=== PATIENT | male | born 1960 | race American Indian/Alaskan Native ===

== ENCOUNTER 2023-12-03 17:50 | Inpatient (IN) | payer MEDICARE, MEDICAID, SELFPAY ==
[2023-12-03] VITALS (13 sets, daily range): BP systolic 124–162; BP diastolic 70–120; PULSE 75–108; RESP 15–26; TEMP 36.8–38.9; O2SAT 90–96; BMI 32.3; BMI 33.1
--- NOTE | 2023-12-03 17:55 | ECG_ITS ---
APPROVED REPORT Exam: Resting ECG HR:110 bpm ECG Measurements Heart Rate 110 AXES QRSd 103 QRS 59 QT 286 T 59 QTc 351 Conclusion ATRIAL Flutter WITH RAPID VENTRICULAR RESPONSE NONSPECIFIC ST & T-WAVE ABNORMALITY ABNORMAL RHYTHM ECG Electronically signed by : COLE WYATT, 12/04/2023 15:33:31
[2023-12-03 18:03] LABS: Lactate Venous 1.9 mmol/L (0.4-2.0); VBG Base Excess -1.8 mmol/L (-2.4-2.3); VBG HCO3 24.5 mmol/L (23-30); VBG Oxygen Saturation 82.8 % (50-70); VBG PCO2 50.3 mmol/L (35-51); VBG PH 7.31 mmol/L (7.31-7.41); VBG PO2 48.8 mmol/L (28-40); VBG Total CO2 26.1 mmol/L (23-27)
--- NOTE | 2023-12-03 18:34 | XR_ITS ---
PROCEDURE INFORMATION: Exam: XR Chest Exam date and time: 12/03/2023 6:35 PM Age: 63 years old Clinical indication: Cough and shortness of breath; Patient HX: Cough, dyspnea, weakness TECHNIQUE: Imaging protocol: Radiologic exam of the chest. Views: 1 view. COMPARISON: No relevant prior studies available. FINDINGS: Lungs: Hazy fepjk-rgcgrsa-qvki-left megha-/infrahilar opacities. Pleural spaces: No pleural effusion. No pneumothorax. Heart/Mediastinum: Cardiomegaly. Bones/joints: Unremarkable. IMPRESSION: 1. Hazy yuraf-ixznczd-mokl-left megha-/infrahilar opacities which may represent pulmonary edema or infection in the acute setting. 2. Cardiomegaly.
[2023-12-03 18:43] LABS: Basophils % 0.5 % (0.1-2.0); Eosinophils % 0.3 % (0.1-12.0); Hematocrit 37.8 % (42.0-52.0); Hemoglobin 13.9 g/dL (14.1-18.0); Lymphocytes # 0.6 K/mm3 (0.7-4.5); Lymphocytes % 7.4 % (10-50); Mean Corpuscular HGB Conc 36.7 g/dL (31.8-35.4); Mean Corpuscular Hemoglobin 32.9 pg (27.0-31.2); Mean Corpuscular Volume 89.6 fl (80-94); Mean Platelet Volume 8.8 fl (7.4-10.4); Monocytes # 0.6 K/mm3 (0.1-1.0); Monocytes % 6.9 % (1.7-9.3); Neutrophils # 7.1 K/mm3 (1.8-7.8); Neutrophils % 84.9 % (37.0-80.0); Platelet Count 129 K/mm3 (142-424); Red Blood Count 4.22 M/mm3 (4.60-6.20); Red Cell Distribution Width 16.2 % (11.5-17.5); White Blood Count 8.3 K/mm3 (4.8-10.8)
[2023-12-03 18:48] LABS: Alanine Aminotransferase 23 U/L (12-78); Albumin Level 3.9 g/dl (3.5-5.0); Albumin/Globulin Ratio 1.3 (1.1-1.8); Alkaline Phosphatase 56 U/L (38-126); Anion Gap 10.2 mEq/L (5-15); Aspartate Amino Transferase 22 U/L (17-59); Bilirubin,Total 2.2 mg/dl (0.2-1.3); Blood Urea Nitrogen 25 mg/dl (9-20); Calcium 8.8 mg/dl (8.4-10.2); Carbon Dioxide 29 mmol/L (22.0-30.0); Chloride 102 mmol/L (98-107); Creatinine Clearance Estimated 116 mL/min (50-200); Estimated Glomerular Filt Rate 75 ml/min (>60); GFR (African American) 91 ML/MIN (>60); Globulin 3.1 g/dL (1.3-3.2); Glucose 145 mg/dl (74-100); Potassium 3.2 mmoL/L (3.5-5.1); Sodium 138 mmol/L (136-145)
--- NOTE | 2023-12-03 18:50 | PC.NURSE ---
BLOOD CULTURES AND NASAL SWAB COLLECTED PT AXILLARY TEMP 102.1, DR KO NOTIFIED TRIGGERS FOR SEPSIS, REQUESTED SEPSIS BOLUS BY DR. KO. WILL ORDER 500ML BOLUS FOR NOW
--- NOTE | 2023-12-03 18:50 | HMH.EDGENADL ---
Discharge Plan Disposition Chief Complaint: Shortness of Breath/Dyspnea Prescriptions Prescriptions: No Action tamsulosin 0.4 mg Capsule 0.8 mg PO DAILY aspirin 81 mg Tablet,Chewable 81 mg PO DAILY gabapentin 100 mg Capsule 100 mg PO TID atorvastatin 20 mg Tablet 20 mg PO HS montelukast 10 mg Tablet 10 mg PO HS metformin 500 mg Tablet 1,000 mg PO DAILY fluticasone propion-salmeterol 250-50 mcg/dose Blister With Device 1 inh INHALATION BID carvedilol 25 mg Tablet 25 mg PO BID Rx Instructions: must administer with a meal/food hydralazine 25 mg Tablet 25 mg PO DAILY spironolactone 25 mg Tablet 25 mg PO DAILY amlodipine 10 mg Tablet 10 mg PO DAILY bumetanide 1 mg Tablet 1 mg PO DAILY Eliquis 5 mg Tablet 5 mg PO BID Jardiance 25 mg Tablet 25 mg PO DAILY Referrals Follow up/Referrals: Provider,Referral, MD [Primary Care Provider] - See instructions Clinical Impressions Clinical Impression: Acute hypoxic respiratory failure, Acute exacerbation of chronic obstructive airways disease, Multifocal pneumonia, Sepsis Discharge ED Provider: Wai Luu General Adult HPI General Chief complaint: Shortness of Breath/Dyspnea Stated complaint: SOA Time Seen by Provider: 12/03/23 18:15 Mode of Arrival: EMS Source of Information: Patient and EMS Limitations: No Limitations Description of Symptoms (Recalled from ER Triage Doc. by RN): pt presents to ED with co productive cough with blood, shortness of air, lethargy. pt reports he was mowing the yard yesterday and got overheated. pt reports approx 0130 this morning he began to have worsening shortness of air and productive cough. pt has extensive health history and gets alot of his care done at History of Present Illness HPI narrative: Patient is a 63-year-old male with a history of hypertension diabetes and COPD who presents today with increasing cough that is been productive and shortness of breath. Denies any significant increase in his wheezing. No history of smoking. Does not have a history of coronary artery disease or heart failure however he does have a history of atrial fibrillation and is chronically anticoagulated on Eliquis. Denies any fevers or chills. Symptoms have only been going on since earlier this morning. Does have some chronic mild bilateral lower extremity edema which is at its baseline. Related Data Home Medications Medication Instructions Recorded Confirmed amlodipine 10 mg tablet 10 mg PO DAILY 12/03/23 12/03/23 apixaban 5 mg tablet (Eliquis) 5 mg PO BID 12/03/23 12/03/23 aspirin 81 mg chewable tablet 81 mg PO DAILY 12/03/23 12/03/23 atorvastatin 20 mg tablet 20 mg PO HS 12/03/23 12/03/23 bumetanide 1 mg tablet 1 mg PO DAILY 12/03/23 12/03/23 carvedilol 25 mg tablet 25 mg PO BID 12/03/23 12/03/23 empagliflozin 25 mg tablet 25 mg PO DAILY 12/03/23 12/03/23 (Jardiance) fluticasone 250 mcg-salmeterol 50 1 inh inhalation BID 12/03/23 12/03/23 mcg/dose blistr powdr for inhalation gabapentin 100 mg capsule 100 mg PO TID 12/03/23 12/03/23 hydralazine 25 mg tablet 25 mg PO DAILY 12/03/23 12/03/23 metformin 500 mg tablet 1,000 mg PO DAILY 12/03/23 12/03/23 montelukast 10 mg tablet 10 mg PO HS 12/03/23 12/03/23 spironolactone 25 mg tablet 25 mg PO DAILY 12/03/23 12/03/23 tamsulosin 0.4 mg capsule 0.8 mg PO DAILY 12/03/23 12/03/23 Allergies Allergy/AdvReac Type Severity Reaction Status Date / Time No Known Allergies Allergy Verified 12/03/23 18:15 [facility] Disclaimer: The information contained in this section may have been updated after the patient was seen, as this information can be updated by other users. Social History Smoking Status: Former smoker alcohol intake: never current occupational status: other Travel in the last 8 weeks: None ROS Obtained: Yes All systems reviewed & no additional complaints except as documented Physical Exam General General appearance: alert and in distress (Tachypneic oxygen saturations low 80s on room air in the mid 90s on 4 L nasal cannula) Respiratory Respiratory exam: Present other (Expiratory wheezing nonfocal adventitious lung sounds mildly tachypneic) Cardiovascular Cardiovascular exam: Present regular rate and normal rhythm Neurological Exam Neurological exam: Present alert and oriented X3 Medical Decision Making [place] Inquiry Pt receiving controlled substance: No Vital Signs: 12/03/23 17:51 12/03/23 18:30 12/03/23 18:50 Temperature 98.4 F 102.1 F H Temperature Source Oral Axillary Pulse Rate 108 H Pulse Rate [Left Radial] 103 H Respiratory Rate 15 23 Blood Pressure 158/82 H Blood Pressure [Right Arm] 139/120 H Blood Pressure Mean [Right Arm] 126 02 Sat by Pulse Oximetry 92 L 94 L Oxygen Delivery Method Nasal Cannula Nasal Cannula Oxygen Flow Rate (LPM) 4 4 Lab Data Lab results reviewed: Yes I reviewed the patient's lab results. Lab Results 12/03/23 17:45: WBC 8.3, RBC 4.22 L, Hgb 13.9 L, Hct 37.8 L, MCV 89.6, MCH 32.9 H, MCHC 36.7 H, RDW 16.2, Plt Count 129 L, MPV 8.8, Neut % (Auto) 84.9 H, Lymph % (Auto) 7.4 L, [place] % (Auto) 6.9, Eos % (Auto) 0.3, Baso % (Auto) 0.5, Neut # (Auto) 7.1, Lymph # (Auto) 0.6 L, [place] # (Auto) 0.6, Eos # (Auto) 0.0, Baso # (Auto) 0.0, D-Dimer 0.34, Sodium 138, Potassium 3.2 L, Chloride 102, Carbon Dioxide 29, Anion Gap 10.2, BUN 25 H, Creatinine 1.00, Estimated Creat Clear 116, Estimated GFR 75, Est GFR ( Amer) 91, Glucose 145 H, Calcium 8.8, Total Bilirubin 2.2 H, AST 22, ALT 23, Alkaline Phosphatase 56, Troponin I < 0.01, NT-Pro-B Natriuret Pep 5270 H, Total Protein 7.0, Albumin 3.9, Globulin 3.1, Albumin/Globulin Ratio 1.3 12/03/23 17:54: VBG pH 7.31, VBG pCO2 50.3, VBG pO2 48.8 H, VBG HCO3 24.5, VBG Total CO2 26.1, VBG O2 Saturation 82.8 H, VBG Base Excess -1.8, VBG Lactic Acid 1.9 12/03/23 18:53: SARS-CoV-2 (PCR) Not detected, Influenza A Untype (PCR) Not detected, Influenza Type B (PCR) Not detected 12/03/23 17:45 12/03/23 17:45 Orders (Tests/Meds): ED MEDICATIONS Discontinued Medications Generic Name Dose Route Start Last Admin Trade Name Rose PRN Reason Stop Dose Admin Acetaminophen 1,000 mg 12/03/23 18:57 Acetaminophen 1,000mg/100ml Vial IV 12/03/23 18:58 ONCE ONE Albuterol/Ipratropium 3 ml 12/03/23 18:34 12/03/23 18:56 Ipratropium/Albuterol 3 Ml Neb IH 12/03/23 18:35 3 ml ONCE ONE Administration Lactated Ringer's 500 mls @ 999 mls/hr 12/03/23 18:45 12/03/23 18:50 Lactated Ringer's 1000 Ml Bag IV 12/03/23 19:15 Not Given .Q31M YUE Magnesium Sulfate 2 gm in 50 mls @ 50 mls/hr 12/03/23 18:34 12/03/23 18:56 Magnesium Sulfate 2gm/50ml Premix IV 12/03/23 19:33 50 mls/hr ONCE ONE Administration Lactated Ringer's 500 mls @ 999 mls/hr 12/03/23 18:50 12/03/23 18:56 Lactated Ringer's 500ml IV 12/03/23 19:20 999 mls/hr .Q31M ONE Administration Ceftriaxone Sodium 1 gm/ 50 mls @ 100 mls/hr 12/03/23 18:57 Sodium Chloride IV 12/03/23 19:26 ONCE ONE Azithromycin 500 mg/ Sodium 250 mls @ 250 mls/hr 12/03/23 18:57 Chloride IV 12/03/23 18:58 ONCE ONE Methylprednisolone Sodium Succinate 125 mg 12/03/23 18:34 12/03/23 18:56 Methylprednisolone Sod Succ 125mg Vial IV 12/03/23 18:35 125 mg ONCE ONE Administration ORDERS Category Date Time Status CXR --portable [XR chest portable] Stat Exams 12/03/23 18:34 Completed POCUS Point of Care (ER Only) Stat Exams 12/03/23 18:26 Completed BNP [NT Pro Brain Natriuretic Pep.] Stat Lab 12/03/23 17:45 Completed CBC w/Auto Diff [Complete Blood Count Auto Diff] Stat Lab 12/03/23 17:45 Completed CMP [Comprehensive Metabolic Panel] Stat Lab 12/03/23 17:45 Completed D-Dimer Stat Lab 12/03/23 17:45 Completed Rapid PCR Covid and Flu A/B Stat Lab 12/03/23 18:53 Completed Trop I [Troponin I] Stat Lab 12/03/23 17:45 Completed Troponin I Q3H Lab 12/03/23 21:45 Ordered Troponin I Q3H Lab 12/04/23 00:45 Ordered Blood Culture Stat Micro 12/03/23 18:50 Received VBG [Venous Blood Gas] Stat RT 12/03/23 17:54 Completed Tissue Perfus/Sepsis Re-Eval Sepsis Re-Evaluation Performed: Yes Date Performed: 12/03/23 Time Performed: 19:34 Medical Decision Narrative: Patient presents today with hypoxic respiratory failure differential includes heart failure pulmonary embolism pneumonia COPD exacerbation etc. Given the fact that he had increasing cough and sputum production favored COPD exacerbation versus pneumonia. 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 He does have bilateral lower extremity edema. He likely has some component of diastolic dysfunction. Chest x-ray was performed to person interpreted which shows multifocal airspace disease consistent with pneumonia will start broad-spectrum antibiotics. He is also febrile. Reassessment 7:34 PM chest x-ray performed to person interpreted shows multifocal airspace pathology most likely pneumonia in the setting of fever but could represent pulmonary edema. Patient does have an elevated BNP and also had lower extremity edema and IVC plethora likely is a component of CHF that which will need to be followed further. Therefore I will not be very aggressive with IV fluid resuscitation as he may have pulmonary edema component to this. 500 cc of fluid has been administered maps have been above 65 peripheral perfusion is good but will not give a 30 cc/kg bolus. Rocephin azithromycin have been administered for community-acquired coverage. I spoke with Loy with hospital medicine who agreed to admit this patient for further evaluation and management. Procedures Miscellaneous Procedure Procedure Performed: Limited cardiac ultrasound Indication: Dyspnea Identified structures: The heart was visualized in the parasternal long axis, parastenal short axis, apical four chamber and subxyphiod views. The IVC was visualized in the short axis and long axis at its entry into the right atrium. Findings: Normal LVEF no severe right heart strain no pericardial effusion IVC is plethoric with no significant response respirophasic variation bilateral atria appear dilated as well Impression: Normal LVEF with no evidence of moderate or severely depressed ejection fraction plethoric IVC with dilated atria consistent with elevated right atrial pressures Images were to permanent archive The study was technically adequate CPT: 41126-32 This study was performed by [facility], and I personally interpreted all images/videos. Based on my clinical judgement, these images were adequate and did not necessitate further imaging. Limited lung ultrasound A focused ultrasound exam of the pleural spaces was performed to evaluate for pneumothorax, pulmonary edema, pleural effusion and/or consolidation. The ultrasound was performed with the following indications, as noted in the H&P: Dyspnea Identified structures: Right and left thoracic cavities were examined. Findings: Bilateral lung sliding present no significant B-lines found throughout no obvious pleural effusions or consolidations noted Impression: Normal bilateral emergency lung ultrasound Images were saved to permanent archive The study was technically adequate CPT 29121-48 This study was performed by [facility], and I personally interpreted all images/videos. Based on my clinical judgement, these images were adequate and did not necessitate further imaging. Critical Care Critical Care Time Critical Care Time: Yes Attestation: On 12/03/23, the high probability of a clinically significant, sudden or life threatening deterioration of the following system(s) required my full and direct attention, intervention and personal management. The time I documented below is in addition to time spent performing reported procedures but includes the following listed in this critical care notation. Total Time Total Critical Care Time: 35
[2023-12-03 18:53] LABS: D-Dimer 0.34 ug/mL (0.0-0.5)
[2023-12-03] MEDS: METHYLPREDNISOLONE SOD SUCC 125MG VIAL 125 MG IV (18:56)
[2023-12-03] MEDS: IPRATROPIUM/ALBUTEROL 3 ML NEB IH ×2 (18:56→23:24)
[2023-12-03] MEDS: RINGERS SOLUTION,LACTATED 500 ML 999 ML IV (18:56)
[2023-12-03] MEDS: MAGNESIUM SULFATE IN WATER 2 GM/50 ML PIGGYBACK IV (18:56)
[2023-12-03 18:58] LABS: Coronavirus 19, PCR Not Detected (NotDetected); Influenza A, PCR Not Detected (NotDetected); Influenza B, PCR Not Detected (NotDetected)
[2023-12-03 19:01] LABS: NT Pro Brain Natriuretic Pep. 5270 pg/mL (0-125)
[2023-12-03 19:15] LABS: Troponin I < 0.01 ng/ml (0.00-0.034)
--- NOTE | 2023-12-03 19:35 | PC.NURSE ---
house calls nurse practitioner notified of need for room
[2023-12-03] MEDS: ACETAMINOPHEN 1,000MG/100ML VIAL 1000 MG IV (19:38)
[2023-12-03] MEDS: CEFTRIAXONE SODIUM 1 GM in 0.9 % SODIUM CHLORIDE 50 ML IV (19:38)
[2023-12-03] MEDS: AZITHROMYCIN 500 MG in 0.9 % SODIUM CHLORIDE 250 ML 250 MG IV (19:38)
--- NOTE | 2023-12-03 19:58 | PC.NURSE ---
Admission packet received at 1957
--- NOTE | 2023-12-03 20:02 | PC.NURSE ---
Report given to HARSH Rodriguez
--- NOTE | 2023-12-03 20:43 | PC.NURSE ---
storage facility housekeeper notified of delay for med surg staff to transfer patient
--- NOTE | 2023-12-03 20:45 | EXP.HP ---
History of Present Illness *Admission Date: 12/03/23 *Reason for visit:: Acute hypoxic respiratory failure *History of present illness: Sharif Hare is a 63-year-old male past medical history significant for A-fib on Eliquis, COPD, HTN, HLD, type 2 diabetes, BPH who presents emergency room tonight with complaints of shortness of breath and productive cough. Mr. Hare States he began having chills last night at approximately 1:00. Reports he has a productive cough, sometimes pink-tinged sputum, sometimes esparza/brown-colored sputum. Does not wear oxygen at home at baseline. Denies any known sick contacts. Denies any chest pain, abdominal pain, bowel or bladder dysfunction. No recent weight gain or weight loss, no increase in the swelling in his lower extremities. No focal neurodeficits noted. Does take Eliquis for his A-fib. Does not know when the last time he had an echo done, denies any history of CHF. Uses smokeless tobacco, denies any alcohol or illicit drug use. Workup in the ER showed potassium of 3.2, BNP elevated at 5270. VBG showed a pH of 7.3, pCO2 of 50, pO2 of 48 with a bicarb of 24. Patient was noted to be hypoxic in the ER with SpO2 sats in the mid 80s. He was placed on 4 L nasal cannula with improvement of his O2 sats into the mid 90s. Chest x-ray showed multifocal pneumonia and patient was febrile with Tmax of 102.1. Patient does meet simple sepsis criteria without septic shock. He was given azithromycin Rocephin in the ER as well as a DuoNeb treatment. He was not given the 30 cc/kg IV fluid bolus as ER doctor performed a bedside ultrasound which showed IVC plethora. He will be admitted to the hospitalist service for sepsis with acute hypoxic respiratory failure secondary to multifocal pneumonia. [facility] Disclaimer: The information contained in this section may have been updated after the patient was seen, as this information can be updated by other users. Social History (Updated 12/03/23 @ 21:34 by Jennifer Singletary RN) Smoking Status: Former smoker alcohol intake: never current occupational status: other Travel in the last 8 weeks: None Review of Systems *Cardiovascular Cardiovascular: Reports dyspnea and Reports leg edema *Respiratory Respiratory: Reports change in phlegm color and Reports dyspnea *Gastrointestinal Gastrointestinal: Reports system reviewed and no additional complaints, except as documented *Genitourinary Genitourinary: Reports system reviewed and no additional complaints, except as documented *Musculoskeletal Musculoskeletal: Reports system reviewed and no additional complaints, except as documented *Neurologic Neurologic: Reports system reviewed and no additional complaints, except as documented Meds Home Medications and Allergies Home Medications Medication Instructions Recorded Confirmed Type amlodipine 10 mg tablet 10 mg PO DAILY 12/03/23 12/03/23 History apixaban 5 mg tablet (Eliquis) 5 mg PO BID 12/03/23 12/03/23 History aspirin 81 mg chewable tablet 81 mg PO DAILY 12/03/23 12/03/23 History atorvastatin 20 mg tablet 20 mg PO HS 12/03/23 12/03/23 History bumetanide 1 mg tablet 1 mg PO DAILY 12/03/23 12/03/23 History carvedilol 25 mg tablet 25 mg PO BID 12/03/23 12/03/23 History empagliflozin 25 mg tablet 25 mg PO DAILY 12/03/23 12/03/23 History (Jardiance) fluticasone 250 mcg-salmeterol 50 1 inh inhalation BID 12/03/23 12/03/23 History mcg/dose blistr powdr for inhalation gabapentin 100 mg capsule 100 mg PO TID 12/03/23 12/03/23 History hydralazine 25 mg tablet 25 mg PO DAILY 12/03/23 12/03/23 History metformin 500 mg tablet 1,000 mg PO DAILY 12/03/23 12/03/23 History montelukast 10 mg tablet 10 mg PO HS 12/03/23 12/03/23 History spironolactone 25 mg tablet 25 mg PO DAILY 12/03/23 12/03/23 History tamsulosin 0.4 mg capsule 0.8 mg PO DAILY 12/03/23 12/03/23 History finasteride 5 mg tablet 5 mg PO DAILY 12/04/23 12/04/23 History sacubitril 97 mg-valsartan 103 mg 2 tab PO BID 12/04/23 12/04/23 History tablet (Entresto) New Prescriptions to Start Prescriptions: Allergies Allergy/AdvReac Type Severity Reaction Status Date / Time No Known Allergies Allergy Verified 12/03/23 18:15 Exam Data for Last 24 hours Vital signs and Labs for Last 24 Hours: Temp Pulse Resp BP Pulse Ox O2 Del Method O2 Flow Rate 102.1 F H 101 H 21 141/70 H 94 L Nasal Cannula 4 12/03/23 18:50 12/03/23 20:01 12/03/23 20:01 12/03/23 20:01 12/03/23 20:01 12/03/23 18:30 12/03/23 18:30 Laboratory Results - last 24 hr 12/03/23 17:45: WBC 8.3, RBC 4.22 L, Hgb 13.9 L, Hct 37.8 L, MCV 89.6, MCH 32.9 H, MCHC 36.7 H, RDW 16.2, Plt Count 129 L, MPV 8.8, Neut % (Auto) 84.9 H, Lymph % (Auto) 7.4 L, [place] % (Auto) 6.9, Eos % (Auto) 0.3, Baso % (Auto) 0.5, Neut # (Auto) 7.1, Lymph # (Auto) 0.6 L, [place] # (Auto) 0.6, Eos # (Auto) 0.0, Baso # (Auto) 0.0, D-Dimer 0.34, Sodium 138, Potassium 3.2 L, Chloride 102, Carbon Dioxide 29, Anion Gap 10.2, BUN 25 H, Creatinine 1.00, Estimated Creat Clear 116, Estimated GFR 75, Est GFR ( Amer) 91, Glucose 145 H, Calcium 8.8, Total Bilirubin 2.2 H, AST 22, ALT 23, Alkaline Phosphatase 56, Troponin I < 0.01, NT-Pro-B Natriuret Pep 5270 H, Total Protein 7.0, Albumin 3.9, Globulin 3.1, Albumin/Globulin Ratio 1.3 12/03/23 17:54: VBG pH 7.31, VBG pCO2 50.3, VBG pO2 48.8 H, VBG HCO3 24.5, VBG Total CO2 26.1, VBG O2 Saturation 82.8 H, VBG Base Excess -1.8, VBG Lactic Acid 1.9 12/03/23 18:53: SARS-CoV-2 (PCR) Not detected, Influenza A Untype (PCR) Not detected, Influenza Type B (PCR) Not detected I & O for Last 24 hours: Intake & Output 11/30/23 12/01/23 12/02/23 12/03/23 23:59 23:59 23:59 23:59 Weight 111.13 kg *Routine HEENT Exam Head: Present normocephalic and atraumatic Eye: Present EOMI and PERRL ENT: Present mucous membranes moist *Routine Neck Exam Neck: Present supple and full ROM *Routine Respiratory Exam Respiratory: Present wheezes *Routine Cardiovascular Exam Cardiovascular: Present irregularly irregular *Routine Abdominal Exam Abdominal: Present soft and normoactive bowel sounds *Routine Rectal Exam Rectal:: deferred *Routine Genitalia Exam Genitalia:: deferred *Routine Extremities Exam Extremities: Present edema and pulses intact Comments: 1+ non pitting edema BLE, at baseline *Routine Skin Exam Skin: Present intact *Routine Neurological Exam Neurological: Present alert and oriented X3 Assessment and Plan *Assessment and plan (1) Sepsis: Status: Acute Category: Medical Code(s): A41.9 - Sepsis, unspecified organism (2) Multifocal pneumonia: Status: Acute Category: Medical Code(s): J18.9 - Pneumonia, unspecified organism (3) Acute exacerbation of chronic obstructive airways disease: Status: Acute Category: Medical Code(s): J44.1 - Chronic obstructive pulmonary disease with (acute) exacerbation (4) Acute hypoxic respiratory failure: Status: Acute Category: Medical Code(s): J96.01 - Acute respiratory failure with hypoxia (5) HTN (hypertension): Status: Acute Category: Medical Code(s): I10 - Essential (primary) hypertension (6) HLD (hyperlipidemia): Status: Acute Category: Medical Code(s): E78.5 - Hyperlipidemia, unspecified (7) Afib: Status: Acute Category: Medical Code(s): I48.91 - Unspecified atrial fibrillation (8) Type 2 diabetes mellitus: Status: Acute Category: Medical Code(s): E11.9 - Type 2 diabetes mellitus without complications (9) BPH (benign prostatic hyperplasia): Status: Acute Category: Medical Code(s): N40.0 - Benign prostatic hyperplasia without lower urinary tract symptoms Plan Assessment: This is a 63-year-old male who is being admitted for sepsis with acute hypoxic respiratory failure secondary to multifocal pneumonia. On my exam, patient is lying in bed in no acute distress. Acutely ill-appearing. On 4 L nasal cannula with SpO2 sats in the mid 90s. Plan: Admit to inpatient-MedSurg Sepsis without septic shock Acute hypoxic respiratory failure Multifocal pneumonia -Continue azithromycin and Rocephin -Patient did not receive the 30 cc/kg IV fluid bolus as patient does not elevated BNP, IVC plethora, and some nonpitting bilateral lower extremity edema. Patient has been normotensive. Maintain MAP greater than 65 -DuoNebs -Mucinex -continue steriods -Maintain SpO2 greater than 92%, supplemental oxygen as needed. Please wean oxygen as tolerated -Aggressive pulmonary toilet HTN -Continue amlodipine, carvedilol, hydralazine HLD -Continue statin A-fib -Continue Eliquis, beta-tameka Type 2 diabetes -SSI for glycemic control -A1c -Carb consistent diet CHF? -Patient denies any history of heart failure -BNP is elevated and does have some nonpitting edema in his lower extremities -Will order TTE as patient does not know when the last time he had an echo done BPH -Continue Flomax DVT prophylaxis: Toni CODE STATUS: Full code Surrogate decision maker: Shawanda [phone] Skin: Low risk Rounded on patient after nurse practitioner. Personally examined and interviewed patient. Agree with exam findings and care plan as documented.
--- NOTE | 2023-12-03 20:48 | PC.NURSE ---
Med/Surg staff here to collect pt.
--- NOTE | 2023-12-03 21:01 | PC.NURSE ---
pt arrived to floor via stretcher @21:01
[2023-12-03 22:27] LABS: Troponin I < 0.01 ng/ml (0.00-0.034)
[2023-12-03] MEDS: APIXABAN 5MG TABLET 5 MG PO (23:09)
[2023-12-03] MEDS: ATORVASTATIN 20MG TABLET 20 MG PO (23:10)
[2023-12-03] MEDS: GABAPENTIN 100MG CAPSULE 100 MG PO (23:10)
[2023-12-03] MEDS: CARVEDILOL 25MG TABLET 25 MG PO (23:10)
[2023-12-04] VITALS (14 sets, daily range): BP systolic 129–147; BP diastolic 63–81; PULSE 66–97; RESP 18–20; TEMP 36.4–36.9; O2SAT 89–96; BMI 33.1
[2023-12-04 00:49] LABS: POC Glucose,Bedside 162 (70-110)
[2023-12-04 01:08] LABS: Troponin I < 0.01 ng/ml (0.00-0.034)
--- NOTE | 2023-12-04 06:25 | PC.NURSE ---
pt on 4l/nc, sats 90-95%, pt denies soa
[2023-12-04 06:28] LABS: POC Glucose,Bedside 143 (70-110)
[2023-12-04] MEDS: IPRATROPIUM/ALBUTEROL 3 ML NEB IH ×4 (06:28→22:59)
--- NOTE | 2023-12-04 07:07 | EXP.SEPSISRE ---
[facility] Tissue Perfusion Eval Sepsis Re-Evaluation Performed: Yes Date Performed: 12/03/23 Time Performed: 23:45
[2023-12-04 07:53] LABS: Anion Gap 11.4 mEq/L (5-15); Blood Urea Nitrogen 28 mg/dl (9-20); Calcium 8.8 mg/dl (8.4-10.2); Carbon Dioxide 27 mmol/L (22.0-30.0); Chloride 105 mmol/L (98-107); Creatinine Clearance Estimated 118 mL/min (50-200); Estimated Glomerular Filt Rate 97 ml/min (>60); GFR (African American) 117 ML/MIN (>60); Glucose 157 mg/dl (74-100); Potassium 3.4 mmoL/L (3.5-5.1); Sodium 140 mmol/L (136-145)
--- NOTE | 2023-12-04 08:00 | EXP.ACUTE.PN ---
Subjective *Date: 12/04/23 *Time: 13:44 Interval history: Patient doing little better this morning with oxygenation. Weaned to 2 L. Still having scant hemoptysis. Denies any major bleeding. Hemoglobin stable on morning labs. No fever overnight. States has been short of breath for couple weeks. Hemoptysis has been present for about a week. No nausea or vomiting. Denies any chest pain. States he has had waxing and waning swelling in his feet. Medical Exam Vital signs and Labs for Last 24 Hours: Vital Signs Temp Pulse Pulse Pulse Resp BP BP 12/04/23 07:58 97.7 F 80 18 143/81 H 12/04/23 07:40 12/04/23 07:00 12/04/23 06:28 80 12/04/23 06:28 66 12/04/23 06:28 12/04/23 05:00 12/04/23 04:00 70 12/04/23 04:00 97.9 F 74 18 140/73 12/04/23 03:00 12/04/23 01:00 12/04/23 00:00 80 12/03/23 23:41 98.4 F 75 16 140/89 12/03/23 23:29 86 12/03/23 23:25 89 12/03/23 23:25 93 H 12/03/23 23:25 12/03/23 23:05 99.5 F 91 H 16 143/81 H 12/03/23 23:00 12/03/23 21:30 12/03/23 21:04 90 12/03/23 21:00 12/03/23 21:00 98.2 F 90 24 124/77 12/03/23 20:55 101.2 F H 87 16 124/77 12/03/23 20:01 101 H 21 141/70 H 12/03/23 19:31 91 H 21 152/78 H 12/03/23 19:00 101 H 26 H 162/95 H 12/03/23 18:50 102.1 F H 12/03/23 18:30 108 H 23 158/82 H 12/03/23 17:51 98.4 F 103 H 15 139/120 H Pulse Ox O2 Del Method O2 Flow Rate 12/04/23 07:58 96 Nasal Cannula 4 12/04/23 07:40 Nasal Cannula 4 12/04/23 07:00 Nasal Cannula 4 12/04/23 06:28 12/04/23 06:28 12/04/23 06:28 93 L Nasal Cannula 4 12/04/23 05:00 Nasal Cannula 4 12/04/23 04:00 12/04/23 04:00 95 Nasal Cannula 4 12/04/23 03:00 Nasal Cannula 4 12/04/23 01:00 Non-Rebreather 4 12/04/23 00:00 12/03/23 23:41 94 L Nasal Cannula 4 12/03/23 23:29 Nasal Cannula 4 12/03/23 23:25 12/03/23 23:25 12/03/23 23:25 92 L Nasal Cannula 4 12/03/23 23:05 95 Nasal Cannula 4 12/03/23 23:00 Nasal Cannula 4 12/03/23 21:30 Nasal Cannula 4 12/03/23 21:04 12/03/23 21:00 Nasal Cannula 4 12/03/23 21:00 90 L Nasal Cannula 4 12/03/23 20:55 Nasal Cannula 12/03/23 20:01 94 L 12/03/23 19:31 92 L 12/03/23 19:00 91 L 12/03/23 18:50 12/03/23 18:30 94 L Nasal Cannula 4 12/03/23 17:51 92 L Nasal Cannula 4 Intake and Output 12/03/23 12/04/23 12/04/23 23:59 07:59 15:59 Intake Total 220 / 220 Output Total 300 / 300 400 / 400 Balance -300 / -80 -180 / -180 Intake: Intake, Oral Amount 220 / 220 Output: Output, Urine Amount 300 / 300 400 / 400 Other: Number of Unmeasured Voids 0 Weight 113.443 kg 113.443 kg Patient Weight 12/04/23 23:59 Weight 113.443 kg Laboratory Results - last 24 hr 12/03/23 17:45: WBC 8.3, RBC 4.22 L, Hgb 13.9 L, Hct 37.8 L, MCV 89.6, MCH 32.9 H, MCHC 36.7 H, RDW 16.2, Plt Count 129 L, MPV 8.8, Neut % (Auto) 84.9 H, Lymph % (Auto) 7.4 L, [place] % (Auto) 6.9, Eos % (Auto) 0.3, Baso % (Auto) 0.5, Neut # (Auto) 7.1, Lymph # (Auto) 0.6 L, [place] # (Auto) 0.6, Eos # (Auto) 0.0, Baso # (Auto) 0.0, D-Dimer 0.34, Sodium 138, Potassium 3.2 L, Chloride 102, Carbon Dioxide 29, Anion Gap 10.2, BUN 25 H, Creatinine 1.00, Estimated Creat Clear 116, Estimated GFR 75, Est GFR ( Amer) 91, Glucose 145 H, Calcium 8.8, Total Bilirubin 2.2 H, AST 22, ALT 23, Alkaline Phosphatase 56, Troponin I < 0.01, NT-Pro-B Natriuret Pep 5270 H, Total Protein 7.0, Albumin 3.9, Globulin 3.1, Albumin/Globulin Ratio 1.3 12/03/23 17:54: VBG pH 7.31, VBG pCO2 50.3, VBG pO2 48.8 H, VBG HCO3 24.5, VBG Total CO2 26.1, VBG O2 Saturation 82.8 H, VBG Base Excess -1.8, VBG Lactic Acid 1.9 12/03/23 18:53: SARS-CoV-2 (PCR) Not detected, Influenza A Untype (PCR) Not detected, Influenza Type B (PCR) Not detected 12/03/23 21:49: Troponin I < 0.01 12/04/23 00:40: Troponin I < 0.01 12/04/23 00:41: POC Glucose 162 H 12/04/23 06:20: POC Glucose 143 H 12/04/23 07:00: Sodium 140, Potassium 3.4 L, Chloride 105, Carbon Dioxide 27, Anion Gap 11.4, BUN 28 H, Creatinine 0.80, Estimated Creat Clear 118, Estimated GFR 97, Est GFR ( Amer) 117 D, Glucose 157 H, Calcium 8.8 I & O for Labs for Last 24 Hours: Intake & Output 12/01/23 12/02/23 12/03/23 12/04/23 23:59 23:59 23:59 23:59 Intake Total 220 / 220 Output Total 300 / 300 400 / 400 Balance -300 / -80 -180 / -180 Weight 113.443 kg 113.443 kg Constitutional: Present no acute distress and obese Head: Present atraumatic and normocephalic ENT: Present normal exam Respiratory: Present prolonged expiratory phase, crackles and normal respiratory effort; Absent rhonchi or wheezes Cardiac: Present Reg Rate and Rhythm GI: Present normal bowel sounds; Absent tenderness Extremities: Present normal inspection and full ROM Skin: Present intact; Absent erythema Neuro: Present Grossly Intact, alert, awake, oriented x 3 and moves all extremities Assessment and Plan *Assessment and plan (1) Sepsis: Status: Acute Category: Medical Code(s): A41.9 - Sepsis, unspecified organism (2) CHF exacerbation: Status: Acute Category: Medical Code(s): I50.9 - Heart failure, unspecified (3) Multifocal pneumonia: Status: Acute Category: Medical Code(s): J18.9 - Pneumonia, unspecified organism (4) Hemoptysis: Status: Acute Category: Medical Code(s): R04.2 - Hemoptysis (5) Acute exacerbation of chronic obstructive airways disease: Status: Acute Category: Medical Code(s): J44.1 - Chronic obstructive pulmonary disease with (acute) exacerbation (6) Acute hypoxic respiratory failure: Status: Acute Category: Medical Code(s): J96.01 - Acute respiratory failure with hypoxia (7) HTN (hypertension): Status: Acute Category: Medical Code(s): I10 - Essential (primary) hypertension (8) HLD (hyperlipidemia): Status: Acute Category: Medical Code(s): E78.5 - Hyperlipidemia, unspecified (9) Afib: Status: Acute Category: Medical Code(s): I48.91 - Unspecified atrial fibrillation (10) Type 2 diabetes mellitus: Status: Acute Category: Medical Code(s): E11.9 - Type 2 diabetes mellitus without complications (11) BPH (benign prostatic hyperplasia): Status: Acute Category: Medical Code(s): N40.0 - Benign prostatic hyperplasia without lower urinary tract symptoms Plan Assessment: This is a 63-year-old male who is being admitted for sepsis with acute hypoxic respiratory failure secondary to multifocal pneumonia, hemoptysis, concern for CHF component. Admitted for further management. Initially on 4 L nasal cannula oxygen, weaned to 2 L today. Room air saturation of 86%. In light of his continued respiratory failure and hemoptysis, will obtain CT chest today. Continuing antibiotics. Necessitates inpatient management. Problems addressed as follows: Sepsis without septic shock Acute hypoxic respiratory failure Multifocal pneumonia Hemoptysis -Sputum culture obtained, noted to have blood-tinged sputum. Culture and Gram stain pending. Continue azithromycin 500 mg daily and Rocephin 1 g daily for pneumonia component. -White cell count stable at 8.3 today. Wean oxygen as tolerated. Currently on 2 L nasal cannula for goal sats greater than 90% - Continue DuoNebs every 6 hours -Mucinex -continue prednisone 40 mg daily for COPD exacerbation component -Aggressive pulmonary toilet -Hemoglobin within normal range at 14, platelets 139. -CTA of chest obtained to evaluate for PE versus pulmonary hemorrhage versus pneumonia. Per my review shows multifocal opacifications concerning for pneumonia versus hemorrhage. In light of patient's Eliquis, will hold anticoagulation at this time. Monitoring for improvement. If hemoptysis worsens, may necessitate transfer to higher level of care for bronchoscopy and further management. -Repeat CBC, CMP, magnesium and LDH ordered for the morning HLD: Continue statin A-fib: Continue rate control medication with beta-tameka (carvedilol). Holding Eliquis and aspirin in the setting of hemoptysis above Type 2 diabetes -SSI for glycemic control -A1c pending -Carb consistent diet CHF exacerbation HTN: - Hold on Jardiance at this time. Continue Entresto twice daily. Continue amlodipine 10 mg daily. Continue spironolactone 25 , carvedilol 25 mg twice daily, hydralazine 25 mg daily -Unknown previous history however patient has A-fib. States he has been having worsening shortness of breath. Has swelling in his legs. BNP elevated at 5000. On Bumex at home once daily. Will initiate Bumex 1 mg IV twice daily. Goal negative volume 1 to 2 L a day -Consider TTE on Wednesday and cardiology consult pending patient's clinical course -Strict ins and outs BPH: Continue finasteride 5 mg daily and tamsulosin 0.8 mg daily DVT prophylaxis: Indicated in setting of hemoptysis CODE STATUS: Full code Surrogate decision maker: Shawanda [phone] Skin: Low risk
[2023-12-04] MEDS: CARVEDILOL 25MG TABLET 25 MG PO ×2 (08:51→20:52)
[2023-12-04] MEDS: GABAPENTIN 100MG CAPSULE 100 MG PO ×3 (08:51→20:52)
[2023-12-04] MEDS: APIXABAN 5MG TABLET 5 MG PO (08:51)
[2023-12-04] MEDS: ASPIRIN 81MG CHEWABLE TABLET 81 MG PO (08:51)
[2023-12-04] MEDS: HYDRALAZINE HCL 25MG TABLET 25 MG PO (08:52)
[2023-12-04] MEDS: TAMSULOSIN 0.4MG CAPSULE 0.8 MG PO (08:52)
[2023-12-04] MEDS: AMLODIPINE 10MG TABLET 10 MG PO (08:52)
[2023-12-04] MEDS: SPIRONOLACTONE 25MG TABLET 25 MG PO (08:52)
[2023-12-04] MEDS: BUMETANIDE 1MG/4ML VIAL 1 MG IV ×2 (08:53→16:42)
[2023-12-04] MEDS: predniSONE 20MG TAB 40 MG PO (08:53)
[2023-12-04] MEDS: GUAIFENESIN/PSEUDOEPHE 600/60MG TAB.ER.12H 1 EACH PO ×2 (08:59→21:57)
--- NOTE | 2023-12-04 10:45 | PC.NURSE ---
Addendum entered by Starr Patrick RN 12/04/23 11:07: Pt O2 dropped to 86%, 2L NC was applied. Original Note: RA sat 92% and above, turned O2 off and will continue to monitor.
--- NOTE | 2023-12-04 10:47 | CT_ITS ---
PROCEDURE INFORMATION: Exam: CTA Chest With Contrast Exam date and time: 12/04/2023 11:35 AM Age: 63 years old Clinical indication: Other: Hemoptysis TECHNIQUE: Imaging protocol: Computed tomographic angiography of the chest with contrast. Exam focused on the arteries. 3D rendering (Not supervised by radiologist): MIP and/or 3D reconstructed images were created by the technologist. Radiation optimization: All CT scans at this facility use at least one of these dose optimization techniques: automated exposure control; mA and/or kV adjustment per patient size (includes targeted exams where dose is matched to clinical indication); or iterative reconstruction. Contrast material: ISOVUE 370; Contrast volume: 75 ml; Contrast route: INTRAVENOUS (IV); COMPARISON: CR XR CHEST PORTABLE 12/03/2023 6:35 PM FINDINGS: Pulmonary arteries: Negative for acute pulmonary embolism. Aorta: Unremarkable. No aortic aneurysm. No aortic dissection. Lungs: Mixed ground-glass and airspace densities bilaterally. Relative sparing of the left apex. Nonspecific finding, may be edema, hemorrhage, or pneumonia. Pleural spaces: Unremarkable. No pneumothorax. No pleural effusion. Heart: Cardiomegaly. Lymph nodes: Unremarkable. No enlarged lymph nodes. Bones/joints: Unremarkable. No acute fracture. Soft tissues: Unremarkable. IMPRESSION: 1. Negative for acute pulmonary embolism. 2. Mixed ground-glass and airspace densities bilaterally. Nonspecific finding, may be edema, hemorrhage, or pneumonia. Clinical correlation necessary.
[2023-12-04] MEDS: humaLOG 100 UNITS/ML 10ML VIAL (SSI) SQ ×3 (11:21→21:56)
[2023-12-04 11:23] LABS: POC Glucose,Bedside 170 (70-110)
[2023-12-04] MEDS: SODIUM CHLORIDE 0.9% 10ML SYR (RAD ONLY) 10 ML IV (11:52)
[2023-12-04] MEDS: 0.9 % SODIUM CHLORIDE 50 ML VIAL IV (11:52)
[2023-12-04] MEDS: IOPAMIDOL-370 (76%);100ML BOTTLE 75 ML IV (11:52)
[2023-12-04 14:29] LABS: Hemoglobin A1C 5.6 % (4.0-6.0)
[2023-12-04 16:34] LABS: POC Glucose,Bedside 179 (70-110)
[2023-12-04] MEDS: AZITHROMYCIN 250 MG in 0.9 % SODIUM CHLORIDE 250 ML IV (16:42)
--- NOTE | 2023-12-04 17:17 | PC.NURSE ---
Addendum entered by Starr Patrick RN 12/04/23 17:33: Eliquis on hold due to Hemoptysis. Original Note: Pt A&Ox4, Pt weaned to 2L NC today and tolerating it well. Pt denies any SOA. Crackles noted on lung auscultation. pt coughing up blood-tinged sputum, a sample was sent to lab. 1+ edema noted to bilateral lower extremities. Pt ambulating to and from bathroom independently. Pt stated he is feeling much better today. Pt resting comfortably in bed with no complaints at this time.
[2023-12-04] MEDS: ATORVASTATIN 20MG TABLET 20 MG PO (20:51)
[2023-12-04] MEDS: CEFTRIAXONE SODIUM 2 GM in 0.9 % SODIUM CHLORIDE 100 ML IV (20:52)
[2023-12-04] MEDS: SACUBITRIL/VALSARTAN 24-26MG TABLET 1 EACH PO (20:54)
[2023-12-04] MEDS: MONTELUKAST SODIUM 10MG TAB 10 MG PO (20:54)
[2023-12-04 21:40] LABS: POC Glucose,Bedside 217 (70-110)
[2023-12-05] VITALS (12 sets, daily range): BP systolic 135–155; BP diastolic 76–96; PULSE 72–90; RESP 16–18; TEMP 36.4–37.1; O2SAT 90–97; BMI 35.3
--- NOTE | 2023-12-05 05:48 | PC.NURSE ---
Addendum entered by Veronika Brink RN 12/05/23 06:02: Patient's FSBS at 21:00 was 217; patient received 5 units of Lispro insulin. At 06:00, FSBS was 131. Original Note: Patient is alert and oriented x4. Patient has been very pleasant and talkative this shift. I gave him chips and a jessenia safia for a bedtime snack. Patient has rested well throughout the night. Upon auscultation, patient had some crackling in his lungs, and brown sputum was noticed in specimen cup at bedside. Patient states he continues to cough up blood-tinged sputum. Patient has been on 2 L NC through the night and has tolerated it well with O2 sats remaining in the upper 90s. Patient's bowel sounds were active in all quadrants; he has gotten up to the bathroom to have a bowel movement this shift. Patient has used urinals to void and kept his urine contained at bedside this shift due to request. Patient has been running afib on telemetry. Patient does not have any further complaints at this time. He has not complained of any pain or shortness of breath this shift. He has received his scheduled meds per JUL. Patient is currently resting supine in bed. Home meds locked in drawer. Call light is within reach.
[2023-12-05 06:08] LABS: POC Glucose,Bedside 131 (70-110)
[2023-12-05] MEDS: IPRATROPIUM/ALBUTEROL 3 ML NEB IH ×4 (06:13→23:43)
--- NOTE | 2023-12-05 06:23 | PC.NURSE ---
Patient's oxygen turned down to 1 L NC via Respiratory.
[2023-12-05] MEDS: AMLODIPINE 10MG TABLET 10 MG PO (08:04)
[2023-12-05] MEDS: GABAPENTIN 100MG CAPSULE 100 MG PO ×3 (08:04→20:15)
[2023-12-05] MEDS: CARVEDILOL 25MG TABLET 25 MG PO ×2 (08:05→20:15)
[2023-12-05] MEDS: predniSONE 20MG TAB 40 MG PO (08:05)
[2023-12-05] MEDS: HYDRALAZINE HCL 25MG TABLET 25 MG PO (08:05)
[2023-12-05] MEDS: SPIRONOLACTONE 25MG TABLET 25 MG PO (08:05)
[2023-12-05] MEDS: TAMSULOSIN 0.4MG CAPSULE 0.8 MG PO (08:06)
[2023-12-05] MEDS: BUMETANIDE 1MG/4ML VIAL 1 MG IV ×2 (08:06→16:43)
[2023-12-05] MEDS: GUAIFENESIN/PSEUDOEPHE 600/60MG TAB.ER.12H 1 EACH PO ×2 (08:06→20:16)
[2023-12-05] MEDS: FINASTERIDE 5MG TABLET 5 MG PO (08:19)
[2023-12-05] MEDS: SACUBITRIL/VALSARTAN 24-26MG TABLET 1 EACH PO ×2 (08:19→20:16)
[2023-12-05 08:23] LABS: Basophils % 0.2 % (0.1-2.0); Eosinophils # 0.1 K/mm3 (0.0-0.4); Eosinophils % 0.6 % (0.1-12.0); Hematocrit 36.7 % (42.0-52.0); Hemoglobin 13.2 g/dL (14.1-18.0); Lymphocytes # 0.5 K/mm3 (0.7-4.5); Lymphocytes % 6.1 % (10-50); Mean Corpuscular Hemoglobin 32.7 pg (27.0-31.2); Mean Corpuscular Volume 90.9 fl (80-94); Mean Platelet Volume 9.1 fl (7.4-10.4); Monocytes # 0.4 K/mm3 (0.1-1.0); Monocytes % 5.2 % (1.7-9.3); Neutrophils # 6.8 K/mm3 (1.8-7.8); Neutrophils % 87.9 % (37.0-80.0); Platelet Count 133 K/mm3 (142-424); Red Blood Count 4.04 M/mm3 (4.60-6.20); Red Cell Distribution Width 16.1 % (11.5-17.5); White Blood Count 7.8 K/mm3 (4.8-10.8)
[2023-12-05 08:26] LABS: Chloride 109 mmol/L (98-107); Potassium 3.1 mmoL/L (3.5-5.1); Sodium 142 mmol/L (136-145)
[2023-12-05 08:28] LABS: Blood Urea Nitrogen 31 mg/dl (9-20); Creatinine Clearance Estimated 126 mL/min (50-200); Estimated Glomerular Filt Rate 85 ml/min (>60); GFR (African American) 102 ML/MIN (>60); MANUAL DIFFERENTIAL MANUAL DIFFERENTIAL (MANUAL DIFF)
[2023-12-05 08:29] LABS: Alanine Aminotransferase 17 U/L (12-78); Albumin Level 3.3 g/dl (3.5-5.0); Albumin/Globulin Ratio 1.2 (1.1-1.8); Alkaline Phosphatase 54 U/L (38-126); Anion Gap 6.1 mEq/L (5-15); Aspartate Amino Transferase 21 U/L (17-59); Bilirubin,Total 0.7 mg/dl (0.2-1.3); Calcium 8.3 mg/dl (8.4-10.2); Carbon Dioxide 30 mmol/L (22.0-30.0); Globulin 2.8 g/dL (1.3-3.2); Glucose 137 mg/dl (74-100); Magnesium 2.4 mg/dl (1.6-2.3); Total Protein,Serum 6.1 g/dl (6.3-8.2)
[2023-12-05 08:51] LABS: Lactate Dehydrogenase 148 U/L (313-618)
[2023-12-05 09:32] LABS: Lymphocytes % 10 % (10-50); Monocytes % 1 % (2-9); Neutrophils % 89 % (42-76); Total Cells Counted 100
[2023-12-05 09:33] LABS: Platelet Estimate Slight Decrease; RBC Morphology Normal
--- NOTE | 2023-12-05 11:42 | EXP.ACUTE.PN ---
Subjective *Date: 12/05/23 *Time: 12:10 Interval history: Patient stable this morning. Weaned to 1 L oxygen. Still having hemoptysis, no increase however. Sputum is dark red blood. Appears old. No nausea or vomiting. Improvement in dyspnea. Diuresing well. -3 L since admission. Afebrile overnight Medical Exam Vital signs and Labs for Last 24 Hours: Vital Signs Temp Pulse Pulse Pulse Resp BP Pulse Ox 12/05/23 11:15 78 12/05/23 11:15 82 12/05/23 11:15 95 12/05/23 09:00 12/05/23 08:14 12/05/23 08:00 80 12/05/23 08:00 97.9 F 72 18 135/76 93 L 12/05/23 06:48 12/05/23 06:14 73 12/05/23 06:14 88 12/05/23 06:14 97 12/05/23 05:00 12/05/23 04:00 84 12/05/23 04:00 97.6 F 75 18 148/84 H 97 12/05/23 03:00 12/05/23 01:00 12/05/23 00:00 84 12/05/23 00:00 98.8 F 77 18 145/96 H 97 12/04/23 23:23 77 12/04/23 23:23 77 12/04/23 23:00 12/04/23 21:00 12/04/23 20:00 97 H 95 12/04/23 20:00 97 H 12/04/23 19:34 98.4 F 97 H 18 129/63 95 12/04/23 18:36 89 L 12/04/23 18:35 12/04/23 18:35 12/04/23 18:35 78 12/04/23 18:34 81 12/04/23 17:00 12/04/23 16:00 90 12/04/23 16:00 97.5 F L 80 20 131/80 94 L 12/04/23 14:54 12/04/23 13:00 12/04/23 12:00 90 12/04/23 12:00 97.7 F 80 20 147/79 H 93 L O2 Del Method O2 Flow Rate FiO2 12/05/23 11:15 12/05/23 11:15 12/05/23 11:15 Nasal Cannula 1 12/05/23 09:00 Nasal Cannula 1 12/05/23 08:14 Nasal Cannula 1 12/05/23 08:00 12/05/23 08:00 Nasal Cannula 1 12/05/23 06:48 Nasal Cannula 1 12/05/23 06:14 12/05/23 06:14 12/05/23 06:14 Nasal Cannula 2 12/05/23 05:00 Nasal Cannula 2 12/05/23 04:00 12/05/23 04:00 Nasal Cannula 2 12/05/23 03:00 Room Air 12/05/23 01:00 Nasal Cannula 2 12/05/23 00:00 12/05/23 00:00 Nasal Cannula 2 12/04/23 23:23 12/04/23 23:23 12/04/23 23:00 Room Air 12/04/23 21:00 Nasal Cannula 2 12/04/23 20:00 Nasal Cannula 2 12/04/23 20:00 12/04/23 19:34 Nasal Cannula 2 12/04/23 18:36 Room Air 12/04/23 18:35 Nasal Cannula 2 12/04/23 18:35 Nasal Cannula 2 28 12/04/23 18:35 12/04/23 18:34 12/04/23 17:00 Nasal Cannula 2 12/04/23 16:00 12/04/23 16:00 Nasal Cannula 2 12/04/23 14:54 Nasal Cannula 2 12/04/23 13:00 Nasal Cannula 2 12/04/23 12:00 12/04/23 12:00 Nasal Cannula 2 Intake and Output 12/04/23 12/05/23 12/05/23 23:59 07:59 15:59 Intake Total 600 / 2202 572 / 1022 450 / 1022 Output Total 1000 / 2200 500 / 3800 3300 / 3800 Balance -400 / 2 72 / -2778 -2850 / -2778 Intake: Intake, Oral Amount 600 / 1852 222 / 672 450 / 672 Intake, Total IV Amount 350 / 350 Azithromycin 250 mg In 0.9 % 250 / 250 Sodium Chloride 250 ml @ 250 mls/hr IV 1700 [facility] Rx#:[id number] Ceftriaxone Sodium 2 gm In 0.9 100 / 100 % Sodium Chloride 100 ml @ 200 mls/hr IV Q24H YUE Rx#:[id number] Output: Output, Urine Amount 1000 / 2200 500 / 3800 3300 / 3800 Other: Number of Bowel Movements 1 Weight 120.882 kg Patient Weight 12/05/23 23:59 Weight 120.882 kg Laboratory Results - last 24 hr 12/04/23 07:00: Hemoglobin A1c 5.6 12/04/23 16:26: POC Glucose 179 H 12/04/23 20:48: POC Glucose 217 H 12/05/23 05:59: POC Glucose 131 H 12/05/23 07:41: WBC 7.8, RBC 4.04 L, Hgb 13.2 L, Hct 36.7 L, MCV 90.9, MCH 32.7 H, MCHC 36.0 H, RDW 16.1, Plt Count 133 L, MPV 9.1, Neut % (Auto) 87.9 H, Lymph % (Auto) 6.1 L, [place] % (Auto) 5.2, Eos % (Auto) 0.6, Baso % (Auto) 0.2, Neut # (Auto) 6.8, Lymph # (Auto) 0.5 L, [place] # (Auto) 0.4, Eos # (Auto) 0.1, Baso # (Auto) 0.0, Total Counted 100, Neutrophils % (Manual) 89 H, Lymphocytes % (Manual) 10, Monocytes % (Manual) 1 L, Platelet Estimate Slight decrease, RBC Morphology Normal, Sodium 142, Potassium 3.1 L, Chloride 109 H, Carbon Dioxide 30, Anion Gap 6.1, BUN 31 H, Creatinine 0.90, Estimated Creat Clear 126, Estimated GFR 85, Est GFR ( Amer) 102, Glucose 137 H, Calcium 8.3 L, Magnesium 2.4 H, Total Bilirubin 0.7, AST 21, ALT 17 D, Alkaline Phosphatase 54, Lactate Dehydrogenase 148 L, Total Protein 6.1 L, Albumin 3.3 L, Globulin 2.8, Albumin/Globulin Ratio 1.2 I & O for Labs for Last 24 Hours: Intake & Output 12/02/23 12/03/23 12/04/23 12/05/23 23:59 23:59 23:59 23:59 Intake Total 1630 / 2202 1022 / 1022 Output Total 300 / 300 1700 / 2200 3800 / 3800 Balance -300 / -80 -70 / 2 -2778 / -2778 Weight 113.443 kg 113.443 kg 120.882 kg Microbiology Reports for the Last 24 Hours: Microbiology 12/04/23 11:02 Sputum - Expectorated Sputum Gram Stain - Final 12/04/23 11:02 Sputum - Expectorated Sputum Sputum Culture - Preliminary 12/03/23 18:50 Blood Blood Culture - Preliminary NO GROWTH AFTER 24 HOURS 12/03/23 18:55 Blood Blood Culture - Preliminary NO GROWTH AFTER 24 HOURS Constitutional: Present no acute distress and obese Head: Present atraumatic and normocephalic ENT: Present normal exam Respiratory: Present prolonged expiratory phase, crackles and normal respiratory effort; Absent rhonchi or wheezes Cardiac: Present Reg Rate and Rhythm GI: Present normal bowel sounds; Absent tenderness Extremities: Present normal inspection, full ROM and edema (Trace BLE) Skin: Present intact; Absent erythema Neuro: Present Grossly Intact, alert, awake, oriented x 3 and moves all extremities Assessment and Plan *Assessment and plan (1) Sepsis: Status: Acute Category: Medical Code(s): A41.9 - Sepsis, unspecified organism (2) CHF exacerbation: Status: Acute Category: Medical Code(s): I50.9 - Heart failure, unspecified (3) Multifocal pneumonia: Status: Acute Category: Medical Code(s): J18.9 - Pneumonia, unspecified organism (4) Hemoptysis: Status: Acute Category: Medical Code(s): R04.2 - Hemoptysis (5) Acute exacerbation of chronic obstructive airways disease: Status: Acute Category: Medical Code(s): J44.1 - Chronic obstructive pulmonary disease with (acute) exacerbation (6) Acute hypoxic respiratory failure: Status: Acute Category: Medical Code(s): J96.01 - Acute respiratory failure with hypoxia (7) HTN (hypertension): Status: Acute Category: Medical Code(s): I10 - Essential (primary) hypertension (8) HLD (hyperlipidemia): Status: Acute Category: Medical Code(s): E78.5 - Hyperlipidemia, unspecified (9) Afib: Status: Acute Category: Medical Code(s): I48.91 - Unspecified atrial fibrillation (10) Type 2 diabetes mellitus: Status: Acute Category: Medical Code(s): E11.9 - Type 2 diabetes mellitus without complications (11) BPH (benign prostatic hyperplasia): Status: Acute Category: Medical Code(s): N40.0 - Benign prostatic hyperplasia without lower urinary tract symptoms Plan Assessment: This is a 63-year-old male who is being admitted for sepsis with acute hypoxic respiratory failure secondary to multifocal pneumonia, hemoptysis, concern for CHF component. Admitted for further management. Continues to tolerate weaning oxygen. Initially on 4 L, on 1 L today. Continue treatment for pneumonia and CHF. Diuresing well. Continues to necessitate inpatient management. Problems addressed as follows: Sepsis without septic shock, improving Acute hypoxic respiratory failure Multifocal pneumonia Hemoptysis -Sputum culture obtained, noted to have blood-tinged sputum. Gram stain with gram-positive cocci in chains. Continuing azithromycin 500 mg daily and Rocephin 1 g daily for pneumonia component. -White cell count stable at 8 today. Wean oxygen as tolerated. Currently on 1 L nasal cannula for goal sats greater than 90% - Continue DuoNebs every 6 hours - Mucinex -continue prednisone 40 mg daily for COPD exacerbation component -Aggressive pulmonary toilet -Hemoglobin within normal range at 13, platelets 133. -Given concern for hemoptysis. Holding anticoagulation. - If hemoptysis worsens, may necessitate transfer to higher level of care for bronchoscopy and further management. -Repeat CBC, CMP, magnesium and LDH ordered for the morning HLD: Continue statin A-fib: Continue rate control medication with beta-tameka (carvedilol). Holding Eliquis and aspirin in the setting of hemoptysis above Type 2 diabetes -SSI for glycemic control -A1c normal at 5.6 -Carb consistent diet CHF exacerbation HTN: - Hold on Jardiance at this time. Continue Entresto twice daily. Continue amlodipine 10 mg daily. Continue spironolactone 25 , carvedilol 25 mg twice daily, hydralazine 25 mg daily -Unknown previous history however patient has A-fib. States he has been having worsening shortness of breath. Has swelling in his legs. BNP elevated at 5000. -Bumex 1 mg IV twice daily. -3 L since admission. Goal negative volume 1 to 2 L a day -Consider TTE on Wednesday and cardiology consult pending patient's clinical course -Strict ins and outs BPH: Continue finasteride 5 mg daily and tamsulosin 0.8 mg daily DVT prophylaxis: Indicated in setting of hemoptysis CODE STATUS: Full code Surrogate decision maker: Shawanda [phone] Skin: Low risk
[2023-12-05] MEDS: AZITHROMYCIN 250MG TABLET 250 MG PO (12:18)
[2023-12-05] MEDS: POTASSIUM CHLORIDE 20MEQ TAB 20 MEQ PO ×2 (12:18→20:15)
[2023-12-05] MEDS: humaLOG 100 UNITS/ML 10ML VIAL (SSI) SQ ×3 (12:20→20:43)
[2023-12-05 12:29] LABS: POC Glucose,Bedside 187 (70-110)
[2023-12-05 17:14] LABS: POC Glucose,Bedside 210 (70-110)
[2023-12-05] MEDS: CEFTRIAXONE SODIUM 2 GM in 0.9 % SODIUM CHLORIDE 100 ML IV (20:14)
[2023-12-05] MEDS: ATORVASTATIN 20MG TABLET 20 MG PO (20:15)
[2023-12-05] MEDS: MONTELUKAST SODIUM 10MG TAB 10 MG PO (20:15)
[2023-12-05 20:38] LABS: POC Glucose,Bedside 191 (70-110)
[2023-12-06] VITALS (12 sets, daily range): BP systolic 125–161; BP diastolic 67–95; PULSE 68–92; RESP 16–20; TEMP 36.4–37.2; O2SAT 92–96; BMI 35.6
--- NOTE | 2023-12-06 00:51 | PC.NURSE ---
Initially this shift, patient tolerated room air well while awake. During sleep, the patient's oxygen sats started to drop to upper 80s; this started happening at around 00:30 this shift. Patient was placed back onto oxygen at 2 L NC, but patient's oxygen sats did not improve, fluctuating between 89 and 90. Patient's oxygen was bumped to 6 L at approximately 00:50. Patient's oxygen sat increased to high 90s. Oxygen flow will be weaned down at this time (00:55) to 3 L; patient will be monitored. He is currently resting in bed with no complaints at this time.
--- NOTE | 2023-12-06 01:38 | PC.NURSE ---
Checked on patient's oxygen sat at this time; readings shown between 94 and 96. Patient's oxygen flow was decreased from 3 L to 2 L at this time. Patient is currently resting supine with no complaints.
--- NOTE | 2023-12-06 04:54 | PC.NURSE ---
Checked on patient's oxygen sats at this time; reading was 95. Patient's oxygen flow was decreased from 2 L to 1 L at this time. Will continue to monitor oxygen sats periodically while patient is still sleeping. Patient is currently resting supine in bed with no complaints.
--- NOTE | 2023-12-06 05:05 | PC.NURSE ---
Addendum entered by Veronika Brink RN 12/06/23 05:55: Patient's FSBS at 21:00 this shift was 191; patient received 2 units of Lispro insulin in his left upper arm. At 06:00, patient's FSBS was 109. Original Note: Patient is alert and oriented x4, pleasant, and talkative. Patient was taken off of oxygen during the previous shift, and has tolerated room air during the beginning of this shift. Patient has been able to sleep comfortably for most of the night. Audible expiratory wheezing was heard from the patient earlier this shift. Slight swelling remains in patient's lower extremities. Patient's sputum this shift continues to be dark brown and red; patient was coughing intermittently during the beginning of the shift. Patient continues to tolerate ambulating to the bathroom. He has received his scheduled meds per JUL. He was also given a couple cups of fresh water, a pitcher of ice water, and a couple jessenia ales this shift. During the night around 00:30, patient's oxygen sats started to drop into the upper 80s, hitting 86% at one point. Patient was placed back onto oxygen, starting at 6 L NC and was weaned down as the night went on (see prior notes for more details). Patient is currently tolerating 1 L as he sleeps. Patient continues to use urinals at bedside; I myself emptied 325 mL of urine this shift. Patient has not had any further complaints. Patient continues to rest at this time. Call light is within reach.
[2023-12-06 05:50] LABS: POC Glucose,Bedside 109 (70-110)
[2023-12-06] MEDS: IPRATROPIUM/ALBUTEROL 3 ML NEB IH ×4 (06:34→23:18)
[2023-12-06 06:35] LABS: Basophils % 0.1 % (0.1-2.0); Eosinophils # 0.1 K/mm3 (0.0-0.4); Eosinophils % 0.9 % (0.1-12.0); Hematocrit 37.4 % (42.0-52.0); Hemoglobin 12.7 g/dL (14.1-18.0); Lymphocytes # 0.8 K/mm3 (0.7-4.5); Mean Corpuscular HGB Conc 34.1 g/dL (31.8-35.4); Mean Corpuscular Hemoglobin 31.1 pg (27.0-31.2); Mean Corpuscular Volume 91.2 fl (80-94); Mean Platelet Volume 9.2 fl (7.4-10.4); Monocytes # 0.4 K/mm3 (0.1-1.0); Monocytes % 6.6 % (1.7-9.3); Neutrophils # 4.8 K/mm3 (1.8-7.8); Neutrophils % 79.3 % (37.0-80.0); Platelet Count 140 K/mm3 (142-424); Red Cell Distribution Width 16.1 % (11.5-17.5); White Blood Count 6.1 K/mm3 (4.8-10.8)
--- NOTE | 2023-12-06 06:53 | PC.NURSE ---
At this time, patient has refused to wear his nasal cannula. Respiratory came to me after giving him a breathing treatment and told me that the patient became very agitated with her and was very upfront about not wearing any oxygen while he rests because he cannot sleep with a cannula on his face. Patient's nasal cannula is at his bedside. Patient is currently on room air and resting in bed at this time. His oxygen sats have fluctuated between 88 and 92.
[2023-12-06 07:15] LABS: Alanine Aminotransferase 13 U/L (12-78); Albumin Level 2.7 g/dl (3.5-5.0); Albumin/Globulin Ratio 1.1 (1.1-1.8); Alkaline Phosphatase 37 U/L (38-126); Anion Gap 7.1 mEq/L (5-15); Aspartate Amino Transferase 17 U/L (17-59); Bilirubin,Total 0.8 mg/dl (0.2-1.3); Blood Urea Nitrogen 27 mg/dl (9-20); Carbon Dioxide 28 mmol/L (22.0-30.0); Chloride 108 mmol/L (98-107); Creatinine Clearance Estimated 127 mL/min (50-200); Estimated Glomerular Filt Rate 113 ml/min (>60); GFR (African American) 137 ML/MIN (>60); Globulin 2.5 g/dL (1.3-3.2); Glucose 99 mg/dl (74-100); Potassium 3.1 mmoL/L (3.5-5.1); Sodium 140 mmol/L (136-145); Total Protein,Serum 5.2 g/dl (6.3-8.2)
--- NOTE | 2023-12-06 07:22 | CA_ITS ---
APPROVED REPORT EXAM: Comprehensive 2D, Doppler, and color-flow Echocardiogram Monitoring Coordinator: Nika Dwyer RVT Ht: 6 ft 0 in Wt: 269lbs BSA: 2.42 BP: 131/80 mmHg Indications: CP,COPD,A-FIB,CAD,HEMOPTYSIS,DM,SOA,OBESITY,PNEUMONIA 2D Dimensions LA Volume 110.10 mL LA Volume Index 45.50 mL/m2 (M/F) 16-34 M-Mode Dimensions RVDd 2.41 cm (0.9-2.6) LA Diam 5.20 cm (1.9-4.0) LVDd 3.44 cm (3.5-5.7) LVDs 2.28 cm (3.5-5.7) IVSd 1.65 cm (0.6-1.1) PWd 1.07 cm (0.6-1.1) EF (Teich) 63.70% FS 33.70% EDV (Teich) 48.80 mL TAPSE 1.18 (<1.7) ESV (Teich) 17.70 mL Aortic Valve IRMA Index 1.74 cm2/m2 AoV Peak Omar. 117.0 (50-130 cm/s) AO Peak GR. 5.50 mmHg AO Mean GR. 3.40 (<5 mmHg) AO VTI 20.6 (18-25 cm) IRMA (VTI) 4.29 (2.5-4.5 cm2) Pulmonary Valve PV Peak Velocity 74.0 (50-150 cm/s) Tricuspid Valve TR P. Velocity 325.00 cm/s RAP Estimate 10.00 mmHg RVSP 52.30 mmHg Left Ventricle The left ventricle is normal size. The left ventricular systolic function is normal. The left ventricular ejection fraction is within the normal range. There is increased LV wall thickness. There is normal LV segmental wall motion. Diastolic function is indeterminate. LVEF is 55%. Right Ventricle The right ventricle is mildly dilated. The right ventricular systolic function is normal. Atria Left atrium is severely dilated. Right atrium is moderately dilated. There is no Doppler evidence of interatrial shunt. Aortic Valve The aortic valve is mildly thickened. There is no aortic valvular stenosis. Trace aortic regurgitation. Mitral Valve The mitral valve is normal in structure. No evidence of mitral valve stenosis. Trace mitral regurgitation. Tricuspid Valve The tricuspid valve leaflets are thin and pliable. Mild tricuspid regurgitation. RVSP is 45-50 mmHg. Pulmonic Valve The pulmonary valve is normal in structure. Trace pulmonic regurgitation. Great Vessels The aortic root is normal in size. The ascending aorta is not well-visualized. The IVC is dilated, collapses < 50% with respirophasic variation. RA pressure is estimated at 15 mmHg. Pericardium Trivial posterior pericardial effusion is present. No echo indications of tamponade. Pleural effusion is present. Other Information Study Quality: Fair Conclusion Normal biventricular systolic function. Mild RV dilation. Biatrial dilation. Mild TR. Elevated RVSP 45-50 mmHg. There is Trivial posterior pericardial effusion is present. No echo indications of tamponade. Electronically signed by : Vianca Henry MD 12/06/2023 11:59:57
[2023-12-06] MEDS: AMLODIPINE 10MG TABLET 10 MG PO (09:08)
[2023-12-06] MEDS: SPIRONOLACTONE 25MG TABLET 25 MG PO ×2 (09:08→10:32)
[2023-12-06] MEDS: BUMETANIDE 1MG/4ML VIAL 1 MG IV ×2 (09:08→15:50)
[2023-12-06] MEDS: TAMSULOSIN 0.4MG CAPSULE 0.8 MG PO (09:09)
[2023-12-06] MEDS: FINASTERIDE 5MG TABLET 5 MG PO (09:09)
[2023-12-06] MEDS: predniSONE 20MG TAB 40 MG PO (09:09)
[2023-12-06] MEDS: GABAPENTIN 100MG CAPSULE 100 MG PO ×3 (09:09→20:49)
[2023-12-06] MEDS: CARVEDILOL 25MG TABLET 25 MG PO ×2 (09:09→20:49)
[2023-12-06] MEDS: POTASSIUM CHLORIDE 20MEQ TAB 20 MEQ PO ×2 (09:09→12:05)
[2023-12-06] MEDS: SACUBITRIL/VALSARTAN 24-26MG TABLET 1 EACH PO (09:09)
[2023-12-06] MEDS: HYDRALAZINE HCL 25MG TABLET 25 MG PO (09:09)
[2023-12-06] MEDS: GUAIFENESIN/PSEUDOEPHE 600/60MG TAB.ER.12H 1 EACH PO ×2 (09:12→20:53)
[2023-12-06 10:10] LABS: POC Glucose,Bedside 128 (70-110)
--- NOTE | 2023-12-06 10:19 | EXP.CARD.CON ---
History of Present Illness History of Present Illness Consult date: 12/06/23 Requesting physician: Carlos Thomas Consult reason: congestive heart failure and shortness of breath Chief complaint: SOA History of present illness: This is a 63-year-old gentleman who presented to the emergency department with complaints of shortness of breath. He has a past medical history of for atrial fibrillation/flutter on Eliquis, hypertension, hyperlipidemia, COPD and type 2 diabetes. The patient reports that he has been significantly short of breath for the last month with a productive cough. He states that he had been having some lower extremity edema associated with the shortness of breath. He states that his shortness of breath got severe and he was extremely fatigued and tired and that is why he decided to come to the emergency department. He was having fevers and chills prior to coming into the emergency department as well. He denies any chest pain or pressure. He denies any nausea, vomiting or diarrhea. He states that he is just not felt well. The patient states that when he got to the hospital he noticed that he was having a productive cough with pink-tinged sputum and sometimes a brown color. The patient was febrile with a temperature of 102.1 and he was admitted for sepsis and multifocal pneumonia on chest x-ray. CTA of his chest did show pulmonary edema versus pulmonary hemorrhage versus pneumonia. He ruled out for an CA. His BNP was elevated over 5000. Of note the patient reports no history of congestive heart failure but is on Entresto, Coreg, spironolactone, Bumex and Jardiance as an outpatient, consistent with him having CHF. [facility] Disclaimer: The information contained in this section may have been updated after the patient was seen, as this information can be updated by other users. Medical History (Updated 12/06/23 @ 12:42 by Carlos Thomas MD) Hypokalemia Shortness of Breath Acute on chronic heart failure with preserved ejection fraction (HFpEF) BPH (benign prostatic hyperplasia) Type 2 diabetes mellitus Afib HLD (hyperlipidemia) HTN (hypertension) Surgical History (Updated 12/06/23 @ 10:25 by Michelle Chaney APRN) History of cardioversion Social History (Updated 12/03/23 @ 21:34 by Jennifer Singletary RN) Smoking Status: Former smoker alcohol intake: never current occupational status: other Travel in the last 8 weeks: None Review of Systems Review of Systems Review of systems:: pertinent systems reviewed and negative unless documented below Constitutional Constitutional: Reports system reviewed and no additional complaints, except as documented, Reports chills, Reports fatigue, Reports fever(s), Reports lethargy and Reports weakness Eyes Eyes: Reports system reviewed and no additional complaints, except as documented ENT Ears, Nose, Mouth, and Throat: Reports system reviewed and no additional complaints, except as documented *Cardiovascular Cardiovascular: Reports system reviewed and no additional complaints, except as documented, Denies chest pain, Reports dyspnea, Reports dyspnea on exertion and Reports paroxysmal nocturnal dyspnea *Respiratory Respiratory: Reports system reviewed and no additional complaints, except as documented, Reports cough, Reports dyspnea, Reports dyspnea on exertion, Reports excessive phlegm production and Reports hemoptysis *Gastrointestinal Gastrointestinal: Reports system reviewed and no additional complaints, except as documented *Genitourinary Genitourinary: Reports system reviewed and no additional complaints, except as documented *Musculoskeletal Musculoskeletal: Reports system reviewed and no additional complaints, except as documented Integumentary/Breasts Skin/Breast: Reports system reviewed and no additional complaints, except as documented *Neurologic Neurologic: Reports system reviewed and no additional complaints, except as documented and Reports weakness Psychiatric Psychiatric: Reports system reviewed and no additional complaints, except as documented Endocrine Endocrine: Reports system reviewed and no additional complaints, except as documented and Reports fatigue Hematologic/Lymphatic Hematologic/Lymphatic: Reports system reviewed and no additional complaints, except as documented Allergic/Immunologic Allergic/Immunologic: Reports system reviewed and no additional complaints, except as documented Exam Data for Last 24 hours Vital signs and Labs for Last 24 Hours: Temp Pulse Resp BP Pulse Ox O2 Del Method O2 Flow Rate 98.9 F 77 20 153/83 H 95 Room Air 1 12/06/23 08:00 12/06/23 08:00 12/06/23 08:00 12/06/23 08:00 12/06/23 08:00 12/06/23 10:05 12/06/23 08:00 FiO2 2 12/05/23 04:00 Laboratory Results - last 24 hr 12/05/23 12:17: POC Glucose 187 H 12/05/23 16:42: POC Glucose 210 H 12/05/23 20:30: POC Glucose 191 H 12/06/23 05:43: POC Glucose 109 12/06/23 06:02: WBC 6.1, RBC 4.10 L, Hgb 12.7 L, Hct 37.4 L, MCV 91.2, MCH 31.1, MCHC 34.1, RDW 16.1, Plt Count 140 L, MPV 9.2, Neut % (Auto) 79.3, Lymph % (Auto) 13.0, [place] % (Auto) 6.6, Eos % (Auto) 0.9, Baso % (Auto) 0.1, Neut # (Auto) 4.8, Lymph # (Auto) 0.8, [place] # (Auto) 0.4, Eos # (Auto) 0.1, Baso # (Auto) 0.0, Sodium 140, Potassium 3.1 L, Chloride 108 H, Carbon Dioxide 28, Anion Gap 7.1, BUN 27 H, Creatinine 0.70 D, Estimated Creat Clear 127, Estimated GFR 113, Est GFR ( Amer) 137 D, Glucose 99 D, Calcium 8.0 L, Magnesium 2.0 D, Total Bilirubin 0.8, AST 17, ALT 13, Alkaline Phosphatase 37 L, Total Protein 5.2 L, Albumin 2.7 L D, Globulin 2.5, Albumin/Globulin Ratio 1.1 12/06/23 10:02: POC Glucose 128 H I & O for Last 24 hours: Intake & Output 12/03/23 12/04/23 12/05/23 12/06/23 23:59 23:59 23:59 23:59 Intake Total 1630 / 2202 1972 / 2572 900 / 900 Output Total 300 / 300 1700 / 2200 4500 / 4825 325 / 325 Balance -300 / -80 -70 / 2 -2528 / -2253 575 / 575 Weight 250 lb 1.6 oz 250 lb 1.584 oz 266 lb 8 oz 269 lb 1.6 oz Microbiology Reports for the Last 24 Hours: Microbiology 12/03/23 18:50 Blood Blood Culture - Preliminary NO GROWTH AFTER 48 HOURS 12/03/23 18:55 Blood Blood Culture - Preliminary NO GROWTH AFTER 48 HOURS 12/04/23 11:02 Sputum - Expectorated Sputum Gram Stain - Final 12/04/23 11:02 Sputum - Expectorated Sputum Sputum Culture - Preliminary Constitutional Constitutional: no acute distress and obese *Routine HEENT Exam Head: Present normocephalic and atraumatic ENT: Present mucous membranes moist *Routine Neck Exam Neck: Present supple, full ROM and normal carotid upstroke; Absent JVD, carotid bruit or lymphadenopathy *Routine Respiratory Exam Respiratory: Present CTA bilaterally, normal respiratory effort, able to speak in complete sentences and symmetric chest movement *Routine Cardiovascular Exam Cardiovascular: Present Normal S1, Normal S2 and irregularly irregular; Absent murmur or gallop *Routine Abdominal Exam Abdominal: Present soft and normoactive bowel sounds; Absent tenderness, distended or organomegaly *Routine Extremities Exam Extremities: Present full ROM, pulses intact and normal capillary refill; Absent cyanosis, clubbing or edema *Routine Skin Exam Skin: Present intact and warm; Absent erythema *Routine Neurological Exam Neurological: Present alert, oriented X3 and CN II-XII intact; Absent sensory deficit or motor deficit Routine Psychiatric Exam Psychiatric: Present normal affect Meds Home Medications and Allergies Home Medications Medication Instructions Recorded Confirmed Type amlodipine 10 mg tablet 10 mg PO DAILY 12/03/23 12/03/23 History apixaban 5 mg tablet (Eliquis) 5 mg PO BID 12/03/23 12/03/23 History aspirin 81 mg chewable tablet 81 mg PO DAILY 12/03/23 12/03/23 History atorvastatin 20 mg tablet 20 mg PO HS 12/03/23 12/03/23 History bumetanide 1 mg tablet 1 mg PO DAILY 12/03/23 12/03/23 History carvedilol 25 mg tablet 25 mg PO BID 12/03/23 12/03/23 History empagliflozin 25 mg tablet 25 mg PO DAILY 12/03/23 12/03/23 History (Jardiance) fluticasone 250 mcg-salmeterol 50 1 inh inhalation BID 12/03/23 12/03/23 History mcg/dose blistr powdr for inhalation gabapentin 100 mg capsule 100 mg PO TID 12/03/23 12/03/23 History hydralazine 25 mg tablet 25 mg PO DAILY 12/03/23 12/03/23 History metformin 500 mg tablet 1,000 mg PO DAILY 12/03/23 12/03/23 History montelukast 10 mg tablet 10 mg PO HS 12/03/23 12/03/23 History spironolactone 25 mg tablet 25 mg PO DAILY 12/03/23 12/03/23 History tamsulosin 0.4 mg capsule 0.8 mg PO DAILY 12/03/23 12/03/23 History finasteride 5 mg tablet 5 mg PO DAILY 12/04/23 12/04/23 History sacubitril 97 mg-valsartan 103 mg 2 tab PO BID 12/04/23 12/04/23 History tablet (Entresto) New Prescriptions to Start Prescriptions: Allergies Allergy/AdvReac Type Severity Reaction Status Date / Time No Known Allergies Allergy Verified 12/03/23 18:15 Assessment and Plan *Assessment and plan (1) Acute on chronic heart failure with preserved ejection fraction (HFpEF): Status: Acute Category: Medical Code(s): I50.33 - Acute on chronic diastolic (congestive) heart failure (2) Shortness of Breath: Status: Acute Category: Medical Code(s): R06.02 - Shortness of breath (3) Afib: Status: Acute Qualifiers: Atrial fibrillation type: unspecified chronic Qualified Code(s): I48.20 - Chronic atrial fibrillation, unspecified Category: Medical Code(s): I48.91 - Unspecified atrial fibrillation (4) HLD (hyperlipidemia): Status: Acute Qualifiers: Hyperlipidemia type: mixed hyperlipidemia Qualified Code(s): E78.2 - Mixed hyperlipidemia Category: Medical Code(s): E78.5 - Hyperlipidemia, unspecified (5) HTN (hypertension): Status: Acute Qualifiers: Hypertension type: primary hypertension Qualified Code(s): I10 - Essential (primary) hypertension Category: Medical Code(s): I10 - Essential (primary) hypertension (6) Type 2 diabetes mellitus: Status: Acute Qualifiers: Diabetes mellitus complication status: without complication Diabetes mellitus ditch tender insulin use: without ditch tender use Qualified Code(s): E11.9 - Type 2 diabetes mellitus without complications Category: Medical Code(s): E11.9 - Type 2 diabetes mellitus without complications (7) BPH (benign prostatic hyperplasia): Status: Acute Qualifiers: Lower urinary tract symptom presence: unspecified whether lower urinary tract symptoms present Qualified Code(s): N40.0 - Benign prostatic hyperplasia without lower urinary tract symptoms Category: Medical Code(s): N40.0 - Benign prostatic hyperplasia without lower urinary tract symptoms (8) Hemoptysis: Status: Acute Category: Medical Code(s): R04.2 - Hemoptysis (9) Sepsis: Status: Acute Qualifiers: Sepsis acute organ dysfunction status: unspecified Sepsis type: sepsis due to unspecified organism Qualified Code(s): A41.9 - Sepsis, unspecified organism Category: Medical Code(s): A41.9 - Sepsis, unspecified organism (10) Multifocal pneumonia: Status: Acute Category: Medical Code(s): J18.9 - Pneumonia, unspecified organism (11) Abnormal electrocardiogram [ECG] [EKG]: Status: Acute Category: Medical Code(s): R94.31 - Abnormal electrocardiogram [ECG] [EKG] (12) Hypokalemia: Status: Acute Category: Medical Code(s): E87.6 - Hypokalemia Plan Plan: 1. The patient was admitted to the hospital with sepsis and multifocal pneumonia. He is being treated with IV antibiotics. Will defer. 2. The patient did have hemoptysis which is most likely from pneumonia and his use of blood thinners. We do recommend follow-up with pulmonology if the hemoptysis continues. 3. The patient is having acute on chronic exacerbation of HFpEF. Continue with IV diuresis at this time. We would like to continue to diurese the patient until he has had a bump in his creatinine. His creatinine remains normal at this time. 4. The patient is hypokalemic today with a potassium of 3.1. Will increase his spironolactone to 50 mg p.o. daily for continued diuresis and to help with his potassium levels. 5. Continue Entresto, Coreg and Jardiance for his HFpEF. 6. He denies any chest pain or pressure. He denies a history of coronary artery disease. He ruled out for an CA. He would benefit from an outpatient ischemic evaluation with Lexiscan Myoview stress test once he has been discharged from the hospital. 7. His blood pressure is elevated. Increasing his spironolactone will likely help to improve his blood pressure. Continue amlodipine, hydralazine, Entresto and Coreg. 8. The patient does have a history of atrial fibrillation/flutter. He appears to be in atrial flutter this morning. He is rate controlled. 9. His long-term anticoagulation with Eliquis is currently being held secondary to hemoptysis. Will likely restart Eliquis tomorrow. 10. His LDL goal is less than 100. Will get a lipid panel in the morning. He is on a statin. 11. Will obtain an echocardiogram to evaluate his LV function due to his acute on chronic HFpEF. 12. Further recommendations will be made pending the patient's response to treatment and the results of his echocardiogram today. Thank you for the opportunity to help participate in the care of this patient. All recommendations and orders are per Dr. Henry.
[2023-12-06] MEDS: AZITHROMYCIN 250MG TABLET 250 MG PO (12:05)
--- NOTE | 2023-12-06 12:40 | EXP.ACUTE.PN ---
Subjective *Date: 12/06/23 *Time: 12:40 Interval history: Feeling somewhat better today. No nausea or vomiting. No chest pain. Shortness of breath improving. Still having scant hemoptysis, blood is dark. No fresh bright red blood. Weaned to room air. Cardiology consulted to evaluate today. Hemodynamically stable. Tolerating p.o. intake. Diuresing well, -3 L since admission Medical Exam Vital signs and Labs for Last 24 Hours: Vital Signs Temp Pulse Pulse Resp BP Pulse Ox O2 Del Method 12/06/23 12:00 98.8 F 78 16 161/91 H 95 Room Air 12/06/23 11:14 81 12/06/23 11:14 82 12/06/23 10:05 Room Air 12/06/23 09:00 Room Air 12/06/23 08:00 80 12/06/23 08:00 Nasal Cannula 12/06/23 08:00 98.9 F 77 20 153/83 H 95 Room Air 12/06/23 06:34 87 12/06/23 06:34 90 12/06/23 06:34 93 L Room Air 12/06/23 05:00 Nasal Cannula 12/06/23 04:00 97.8 F 77 16 149/95 H 96 Room Air 12/06/23 04:00 74 12/06/23 03:00 Nasal Cannula 12/06/23 01:00 Nasal Cannula 12/06/23 00:02 79 12/06/23 00:01 78 12/06/23 00:00 92 H 12/06/23 00:00 97.9 F 80 16 125/67 92 L Room Air 12/05/23 23:00 Room Air 12/05/23 21:00 Room Air 12/05/23 20:00 87 12/05/23 20:00 88 95 Room Air 12/05/23 19:59 97.7 F 88 17 155/90 H 95 Room Air 12/05/23 18:32 Room Air 12/05/23 18:29 90 L Room Air 12/05/23 18:28 Nasal Cannula 12/05/23 18:28 83 12/05/23 18:27 74 12/05/23 17:00 Room Air 12/05/23 16:00 98.3 F 84 18 137/86 95 Room Air 12/05/23 16:00 90 12/05/23 15:00 Room Air 12/05/23 13:00 Room Air O2 Flow Rate 12/06/23 12:00 12/06/23 11:14 12/06/23 11:14 12/06/23 10:05 12/06/23 09:00 12/06/23 08:00 12/06/23 08:00 1 12/06/23 08:00 12/06/23 06:34 12/06/23 06:34 12/06/23 06:34 12/06/23 05:00 1 12/06/23 04:00 12/06/23 04:00 12/06/23 03:00 2 12/06/23 01:00 3 12/06/23 00:02 12/06/23 00:01 12/06/23 00:00 12/06/23 00:00 12/05/23 23:00 12/05/23 21:00 12/05/23 20:00 12/05/23 20:00 12/05/23 19:59 12/05/23 18:32 12/05/23 18:29 12/05/23 18:28 1 12/05/23 18:28 12/05/23 18:27 12/05/23 17:00 12/05/23 16:00 12/05/23 16:00 12/05/23 15:00 12/05/23 13:00 Intake and Output 12/05/23 12/06/23 12/06/23 23:59 07:59 15:59 Intake Total 500 / 2572 600 / 900 300 / 900 Output Total 300 / 4825 325 / 325 Balance 200 / -2253 275 / 575 300 / 575 Intake: Intake, Oral Amount 500 / 2122 500 / 800 300 / 800 Intake, Total IV Amount 100 / 100 Ceftriaxone Sodium 2 gm In 0.9 100 / 100 % Sodium Chloride 100 ml @ 200 mls/hr IV Q24H [facility] Rx#:[id number] Output: Output, Urine Amount 300 / 4825 325 / 325 Other: Number of Voids 1 Number of Unmeasured Voids 1 Number of Bowel Movements 1 Weight 122.062 kg 122 kg Patient Weight 12/06/23 23:59 Weight 122 kg Laboratory Results - last 24 hr 12/05/23 16:42: POC Glucose 210 H 12/05/23 20:30: POC Glucose 191 H 12/06/23 05:43: POC Glucose 109 12/06/23 06:02: WBC 6.1, RBC 4.10 L, Hgb 12.7 L, Hct 37.4 L, MCV 91.2, MCH 31.1, MCHC 34.1, RDW 16.1, Plt Count 140 L, MPV 9.2, Neut % (Auto) 79.3, Lymph % (Auto) 13.0, [place] % (Auto) 6.6, Eos % (Auto) 0.9, Baso % (Auto) 0.1, Neut # (Auto) 4.8, Lymph # (Auto) 0.8, [place] # (Auto) 0.4, Eos # (Auto) 0.1, Baso # (Auto) 0.0, Sodium 140, Potassium 3.1 L, Chloride 108 H, Carbon Dioxide 28, Anion Gap 7.1, BUN 27 H, Creatinine 0.70 D, Estimated Creat Clear 127, Estimated GFR 113, Est GFR ( Amer) 137 D, Glucose 99 D, Calcium 8.0 L, Magnesium 2.0 D, Total Bilirubin 0.8, AST 17, ALT 13, Alkaline Phosphatase 37 L, Total Protein 5.2 L, Albumin 2.7 L D, Globulin 2.5, Albumin/Globulin Ratio 1.1 12/06/23 10:02: POC Glucose 128 H I & O for Labs for Last 24 Hours: Intake & Output 12/03/23 12/04/23 12/05/23 12/06/23 23:59 23:59 23:59 23:59 Intake Total 1630 / 2202 1972 / 2572 900 / 900 Output Total 300 / 300 1700 / 2200 4500 / 4825 325 / 325 Balance -300 / -80 -70 / 2 -2528 / -2253 575 / 575 Weight 113.443 kg 113.443 kg 120.882 kg 122 kg Microbiology Reports for the Last 24 Hours: Microbiology 12/03/23 18:50 Blood Blood Culture - Preliminary NO GROWTH AFTER 48 HOURS 12/03/23 18:55 Blood Blood Culture - Preliminary NO GROWTH AFTER 48 HOURS Constitutional: Present no acute distress and obese Head: Present atraumatic and normocephalic ENT: Present normal exam Respiratory: Present prolonged expiratory phase, crackles (Nearly resolved) and normal respiratory effort; Absent rhonchi or wheezes Cardiac: Present Reg Rate and Rhythm GI: Present normal bowel sounds; Absent tenderness Extremities: Present normal inspection and full ROM; Absent edema Skin: Present intact; Absent erythema Neuro: Present Grossly Intact, alert, awake, oriented x 3 and moves all extremities Assessment and Plan *Assessment and plan (1) CHF exacerbation: Status: Acute Qualifiers: Heart failure type: diastolic Qualified Code(s): I50.33 - Acute on chronic diastolic (congestive) heart failure Category: Medical Code(s): I50.9 - Heart failure, unspecified (2) Sepsis: Status: Acute Qualifiers: Sepsis acute organ dysfunction status: unspecified Sepsis type: sepsis due to unspecified organism Qualified Code(s): A41.9 - Sepsis, unspecified organism Category: Medical Code(s): A41.9 - Sepsis, unspecified organism (3) Multifocal pneumonia: Status: Acute Category: Medical Code(s): J18.9 - Pneumonia, unspecified organism (4) Hemoptysis: Status: Acute Category: Medical Code(s): R04.2 - Hemoptysis (5) Acute exacerbation of chronic obstructive airways disease: Status: Acute Category: Medical Code(s): J44.1 - Chronic obstructive pulmonary disease with (acute) exacerbation (6) Acute hypoxic respiratory failure: Status: Acute Category: Medical Code(s): J96.01 - Acute respiratory failure with hypoxia (7) HTN (hypertension): Status: Acute Qualifiers: Hypertension type: primary hypertension Qualified Code(s): I10 - Essential (primary) hypertension Category: Medical Code(s): I10 - Essential (primary) hypertension (8) HLD (hyperlipidemia): Status: Acute Qualifiers: Hyperlipidemia type: mixed hyperlipidemia Qualified Code(s): E78.2 - Mixed hyperlipidemia Category: Medical Code(s): E78.5 - Hyperlipidemia, unspecified (9) Afib: Status: Acute Qualifiers: Atrial fibrillation type: unspecified chronic Qualified Code(s): I48.20 - Chronic atrial fibrillation, unspecified Category: Medical Code(s): I48.91 - Unspecified atrial fibrillation (10) Type 2 diabetes mellitus: Status: Acute Qualifiers: Diabetes mellitus long term care phlebotomist insulin use: without usp use Diabetes mellitus complication status: without complication Qualified Code(s): E11.9 - Type 2 diabetes mellitus without complications Category: Medical Code(s): E11.9 - Type 2 diabetes mellitus without complications (11) BPH (benign prostatic hyperplasia): Status: Acute Qualifiers: Lower urinary tract symptom presence: unspecified whether lower urinary tract symptoms present Qualified Code(s): N40.0 - Benign prostatic hyperplasia without lower urinary tract symptoms Category: Medical Code(s): N40.0 - Benign prostatic hyperplasia without lower urinary tract symptoms Plan Assessment: This is a 63-year-old male who is being admitted for sepsis with acute hypoxic respiratory failure secondary to multifocal pneumonia, hemoptysis, concern for CHF component. Admitted for further management. Continues to tolerate weaning oxygen. Initially on 4 L, on RA today. Continue treatment for pneumonia and CHF. Diuresing well. Continues to necessitate inpatient management pending sputum culture results. Problems addressed as follows: Sepsis without septic shock, improving Acute hypoxic respiratory failure Multifocal pneumonia Hemoptysis -Sputum culture obtained, noted to have blood-tinged sputum. Gram stain with gram-positive cocci in chains. Continuing azithromycin 500 mg daily and Rocephin 1 g daily for pneumonia component. Plan to treat for total of 5 days. -White cell count stable at 6 today. Wean oxygen as tolerated for goal sats greater than 90%, on room air today. - Continue DuoNebs every 6 hours - Mucinex -continue prednisone 40 mg daily for COPD exacerbation component x 5 days. -Aggressive pulmonary toilet -Hemoglobin within normal range at 12, platelets 140. -Given concern for hemoptysis. Holding anticoagulation. - If hemoptysis worsens, may necessitate transfer to higher level of care for bronchoscopy and further management. -Repeat CBC, CMP, magnesium and LDH ordered for the morning HLD: Continue statin, lipid panel ordered for the morning. A-fib: Continue rate control medication with beta-tameka (carvedilol). Holding Eliquis and aspirin in the setting of hemoptysis above Type 2 diabetes -SSI for glycemic control -A1c normal at 5.6 -Carb consistent diet CHF exacerbation HTN: Cardiology consulted, appreciate their recommendations. Discussed case this morning, will continue medications for heart failure including hydralazine, Entresto, carvedilol, amlodipine, Jardiance Hold Eliquis until tomorrow given hemoptysis. Echo obtained, formal read still pending. Increase spironolactone to 50 mg daily Increased Entresto to 2 tablets of twice daily continue amlodipine 10 mg daily. carvedilol 25 mg twice daily, hydralazine 25 mg daily -A flutter on telemetry. Rate controlled. Continue Bumex 1 mg twice daily for diuresis. -Echo obtained, formal read still pending -Strict ins and outs BPH: Continue finasteride 5 mg daily and tamsulosin 0.8 mg daily DVT prophylaxis: Indicated in setting of hemoptysis CODE STATUS: Full code Surrogate decision maker: Shawanda [phone] Skin: Low risk
--- NOTE | 2023-12-06 14:24 | PC.NURSE ---
Pt aox4 up walking in room throughout the day. Now on RA wears 02-1L nc while in the hospital at night prn, 20g r ac sl, 20g L W sl, possible d/c tomorrow.
[2023-12-06 15:58] LABS: POC Glucose,Bedside 219 (70-110)
[2023-12-06] MEDS: humaLOG 100 UNITS/ML 10ML VIAL (SSI) SQ ×2 (16:09→20:26)
[2023-12-06] MEDS: CEFTRIAXONE SODIUM 2 GM in 0.9 % SODIUM CHLORIDE 100 ML IV (20:49)
[2023-12-06] MEDS: ATORVASTATIN 20MG TABLET 20 MG PO (20:49)
[2023-12-06] MEDS: SACUBITRIL/VALSARTAN 24-26MG TABLET 2 EACH PO (20:50)
[2023-12-06] MEDS: MONTELUKAST SODIUM 10MG TAB 10 MG PO (20:50)
[2023-12-06 21:06] LABS: POC Glucose,Bedside 209 (70-110)
[2023-12-07] VITALS (7 sets, daily range): BP systolic 148–158; BP diastolic 80–87; PULSE 67–90; RESP 16–21; TEMP 36.6–36.9; O2SAT 94–97; BMI 35.8
[2023-12-07 05:33] LABS: POC Glucose,Bedside 118 (70-110)
--- NOTE | 2023-12-07 05:46 | PC.NURSE ---
Patient is alert and oriented x4. He has been very positive this shift. He was given a couple jessenia ales at bedtime. Patient was able to rest some during this shift. He tolerated room air well while awake this shift; however, at around 05:00, the patient's oxygen sats started dropping into the mid 80s. Patient was placed back onto oxygen while he rests; patient is currently on 1 L NC. Patient's lung sounds were clear upon auscultation and some audible expiratory wheezing was noticed. Patient's bowel sounds were active in all quadrants. Patient did not have a bowel movement this shift, but has been ambulating to the bathroom to void. Patient continues to tolerate getting out of bed and ambulating very well. Patient's swelling in the lower extremities have noticeably decreased; only swelling in the balls of his feet was noted. Patient's sputum was also noticed to be slightly hayes and thick this shift, with a very trace amount of brown blood. Patient's coughing has also improved. He has not had any complaints of pain, dizziness, or nausea. Patient has received his scheduled nighttime medications per JUL. Patient's FSBS at 21:00 this shift was 209; he received 5 units of Lispro insulin. At 05:30 this morning, his FSBS was 118. Patient does not have any further complaints at this time. He is currently resting in bed. Call light is within reach.
[2023-12-07] MEDS: IPRATROPIUM/ALBUTEROL 3 ML NEB IH ×2 (06:10→12:35)
[2023-12-07 06:51] LABS: Basophils % 0.5 % (0.1-2.0); Eosinophils # 0.1 K/mm3 (0.0-0.4); Eosinophils % 2.3 % (0.1-12.0); Hematocrit 39.6 % (42.0-52.0); Hemoglobin 12.9 g/dL (14.1-18.0); Lymphocytes # 0.7 K/mm3 (0.7-4.5); Lymphocytes % 14.8 % (10-50); Mean Corpuscular HGB Conc 32.6 g/dL (31.8-35.4); Mean Corpuscular Hemoglobin 28.9 pg (27.0-31.2); Mean Corpuscular Volume 88.6 fl (80-94); Mean Platelet Volume 8.5 fl (7.4-10.4); Monocytes # 0.4 K/mm3 (0.1-1.0); Monocytes % 8.1 % (1.7-9.3); Neutrophils # 3.5 K/mm3 (1.8-7.8); Neutrophils % 74.3 % (37.0-80.0); Platelet Count 146 K/mm3 (142-424); Red Blood Count 4.47 M/mm3 (4.60-6.20); Red Cell Distribution Width 16.1 % (11.5-17.5); White Blood Count 4.7 K/mm3 (4.8-10.8)
[2023-12-07 07:10] LABS: Alanine Aminotransferase 13 U/L (12-78); Albumin Level 2.9 g/dl (3.5-5.0); Albumin/Globulin Ratio 1.2 (1.1-1.8); Alkaline Phosphatase 52 U/L (38-126); Anion Gap 4.8 mEq/L (5-15); Aspartate Amino Transferase 16 U/L (17-59); Bilirubin,Total 0.7 mg/dl (0.2-1.3); Blood Urea Nitrogen 21 mg/dl (9-20); Carbon Dioxide 31 mmol/L (22.0-30.0); Chloride 106 mmol/L (98-107); Creatinine Clearance Estimated 128 mL/min (50-200); Estimated Glomerular Filt Rate 135 ml/min (>60); GFR (African American) 164 ML/MIN (>60); Globulin 2.5 g/dL (1.3-3.2); Glucose 121 mg/dl (74-100); Sodium 139 mmol/L (136-145); Total Protein,Serum 5.4 g/dl (6.3-8.2)
--- NOTE | 2023-12-07 07:34 | P.PN_ITS ---
Subjective *Date: 12/07/23 *Time: 07:34 Medical Exam Vital signs and Labs for Last 24 Hours: Vital Signs Temp Pulse Pulse Pulse Resp BP Pulse Ox 12/07/23 06:38 12/07/23 06:11 77 12/07/23 06:11 77 12/07/23 06:11 97 12/07/23 05:00 12/07/23 04:00 97.9 F 78 16 158/87 H 96 12/07/23 04:00 80 12/07/23 03:00 12/07/23 01:00 12/07/23 00:00 80 12/07/23 00:00 98.5 F 80 18 155/80 H 94 L 12/06/23 23:19 85 12/06/23 23:19 89 12/06/23 23:00 12/06/23 21:00 12/06/23 20:00 80 18 94 L 12/06/23 20:00 90 12/06/23 20:00 97.6 F 79 18 155/88 H 96 12/06/23 18:35 82 12/06/23 18:35 87 12/06/23 18:35 96 12/06/23 17:48 12/06/23 16:16 12/06/23 16:00 90 12/06/23 16:00 98.7 F 68 16 158/82 H 95 12/06/23 13:57 12/06/23 13:00 12/06/23 12:00 80 12/06/23 12:00 98.8 F 78 16 161/91 H 95 12/06/23 11:14 81 12/06/23 11:14 82 12/06/23 10:05 12/06/23 09:00 12/06/23 08:00 80 12/06/23 08:00 12/06/23 08:00 98.9 F 77 20 153/83 H 95 O2 Del Method O2 Flow Rate 12/07/23 06:38 Nasal Cannula 1 12/07/23 06:11 12/07/23 06:11 12/07/23 06:11 Nasal Cannula 1 12/07/23 05:00 Nasal Cannula 2 12/07/23 04:00 Room Air 12/07/23 04:00 12/07/23 03:00 Room Air 12/07/23 01:00 Room Air 12/07/23 00:00 12/07/23 00:00 Room Air 12/06/23 23:19 12/06/23 23:19 12/06/23 23:00 Room Air 12/06/23 21:00 Room Air 12/06/23 20:00 Room Air 12/06/23 20:00 12/06/23 20:00 Room Air 12/06/23 18:35 12/06/23 18:35 12/06/23 18:35 Room Air 12/06/23 17:48 Room Air 12/06/23 16:16 Room Air 12/06/23 16:00 12/06/23 16:00 Room Air 12/06/23 13:57 Room Air 12/06/23 13:00 Room Air 12/06/23 12:00 12/06/23 12:00 Room Air 12/06/23 11:14 12/06/23 11:14 12/06/23 10:05 Room Air 12/06/23 09:00 Room Air 12/06/23 08:00 12/06/23 08:00 Nasal Cannula 1 12/06/23 08:00 Room Air Intake and Output 12/06/23 12/06/23 12/07/23 15:59 23:59 07:59 Intake Total 900 / 2422 600 / 2422 322 / 322 Output Total 0 / 325 0 / 0 Balance 900 / 2097 600 / 2097 322 / 322 Intake: Intake, Oral Amount 900 / 2222 600 / 2222 222 / 222 Intake, Total IV Amount 100 / 100 Ceftriaxone Sodium 2 gm In 0.9 100 / 100 % Sodium Chloride 100 ml @ 200 mls/hr IV Q24H [facility] Rx#:[id number] Output: Output, Urine Amount 0 / 325 0 / 0 Other: Number of Unmeasured Voids 1 1 Weight 122 kg 122.515 kg Patient Weight 12/07/23 23:59 Weight 122.515 kg Laboratory Results - last 24 hr 12/06/23 10:02: POC Glucose 128 H 12/06/23 15:49: POC Glucose 219 H 12/06/23 20:25: POC Glucose 209 H 12/07/23 05:25: POC Glucose 118 H 12/07/23 06:31: WBC 4.7 L, RBC 4.47 L, Hgb 12.9 L, Hct 39.6 L, MCV 88.6, MCH 28.9, MCHC 32.6, RDW 16.1, Plt Count 146, MPV 8.5, Neut % (Auto) 74.3, Lymph % (Auto) 14.8, [place] % (Auto) 8.1, Eos % (Auto) 2.3, Baso % (Auto) 0.5, Neut # (Auto) 3.5, Lymph # (Auto) 0.7, [place] # (Auto) 0.4, Eos # (Auto) 0.1, Baso # (Auto) 0.0 I & O for Labs for Last 24 Hours: Intake & Output 12/04/23 12/05/23 12/06/23 12/07/23 23:59 23:59 23:59 23:59 Intake Total 1630 / 2202 1972 / 2572 2100 / 2422 322 / 322 Output Total 1700 / 2200 4500 / 4825 325 / 325 0 / 0 Balance -70 / 2 -2528 / -2253 1775 / 2097 322 / 322 Weight 113.443 kg 120.882 kg 122 kg 122.515 kg The patient's infection will respond to the chosen ABx?: Yes Is the patient receiving the right drug, dose, and route?: Yes Could a more targeted ABx be ordered?: No (SPUTUM CX PENDING AND BLOOD CX NG)
[2023-12-07 07:44] LABS: Potassium 2.8 mmoL/L (3.5-5.1)
[2023-12-07 07:47] LABS: Cholesterol 103 mg/dl (140-200); HDL Cholesterol 26 mg/dl (40-60); Triglycerides 91 mg/dl (30-150); VLDL Cholesterol 18 mg/dL (0-40)
--- NOTE | 2023-12-07 07:54 | PC.NURSE ---
LAB CALLED CRITICAL POTASSIUM OF 2.8. NOTIFIED
[2023-12-07 07:59] LABS: Direct LDL Cholesterol 58.58 mg/dL (100-129)
[2023-12-07] MEDS: GABAPENTIN 100MG CAPSULE 100 MG PO ×2 (08:21→12:55)
[2023-12-07] MEDS: AMLODIPINE 10MG TABLET 10 MG PO (08:22)
[2023-12-07] MEDS: FINASTERIDE 5MG TABLET 5 MG PO (08:23)
[2023-12-07] MEDS: predniSONE 20MG TAB 40 MG PO (08:23)
[2023-12-07] MEDS: HYDRALAZINE HCL 25MG TABLET 25 MG PO (08:23)
[2023-12-07] MEDS: SPIRONOLACTONE 25MG TABLET 50 MG PO (08:23)
[2023-12-07] MEDS: POTASSIUM CHLORIDE 20MEQ TAB 40 MEQ PO ×2 (08:23→13:07)
[2023-12-07] MEDS: CARVEDILOL 25MG TABLET 25 MG PO (08:23)
[2023-12-07] MEDS: EMPAGLIFLOZIN 10MG TABLET 25 MG PO (08:24)
[2023-12-07] MEDS: TAMSULOSIN 0.4MG CAPSULE 0.8 MG PO (08:24)
[2023-12-07] MEDS: SACUBITRIL/VALSARTAN 24-26MG TABLET 2 EACH PO ×2 (08:24→09:35)
[2023-12-07] MEDS: BUMETANIDE 1MG/4ML VIAL 1 MG IV (08:26)
--- NOTE | 2023-12-07 08:52 | EXP.CARD.PN ---
Subjective Subjective Date: 12/07/23 Time: 08:45 Principal diagnosis: HFpEF Interval history: This is a 63-year-old gentleman admitted to the hospital with acute on chronic HFpEF. He has been diuresed with IV Bumex. He has done well with IV diuresis. This morning he states that his shortness of breath is improved. He denies any chest pain or pressure. He denies any lower extremity edema. He denies any fever, chills, nausea, vomiting, diarrhea, PND orthopnea. His hemoptysis has improved and is now only coughing up esparza sputum. Exam Data for Last 24 hours Vital signs and Labs for Last 24 Hours: Temp Pulse Resp BP Pulse Ox O2 Del Method O2 Flow Rate 98 F 67 21 148/83 H 97 Room Air 1 12/07/23 07:32 12/07/23 07:32 12/07/23 07:32 12/07/23 07:32 12/07/23 07:32 12/07/23 07:32 12/07/23 06:38 FiO2 2 12/05/23 04:00 Laboratory Results - last 24 hr 12/06/23 10:02: POC Glucose 128 H 12/06/23 15:49: POC Glucose 219 H 12/06/23 20:25: POC Glucose 209 H 12/07/23 05:25: POC Glucose 118 H 12/07/23 06:31: WBC 4.7 L, RBC 4.47 L, Hgb 12.9 L, Hct 39.6 L, MCV 88.6, MCH 28.9, MCHC 32.6, RDW 16.1, Plt Count 146, MPV 8.5, Neut % (Auto) 74.3, Lymph % (Auto) 14.8, [place] % (Auto) 8.1, Eos % (Auto) 2.3, Baso % (Auto) 0.5, Neut # (Auto) 3.5, Lymph # (Auto) 0.7, [place] # (Auto) 0.4, Eos # (Auto) 0.1, Baso # (Auto) 0.0, Sodium 139, Potassium 2.8 L*, Chloride 106, Carbon Dioxide 31 H, Anion Gap 4.8 L, BUN 21 H, Creatinine 0.60 L, Estimated Creat Clear 128, Estimated GFR 135, Est GFR ( Amer) 164, Glucose 121 H, Calcium 8.0 L, Total Bilirubin 0.7, AST 16 L, ALT 13, Alkaline Phosphatase 52, Total Protein 5.4 L, Albumin 2.9 L, Globulin 2.5, Albumin/Globulin Ratio 1.2, Triglycerides 91, Cholesterol 103 L, LDL Cholesterol Direct 58.58 L, VLDL Cholesterol 18, HDL Cholesterol 26 L, Cholesterol/HDL Ratio 4.0 H I & O for Last 24 hours: Intake & Output 12/04/23 12/05/23 12/06/23 12/07/23 23:59 23:59 23:59 23:59 Intake Total 1630 / 2202 1972 / 2572 2100 / 2422 922 / 922 Output Total 1700 / 2200 4500 / 4825 325 / 325 0 / 0 Balance -70 / 2 -2528 / -2253 1775 / 2097 922 / 922 Weight 250 lb 1.584 oz 266 lb 8 oz 268 lb 15.423 oz 270 lb 1.6 oz Narrative: Telemetry shows atrial flutter with a rate in the 70s. Echocardiogram shows: Normal biventricular systolic function. Mild RV dilation. Biatrial dilation. Mild TR. Elevated RVSP 45-50 mmHg. There is Trivial posterior pericardial effusion is present. No echo indications of tamponade. Constitutional Constitutional: no acute distress and obese *Routine HEENT Exam Head: Present normocephalic and atraumatic ENT: Present mucous membranes moist *Routine Neck Exam Neck: Present supple, full ROM and normal carotid upstroke; Absent JVD, carotid bruit or lymphadenopathy *Routine Respiratory Exam Respiratory: Present CTA bilaterally, normal respiratory effort, able to speak in complete sentences and symmetric chest movement *Routine Cardiovascular Exam Cardiovascular: Present Normal S1, Normal S2 and irregularly irregular; Absent murmur or gallop *Routine Abdominal Exam Abdominal: Present soft and normoactive bowel sounds; Absent tenderness, distended or organomegaly *Routine Extremities Exam Extremities: Present full ROM, pulses intact and normal capillary refill; Absent cyanosis, clubbing or edema *Routine Skin Exam Skin: Present intact and warm; Absent erythema *Routine Neurological Exam Neurological: Present alert, oriented X3 and CN II-XII intact; Absent sensory deficit or motor deficit Routine Psychiatric Exam Psychiatric: Present normal affect Progress Note: A&P Assessment and plan (1) Acute on chronic heart failure with preserved ejection fraction (HFpEF): Status: Acute (2) Shortness of Breath: Status: Acute (3) Afib: Status: Acute (4) HLD (hyperlipidemia): Status: Acute (5) HTN (hypertension): Status: Acute (6) Type 2 diabetes mellitus: Status: Acute (7) BPH (benign prostatic hyperplasia): Status: Acute (8) Hemoptysis: Status: Acute (9) Sepsis: Status: Acute (10) Multifocal pneumonia: Status: Acute (11) Abnormal electrocardiogram [ECG] [EKG]: Status: Acute (12) Hypokalemia: Status: Acute Assessment and Plan Assessment and Plan for All Diagnoses:: Plan: 1. The patient was admitted to the hospital with sepsis and multifocal pneumonia. He is being treated with IV antibiotics. Will defer to the hospitalist. 2. The patient does have an acute on chronic exacerbation of HFpEF. He has been diuresed with IV Bumex. Will switch his IV diuretics over to oral today. Stop IV Bumex and start Bumex 1 mg p.o. twice daily for continued diuresis. 3. Continue current dose of spironolactone. 4. The patient is hypokalemic with a potassium of 2.8 today despite increasing his spironolactone. He is getting his potassium replaced per the hospitalist. 5. The patient does have chronic atrial fibrillation/flutter. He has been cardioverted in the past on 3 separate occasions. The patient reports that he will never do another cardioversion again. He remains in atrial flutter this morning and is rate controlled. 6. His Eliquis remains on hold due to hemoptysis. His hemoptysis has improved. This hemoptysis was likely from his pneumonia and pulmonary edema. It is reasonable to hold his Eliquis for an additional week to make sure his hemoptysis resolves. We do recommend restarting Eliquis at 5 mg p.o. twice daily next week. 7. His blood pressure is slightly elevated today. Will increase his Entresto back to 97/103 mg p.o. twice daily which is his home dose of this medication. 8. Continue Coreg, Entresto, Jardiance, spironolactone and Bumex for his HFpEF. 9. His LDL goal is less than 100. His LDL is 58. He is on a statin. 10. His echocardiogram showed a normal ejection fraction with mild RV dilatation and biatrial dilatation. There is mild MR and an elevated RVSP at 45 to 50 mmHg. There is a trivial pericardial effusion noted. 11. Further recommendations will be made pending the patient's response to treatment. Thank you for the opportunity to help participate in the care of this patient. All recommendations and orders are per Dr. Henry.
[2023-12-07] MEDS: GUAIFENESIN/PSEUDOEPHE 600/60MG TAB.ER.12H 1 EACH PO (09:28)
[2023-12-07] MEDS: humaLOG 100 UNITS/ML 10ML VIAL (SSI) SQ (11:00)
[2023-12-07 11:02] LABS: POC Glucose,Bedside 169 (70-110)
--- NOTE | 2023-12-07 11:31 | EXP.DC.SUM ---
General Admission date:: 12/03/23 Discharge date: 12/07/23 HPI HPI HPI: Sharif Hare is a 63-year-old male past medical history significant for A-fib on Eliquis, COPD, HTN, HLD, type 2 diabetes, BPH who presents emergency room tonight with complaints of shortness of breath and productive cough. Mr. Hare States he began having chills last night at approximately 1:00. Reports he has a productive cough, sometimes pink-tinged sputum, sometimes esparza/brown-colored sputum. Does not wear oxygen at home at baseline. Denies any known sick contacts. Denies any chest pain, abdominal pain, bowel or bladder dysfunction. No recent weight gain or weight loss, no increase in the swelling in his lower extremities. No focal neurodeficits noted. Does take Eliquis for his A-fib. Does not know when the last time he had an echo done, denies any history of CHF. Uses smokeless tobacco, denies any alcohol or illicit drug use. Workup in the ER showed potassium of 3.2, BNP elevated at 5270. VBG showed a pH of 7.3, pCO2 of 50, pO2 of 48 with a bicarb of 24. Patient was noted to be hypoxic in the ER with SpO2 sats in the mid 80s. He was placed on 4 L nasal cannula with improvement of his O2 sats into the mid 90s. Chest x-ray showed multifocal pneumonia and patient was febrile with Tmax of 102.1. Patient does meet simple sepsis criteria without septic shock. He was given azithromycin Rocephin in the ER as well as a DuoNeb treatment. He was not given the 30 cc/kg IV fluid bolus as ER doctor performed a bedside ultrasound which showed IVC plethora. He will be admitted to the hospitalist service for sepsis with acute hypoxic respiratory failure secondary to multifocal pneumonia. Hospital Course Hospital Course Hospital Course: This is a 63-year-old male who is being admitted for sepsis with acute hypoxic respiratory failure secondary to multifocal pneumonia, hemoptysis, concern for CHF component. Admitted for further management. Initially had oxygen requirement of 4 L. Weaned with diuresis to room air. Has been on room air for over 48 hours. His hemoptysis is resolving with holding his anticoagulation. Overall doing well. Cardiology assisted with care. Will have close follow-up with them. Referred to pulmonology as an outpatient for further management and evaluation of COPD and hemoptysis if it recurs. Holding anticoagulation at discharge for at least another week to allow lungs to heal from pulmonary edema and pneumonia. Problems addressed as follows: Sepsis without septic shock, improving Acute hypoxic respiratory failure Multifocal pneumonia Hemoptysis -Admitted for new oxygen requirement and respiratory distress. Meeting sepsis criteria. Concern for pneumonia versus pulmonary edema. White cell count was normal but he was tachypneic and tachycardic. Diuresed well with treating CHF component. Initiated on broad-spectrum antibiotics with ceftriaxone and azithromycin. Completed 5 days of antibiotics during admission. Sputum culture growing gram-positive cocci in chains, suspect strep. Culture still pending at discharge. Will complete 2 more days of cefdinir for total of 7 days of antibiotics. Oxygen weaned to room air. Treated with DuoNebs during admission. Received 5 days of steroids for COPD component. Sputum improving, decreased volume by day of discharge. Initially had some hemoptysis that resolved to rust colored tinged sputum by day of discharge. Will plan for follow-up with pulmonology for further evaluation in the coming weeks. Holding anticoagulation for now to allow edema to resolve and bleeding to resolve before resuming. Hemoglobin remained stable. Given improvement, discharged home. HLD: Continue statin, lipid panel with LDL of 58 on day of discharge. At goal. A-fib: Continue rate control medication with beta-tameka (carvedilol). Holding Eliquis and aspirin in the setting of hemoptysis above Type 2 diabetes: A1c normal at 5.6, controlled with diet, Jardiance, and metformin per home regimen. CHF exacerbation HTN: Cardiology consulted, appreciate their recommendations. Discussed case during admission. Continue medications for heart failure including hydralazine, Entresto, carvedilol, amlodipine, Jardiance Hold Eliquis until follow-up with cardiology given is a mopped assist. Echo obtained showing preserved ejection fraction, findings consistent with diastolic dysfunction. Adjustments to medications for heart failure as follows; Increase spironolactone to 50 mg daily; continue Entresto 1 tablet max dose twice daily. Continue amlodipine 10 mg daily. carvedilol 25 mg twice daily, hydralazine 25 mg daily. Continue Bumex 1 mg twice daily for diuresis. BPH: Continue finasteride 5 mg daily and tamsulosin 0.8 mg daily Total time spent on discharge 36 minutes in counseling, documentation, chart review, and direct care with patient. Exam Data for Last 24 hours Vital signs and Labs for Last 24 Hours: Temp Pulse Resp BP Pulse Ox O2 Del Method O2 Flow Rate 98 F 90 21 148/83 H 97 Room Air 1 12/07/23 07:32 12/07/23 08:00 12/07/23 07:32 12/07/23 07:32 12/07/23 07:32 12/07/23 11:00 12/07/23 06:38 FiO2 2 12/05/23 04:00 Laboratory Results - last 24 hr 12/06/23 15:49: POC Glucose 219 H 12/06/23 20:25: POC Glucose 209 H 12/07/23 05:25: POC Glucose 118 H 12/07/23 06:31: WBC 4.7 L, RBC 4.47 L, Hgb 12.9 L, Hct 39.6 L, MCV 88.6, MCH 28.9, MCHC 32.6, RDW 16.1, Plt Count 146, MPV 8.5, Neut % (Auto) 74.3, Lymph % (Auto) 14.8, [place] % (Auto) 8.1, Eos % (Auto) 2.3, Baso % (Auto) 0.5, Neut # (Auto) 3.5, Lymph # (Auto) 0.7, [place] # (Auto) 0.4, Eos # (Auto) 0.1, Baso # (Auto) 0.0, Sodium 139, Potassium 2.8 L*, Chloride 106, Carbon Dioxide 31 H, Anion Gap 4.8 L, BUN 21 H, Creatinine 0.60 L, Estimated Creat Clear 128, Estimated GFR 135, Est GFR ( Amer) 164, Glucose 121 H, Calcium 8.0 L, Total Bilirubin 0.7, AST 16 L, ALT 13, Alkaline Phosphatase 52, Total Protein 5.4 L, Albumin 2.9 L, Globulin 2.5, Albumin/Globulin Ratio 1.2, Triglycerides 91, Cholesterol 103 L, LDL Cholesterol Direct 58.58 L, VLDL Cholesterol 18, HDL Cholesterol 26 L, Cholesterol/HDL Ratio 4.0 H 12/07/23 10:55: POC Glucose 169 H I & O for Last 24 hours: Intake & Output 12/04/23 12/05/23 12/06/23 12/07/23 23:59 23:59 23:59 23:59 Intake Total 1630 / 2202 1972 / 2572 2100 / 2422 922 / 922 Output Total 1700 / 2200 4500 / 4825 325 / 325 0 / 0 Balance -70 / 2 -2528 / -2253 1775 / 2096 922 / 922 Weight 113.443 kg 120.882 kg 122 kg 122.515 kg Constitutional Constitutional: no acute distress, obese, chronically ill appearing and cooperative *Routine HEENT Exam Head: Present normocephalic Eye: Present EOMI and PERRL ENT: Present mucous membranes moist *Routine Neck Exam Neck: Present supple; Absent lymphadenopathy *Routine Respiratory Exam Respiratory: Present CTA bilaterally; Absent respiratory distress, rhonchi, wheezes or crackles *Routine Cardiovascular Exam Cardiovascular: Present irregularly irregular Comments: Rate controlled *Routine Abdominal Exam Abdominal: Present soft and normoactive bowel sounds; Absent tenderness *Routine Extremities Exam Extremities: Absent cyanosis, clubbing or edema *Routine Skin Exam Skin: Present warm; Absent rash *Routine Neurological Exam Neurological: Present alert, oriented X3 and moving all extremities; Absent altered mental status Results Data Completed and Pending Labs on day of discharge: Labs from last 24 hours 12/07/23 12/07/23 12/07/23 10:55 06:31 05:25 WBC 4.7 L RBC 4.47 L Hgb 12.9 L Hct 39.6 L MCV 88.6 MCH 28.9 MCHC 32.6 RDW 16.1 Plt Count 146 MPV 8.5 Neut % (Auto) 74.3 Lymph % (Auto) 14.8 [place] % (Auto) 8.1 Eos % (Auto) 2.3 Baso % (Auto) 0.5 Neut # (Auto) 3.5 Lymph # (Auto) 0.7 [place] # (Auto) 0.4 Eos # (Auto) 0.1 Baso # (Auto) 0.0 Sodium 139 Potassium 2.8 L* Chloride 106 Carbon Dioxide 31 H Anion Gap 4.8 L BUN 21 H Creatinine 0.60 L Estimated Creat Clear 128 Estimated GFR 135 Est GFR ( Amer) 164 Glucose 121 H POC Glucose 169 H 118 H Calcium 8.0 L Total Bilirubin 0.7 AST 16 L ALT 13 Alkaline Phosphatase 52 Total Protein 5.4 L Albumin 2.9 L Globulin 2.5 Albumin/Globulin Ratio 1.2 Triglycerides 91 Cholesterol 103 L LDL Cholesterol Direct 58.58 L VLDL Cholesterol 18 HDL Cholesterol 26 L Cholesterol/HDL Ratio 4.0 H 12/06/23 12/06/23 20:25 15:49 WBC RBC Hgb Hct MCV MCH MCHC RDW Plt Count MPV Neut % (Auto) Lymph % (Auto) [place] % (Auto) Eos % (Auto) Baso % (Auto) Neut # (Auto) Lymph # (Auto) [place] # (Auto) Eos # (Auto) Baso # (Auto) Sodium Potassium Chloride Carbon Dioxide Anion Gap BUN Creatinine Estimated Creat Clear Estimated GFR Est GFR ( Amer) Glucose POC Glucose 209 H 219 H Calcium Total Bilirubin AST ALT Alkaline Phosphatase Total Protein Albumin Globulin Albumin/Globulin Ratio Triglycerides Cholesterol LDL Cholesterol Direct VLDL Cholesterol HDL Cholesterol Cholesterol/HDL Ratio Preliminary micro results at discharge 12/03/23 18:50 Blood Culture - Preliminary Blood NO GROWTH AFTER 48 HOURS 12/03/23 18:55 Blood Culture - Preliminary Blood NO GROWTH AFTER 48 HOURS 12/04/23 11:02 Sputum Culture - Preliminary Sputum - Expectorated Sputum DS: Diagnosis Discharge Diagnosis (1) Acute on chronic heart failure with preserved ejection fraction (HFpEF): Status: Acute Code(s): I50.33 - Acute on chronic diastolic (congestive) heart failure (2) Shortness of Breath: Status: Acute Code(s): R06.02 - Shortness of breath (3) Afib: Status: Acute Code(s): I48.91 - Unspecified atrial fibrillation Qualifiers: Atrial fibrillation type: unspecified chronic Qualified Code(s): I48.20 - Chronic atrial fibrillation, unspecified (4) HLD (hyperlipidemia): Status: Acute Code(s): E78.5 - Hyperlipidemia, unspecified Qualifiers: Hyperlipidemia type: mixed hyperlipidemia Qualified Code(s): E78.2 - Mixed hyperlipidemia (5) HTN (hypertension): Status: Acute Code(s): I10 - Essential (primary) hypertension Qualifiers: Hypertension type: primary hypertension Qualified Code(s): I10 - Essential (primary) hypertension (6) Type 2 diabetes mellitus: Status: Acute Code(s): E11.9 - Type 2 diabetes mellitus without complications Qualifiers: Diabetes mellitus complication status: without complication Diabetes mellitus retirement insulin use: without retirement use Qualified Code(s): E11.9 - Type 2 diabetes mellitus without complications (7) BPH (benign prostatic hyperplasia): Status: Acute Code(s): N40.0 - Benign prostatic hyperplasia without lower urinary tract symptoms Qualifiers: Lower urinary tract symptom presence: unspecified whether lower urinary tract symptoms present Qualified Code(s): N40.0 - Benign prostatic hyperplasia without lower urinary tract symptoms (8) Hemoptysis: Status: Acute Code(s): R04.2 - Hemoptysis (9) Sepsis: Status: Acute Code(s): A41.9 - Sepsis, unspecified organism Qualifiers: Sepsis acute organ dysfunction status: unspecified Sepsis type: sepsis due to unspecified organism Qualified Code(s): A41.9 - Sepsis, unspecified organism (10) Multifocal pneumonia: Status: Acute Code(s): J18.9 - Pneumonia, unspecified organism (11) Abnormal electrocardiogram [ECG] [EKG]: Status: Acute Code(s): R94.31 - Abnormal electrocardiogram [ECG] [EKG] (12) Hypokalemia: Status: Acute Code(s): E87.6 - Hypokalemia Meds Home Medications and Allergies Home Medications ?Medication ?Instructions ?Recorded ?Confirmed ?Type amlodipine 10 mg tablet 10 mg PO DAILY 12/03/23 12/03/23 History apixaban 5 mg tablet (Eliquis) 5 mg PO BID 12/03/23 12/03/23 History aspirin 81 mg chewable tablet 81 mg PO DAILY 12/03/23 12/03/23 History atorvastatin 20 mg tablet 20 mg PO HS 12/03/23 12/03/23 History carvedilol 25 mg tablet 25 mg PO BID 12/03/23 12/03/23 History empagliflozin 25 mg tablet 25 mg PO DAILY 12/03/23 12/03/23 History (Jardiance) fluticasone 250 mcg-salmeterol 50 1 inh inhalation BID 12/03/23 12/03/23 History mcg/dose blistr powdr for inhalation gabapentin 100 mg capsule 100 mg PO TID 12/03/23 12/03/23 History hydralazine 25 mg tablet 25 mg PO DAILY 12/03/23 12/03/23 History metformin 500 mg tablet 1,000 mg PO DAILY 12/03/23 12/03/23 History montelukast 10 mg tablet 10 mg PO HS 12/03/23 12/03/23 History tamsulosin 0.4 mg capsule 0.8 mg PO DAILY 12/03/23 12/03/23 History finasteride 5 mg tablet 5 mg PO DAILY 12/04/23 12/04/23 History bumetanide 1 mg tablet 1 mg PO BIDL 30 days #60 tabs 12/07/23 Rx cefdinir 300 mg capsule 300 mg PO BID 2 days #4 caps 12/07/23 Rx potassium chloride 20 mEq 20 meq PO TID 3 days #9 tabs 12/07/23 Rx tablet,extended release(part/cryst) (Klor-Con M) sacubitril 97 mg-valsartan 103 mg 1 tab PO BID 30 days #0 tabs 12/07/23 12/04/23 Rx tablet (Entresto) spironolactone 50 mg tablet 50 mg PO DAILY 30 days #30 tabs 12/07/23 Rx New Prescriptions to Start Prescriptions: Carlos Sagastume cefdinir Carlos Thomas potassium chloride [Klor-Con M20] Carlos Thomas spironolactone Carlos Thomas Allergies Allergy/AdvReac Type Severity Reaction Status Date / Time No Known Allergies Allergy Verified 12/03/23 18:15 Discharge Plan Disposition Patient Disposition: Home, Self-Care Condition: Fair Discharge Order Discharge Orders: Discharge Order (Routine); Ordered 12/07/23 Ordered By: Carlos Thomas Follow up Plan Follow up with: Jennifer Vanessa MD [Physician] - Enter time for follow up (resolved hemoptysis with COPD and CHF exacerbation. The office will call you with a follow up appt. ) Damir Henry MD [Staff Physician] - 12/14/23 1:30 pm Prescriptions/Medication Reconciliation: New potassium chloride [Klor-Con M20] 20 mEq Tablet,Er Particles/Crystals 20 meq PO TID 3 Days Qty: 9 0RF bumetanide 1 mg Tablet 1 mg PO BIDL 30 Days Qty: 60 0RF spironolactone 50 mg tablet 50 mg PO DAILY 30 Days Qty: 30 0RF cefdinir 300 mg capsule 300 mg PO BID 2 Days Qty: 4 0RF Continued tamsulosin 0.4 mg Capsule 0.8 mg PO DAILY gabapentin 100 mg Capsule 100 mg PO TID atorvastatin 20 mg Tablet 20 mg PO HS montelukast 10 mg Tablet 10 mg PO HS metformin 500 mg Tablet 1,000 mg PO DAILY fluticasone propion-salmeterol 250-50 mcg/dose Blister With Device 1 inh INHALATION BID carvedilol 25 mg Tablet 25 mg PO BID Rx Instructions: must administer with a meal/food hydralazine 25 mg Tablet 25 mg PO DAILY amlodipine 10 mg Tablet 10 mg PO DAILY Jardiance 25 mg Tablet 25 mg PO DAILY finasteride 5 mg tablet 5 mg PO DAILY Changed Entresto 97-103 mg tablet 1 tab PO BID 30 Days Qty: 0 0RF Held aspirin 81 mg Tablet,Chewable 81 mg PO DAILY Hold Instructions: Hold until follow-up with cardiology and hemoptysis has resolved. Eliquis 5 mg Tablet 5 mg PO BID Hold Instructions: Hold until follow-up with cardiology and hemoptysis has resolved. Discontinued spironolactone 25 mg Tablet 25 mg PO DAILY bumetanide 1 mg Tablet 1 mg PO DAILY Problem Reconciliation Problems Reviewed?: Yes Patient Discharge Instructions ACTIVITY: Continue current activity DIET: continue same diet Patient Instructions: DI for Chronic Obstructive Pulmonary Disease, DI for Pneumonia -- Adult, DI for Sepsis -- Adult, DI for Heart Failure Exacerbations Print Language: [place]an Providers Primary Care Provider: Provider,Referral Admit Provider: Carlos Thomas Attending Provider: Carlos Thomas
--- NOTE | 2023-12-07 11:37 | SW/DCPLANNER ---
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 Original Note: The plan for this patient is to return home today. Patient stated that he will not have transportation home at time of discharge. I will arrange [employer] once medically stable this afternoon. Patient also stated that he has a very small apartment and only has a broken recliner at this time. Patient was interested in a mattress. I did contact Mejia w/ [employer] and she does have a mattress that she can drop off to this patient once he returns home. I also discussed different Waiver services that patient may be a candidate for: patient expressed that he is not interested in any services at this time. I will continue to follow up w/ patient, nurse (Sunni) and Mejia regarding this patient. Per MD patient will discharge this afternoon pending lab results.
[2023-12-07] MEDS: AZITHROMYCIN 250MG TABLET 250 MG PO (12:55)
[2023-12-07 14:21] LABS: Potassium 3.7 mmoL/L (3.5-5.1)
--- NOTE | 2023-12-08 13:25 | CARE MANAGER ---
Contacted patient related to hospital discharge. He states he has the medication that was ordered from here, but is having difficulty getting medications that he regularly take. He states he called his PCP and was told that his PCP had relocated and he will need to see a different provider, but that it wouldn't be able to be until the end of December. I offered to help find the patient a PCP and set up an appointment so that he wouldn't have to wait that long and go without his medications. He declined assistance with this at this time. He states he wants to find the right provider and he will be fine going without his medications. I strongly recommended that the patient find PCP LUCINA so that he has the medications he needs. He continues to deny wanting assistance. Patient had someone at the door and had to get off the phone, but patient states he would call with questions or help needed.
== END 2023-12-07 16:45 | disposition home or self-care (01) | DRG 871 ==
LOC: ER 18:47 → 2ND 21:11
PROVIDERS: Nurse Practitioner Acute Care; Nurse Practitioner Family; Admitting Provider Internal Medicine Adolescent Medicine; Emergency Provider Student in an Organized Health Care Education/Training Program; Visit Provider Internal Medicine Adolescent Medicine
DX: A41.9 Sepsis, unspecified organism (principal); I50.33 Acute on chronic diastolic (congestive) heart failure; J18.9 Pneumonia, unspecified organism; J96.01 Acute respiratory failure with hypoxia; J44.1 Chronic obstructive pulmonary disease with (acute) exacerbation; R04.2 Hemoptysis; J44.0 Chronic obstructive pulmonary disease with (acute) lower respiratory infection; I48.92 Unspecified atrial flutter; I48.20 Chronic atrial fibrillation, unspecified; R65.20 Severe sepsis without septic shock; I11.0 Hypertensive heart disease with heart failure; E11.9 Type 2 diabetes mellitus without complications; N40.0 Benign prostatic hyperplasia without lower urinary tract symptoms; E78.2 Mixed hyperlipidemia; E87.6 Hypokalemia; E78.5 Hyperlipidemia, unspecified; Z79.01 Long term (current) use of anticoagulants; Z79.84 Long term (current) use of oral hypoglycemic drugs
CPT/HCPCS: 36415; 71045; 71275; 80048; 80053; 80061; 82803; 82962; 83036; 83615; 83735; 83880; 84132; 84484; 85007; 85025; 85027; 85378; 87040; 87070; 87077; 87205; 87636; 93005; 93306; 94640; 94761; 99221; 99291; J0131; J0456; J0696; J2919; J3475; J7030; J7120; J7620; Q9967

== ENCOUNTER 2023-12-20 06:48 | Outpatient (CLI) | payer MEDICARE, MEDICAID, SELFPAY ==
--- NOTE | 2023-12-20 | CA_ITS ---
APPROVED REPORT Exam: Pharmacologic Technologist: Sari Chavez, Ht: 6 ft 1 in Wt: 252 lbs BSA: 2.37 m2 HR: 58 bpm BP: 118/74 mmHg Rhythm: AFIB, 1 PVC Medical History Medical History: HTN, Diabetes, Smoking Medications: Amlodipine,,,,, Hydralazine,,,,, Aspirin,,,,, Metformin,,,,, Gabapentin,,,,, Atorvastatin,,,,, Carvedilol,,,,, TAMSULOSIN,,,,, Montelukast,,,,, ADVAIR,,,,, Cefdinir,,,,, Finasteride,,,,, Allergies: No known drug allergies Cardiac Risk Factors: HTN, , Diabetes, Smoking Stress Test Details Test: LEXISCAN HR Resting HR: 65 bpm Max Heart Rate (APMHR): 155 bpm Max HR Achieved: 92 bpm Target HR (85% APMHR): 132 bpm % of APMHR: 59 Recovery HR: 59 bpm BP Resting BP: 118/74 mmHg Max BP: 118/74 mmHg Recovery BP: 100.0/63.0 mmHg ECG Resting ECG: AFIB, PVCs Stress ECG: No significant ST changes Arrhythmia: PVCs Clinical Exercise duration: 04:03 min Highest Stage Achieved: Stress ECG Conclusion AFIB WITH RVR AND [address] changes: None Ectopy: PVCs Conclusion: Patient has atrial fibrillation at baseline. Unremarkable ECG portion of Lexiscan stress test. Myoview images reported separately. Test Summary REST 04:22 . . 65 . 118/ 74 . . Stage 1 01:00 . . 60 . . . . Stage 2 01:00 . . 81 . 116/ 60 . . Stage 3 01:00 . . 78 . 101/ 47 . . Stage 4 01:00 . . 67 . 103/ 54 . . Stage 4 01:03 . . 67 . 103/ 54 . Stop exercise at 04:03 RECOVERY 01:00 . . 56 . 106/ 56 . . RECOVERY 02:00 . . 59 . 100/ 63 . . RECOVERY 02:25 . . 65 . 100/ 63 . . Electronically signed by : Vianca Henry MD 12/21/2023 00:53:32
--- NOTE | 2023-12-20 06:59 | NM_ITS ---
APPROVED REPORT Exam: Nuclear Stress Test Indication: Chest pain, HTN, High cholesterol, DM, Afib Patient Location: Outpatient Stress Tech: Sari Chavez [place] Tech:Glendy Abad, ARRT, RT (R)(N) Ht: 6 ft 1 in Wt: 250 lbs HR: 65 bpm BP: 118/74 mmHg BSA: 2.37 m2 TID: 1.30 BMI: 32.9 History: Chest pain, HTN, High cholesterol, DM, Afib Procedure: Patient received 0.4 mg of intravenous Lexiscan, resting heart rate 65 bpm, resting blood pressure 118/74 mmHg, with Lexiscan maximum heart rate achieved was 92 bpm which is % of the maximum predicted heart rate and blood pressure was 118/74 mmHg. With Lexiscan, patient denied any complaint of chest pain. Cardiac Stress and Resting SPECT Images: Cardiac Stress and Resting SPECT images were obtained using technetium 99m Myoview 32.4 mCi stress and 10.07 mCi at rest. The patient could not lie on his abdomen. Therefore, prone stress imaging could not be performed. This may affect the diagnostic interpretation of the study findings. Resting and stress imaging in supine positions demonstrate a large sized, moderate, partially reversible perfusion defect in the inferior LV wall. Findings are suggestive of partial reversible ischemia. There is increase in transient ischemic dilatation ratio (TID 1.30), suggestive of possible multivessel disease or balanced ischemia. Gated imaging demonstrates normal global LV systolic function. There is mild hypokinesis of the basal inferior LV wall. Conclusion: Large sized, moderate, partially reversible perfusion defect in the inferior LV wall. Findings are suggestive of partial reversible ischemia. There is increase in transient ischemic dilatation ratio (TID 1.30), suggestive of possible multivessel disease or balanced ischemia. Gated imaging demonstrates normal global LV systolic function. There is mild hypokinesis of the basal inferior LV wall. Electronically signed by : Vianca Henry MD 12/21/2023 00:55:55
[2023-12-20] MEDS: SODIUM CHLORIDE 0.9% 10ML SYR (RAD ONLY) 10 ML IV ×2 (09:12)
[2023-12-20] MEDS: ISOTOPE MYOVIEW (PER STUDY) 1 DOSE IV (09:12)
[2023-12-20] MEDS: REGADENOSON 0.4MG/5ML SYRINGE 0.4 MG IV (09:12)
== END 2023-12-20 23:59 | disposition home or self-care (01) ==
LOC: RAD 06:49
PROVIDERS: Visit Provider Nurse Practitioner Family
DX: R07.9 Chest pain, unspecified (principal); R94.31 Abnormal electrocardiogram [ECG] [EKG]; R06.02 Shortness of breath; E11.9 Type 2 diabetes mellitus without complications; I48.20 Chronic atrial fibrillation, unspecified; E78.2 Mixed hyperlipidemia; I10 Essential (primary) hypertension; J44.1 Chronic obstructive pulmonary disease with (acute) exacerbation; R07.89 Other chest pain
CPT/HCPCS: 78452; 93017; 93018; A9502; J2785

== ENCOUNTER 2023-12-20 20:37 | Emergency (ER) | payer MEDICARE, MEDICAID, SELFPAY ==
[2023-12-20 20:39] VITALS: BP 151/85; PULSE 88; RESP 18; TEMP 36.9; O2SAT 97; BMI 32.7
--- NOTE | 2023-12-20 20:54 | ED_ITS ---
<Statement entered by Wai Luu MD - 12/22/23 22:43> I was consulted by the ROGER, and we discussed the complexity of the problems being addressed. I approved the treatment and management plan for this patient's care in the emergency department, thus performing a substantive portion of the medical decision making. Wai Luu MD, ERICH, FACEP Discharge Plan Disposition Patient Disposition: Home, Self-Care Condition: Good Chief Complaint: Fall Prescriptions Prescriptions: No Action tamsulosin 0.4 mg Capsule 0.8 mg PO DAILY aspirin 81 mg Tablet,Chewable 81 mg PO DAILY gabapentin 100 mg Capsule 100 mg PO TID atorvastatin 20 mg Tablet 20 mg PO HS montelukast 10 mg Tablet 10 mg PO HS metformin 500 mg Tablet 1,000 mg PO DAILY fluticasone propion-salmeterol 250-50 mcg/dose Blister With Device 1 inh INHALATION BID carvedilol 25 mg Tablet 25 mg PO BID Rx Instructions: must administer with a meal/food hydralazine 25 mg Tablet 25 mg PO DAILY amlodipine 10 mg Tablet 10 mg PO DAILY Eliquis 5 mg Tablet 5 mg PO BID Jardiance 25 mg Tablet 25 mg PO DAILY finasteride 5 mg tablet 5 mg PO DAILY potassium chloride [Klor-Con M20] 20 mEq Tablet,Er Particles/Crystals 20 meq PO TID 3 Days Qty: 9 0RF bumetanide 1 mg Tablet 1 mg PO BIDL 30 Days Qty: 60 0RF spironolactone 50 mg tablet 50 mg PO DAILY 30 Days Qty: 30 0RF Entresto 97-103 mg tablet 1 tab PO BID 30 Days Qty: 0 0RF cefdinir 300 mg capsule 300 mg PO BID 2 Days Qty: 4 0RF Referrals Follow up/Referrals: Provider,MD Bryant [Primary Care Provider] - See instructions Aaron Gamez MD [Staff Physician] - See instructions Activity Restrictions/Add. Instructions Additional Instructions/Restrictions: I have referred you to a local PCP to follow your wound. Please call and establish an appointment in the morning. Return to the ER for any worsening signs or symptoms as needed Clinical Impressions Clinical Impression: Infected hematoma Instructions Patient Instructions: DI for Hematoma (Bruise) Print Language Print Language: Surinamese Discharge ED Provider: Wai Luu General Adult HPI <JASBIR Marks - Last Filed: 12/20/23 23:07> General Chief complaint: Fall Stated complaint: AO 12/16/23 Injury to left leg Time Seen by Provider: 12/20/23 20:54 Mode of Arrival: Ambulatory Source of Information: Patient Limitations: No Limitations Description of Symptoms (Recalled from ER Triage Doc. by RN): Pt presents to ED for L leg pain/swelling after a fall last . Pt states the swelling and pain is more intense today. Pt was recently hospitalized for Pneumonia and CHF and had a stress test today. Pt is A&O*4 and rates pain 7/ History of Present Illness HPI narrative: She presents for left lower extremity injury. Patient stated that he fell striking his left anterior ding on . Over the course of the time since that has gotten red painful and swollen. Today after he returned home from work patient denies numbness or tingling only pain. There is no worsening or relieving factors. Patient is on Eliquis due to chronic A-fib. He is also. He denies fever chills hemoptysis hematochezia melena nausea vomit diarrhea. Type II diabetic Related Data Home Medications ?Medication ?Instructions ?Recorded ?Confirmed amlodipine 10 mg tablet 10 mg PO DAILY 12/03/23 12/14/23 apixaban 5 mg tablet (Eliquis) 5 mg PO BID 12/03/23 12/14/23 aspirin 81 mg chewable tablet 81 mg PO DAILY 12/03/23 12/14/23 atorvastatin 20 mg tablet 20 mg PO HS 12/03/23 12/14/23 carvedilol 25 mg tablet 25 mg PO BID 12/03/23 12/14/23 empagliflozin 25 mg tablet 25 mg PO DAILY 12/03/23 12/14/23 (Jardiance) fluticasone 250 mcg-salmeterol 50 1 inh inhalation BID 12/03/23 12/14/23 mcg/dose blistr powdr for inhalation gabapentin 100 mg capsule 100 mg PO TID 12/03/23 12/14/23 hydralazine 25 mg tablet 25 mg PO DAILY 12/03/23 12/14/23 metformin 500 mg tablet 1,000 mg PO DAILY 12/03/23 12/14/23 montelukast 10 mg tablet 10 mg PO HS 12/03/23 12/14/23 tamsulosin 0.4 mg capsule 0.8 mg PO DAILY 12/03/23 12/14/23 finasteride 5 mg tablet 5 mg PO DAILY 12/04/23 12/14/23 Previous Rx's ?Medication ?Instructions ?Recorded bumetanide 1 mg tablet 1 mg PO BIDL 30 days #60 tabs 12/07/23 cefdinir 300 mg capsule 300 mg PO BID 2 days #4 caps 12/07/23 potassium chloride 20 mEq 20 meq PO TID 3 days #9 tabs 12/07/23 tablet,extended release(part/cryst) (Klor-Con M) sacubitril 97 mg-valsartan 103 mg 1 tab PO BID 30 days #0 tabs 12/07/23 tablet (Entresto) spironolactone 50 mg tablet 50 mg PO DAILY 30 days #30 tabs 12/07/23 Allergies Allergy/AdvReac Type Severity Reaction Status Date / Time No Known Allergies Allergy Verified 12/14/23 13:39 [facility] <JASBIR Marks - Last Filed: 12/20/23 23:07> [facility] Disclaimer: The information contained in this section may have been updated after the patient was seen, as this information can be updated by other users. Medical History (Updated 12/20/23 @ 23:07 by JASBIR Marks) COPD (chronic obstructive pulmonary disease) with emphysema Hypokalemia Shortness of Breath Acute on chronic heart failure with preserved ejection fraction (HFpEF) BPH (benign prostatic hyperplasia) Type 2 diabetes mellitus Afib HLD (hyperlipidemia) HTN (hypertension) Surgical History History of cardioversion Social History Smoking Status: Never smoker alcohol intake: never current occupational status: other Travel in the last 8 weeks: None <JASBIR Marks - Last Filed: 12/20/23 23:07> ROS Obtained: Yes Systems reviewed as appropriate & no additional complaints except as documented Physical Exam <JASBIR Marks - Last Filed: 12/20/23 23:07> General General appearance: alert and in no apparent distress Neck Neck exam: Present normal inspection Chest Chest inspection: Present normal inspection Respiratory Respiratory exam: Present normal lung sounds bilaterally Cardiovascular Cardiovascular exam: Present regular rate and normal rhythm Extremities Exam Extremities exam: Present normal inspection and full ROM Neurological Exam Neurological exam: Present alert and oriented X3 Medical Decision Making <JASBIR Marks - Last Filed: 12/20/23 23:07> Medical Records Medical records reviewed: Yes I reviewed the patient's medical records. [place] Inquiry Pt receiving controlled substance: No Vital Signs: 12/20/23 20:39 12/20/23 21:30 12/20/23 22:00 Temperature 98.4 F Temperature Source Oral Pulse Rate 77 66 Pulse Rate [Left Radial] 88 Respiratory Rate 18 Blood Pressure 126/66 133/82 Blood Pressure [Right Arm] 151/85 H Blood Pressure Mean 86 98 Blood Pressure Mean [Right Arm] 107 02 Sat by Pulse Oximetry 97 96 98 Oxygen Delivery Method Room Air Lab Data Lab Results 12/20/23 21:08: WBC 7.8, RBC 4.65, Hgb 13.9 L, Hct 41.1 L, MCV 88.5, MCH 29.9, MCHC 33.8, RDW 15.9, Plt Count 164, MPV 9.1, Neut % (Auto) 70.9, Lymph % (Auto) 16.9, [place] % (Auto) 7.4, Eos % (Auto) 3.9, Baso % (Auto) 1.0, Neut # (Auto) 5.5, Lymph # (Auto) 1.3, [place] # (Auto) 0.6, Eos # (Auto) 0.3, Baso # (Auto) 0.1, D- Dimer 0.83 H, Sodium 140, Potassium 3.7, Chloride 104, Carbon Dioxide 28, Anion Gap 11.7, BUN 31 H, Creatinine 1.40 H, Estimated Creat Clear 84, Estimated GFR 51 L, Est GFR ( Amer) 62, Glucose 117 H, Calcium 9.1, Total Bilirubin 0.8, AST 19, ALT 17, Alkaline Phosphatase 72, Total Protein 7.3 D, Albumin 4.0, Globulin 3.3 H, Albumin/Globulin Ratio 1.2 12/20/23 21:08 12/20/23 21:08 Orders (Tests/Meds): ED MEDICATIONS Discontinued Medications Generic Name Dose Route Start Last Admin Trade Name Freq PRN Reason Stop Dose Admin Acetaminophen 1,000 mg 12/20/23 20:59 12/20/23 21:17 Acetaminophen 1,000mg/100ml Vial IV 12/20/23 21:00 1,000 mg ONCE ONE Administration Lactated Ringer's 1,000 mls @ 999 mls/hr 12/20/23 20:59 12/20/23 21:17 Lactated Ringer's 1000 Ml Bag IV 12/20/23 21:59 999 mls/hr .Q1H1M ONE Administration Dalbavancin 1,500 mg/ Dextrose 250 mls @ 500 mls/hr 12/20/23 22:35 12/20/23 22:55 IV 12/20/23 22:36 500 mls/hr ONCE ONE Administration Ketorolac Tromethamine 15 mg 12/20/23 20:59 12/20/23 21:16 Ketorolac 30mg/Ml Vial IV 12/20/23 21:00 15 mg ONCE ONE Administration ORDERS Category Date Time Status POCUS Point of Care (ER Only) Stat Exams 12/20/23 20:59 Taken Tibia/fibula XR left 2 views [XR tibia fibula LT 2V] Exams 12/20/23 21:01 Completed Stat CBC w/Auto Diff [Complete Blood Count Auto Diff] Stat Lab 12/20/23 21:08 Completed CMP [Comprehensive Metabolic Panel] Stat Lab 12/20/23 21:08 Completed D-Dimer Stat Lab 12/20/23 21:08 Completed Medical Decision Narrative: In summary patient is a 83-year-old male who presents to the emergency department for evaluation of left lower extremity injury. Patient is hemodynamically stable upon arrival, afebrile. Physical exam is remarkable for erythema edema and tenderness to palpation in the anterior ding. The area encompasses 50% of the anterior ding and is located centrally. It is very specifically tender to touch and there is some fluctuance. No obvious skin breaks. Patient is neurovascular intact distally. Differential diagnosis includes cellulitis versus abscess versus infected hematoma etc. Initial workup will be conducted with hematologic labs POCUS plain film x-ray . Initial interventions include Tylenol. Initial workup reviewed by me and my pulm interpretation of his plain film x-ray shows no acute fracture. POCUS showed fluid collection did not appear to be purulent. Upon repeat evaluation I performed a bedside I&D and confirmed that patient had hematoma no evidence of purulence at all.. Given this wound packed and patient given infusion of Dalvance with referral to orthopedics for follow-up of his wound. <Wai Luu MD - Last Filed: 12/20/23 22:52> Vital Signs: 12/20/23 20:39 12/20/23 21:30 12/20/23 22:00 Temperature 98.4 F Temperature Source Oral Pulse Rate 77 66 Pulse Rate [Left Radial] 88 Respiratory Rate 18 Blood Pressure 126/66 133/82 Blood Pressure [Right Arm] 151/85 H Blood Pressure Mean 86 98 Blood Pressure Mean [Right Arm] 107 02 Sat by Pulse Oximetry 97 96 98 Oxygen Delivery Method Room Air Lab Data Lab Results 12/20/23 21:08: WBC 7.8, RBC 4.65, Hgb 13.9 L, Hct 41.1 L, MCV 88.5, MCH 29.9, MCHC 33.8, RDW 15.9, Plt Count 164, MPV 9.1, Neut % (Auto) 70.9, Lymph % (Auto) 16.9, [place] % (Auto) 7.4, Eos % (Auto) 3.9, Baso % (Auto) 1.0, Neut # (Auto) 5.5, Lymph # (Auto) 1.3, [place] # (Auto) 0.6, Eos # (Auto) 0.3, Baso # (Auto) 0.1, D- Dimer 0.83 H, Sodium 140, Potassium 3.7, Chloride 104, Carbon Dioxide 28, Anion Gap 11.7, BUN 31 H, Creatinine 1.40 H, Estimated Creat Clear 84, Estimated GFR 51 L, Est GFR ( Amer) 62, Glucose 117 H, Calcium 9.1, Total Bilirubin 0.8, AST 19, ALT 17, Alkaline Phosphatase 72, Total Protein 7.3 D, Albumin 4.0, Globulin 3.3 H, Albumin/Globulin Ratio 1.2 Orders (Tests/Meds): ED MEDICATIONS Discontinued Medications Generic Name Dose Route Start Last Admin Trade Name Freq PRN Reason Stop Dose Admin Acetaminophen 1,000 mg 12/20/23 20:59 12/20/23 21:17 Acetaminophen 1,000mg/100ml Vial IV 12/20/23 21:00 1,000 mg ONCE ONE Administration Lactated Ringer's 1,000 mls @ 999 mls/hr 12/20/23 20:59 12/20/23 21:17 Lactated Ringer's 1000 Ml Bag IV 12/20/23 21:59 999 mls/hr .Q1H1M ONE Administration Dalbavancin 1,500 mg/ Dextrose 250 mls @ 500 mls/hr 12/20/23 22:35 12/20/23 22:55 IV 12/20/23 22:36 500 mls/hr ONCE ONE Administration Ketorolac Tromethamine 15 mg 12/20/23 20:59 12/20/23 21:16 Ketorolac 30mg/Ml Vial IV 12/20/23 21:00 15 mg ONCE ONE Administration ORDERS Category Date Time Status POCUS Point of Care (ER Only) Stat Exams 12/20/23 20:59 Taken Tibia/fibula XR left 2 views [XR tibia fibula LT 2V] Exams 12/20/23 21:01 Completed Stat CBC w/Auto Diff [Complete Blood Count Auto Diff] Stat Lab 12/20/23 21:08 Completed CMP [Comprehensive Metabolic Panel] Stat Lab 12/20/23 21:08 Completed D-Dimer Stat Lab 12/20/23 21:08 Completed Procedures <Wai Luu MD - Last Filed: 12/20/23 22:52> Miscellaneous Procedure Procedure Performed: Limited soft tissue ultrasound Indication: Soft tissue swelling and redness Identified structures: Location: Left anterior tibial area Findings: Findings are consistent with a localized hyperdense fluid collection consistent with clot versus abscess with debris and surrounding cobblestoning and cellulitis Impression: Localized soft tissue fluid collection with surrounding interstitial fluid collection consistent with either abscess with surrounding cellulitis or hematoma with surrounding inflammation or cellulitis Images were sent to permanent archive The study was technically adequate Soft Tissue CPT Codes: CPT Neck: 39766-41 CPT Upper extremity: 92105-31 CPT Axilla: 34904-85 CPT Chest wall: 95054-56 CPT Breast: 11288-02-UZ/LT (complete), 25481-11-PY/LT (limited), CPT Upper Back: 37548-26 CPT Lower Back: 69852-79 CPT Abdominal Wall: 46597-47 CPT Pelvic Wall: 40506-38 CPT Lower Extremity: 71658-49 CPT Other Soft Tissue: 49053-47 This study was performed by me, and I personally interpreted all images/videos. Based on my clinical judgement, these images were adequate and did not necessitate further imaging. Critical Care <JASBIR Marks - Last Filed: 12/20/23 23:07> Critical Care Time Critical Care Time: No
--- NOTE | 2023-12-20 21:01 | XR_ITS ---
PROCEDURE INFORMATION: Exam: XR Left Tibia and Fibula Exam date and time: 12/20/2023 9:07 PM Age: 63 years old Clinical indication: Pain; Lower leg; Left; Additional info: Trauma TECHNIQUE: Imaging protocol: Radiologic exam of the left tibia and fibula. Views: 2 views. COMPARISON: No relevant prior studies available. FINDINGS: Bones/joints: Normal. Soft tissues: Normal. IMPRESSION: No acute findings.
[2023-12-20] MEDS: KETOROLAC 30MG/ML VIAL 15 MG IV (21:16)
[2023-12-20] MEDS: ACETAMINOPHEN 1,000MG/100ML VIAL 1000 MG IV (21:17)
[2023-12-20] MEDS: LACTATED RINGERS 1000ML 1,000 ML 999 ML IV (21:17)
[2023-12-20 21:20] LABS: Basophils # 0.1 K/mm3 (0-0.2); Eosinophils # 0.3 K/mm3 (0.0-0.4); Eosinophils % 3.9 % (0.1-12.0); Hematocrit 41.1 % (42.0-52.0); Hemoglobin 13.9 g/dL (14.1-18.0); Lymphocytes # 1.3 K/mm3 (0.7-4.5); Lymphocytes % 16.9 % (10-50); Mean Corpuscular HGB Conc 33.8 g/dL (31.8-35.4); Mean Corpuscular Hemoglobin 29.9 pg (27.0-31.2); Mean Corpuscular Volume 88.5 fl (80-94); Mean Platelet Volume 9.1 fl (7.4-10.4); Monocytes # 0.6 K/mm3 (0.1-1.0); Monocytes % 7.4 % (1.7-9.3); Neutrophils # 5.5 K/mm3 (1.8-7.8); Neutrophils % 70.9 % (37.0-80.0); Platelet Count 164 K/mm3 (142-424); Red Blood Count 4.65 M/mm3 (4.60-6.20); Red Cell Distribution Width 15.9 % (11.5-17.5); White Blood Count 7.8 K/mm3 (4.8-10.8)
[2023-12-20 21:25] LABS: Alanine Aminotransferase 17 U/L (12-78); Albumin/Globulin Ratio 1.2 (1.1-1.8); Alkaline Phosphatase 72 U/L (38-126); Anion Gap 11.7 mEq/L (5-15); Aspartate Amino Transferase 19 U/L (17-59); Bilirubin,Total 0.8 mg/dl (0.2-1.3); Blood Urea Nitrogen 31 mg/dl (9-20); Calcium 9.1 mg/dl (8.4-10.2); Carbon Dioxide 28 mmol/L (22.0-30.0); Chloride 104 mmol/L (98-107); Creatinine Clearance Estimated 84 mL/min (50-200); Estimated Glomerular Filt Rate 51 ml/min (>60); GFR (African American) 62 ML/MIN (>60); Globulin 3.3 g/dL (1.3-3.2); Glucose 117 mg/dl (74-100); Potassium 3.7 mmoL/L (3.5-5.1); Sodium 140 mmol/L (136-145); Total Protein,Serum 7.3 g/dl (6.3-8.2)
[2023-12-20 21:29] LABS: D-Dimer 0.83 ug/mL (0.0-0.5)
[2023-12-20 21:30] VITALS: BP 126/66; PULSE 77; O2SAT 96
[2023-12-20 22:00] VITALS: BP 133/82; PULSE 66; O2SAT 98
[2023-12-20] MEDS: DALBAVANCIN HCL 1,500 MG in DEXTROSE 5 % IN WATER 250 ML 500 MG IV (22:55)
[2023-12-20 23:18] VITALS: BP 134/77; PULSE 58; RESP 18; TEMP 36.8; O2SAT 97
== END 2023-12-20 23:26 | disposition home or self-care (01) ==
PROVIDERS: Physician Assistant; Emergency Provider Student in an Organized Health Care Education/Training Program
DX: S80.12XA Contusion of left lower leg, initial encounter (principal); L08.9 Local infection of the skin and subcutaneous tissue, unspecified; I48.20 Chronic atrial fibrillation, unspecified; E11.9 Type 2 diabetes mellitus without complications; E78.5 Hyperlipidemia, unspecified; Z79.84 Long term (current) use of oral hypoglycemic drugs; Z79.01 Long term (current) use of anticoagulants; W22.8XXA Striking against or struck by other objects, initial encounter; I50.32 Chronic diastolic (congestive) heart failure; I11.0 Hypertensive heart disease with heart failure
CPT/HCPCS: 73590; 78452; 80053; 85025; 85378; 93017; 93018; 96361; 96374; 96375; 99284; A9502; J0131; J0875; J1885; J2785; J7060; J7120

== ENCOUNTER 2024-01-25 08:22 | Day surgery (SDC) | payer MEDICARE, MEDICAID, SELFPAY ==
[2024-01-25] VITALS (11 sets, daily range): BP systolic 123–190; BP diastolic 70–103; PULSE 54–79; RESP 18–19; O2SAT 90–97; BMI 34.0
--- NOTE | 2024-01-25 07:21 | IR_ITS ---
APPROVED REPORT Patient Location: Outpatient Pneumatic Tester: KYLAH Alba RT (R) PROCEDURES Left heart catheterization Left ventriculogram Selective coronary angiogram INDICATION Abnormal Myoview, Angina pectoris, Informed consent was obtained prior to the procedure. COMPLICATIONS None Estimated Blood Loss: Less than 10 mls TECHNIQUE One percent lidocaine used to anesthetize the right anterior aspect of the wrist. The right radial artery was accessed via the Seldinger technique. A 6 Syrian sheath was placed in the right radial artery. 2.5 mg of Verapamil, 800 mcg of nitroglycerin, 1mg Lidocaine and 5000 U Heparin were given through the arterial sheath. The papa catheter was also used to perform left heart catheterization, left ventriculogram and selective coronary angiogram. At the end of the procedure the sheath was removed good hemostasis was achieved using Traclet band, patient was transferred to the postop holding area in stable condition. ANGIOGRAPHIC RESULTS The left main artery Normal The left anterior descending artery Large mild 10% luminal irregularities The circumflex artery Large dominant giving rise to moderate-sized ramus intermedius with 10% luminal regularities. The circumflex artery has 10% luminal regularities The right coronary artery Nondominant normal The REAGAN ventriculogram reveals Slightly hyperdynamic at 65 to 70% The left ventricular end-diastolic pressure 20 mmHg IMPRESSION Mild nonflow limiting coronary disease Hyperdynamic ventricle with elevated LVEDP PLAN 1. Medical management with risk factor modification Electronically signed by : Lacho Felton MD 01/25/2024 10:58:49
[2024-01-25 09:00] LABS: Basophils % 0.5 % (0.1-2.0); Chloride 103 mmol/L (98-107); Eosinophils # 0.2 K/mm3 (0.0-0.4); Eosinophils % 4.3 % (0.1-12.0); Hemoglobin 13.7 g/dL (14.1-18.0); Mean Corpuscular HGB Conc 31.8 g/dL (31.8-35.4); Mean Corpuscular Hemoglobin 29.3 pg (27.0-31.2); Mean Corpuscular Volume 92.1 fl (80-94); Mean Platelet Volume 8.7 fl (7.4-10.4); Monocytes # 0.4 K/mm3 (0.1-1.0); Monocytes % 7.9 % (1.7-9.3); Neutrophils # 3.9 K/mm3 (1.8-7.8); Neutrophils % 70.2 % (37.0-80.0); Platelet Count 153 K/mm3 (142-424); Red Blood Count 4.67 M/mm3 (4.60-6.20); Red Cell Distribution Width 15.8 % (11.5-17.5); Sodium 139 mmol/L (136-145); White Blood Count 5.6 K/mm3 (4.8-10.8)
[2024-01-25 09:03] LABS: Blood Urea Nitrogen 13 mg/dl (9-20); Creatinine Clearance Estimated 122 mL/min (50-200); Estimated Glomerular Filt Rate 85 ml/min (>60); GFR (African American) 102 ML/MIN (>60)
[2024-01-25 09:04] LABS: Calcium 8.5 mg/dl (8.4-10.2); Carbon Dioxide 34 mmol/L (22.0-30.0); Glucose 137 mg/dl (74-100)
[2024-01-25] MEDS: POTASSIUM CHLORIDE 20MEQ TAB 40 MEQ PO (10:23)
[2024-01-25] MEDS: HEPARIN 1,000 UNITS/500ML NS (CATH LAB) 3000 UNIT IV (10:40)
[2024-01-25] MEDS: diphenhydrAMINE 50MG/ML VIAL 50 MG IV (10:40)
[2024-01-25] MEDS: HEPARIN 1,000 UNITS/ML 10ML VIAL (CATH LAB) 10000 UNIT IV (10:41)
[2024-01-25] MEDS: 0.9 % SODIUM CHLORIDE 500 ML 25 ML IV (10:41)
[2024-01-25] MEDS: LIDOCAINE 1% 10ML MDV 20 ML IJ (10:41)
[2024-01-25] MEDS: VERAPAMIL 2.5MG/ML 2ML VIAL 2.5 MG IV (10:41)
[2024-01-25] MEDS: NITROGLYCERIN 800MCG/8ML SYR (CATH LAB) 800 MCG IA (10:42)
[2024-01-25] MEDS: IOPAMIDOL-370 (76%);100ML BOTTLE 50 ML IV (12:56)
== END 2024-01-25 14:08 | disposition home or self-care (01) ==
LOC: CATHLAB 08:24
PROVIDERS: PCP Family Medicine; Visit Provider Internal Medicine
DX: I20.89 Other forms of angina pectoris (principal); R94.31 Abnormal electrocardiogram [ECG] [EKG]; R06.02 Shortness of breath; I11.0 Hypertensive heart disease with heart failure; Z79.899 Other long term (current) drug therapy; E11.9 Type 2 diabetes mellitus without complications; Z79.84 Long term (current) use of oral hypoglycemic drugs; I50.32 Chronic diastolic (congestive) heart failure; I48.91 Unspecified atrial fibrillation
CPT/HCPCS: 80048; 85025; 93458; 99152; C1725; C1760; C1769; J1200; J1644; Q9967

== ENCOUNTER 2024-02-04 09:34 | Outpatient (CLI) | payer MEDICARE, MEDICAID, SELFPAY ==
[2024-02-04 18:57] LABS: Anion Gap 8.6 mEq/L (5-15); Blood Urea Nitrogen 18 mg/dl (9-20); Calcium 8.7 mg/dl (8.4-10.2); Carbon Dioxide 36 mmol/L (22.0-30.0); Chloride 98 mmol/L (98-107); Estimated Glomerular Filt Rate 55 ml/min (>60); GFR (African American) 67 ML/MIN (>60); Glucose 114 mg/dl (74-100); Sodium 140 mmol/L (136-145)
[2024-02-04 19:18] LABS: Potassium 2.6 mmoL/L (3.5-5.1)
== END 2024-02-04 23:59 | disposition home or self-care (01) ==
LOC: LAB.DROPOF 02-07 09:35
PROVIDERS: PCP Family Medicine; Visit Provider Family Medicine
DX: E87.6 Hypokalemia (principal)
CPT/HCPCS: 80048

== ENCOUNTER 2024-02-04 19:52 | Emergency (ER) | payer MEDICARE, MEDICAID, SELFPAY ==
[2024-02-04] VITALS (8 sets, daily range): BP systolic 103–138; BP diastolic 65–77; PULSE 59–75; RESP 14–27; TEMP 36.6; O2SAT 91–97; BMI 33.0
--- NOTE | 2024-02-04 20:25 | ECG_ITS ---
APPROVED REPORT Exam: Resting ECG HR:58 bpm ECG Measurements Heart Rate 58 AXES QRSd 110 QRS 51 QT 393 T 30 QTc 390 Conclusion ATRIAL FIBRILLATION WITH SLOW VENTRICULAR RESPONSE NONSPECIFIC T-WAVE ABNORMALITY ABNORMAL RHYTHM ECG UNCONFIRMED REPORT Electronically signed by : Nesha Cuba, 02/04/2024 20:39:29
[2024-02-04 20:32] LABS: Basophils % 0.7 % (0.1-2.0); Eosinophils # 0.3 K/mm3 (0.0-0.4); Eosinophils % 4.8 % (0.1-12.0); Hematocrit 48.3 % (42.0-52.0); Hemoglobin 15.3 g/dL (14.1-18.0); Lymphocytes # 1.2 K/mm3 (0.7-4.5); Lymphocytes % 18.6 % (10-50); Mean Corpuscular HGB Conc 31.7 g/dL (31.8-35.4); Mean Corpuscular Hemoglobin 29.5 pg (27.0-31.2); Mean Corpuscular Volume 93.1 fl (80-94); Mean Platelet Volume 8.2 fl (7.4-10.4); Monocytes # 0.4 K/mm3 (0.1-1.0); Monocytes % 6.6 % (1.7-9.3); Neutrophils # 4.5 K/mm3 (1.8-7.8); Neutrophils % 69.4 % (37.0-80.0); Platelet Count 193 K/mm3 (142-424); Red Cell Distribution Width 15.6 % (11.5-17.5); White Blood Count 6.5 K/mm3 (4.8-10.8)
[2024-02-04 20:43] LABS: Albumin Level 4.7 g/dl (3.5-5.0); Chloride 98 mmol/L (98-107); Sodium 139 mmol/L (136-145)
[2024-02-04 20:46] LABS: Alanine Aminotransferase 16 U/L (12-78); Albumin/Globulin Ratio 1.6 (1.1-1.8); Alkaline Phosphatase 75 U/L (38-126); Anion Gap 8.6 mEq/L (5-15); Aspartate Amino Transferase 19 U/L (17-59); Bilirubin,Total 1.1 mg/dl (0.2-1.3); Blood Urea Nitrogen 21 mg/dl (9-20); Calcium 9.3 mg/dl (8.4-10.2); Carbon Dioxide 35 mmol/L (22.0-30.0); Creatinine Clearance Estimated 91 mL/min (50-200); Estimated Glomerular Filt Rate 55 ml/min (>60); GFR (African American) 67 ML/MIN (>60); Glucose 130 mg/dl (74-100); Total Protein,Serum 7.7 g/dl (6.3-8.2)
--- NOTE | 2024-02-04 20:49 | PC.NURSE ---
provided patient with urinal
[2024-02-04 21:08] LABS: Troponin I < 0.01 ng/ml (0.00-0.034)
[2024-02-04 21:09] LABS: Potassium 2.6 mmoL/L (3.5-5.1)
--- NOTE | 2024-02-04 21:12 | ED_ITS ---
<Statement entered by Nesha Cuba MD - 02/05/24 00:16> I was consulted by the ROGER, and we discussed the complexity of problems being addressed. I approved the treatment and management plan for this patient's care in the emergency department, thus performing a substantive portion of the medical decision making. Nesha Cuba MD Discharge Plan Disposition Chief Complaint: Recheck/Abnormal Lab/Rx Prescriptions Prescriptions: No Action atorvastatin 20 mg tablet 20 mg PO HS Qty: 90 0RF Eliquis 5 mg tablet 5 mg PO BID Qty: 180 0RF albuterol sulfate 90 mcg/actuation HFA aerosol inhaler 2 puff inhalation Q8H PRN potassium chloride 20 mEq tablet,ER particles/crystals 20 meq PO DAILY Qty: 30 2RF bumetanide 1 mg tablet 1 mg PO BIDL 30 Days Qty: 60 5RF spironolactone 50 mg tablet 50 mg PO DAILY 30 Days Qty: 30 5RF hydrocortisone 2.5 % cream 1 applic topical QID PRN (Reason: skin irritation) Qty: 30 2RF Rx Instructions: apply to affected area up to 4x/day gabapentin 100 mg capsule 100 mg PO TID Qty: 90 0RF metformin 500 mg tablet 1,000 mg PO DAILY Qty: 60 5RF tamsulosin 0.4 mg Capsule 0.8 mg PO DAILY aspirin 81 mg Tablet,Chewable 81 mg PO DAILY montelukast 10 mg Tablet 10 mg PO HS fluticasone propion-salmeterol 250-50 mcg/dose Blister With Device 1 inh INHALATION BID carvedilol 25 mg Tablet 25 mg PO BID Rx Instructions: must administer with a meal/food hydralazine 25 mg Tablet 25 mg PO DAILY amlodipine 10 mg Tablet 10 mg PO DAILY Jardiance 25 mg Tablet 25 mg PO DAILY finasteride 5 mg tablet 5 mg PO DAILY Entresto 97-103 mg tablet 1 tab PO BID 30 Days Qty: 0 0RF Referrals Follow up/Referrals: Aaron Gamez MD [Primary Care Provider] - See instructions Print Language Print Language: [place]ralt[place] Discharge ED Provider: Nesha Cuba General Adult HPI General Chief complaint: Recheck/Abnormal Lab/Rx Stated complaint: sent by ghazala Bagley Time Seen by Provider: 02/04/24 20:06 Mode of Arrival: Ambulatory Source of Information: Patient Limitations: No Limitations Description of Symptoms (Recalled from ER Triage Doc. by RN): Sent from Dr Graves office for low K+, was 2.6 at office, reports he has had some dizziness, weakness and excessive urination since early in week. Denies CP, SOA. History of Present Illness HPI narrative: 63-year-old male presents to the ED today after discussing with his PCP his lab results today. His potassium was 2.[address] Gamez in office today for weakness and increased urine patient talk to his PCP on the phone and was told to come to the ED for an EKG and evaluation. Patient has no chest pain or shortness of breath at this time. He says that he has been having difficulty breathing for over 5 years. States that he used to have fluid drained from his heart and lungs about every [address] Gamez discussed this today at his visit. Patient does take Bumex and spironolactone. Patient did tell me that he does not eat much due to finances. He eats crackers and drinks Pepsi. Patient said that they have been trying to get his breathing figured out for a while. They did a heart cath and it was good. Patient did tell me he does sweat a lot. Related Data Home Medications ?Medication ?Instructions ?Recorded ?Confirmed amlodipine 10 mg tablet 10 mg PO DAILY 12/03/23 02/04/24 aspirin 81 mg chewable tablet 81 mg PO DAILY 12/03/23 02/04/24 carvedilol 25 mg tablet 25 mg PO BID 12/03/23 02/04/24 empagliflozin 25 mg tablet 25 mg PO DAILY 12/03/23 02/04/24 (Jardiance) fluticasone 250 mcg-salmeterol 50 1 inh inhalation BID 12/03/23 02/04/24 mcg/dose blistr powdr for inhalation hydralazine 25 mg tablet 25 mg PO DAILY 12/03/23 02/04/24 montelukast 10 mg tablet 10 mg PO HS 12/03/23 02/04/24 tamsulosin 0.4 mg capsule 0.8 mg PO DAILY 12/03/23 02/04/24 finasteride 5 mg tablet 5 mg PO DAILY 12/04/23 02/04/24 albuterol sulfate 90 mcg/actuation 2 puff inhalation Q8H PRN 02/01/24 02/04/24 aerosol inhaler Previous Rx's ?Medication ?Instructions ?Recorded sacubitril 97 mg-valsartan 103 mg 1 tab PO BID 30 days #0 tabs 12/07/23 tablet (Entresto) apixaban 5 mg tablet (Eliquis) 5 mg PO BID #180 tabs 12/23/23 atorvastatin 20 mg tablet 20 mg PO HS #90 tabs 12/23/23 bumetanide 1 mg tablet 1 mg PO BIDL 30 days #60 tabs 01/07/24 hydrocortisone 2.5 % topical cream 1 applic topical QID PRN skin 01/07/24 irritation #30 grams spironolactone 50 mg tablet 50 mg PO DAILY 30 days #30 tabs 01/07/24 gabapentin 100 mg capsule 100 mg PO TID #90 caps 01/24/24 potassium chloride 20 mEq 20 meq PO DAILY #30 tabs 02/01/24 tablet,extended release(part/cryst) metformin 500 mg tablet 1,000 mg (2 x 500 mg) PO DAILY #60 02/04/24 tabs Allergies Allergy/AdvReac Type Severity Reaction Status Date / Time Penicillins AdvReac Unknown Verified 02/04/24 14:20 [facility] Disclaimer: The information contained in this section may have been updated after the patient was seen, as this information can be updated by other users. Medical History (Updated 01/11/24 @ 13:47 by Michelle Chaney APRN) Angina pectoris Abnormal findings on diagnostic imaging of heart and coronary circulation Aneurysm of left common iliac artery Peripheral neuropathy Hematoma COPD (chronic obstructive pulmonary disease) with emphysema Hypokalemia Shortness of Breath Acute on chronic heart failure with preserved ejection fraction (HFpEF) BPH (benign prostatic hyperplasia) Type 2 diabetes mellitus Afib HLD (hyperlipidemia) HTN (hypertension) Surgical History History of cardioversion Social History Smoking Status: Never smoker alcohol intake: never current occupational status: other Travel in the last 8 weeks: None ROS Obtained: Yes All systems reviewed & no additional complaints except as documented Constitutional Constitutional: Reports as per HPI Physical Exam General General appearance: alert and in no apparent distress Head Head exam: atraumatic and normocephalic Eye Eye exam: Present normal appearance, PERRL and EOMI ENT ENT exam: Present normal exam, normal oropharynx and mucous membranes moist Neck Neck exam: Present normal inspection, full ROM and trachea midline Chest Chest inspection: Present normal inspection Respiratory Respiratory exam: Present normal lung sounds bilaterally Cardiovascular Cardiovascular exam: Present irregular rhythm, +S1, +S2 and other (A-fib controlled) Abdominal Exam Abdominal exam: Present soft and normal bowel sounds exam: Present normal inspection Extremities Exam Extremities exam: Present normal inspection, full ROM and normal capillary refill Back Exam Back exam: Present normal inspection Neurological Exam Neurological exam: Present alert, oriented X3 and normal gait Skin Skin exam: Present warm, dry and intact Medical Decision Making Medical Records Screening: Per USPSTF and CDC recommendations, given the prevalence of disease in our region, it is our hospital?s policy to screen for HIV and viral Hepatitis for all patients aged 18 and over and those with ongoing risk factors. [place] Inquiry Pt receiving controlled substance: No [place] was queried for this patient: No Vital Signs: 02/04/24 19:54 02/04/24 21:00 02/04/24 21:30 Temperature 98 F Temperature Source Oral Pulse Rate 66 75 Pulse Rate [Right] 74 Respiratory Rate 16 24 14 Blood Pressure 103/65 L 121/72 Blood Pressure [Right Arm] 138/77 Blood Pressure Mean [Right Arm] 97 Blood Pressure Source [Right Arm] Automatic Cuff Blood Pressure Position [Right Arm] Sitting 02 Sat by Pulse Oximetry 95 96 94 L Oxygen Delivery Method Room Air 02/04/24 22:00 02/04/24 22:30 02/04/24 23:01 Temperature Temperature Source Pulse Rate 74 59 L 66 Pulse Rate [Right] Respiratory Rate 15 18 17 Blood Pressure 131/69 106/69 L 121/75 Blood Pressure [Right Arm] Blood Pressure Mean [Right Arm] Blood Pressure Source [Right Arm] Blood Pressure Position [Right Arm] 02 Sat by Pulse Oximetry 97 96 95 Oxygen Delivery Method Lab Data Lab Results 02/04/24 20:24: WBC 6.5, RBC 5.20, Hgb 15.3, Hct 48.3, MCV 93.1, MCH 29.5, MCHC 31.7 L, RDW 15.6, Plt Count 193, MPV 8.2, Neut % (Auto) 69.4, Lymph % (Auto) 18.6, [place] % (Auto) 6.6, Eos % (Auto) 4.8, Baso % (Auto) 0.7, Neut # (Auto) 4.5, Lymph # (Auto) 1.2, [place] # (Auto) 0.4, Eos # (Auto) 0.3, Baso # (Auto) 0.0, Sodium 139, Potassium 2.6 L*, Chloride 98, Carbon Dioxide 35 H, Anion Gap 8.6, B UN 21 H, Creatinine 1.30 H, Estimated Creat Clear 91, Estimated GFR 55 L, Est GFR ( Amer) 67, Glucose 130 H, Hemoglobin A1c 5.8, Calcium 9.3, Magnesium 2.0, Total Bilirubin 1.1, AST 19, ALT 16, Alkaline Phosphatase 75, Troponin I < 0.01, Total Protein 7.7, Albumin 4.7, Globulin 3.0, Albumin/Globulin Ratio 1.6 02/04/24 21:50: Urine Color Yellow, Urine Appearance Clear, Urine pH 6.0, Ur Specific [place] 1.010, Urine Protein Negative, Urine Glucose (UA) 3+, Urine Ketones Negative, Urine Blood Negative, Urine Nitrate Negative, Urine Bilirubin Negative, Urine Urobilinogen 0.2, Ur Leukocyte Esterase 1+ A, Urine RBC Occasional, Urine WBC 5-10, Ur Squamous Epith Cells Occasional, Urine Bacteria Trace 02/04/24 20:24 02/04/24 20:24 Orders (Tests/Meds): ED MEDICATIONS Generic Name Dose Route Start Last Admin Trade Name Freq PRN Reason Stop Dose Admin Potassium Chloride/Water 100 mls @ 100 mls/hr 02/04/24 21:45 02/04/24 23:01 Potassium Chloride 10meq/100ml Ivpb IV 02/04/24 23:44 100 mls/hr Q1H YUE Administration Discontinued Medications Generic Name Dose Route Start Last Admin Trade Name Freq PRN Reason Stop Dose Admin Potassium Chloride 60 meq 02/04/24 21:10 02/04/24 21:50 Potassium Chloride 20meq Tab PO 02/04/24 21:11 60 meq ONCE ONE Administration ORDERS Category Date Time Status Complete Blood Count Auto Diff Stat Lab 02/04/24 20:24 Completed Comprehensive Metabolic Panel Stat Lab 02/04/24 20:24 Completed Comprehensive Metabolic Panel Timed Lab 09/21/24 01:30 Ordered HIV (1&2) Antibody Rapid Stat Lab 02/04/24 20:24 Received Hemoglobin A1C Routine Lab 02/04/24 20:24 Completed Hep C Ab with Reflex to RNA Stat Lab 02/04/24 20:24 Received Magnesium Stat Lab 02/04/24 20:24 Completed Troponin I Q3H Lab 02/04/24 20:24 Completed Troponin I Q3H Lab 02/05/24 02:15 Ordered Urinalysis-Acute [Urinalysis and Microscopic] Stat Lab 02/04/24 21:50 Completed Urine Culture Stat Micro 02/04/24 21:50 Received Medical Decision Narrative: Insert review patient is a 63-year-old male presenting to the emergency department for evaluation of hypokalemia. Patient is hemodynamically stable and nontoxic-appearing upon arrival, afebrile. Differential diagnosis includes hypokalemia, electrolyte disturbance, amongst other things. Workup will be conducted with hematologic labs, specific imaging, provocative tests. Initial inventions include p.o. potassium and IV runs of potassium. Initial workup reviewed by wi hematologic labs are remarkable for hypokalemia with potassium at 2.6. BUN was 21 and creatinine was 1.3. Discussed with Dr. Isaac and she recommends giving the p.o. potassium as well as the 2 IV runs. Critical Care Critical Care Time Critical Care Time: No
[2024-02-04 21:24] LABS: Hemoglobin A1C 5.8 % (4.0-6.0)
[2024-02-04] MEDS: POTASSIUM CHLORIDE 20MEQ TAB 60 MEQ PO (21:50)
[2024-02-04] MEDS: KCl 10mEq/100ml 100 ML 100 MEQ IV ×2 (21:50→23:01)
[2024-02-04 21:56] LABS: Microscopic, Urine URINE MICROSCOPIC (MICROSCOPIC)
[2024-02-04 21:57] LABS: Appearance,Urine CLEAR (Clear); Bilirubin,Urine Negative (Negative); Blood, Urine Negative (Negative); Color,Urine YELLOW (Yellow); Glucose,Urine (UA) 3+ (Negative); Ketones,Urine Negative (Negative); Leukocyte Esterase,Urine 1+ (Negative); Nitrate,Urine Negative (Negative); Protein,Urine Negative (Negative); Urobilinogen,Urine 0.2 EU/dl (0.2)
[2024-02-04 22:11] LABS: RBC,Urine Occasional #/hpf (0-3)
[2024-02-04 22:12] LABS: Bacteria,Urine Trace /lpf; Squamous Epithelial Cell,Urine Occasional #/hpf (0-5)
[2024-02-05] VITALS: BP 113/66; PULSE 72; RESP 18; O2SAT 97
[2024-02-05 00:31] VITALS: BP 115/91; PULSE 59; RESP 18; O2SAT 94
[2024-02-05 00:57] LABS: Albumin Level 3.6 g/dl (3.5-5.0); Chloride 102 mmol/L (98-107); Potassium 3.2 mmoL/L (3.5-5.1); Sodium 140 mmol/L (136-145)
[2024-02-05 01:00] LABS: Alanine Aminotransferase 11 U/L (12-78); Albumin/Globulin Ratio 1.4 (1.1-1.8); Alkaline Phosphatase 63 U/L (38-126); Anion Gap 6.2 mEq/L (5-15); Aspartate Amino Transferase 14 U/L (17-59); Bilirubin,Total 1.1 mg/dl (0.2-1.3); Blood Urea Nitrogen 19 mg/dl (9-20); Carbon Dioxide 35 mmol/L (22.0-30.0); Creatinine Clearance Estimated 107 mL/min (50-200); Estimated Glomerular Filt Rate 67 ml/min (>60); GFR (African American) 81 ML/MIN (>60); Globulin 2.5 g/dL (1.3-3.2); Glucose 118 mg/dl (74-100); Total Protein,Serum 6.1 g/dl (6.3-8.2)
[2024-02-05 01:01] VITALS: BP 116/56; PULSE 67; RESP 25; O2SAT 97
[2024-02-05 01:01] LABS: Calcium 8.6 mg/dl (8.4-10.2)
[2024-02-05 01:08] VITALS: BP 116/56; PULSE 74; RESP 18; TEMP 36.8; O2SAT 97
[2024-02-05] MEDS: POTASSIUM CHLORIDE 20MEQ TAB 40 MEQ PO (01:14)
[2024-02-05 01:19] LABS: Troponin I < 0.01 ng/ml (0.00-0.034)
[2024-02-05 01:22] VITALS: BP 116/56; PULSE 74; RESP 18; TEMP 36.8; O2SAT 97
[2024-02-05 07:21] LABS: HIV (1&2) Antibody Rapid NONREACTIVE (NONREACTIVE)
[2024-02-06 08:11] LABS: HCV Ab Non Reactive (Non Reactive)
== END 2024-02-05 01:30 | disposition home or self-care (01) ==
PROVIDERS: Nurse Practitioner; Emergency Provider Student in an Organized Health Care Education/Training Program; PCP Family Medicine
DX: E87.6 Hypokalemia (principal); I11.0 Hypertensive heart disease with heart failure; E78.5 Hyperlipidemia, unspecified; I48.91 Unspecified atrial fibrillation; R42 Dizziness and giddiness; R53.1 Weakness; E11.9 Type 2 diabetes mellitus without complications; N40.0 Benign prostatic hyperplasia without lower urinary tract symptoms; I50.33 Acute on chronic diastolic (congestive) heart failure; E11.40 Type 2 diabetes mellitus with diabetic neuropathy, unspecified; J44.9 Chronic obstructive pulmonary disease, unspecified; I20.9 Angina pectoris, unspecified
CPT/HCPCS: 80048; 80053; 81001; 83036; 83735; 84484; 85025; 86803; 87086; 87389; 93005; 96360; 96361; 99285; J3480

== ENCOUNTER 2024-02-11 15:07 | Outpatient (CLI) | payer MEDICARE, MEDICAID, SELFPAY ==
[2024-02-11 11:46] LABS: Anion Gap 8.4 mEq/L (5-15); Blood Urea Nitrogen 13 mg/dl (9-20); Calcium 8.6 mg/dl (8.4-10.2); Carbon Dioxide 25 mmol/L (22.0-30.0); Chloride 109 mmol/L (98-107); Estimated Glomerular Filt Rate 85 ml/min (>60); GFR (African American) 102 ML/MIN (>60); Glucose 188 mg/dl (74-100); Potassium 3.4 mmoL/L (3.5-5.1); Sodium 139 mmol/L (136-145)
== END 2024-02-11 23:59 | disposition home or self-care (01) ==
LOC: LAB.DROPOF 15:08
PROVIDERS: PCP Family Medicine; Visit Provider Family Medicine
DX: I10 Essential (primary) hypertension (principal); E87.6 Hypokalemia; J43.9 Emphysema, unspecified; N40.0 Benign prostatic hyperplasia without lower urinary tract symptoms; E11.9 Type 2 diabetes mellitus without complications; I48.20 Chronic atrial fibrillation, unspecified; E78.5 Hyperlipidemia, unspecified
CPT/HCPCS: 80048

== ENCOUNTER 2024-02-18 10:46 | Outpatient (CLI) | payer MEDICARE, MEDICAID, SELFPAY ==
[2024-02-18 18:29] LABS: Anion Gap 7.1 mEq/L (5-15); Blood Urea Nitrogen 13 mg/dl (9-20); Calcium 9.3 mg/dl (8.4-10.2); Carbon Dioxide 29 mmol/L (22.0-30.0); Chloride 103 mmol/L (98-107); Estimated Glomerular Filt Rate 85 ml/min (>60); GFR (African American) 102 ML/MIN (>60); Glucose 145 mg/dl (74-100); Potassium 4.1 mmoL/L (3.5-5.1); Sodium 135 mmol/L (136-145)
== END 2024-02-18 23:59 | disposition home or self-care (01) ==
LOC: LAB.DROPOF 02-21 10:47
PROVIDERS: PCP Family Medicine; Visit Provider Family Medicine
DX: I20.9 Angina pectoris, unspecified (principal)
CPT/HCPCS: 80048

== ENCOUNTER 2024-02-29 10:44 | Outpatient (CLI) | payer MEDICARE, MEDICAID, SELFPAY ==
[2024-02-29 19:27] LABS: Chloride 107 mmol/L (98-107); Potassium 4.2 mmoL/L (3.5-5.1); Sodium 140 mmol/L (136-145)
[2024-02-29 19:30] LABS: Anion Gap 12.2 mEq/L (5-15); Blood Urea Nitrogen 17 mg/dl (9-20); Calcium 8.8 mg/dl (8.4-10.2); Carbon Dioxide 25 mmol/L (22.0-30.0); Estimated Glomerular Filt Rate 67 ml/min (>60); GFR (African American) 81 ML/MIN (>60); Glucose 145 mg/dl (74-100)
== END 2024-02-29 23:59 | disposition home or self-care (01) ==
LOC: LAB.DROPOF 03-01 10:45
PROVIDERS: PCP Family Medicine; Visit Provider Family Medicine
DX: E87.6 Hypokalemia (principal)
CPT/HCPCS: 80048

== ENCOUNTER 2024-03-31 15:40 | Outpatient (CLI) | payer MEDICARE, MEDICAID, SELFPAY ==
[2024-03-31 18:30] LABS: Anion Gap 9.7 mEq/L (5-15); Blood Urea Nitrogen 15 mg/dl (9-20); Calcium 9.1 mg/dl (8.4-10.2); Carbon Dioxide 31 mmol/L (22.0-30.0); Chloride 107 mmol/L (98-107); Chol/HDL Ratio 3.3 (1-3.5); Cholesterol 105 mg/dl (140-200); Estimated Glomerular Filt Rate 85 ml/min (>60); GFR (African American) 102 ML/MIN (>60); Glucose 96 mg/dl (74-100); HDL Cholesterol 32 mg/dl (40-60); Potassium 4.7 mmoL/L (3.5-5.1); Sodium 143 mmol/L (136-145); Triglycerides 136 mg/dl (30-150); VLDL Cholesterol 27 mg/dL (0-40)
[2024-03-31 18:42] LABS: Direct LDL Cholesterol 61.76 mg/dL (100-129)
== END 2024-03-31 23:59 | disposition home or self-care (01) ==
LOC: LAB.DROPOF 04-03 10:51
PROVIDERS: PCP Family Medicine; Visit Provider Family Medicine
DX: E11.9 Type 2 diabetes mellitus without complications (principal); E78.5 Hyperlipidemia, unspecified
CPT/HCPCS: 80048; 80061

== ENCOUNTER 2024-04-21 09:07 | Outpatient (CLI) | payer MEDICARE, MEDICAID, SELFPAY ==
--- NOTE | 2024-04-21 09:14 | CA_ITS ---
FINAL REPORT CLINICAL HISTORY: Sharp interior Right thigh pain, Per patient HX:Bilateral femoral aneurysm repair as well as AAA with repair? No femoral stents Nor graft material identified. Normal biphasic /Triphasic waveforms observed throughout exam. WNL COMPARISON: None FINDINGS: BILATERAL LOWER EXTREMITY DUPLEX DOPPLER Color Doppler and duplex Doppler of the bilateral lower extremity was performed. Spectral analysis was also performed. Velocities were measured at multiple levels. All velocities are in centimeters per second. RIGHT CHEMICAL TEST ENGINEER: 108 Prof: 49 SFA Prox: 65 SFA Mid: 57 SFA Distal: 50 Pop Prox: 68 Pop Dist: 58 BULLARD MACHINE OPERATOR Prox: 64 BULLARD MACHINE OPERATOR Dist: 82 Per Prox: 51 EDILMA: 61 Waveforms are triphasic. LEFT CHEMICAL TEST ENGINEER: 85 Prof: 65 SFA Prox: 69 SFA Mid: 67 SFA Distal: 63 Pop Prox: 54 Pop Dist: 52 BULLARD MACHINE OPERATOR Prox: 59 BULLARD MACHINE OPERATOR Dist: 78 Per Prox: 49 EDILMA: 71 Waveforms are triphasic. IMPRESSION: Waveforms are noted to be triphasic throughout. No evidence of significant stenosis or occlusion are identified. Reviewed, Interpreted and Dictated by Trevor Salcido III, MD Transcribed by Yenifer Christine Authenticated and [facility]
== END 2024-04-21 23:59 | disposition home or self-care (01) ==
LOC: RT 09:08
PROVIDERS: PCP Family Medicine; Visit Provider Family Medicine
DX: R09.89 Other specified symptoms and signs involving the circulatory and respiratory systems (principal)
CPT/HCPCS: 93925

== ENCOUNTER 2024-04-25 09:26 | Outpatient (CLI) | payer MEDICARE, MEDICAID, SELFPAY ==
[2024-04-25 20:21] LABS: Blood Urea Nitrogen 17 mg/dl (9-20); Calcium 9.1 mg/dl (8.4-10.2); Carbon Dioxide 29 mmol/L (22.0-30.0); Chloride 106 mmol/L (98-107); Estimated Glomerular Filt Rate 85 ml/min (>60); GFR (African American) 102 ML/MIN (>60); Glucose 155 mg/dl (74-100); Sodium 141 mmol/L (136-145)
== END 2024-04-25 23:59 | disposition home or self-care (01) ==
LOC: LAB.DROPOF 04-26 10:09
PROVIDERS: PCP Family Medicine; Visit Provider Family Medicine
DX: E87.6 Hypokalemia (principal); E11.9 Type 2 diabetes mellitus without complications
CPT/HCPCS: 80048

== ENCOUNTER 2024-05-26 13:08 | Emergency (ER) | payer MEDICARE, MEDICAID, SELFPAY ==
[2024-05-26 13:08] VITALS: BP 166/98; PULSE 89; RESP 20; TEMP 36.8; O2SAT 92; BMI 36.0
--- NOTE | 2024-05-26 13:11 | ECG_ITS ---
APPROVED REPORT Exam: Resting ECG HR:94 bpm ECG Measurements Heart Rate 94 AXES QRSd 103 QRS 27 QT 325 T 147 QTc 377 Conclusion ATRIAL FIBRILLATION NONSPECIFIC ST & T-WAVE ABNORMALITY Electronically signed by : SUSY LEOS, 05/27/2024 10:00:34
--- NOTE | 2024-05-26 13:13 | [facility].EDCP ---
Discharge Plan Disposition Patient Disposition: Home, Self-Care Condition: Good Prescriptions Prescriptions: New furosemide [Lasix] 40 mg tablet 40 mg PO BID Qty: 30 0RF potassium chloride 20 mEq tablet,ER particles/crystals 20 meq PO BID Qty: 30 0RF No Action atorvastatin 20 mg tablet 20 mg PO HS Qty: 90 1RF albuterol sulfate 90 mcg/actuation HFA aerosol inhaler 2 puff inhalation Q8H PRN carvedilol 25 mg tablet 25 mg PO BID Qty: 60 5RF Rx Instructions: must administer with a meal/food hydralazine 25 mg tablet 25 mg PO DAILY Qty: 30 5RF spironolactone 50 mg tablet 50 mg PO DAILY 30 Days Qty: 30 5RF metformin 500 mg tablet 1,000 mg PO DAILY Qty: 60 5RF Jardiance 25 mg tablet 25 mg PO DAILY Qty: 30 5RF gabapentin 100 mg capsule 100 mg PO TID Qty: 90 5RF Entresto 97-103 mg tablet 1 tab PO BID 30 Days Qty: 60 5RF Eliquis 5 mg tablet 5 mg PO BID Qty: 180 0RF amlodipine 10 mg tablet 10 mg PO DAILY Qty: 90 3RF hydrocortisone 2.5 % cream 1 applic topical QID PRN (Reason: skin irritation) Qty: 30 2RF Rx Instructions: apply to affected area up to 4x/day montelukast 10 mg tablet 10 mg PO HS Qty: 90 3RF tamsulosin 0.4 mg Capsule 0.8 mg PO DAILY aspirin 81 mg Tablet,Chewable 81 mg PO DAILY fluticasone propion-salmeterol 250-50 mcg/dose Blister With Device 1 inh INHALATION BID finasteride 5 mg tablet 5 mg PO DAILY Referrals Follow up/Referrals: Provider,Referral, MD [Primary Care Provider] - See instructions Activity Restrictions/Add. Instructions Additional Instructions/Restrictions: Please call first thing Wednesday morning to make your follow-up appointment with cardiology. If you develop any worsening signs or symptoms return to the ER as needed. Clinical Impressions Clinical Impression: CHF exacerbation Print Language Print Language: British Discharge ED Provider: Ivan Zelaya HPI <JASBIR Marks - Last Filed: 05/26/24 17:14> General Chief Complaint: Shortness of Breath/Dyspnea Stated Complaint: cp Time Seen by Provider: 05/26/24 13:13 History of Present Illness HPI narrative: Patient presents for evaluation of dyspnea. Patient gives a history of 3 days of worsening shortness of breath. Patient states that he is put on 25 pounds of weight since April. He does have a history of preserved ejection fraction heart failure last got a heart cath in January. Patient discontinued Bumex at his PCPs request due to hypokalemia. He has not restarted it since. He denies any fever chills hemoptysis hematochezia melena nausea vomiting diarrhea. He denies any abdominal pain but reports he has had some loose stool this week. He denies any actual chest pain. Related Data Home Medications ?Medication ?Instructions ?Recorded ?Confirmed aspirin 81 mg chewable tablet 81 mg PO DAILY 12/03/23 04/25/24 fluticasone 250 mcg-salmeterol 50 1 inh inhalation BID 12/03/23 04/25/24 mcg/dose blistr powdr for inhalation tamsulosin 0.4 mg capsule 0.8 mg PO DAILY 12/03/23 04/25/24 finasteride 5 mg tablet 5 mg PO DAILY 12/04/23 04/25/24 albuterol sulfate 90 mcg/actuation 2 puff inhalation Q8H PRN 02/01/24 04/25/24 aerosol inhaler Previous Rx's ?Medication ?Instructions ?Recorded spironolactone 50 mg tablet 50 mg PO DAILY 30 days #30 tabs 01/07/24 metformin 500 mg tablet 1,000 mg (2 x 500 mg) PO DAILY #60 02/04/24 tabs empagliflozin 25 mg tablet 25 mg PO DAILY Diabetes #30 tabs 03/09/24 (Jardiance) gabapentin 100 mg capsule 100 mg PO TID #90 caps 03/09/24 sacubitril 97 mg-valsartan 103 mg 1 tab PO BID 30 days #60 tabs 03/09/24 tablet (Entresto) atorvastatin 20 mg tablet 20 mg PO HS #90 tabs 03/31/24 apixaban 5 mg tablet (Eliquis) 5 mg PO BID #180 tabs 04/07/24 carvedilol 25 mg tablet 25 mg PO BID #60 tabs 04/18/24 hydralazine 25 mg tablet 25 mg PO DAILY #30 tabs 04/18/24 amlodipine 10 mg tablet 10 mg PO DAILY #90 tabs 05/25/24 hydrocortisone 2.5 % topical cream 1 applic topical QID PRN skin 05/25/24 irritation #30 grams montelukast 10 mg tablet 10 mg PO HS #90 tabs 05/25/24 furosemide 40 mg tablet (Lasix) 40 mg PO BID #30 tabs 05/26/24 potassium chloride 20 mEq 20 meq PO BID #30 tabs 05/26/24 tablet,extended release(part/cryst) Allergies Allergy/AdvReac Type Severity Reaction Status Date / Time Penicillins AdvReac Unknown Verified 04/25/24 08:58 [facility] <Cb Estrada PA - Last Filed: 05/26/24 17:14> [facility] Disclaimer: The information contained in this section may have been updated after the patient was seen, as this information can be updated by other users. 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 with [place] Excluder and extension piece to Left Ext Iliac, [facility], May 2021 Peripheral neuropathy Hematoma COPD (chronic obstructive pulmonary disease) with emphysema Hypokalemia Shortness of Breath Acute on chronic heart failure with preserved ejection fraction (HFpEF) BPH (benign prostatic hyperplasia) Type 2 diabetes mellitus Afib HLD (hyperlipidemia) HTN (hypertension) Surgical History History of cardiac cath History of cardioversion X 3 Social History Smoking Status: Never smoker alcohol intake: never current occupational status: other Travel in the last 8 weeks: None Have you lived/traveled outside US in past 30 days?: No Contact w/someone who lives/traveled outside US past 30 days?: No Exposure to someone with infectious disease in past 14 days?: No Do you have a fever (greater than 100.4 F or 38 C)?: No Have you tested positive for COVID-19: No Exposed to someone with COVID-19 in past 14 days?: No Do you have a sore throat?: No Do you have a cough?: No Do you have any weakness?: No Do you have any diarrhea?: No Are you experiencing any unusual bleeding?: No Do you have any muscle aches/pain?: No Do you have any abdominal pain?: No Are you experiencing loss of taste or smell?: No Other Medical History Have you received the Flu Vaccine for this season: No Have you received the Pneumonia Vaccine: No <JASBIR Marks - Last Filed: 05/26/24 17:14> ROS Obtained: Yes Systems reviewed as appropriate & no additional complaints except as documented Physical Exam <JASBIR Marks - Last Filed: 05/26/24 17:14> General General appearance: alert and in no apparent distress Neck Neck exam: Absent lymphadenopathy Respiratory Respiratory exam: Present normal lung sounds bilaterally; Absent respiratory distress, wheezes or accessory muscle use Cardiovascular Cardiovascular exam: Present regular rate Neurological Exam Neurological exam: Present alert and oriented X3 HEART Score <JASBIR Marks - Last Filed: 05/26/24 17:14> HEART Score HEART Score assessment performed?: Yes History (anamnesis): Slightly suspicious ECG: Non-specific disturbance Age: >65 years Risk factors: Atherosclerosis history Troponin: </= normal limit HEART Score: 5 <Ivan Zelaya MD - Last Filed: 05/27/24 08:07> HEART Score HEART Score: 5 Critical Care <JASBIR Marks - Last Filed: 05/26/24 17:14> Critical Care Time Critical Care Time: Yes Attestation: On 05/26/24, the high probability of a clinically significant, sudden or life threatening deterioration of the following system: Cardiopulmonary; required my full and direct attention, intervention and personal management. The time I documented below is in addition to time spent performing reported procedures but includes the following listed in this critical care notation. Total Time Total Critical Care Time: 30 Medical Decision Making <JASBIR Marks - Last Filed: 05/26/24 17:14> Medical Records Medical records reviewed: Yes I reviewed the patient's medical records. [place] Inquiry Pt receiving controlled substance: No Vital Signs Vital Signs: 05/26/24 13:08 05/26/24 13:30 05/26/24 14:41 Temperature 98.2 F Temperature Source Oral Pulse Rate 83 88 Pulse Rate [Left Radial] 89 Respiratory Rate 20 28 H 17 Blood Pressure 158/101 H 158/85 H Blood Pressure [Right Arm] 166/98 H Blood Pressure Mean [Right Arm] 120 02 Sat by Pulse Oximetry 92 L 91 L 90 L Oxygen Delivery Method Room Air Room Air Room Air Oxygen Flow Rate (LPM) 05/26/24 15:00 05/26/24 15:30 05/26/24 16:00 Temperature 98.2 F Temperature Source Pulse Rate 71 84 84 Pulse Rate [Left Radial] Respiratory Rate 29 H 25 H 25 H Blood Pressure 161/95 H 167/101 H 167/101 H Blood Pressure [Right Arm] Blood Pressure Mean [Right Arm] 02 Sat by Pulse Oximetry 88 L 90 L Oxygen Delivery Method Room Air Room Air Nasal Cannula Oxygen Flow Rate (LPM) 2 Lab Data Lab results reviewed: Yes I reviewed the patient's lab results. Labs: Lab Results 05/26/24 13:13: WBC 6.0, RBC 4.57 L, Hgb 13.4 L, Hct 39.8 L, MCV 87.1, MCH 29.3, MCHC 33.7, RDW 13.9, Plt Count 136 L, MPV 10.6 H, Neut % (Auto) 77.6, Lymph % (Auto) 9.5 L, Bibb % (Auto) 9.9 H, Eos % (Auto) 2.2, Baso % (Auto) 0.3, Neut # (Auto) 4.6, Lymph # (Auto) 0.6 L, Bibb # (Auto) 0.6, Eos # (Auto) 0.1, Baso # (Auto) 0.0, PT 11.3, INR 1.03, Sodium 138, Potassium 3.4 L, Chloride 102, Carbon Dioxide 31 H, Anion Gap 8.4, BUN 14, Creatinine 1.00, Estimated Creat Clear 127, Estimated GFR 75, Est GFR ( Amer) 90, Glucose 169 H, Calcium 8.9, Magnesium 1.4 L, Total Bilirubin 1.5 H, AST 21, ALT 17, Alkaline Phosphatase 59, Troponin I < 0.01, NT-Pro-B Natriuret Pep 3450 H, Total Protein 6.8, Albumin 4.0, Globulin 2.8, Albumin/Globulin Ratio 1.4, HCV Ab GABI w/Rflx PCR Qn Negative, HIV Ag/Ab Combo Qual Negative 05/26/24 13:36: VBG pH 7.35, VBG pCO2 44.6, VBG pO2 50.1 H, VBG HCO3 24.1, VBG Total CO2 25.5, VBG O2 Saturation 82.6 H, VBG Base Excess -1.5, VBG Lactic Acid 1.6 05/26/24 13:53: SARS-CoV-2 (PCR) Not detected, Influenza Type A (PCR) Not detected, Influenza Type B (PCR) Not detected, RSV (PCR) Not detected, Rhinovirus (PCR) Not detected 05/26/24 13:13 05/26/24 13:13 Response Orders (Tests/Meds): ED MEDICATIONS Discontinued Medications Generic Name Dose Route Start Last Admin Trade Name Freq PRN Reason Stop Dose Admin Furosemide 80 mg 05/26/24 13:20 05/26/24 13:44 Furosemide 40mg/4ml Vial IV 05/26/24 13:21 80 mg ONCE ONE Administration Magnesium Sulfate 2 gm in 50 mls @ 50 mls/hr 05/26/24 13:56 05/26/24 14:38 Magnesium Sulfate 2gm/50ml Premix IV 05/26/24 14:55 50 mls/hr ONCE ONE Administration Iopamidol 70 ml 05/26/24 13:59 05/26/24 14:00 Iopamidol-370 (76%);100ml Bottle IV 05/26/24 14:00 70 ml ONCE ONE Administration Potassium Chloride 80 meq 05/26/24 15:45 05/26/24 15:53 Potassium Chloride 20meq Tab PO 05/26/24 15:46 80 meq ONCE ONE Administration Sodium Chloride 50 ml 05/26/24 13:59 05/26/24 14:00 0.9 % Sodium Chloride 50 Ml Vial IV 05/26/24 14:00 50 ml ONCE ONE Administration Sodium Chloride 10 ml 05/26/24 13:59 05/26/24 14:00 Sodium Chloride 0.9% 10ml Syr (Rad Only) IV 05/26/24 14:00 10 ml ONCE ONE Administration ORDERS Category Date Time Status CT abdomen pelvis w con Stat Cat Scan 05/26/24 13:[address] angio chest PE protocol Stat Cat Scan 05/26/24 13:21 Completed POCUS Point of Care (ER Only) Stat Exams 05/26/24 13:22 Completed BNP [NT Pro Brain Natriuretic Pep.] Stat Lab 05/26/24 13:13 Completed CBC w/Auto Diff [Complete Blood Count Auto Diff] Stat Lab 05/26/24 13:13 Completed CMP [Comprehensive Metabolic Panel] Stat Lab 05/26/24 13:13 Completed HIV Combo Stat Lab 05/26/24 13:13 Completed Hepatitis C Ab Qual. W/ RFX Stat Lab 05/26/24 13:13 Completed INR [Prothrombin Time INR] Stat Lab 05/26/24 13:13 Completed Magnesium Stat Lab 05/26/24 13:13 Completed Mini Respiratory Panel Stat Lab 05/26/24 13:53 Completed Trop I [Troponin I] Stat Lab 05/26/24 13:13 Completed VBG [Venous Blood Gas] Stat RT 05/26/24 13:36 Completed MDM Narrative Medical Decision Narrative: In summary patient is a 64-year-old male who presents to the emergency department for evaluation of dyspnea. Patient is hemodynamically stable upon arrival, afebrile. Physical exam shows a well-nourished well-developed overweight 64-year-old gentleman who does not appear to be in acute distress. Breath sounds are actually clear and equal bilaterally to the bases without adventitious sounds however patient has significant increased work of breathing and tachypnea. Abdomen is distended but soft without any rebound or guarding or rigidity. Normal bowel sounds.. Differential diagnosis includes pneumonia versus ACS versus PE versus CHF versus ascites versus anasarca versus renal failure etc. Initial workup will be conducted with hematologic labs plain film chest x-ray CT scan abdomen pelvis. Initial interventions include Lasix 80 mg IV push. Initial workup reviewed by me and his hematologic labs show a white count of 6 hemoglobin hematocrit 13.4 and 39.8 respectively with an absolute neutrophil count 4.6, INR is 1.03, VBG shows a preserved pH of 7.35 pCO2 of 44.6 venous blood gas lactic acid 1.6 chemistry is significant for sodium 138 potassium 3.4 CO2 of 31 glucose 169 mag of 1.4 total bilirubin 1.5 and undetected troponin of less than 0.01 and NT proBNP of 3450 and his mini respiratory panel is negative for all organisms tested. My informal interpretation of his plain film chest x-ray shows pulmonary edema and small bilateral pleural effusions, my informal interpretation of his CT scan abdomen pelvis shows anasarca but no acute intra-abdominal pathology however patient does have gallstones with some gallbladder wall thickening but I see no evidence of acute cholecystitis patient has none clinically. Upon repeat evaluation patient is diuresed over a liter after initial Lasix and feels modestly better. Given this I had interactive discussion with hospital medicine regarding patient management and Dr. Thomas recommended follow-up with cardiology on Wednesday. I then had an interactive discussion with the patient regarding his MONZON's findings and the fact that his workup thus far not revealed no serious or life-threatening conditions except for heart failure. I offered the patient admission versus at home treatment with Lasix along with potassium. Patient elected via self directed discharge to try to continue to diurese at home with the Lasix and potassium with close follow-up with cardiology Wednesday. Patient given strict return precautions. Thus he is appropriate for discharge at this time with prescriptions for Lasix and potassium sent to his pharmacy. <Ivan Zelaya MD - Last Filed: 05/27/24 08:07> Vital Signs Vital Signs: 05/26/24 13:08 05/26/24 13:30 05/26/24 14:41 Temperature 98.2 F Temperature Source Oral Pulse Rate 83 88 Pulse Rate [Left Radial] 89 Respiratory Rate 20 28 H 17 Blood Pressure 158/101 H 158/85 H Blood Pressure [Right Arm] 166/98 H Blood Pressure Mean [Right Arm] 120 02 Sat by Pulse Oximetry 92 L 91 L 90 L Oxygen Delivery Method Room Air Room Air Room Air Oxygen Flow Rate (LPM) 05/26/24 15:00 05/26/24 15:30 05/26/24 16:00 Temperature 98.2 F Temperature Source Pulse Rate 71 84 84 Pulse Rate [Left Radial] Respiratory Rate 29 H 25 H 25 H Blood Pressure 161/95 H 167/101 H 167/101 H Blood Pressure [Right Arm] Blood Pressure Mean [Right Arm] 02 Sat by Pulse Oximetry 88 L 90 L Oxygen Delivery Method Room Air Room Air Nasal Cannula Oxygen Flow Rate (LPM) 2 Lab Data Labs: Lab Results 05/26/24 13:13: WBC 6.0, RBC 4.57 L, Hgb 13.4 L, Hct 39.8 L, MCV 87.1, MCH 29.3, MCHC 33.7, RDW 13.9, Plt Count 136 L, MPV 10.6 H, Neut % (Auto) 77.6, Lymph % (Auto) 9.5 L, Bibb % (Auto) 9.9 H, Eos % (Auto) 2.2, Baso % (Auto) 0.3, Neut # (Auto) 4.6, Lymph # (Auto) 0.6 L, Bibb # (Auto) 0.6, Eos # (Auto) 0.1, Baso # (Auto) 0.0, PT 11.3, INR 1.03, Sodium 138, Potassium 3.4 L, Chloride 102, Carbon Dioxide 31 H, Anion Gap 8.4, BUN 14, Creatinine 1.00, Estimated Creat Clear 127, Estimated GFR 75, Est GFR ( Amer) 90, Glucose 169 H, Calcium 8.9, Magnesium 1.4 L, Total Bilirubin 1.5 H, AST 21, ALT 17, Alkaline Phosphatase 59, Troponin I < 0.01, NT-Pro-B Natriuret Pep 3450 H, Total Protein 6.8, Albumin 4.0, Globulin 2.8, Albumin/Globulin Ratio 1.4, HCV Ab GABI w/Rflx PCR Qn Negative, HIV Ag/Ab Combo Qual Negative 05/26/24 13:36: VBG pH 7.35, VBG pCO2 44.6, VBG pO2 50.1 H, VBG HCO3 24.1, VBG Total CO2 25.5, VBG O2 Saturation 82.6 H, VBG Base Excess -1.5, VBG Lactic Acid 1.6 05/26/24 13:53: SARS-CoV-2 (PCR) Not detected, Influenza Type A (PCR) Not detected, Influenza Type B (PCR) Not detected, RSV (PCR) Not detected, Rhinovirus (PCR) Not detected Response Orders (Tests/Meds): ED MEDICATIONS Discontinued Medications Generic Name Dose Route Start Last Admin Trade Name Freq PRN Reason Stop Dose Admin Furosemide 80 mg 05/26/24 13:20 05/26/24 13:44 Furosemide 40mg/4ml Vial IV 05/26/24 13:21 80 mg ONCE ONE Administration Magnesium Sulfate 2 gm in 50 mls @ 50 mls/hr 05/26/24 13:56 05/26/24 14:38 Magnesium Sulfate 2gm/50ml Premix IV 05/26/24 14:55 50 mls/hr ONCE ONE Administration Iopamidol 70 ml 05/26/24 13:59 05/26/24 14:00 Iopamidol-370 (76%);100ml Bottle IV 05/26/24 14:00 70 ml ONCE ONE Administration Potassium Chloride 80 meq 05/26/24 15:45 05/26/24 15:53 Potassium Chloride 20meq Tab PO 05/26/24 15:46 80 meq ONCE ONE Administration Sodium Chloride 50 ml 05/26/24 13:59 05/26/24 14:00 0.9 % Sodium Chloride 50 Ml Vial IV 05/26/24 14:00 50 ml ONCE ONE Administration Sodium Chloride 10 ml 05/26/24 13:59 05/26/24 14:00 Sodium Chloride 0.9% 10ml Syr (Rad Only) IV 05/26/24 14:00 10 ml ONCE ONE Administration ORDERS Category Date Time Status CT abdomen pelvis w con Stat Cat Scan 05/26/24 13:[address] angio chest PE protocol Stat Cat Scan 05/26/24 13:21 Completed POCUS Point of Care (ER Only) Stat Exams 05/26/24 13:22 Completed BNP [NT Pro Brain Natriuretic Pep.] Stat Lab 05/26/24 13:13 Completed CBC w/Auto Diff [Complete Blood Count Auto Diff] Stat Lab 05/26/24 13:13 Completed CMP [Comprehensive Metabolic Panel] Stat Lab 05/26/24 13:13 Completed HIV Combo Stat Lab 05/26/24 13:13 Completed Hepatitis C Ab Qual. W/ RFX Stat Lab 05/26/24 13:13 Completed INR [Prothrombin Time INR] Stat Lab 05/26/24 13:13 Completed Magnesium Stat Lab 05/26/24 13:13 Completed Mini Respiratory Panel Stat Lab 05/26/24 13:53 Completed Trop I [Troponin I] Stat Lab 05/26/24 13:13 Completed VBG [Venous Blood Gas] Stat RT 05/26/24 13:36 Completed ECG Data Tracing #1: Attestation: I reviewed this ECG and interpreted as documented below: (A-fib 94 bpm with QRS 103, QTc [address] depressions in noncontiguous leads with no reciprocal elevations) MDM Narrative Medical Decision Narrative: In summary patient is a 64-year-old male who presents to the emergency department for evaluation of dyspnea. Patient is hemodynamically stable upon arrival, afebrile. Physical exam shows a well-nourished well-developed overweight 64-year-old gentleman who does not appear to be in acute distress. Breath sounds are actually clear and equal bilaterally to the bases without adventitious sounds however patient has significant increased work of breathing and tachypnea. Abdomen is distended but soft without any rebound or guarding or rigidity. Normal bowel sounds.. Differential diagnosis includes pneumonia versus ACS versus PE versus CHF versus ascites versus anasarca versus renal failure etc. Initial workup will be conducted with hematologic labs plain film chest x-ray CT scan abdomen pelvis. Initial interventions include Lasix 80 mg IV push. Initial workup reviewed by me and his hematologic labs show a white count of 6 hemoglobin hematocrit 13.4 and 39.8 respectively with an absolute neutrophil count 4.6, INR is 1.03, VBG shows a preserved pH of 7.35 pCO2 of 44.6 venous blood gas lactic acid 1.6 chemistry is significant for sodium 138 potassium 3.4 CO2 of 31 glucose 169 mag of 1.4 total bilirubin 1.5 and undetected troponin of less than 0.01 and NT proBNP of 3450 and his mini respiratory panel is negative for all organisms tested. My informal interpretation of his plain film chest x-ray shows pulmonary edema and small bilateral pleural effusions, my informal interpretation of his CT scan abdomen pelvis shows anasarca but no acute intra-abdominal pathology however patient does have gallstones with some gallbladder wall thickening but I see no evidence of acute cholecystitis patient has none clinically. Upon repeat evaluation patient is diuresed over a liter after initial Lasix and feels modestly better. Given this I had interactive discussion with hospital medicine regarding patient management and Dr. Thomas recommended follow-up with cardiology on Wednesday. I then had an interactive discussion with the patient regarding his MONZON's findings and the fact that his workup thus far not revealed no serious or life-threatening conditions except for heart failure. I offered the patient admission versus at home treatment with Lasix along with potassium. Patient elected via self directed discharge to try to continue to diurese at home with the Lasix and potassium with close follow-up with cardiology Wednesday. Patient given strict return precautions. Thus he is appropriate for discharge at this time with prescriptions for Lasix and potassium sent to his pharmacy. I was consulted by the ROGER, and we discussed the complexity of the problems being addressed. I approved the treatment and management plan for this patient's care in the Emergency Department, thus performing a substantive portion of the medical decision making. Ivan Zelaya MD
--- NOTE | 2024-05-26 13:21 | CT_ITS ---
FINAL REPORT TECHNIQUE: After the administration of intravenous contrast, axial images were obtained through the abdomen and pelvis by computed tomography. The study was performed with techniques to keep radiation dose as low as reasonably achievable, (ALARA). Individual dose reduction techniques using automated exposure control or adjustment of mA and/or kV according to the patient's size were employed. CLINICAL HISTORY: Shortness of breath, abdominal swelling COMPARISON: None FINDINGS: Abdomen: The liver is homogeneous. The liver is enlarged measuring up to 22 cm. There are benign-appearing cysts in the superior right lobe of the liver measuring up to 14 mm. The there are gallstones seen in the dependent portion of the gallbladder. There is mild gallbladder wall thickening and minimal pericholecystic inflammation. The spleen is enlarged measuring up to 16 cm. The pancreas and adrenal glands are unremarkable. There is an abdominal aortic endograft. Excluded aortic lumen measures up to 29 mm. The left iliac limb of the aortic graft transversus a 3.8 cm left iliac artery aneurysm. Pelvis: The appendix is not identified. The urinary bladder is decompressed. There is no free fluid or adenopathy. IMPRESSION: Hepatosplenomegaly. Gallstones with mild gallbladder wall thickening and pericholecystic inflammation may be due to acute cholecystitis. Correlate clinically. Abdominal aortic endograft with 3.8 cm excluded left iliac artery aneurysm. Exam can not entirely exclude endoleak. Reviewed, Interpreted and Dictated by Stas Wilks MD Transcribed by Yenifer Christine Authenticated and . [facility]
--- NOTE | 2024-05-26 13:21 | CT_ITS ---
FINAL REPORT TECHNIQUE: The patient was injected with IV contrast. Axial images were obtained through the chest in a PE protocol. 3-D reconstruction images were also performed. Individualized dose reduction techniques using automated exposure control or adjustment of the MA and/or KV according to patient's size were employed. CLINICAL HISTORY: Shortness of breath, abdominal swelling COMPARISON: 12/04/2023 FINDINGS: Mediastinal vasculature is adequately opacified. No pulmonary artery filling defects are identified to suggest PE. There is no aortic dissection. There is no axillary adenopathy. There is no hilar or mediastinal adenopathy. The heart size is normal. There is no pericardial effusion. There are small bilateral pleural effusions. Pleural and parenchymal scarring is noted at the lung bases. No suspicious infiltrate or nodule is identified. IMPRESSION: No pulmonary embolus or dissection. Reviewed, Interpreted and Dictated by Stas Wilks MD Transcribed by Yenifer Christine Authenticated and . [facility]
[2024-05-26 13:30] VITALS: BP 158/101; PULSE 83; RESP 28; O2SAT 91
[2024-05-26 13:31] LABS: Basophils % 0.3 % (0.1-2.0); Eosinophils # 0.1 K/mm3 (0.0-0.4); Eosinophils % 2.2 % (0.1-12.0); Hematocrit 39.8 % (42.0-52.0); Hemoglobin 13.4 g/dL (14.1-18.0); Lymphocytes # 0.6 K/mm3 (0.7-4.5); Lymphocytes % 9.5 % (10-50); Mean Corpuscular HGB Conc 33.7 g/dL (31.8-35.4); Mean Corpuscular Hemoglobin 29.3 pg (27.0-31.2); Mean Corpuscular Volume 87.1 fl (80-94); Mean Platelet Volume 10.6 fl (7.4-10.4); Monocytes # 0.6 K/mm3 (0.1-1.0); Monocytes % 9.9 % (1.7-9.3); Neutrophils # 4.6 K/mm3 (1.8-7.8); Neutrophils % 77.6 % (37.0-80.0); Platelet Count 136 K/mm3 (142-424); Red Blood Count 4.57 M/mm3 (4.60-6.20); Red Cell Distribution Width 13.9 % (11.5-17.5)
[2024-05-26 13:40] LABS: Chloride 102 mmol/L (98-107); Potassium 3.4 mmoL/L (3.5-5.1); Sodium 138 mmol/L (136-145)
[2024-05-26 13:43] LABS: Alanine Aminotransferase 17 U/L (12-78); Albumin/Globulin Ratio 1.4 (1.1-1.8); Alkaline Phosphatase 59 U/L (38-126); Anion Gap 8.4 mEq/L (5-15); Aspartate Amino Transferase 21 U/L (17-59); Bilirubin,Total 1.5 mg/dl (0.2-1.3); Blood Urea Nitrogen 14 mg/dl (9-20); Calcium 8.9 mg/dl (8.4-10.2); Carbon Dioxide 31 mmol/L (22.0-30.0); Creatinine Clearance Estimated 127 mL/min (50-200); Estimated Glomerular Filt Rate 75 ml/min (>60); GFR (African American) 90 ML/MIN (>60); Globulin 2.8 g/dL (1.3-3.2); Glucose 169 mg/dl (74-100); Total Protein,Serum 6.8 g/dl (6.3-8.2)
[2024-05-26 13:43] LABS: Lactate Venous 1.6 mmol/L (0.4-2.0); VBG Base Excess -1.5 mmol/L (-2.4-2.3); VBG HCO3 24.1 mmol/L (23-30); VBG Oxygen Saturation 82.6 % (50-70); VBG PCO2 44.6 mmol/L (35-51); VBG PH 7.35 mmol/L (7.31-7.41); VBG PO2 50.1 mmol/L (28-40); VBG Total CO2 25.5 mmol/L (23-27)
[2024-05-26 13:44] LABS: Magnesium 1.4 mg/dl (1.6-2.3)
[2024-05-26] MEDS: FUROSEMIDE 40MG/4ML VIAL 80 MG IV (13:44)
[2024-05-26 13:52] LABS: NT Pro Brain Natriuretic Pep. 3450 pg/mL (0-125)
[2024-05-26 13:58] LABS: Troponin I < 0.01 ng/ml (0.00-0.034)
[2024-05-26 13:59] LABS: Coronavirus 19, PCR Not Detected (NotDetected); Human Rhinovirus Not Detected (NotDetected); Influenza A, PCR Not Detected (NotDetected); Influenza B, PCR Not Detected (NotDetected); Respiratory Syncytial Virus Not Detected (NotDetected)
[2024-05-26] MEDS: SODIUM CHLORIDE 0.9% 10ML SYR (RAD ONLY) 10 ML IV (14:00)
[2024-05-26] MEDS: 0.9 % SODIUM CHLORIDE 50 ML VIAL IV (14:00)
[2024-05-26] MEDS: IOPAMIDOL-370 (76%);100ML BOTTLE 70 ML IV (14:00)
[2024-05-26 14:03] LABS: INR 1.03 (0.9-1.1); Prothrombin Time 11.3 seconds (9.2-12.1)
[2024-05-26] MEDS: MAGNESIUM SULFATE IN WATER 2 GM/50 ML PIGGYBACK IV (14:38)
[2024-05-26 14:41] VITALS: BP 158/85; PULSE 88; RESP 17; O2SAT 90
[2024-05-26 14:51] LABS: HIV Combo NEGATIVE (Negative)
[2024-05-26 15:00] VITALS: BP 161/95; PULSE 71; RESP 29; O2SAT 88
[2024-05-26 15:00] LABS: Hepatitis C Ab Qual. W/ RFX NEGATIVE (Negative)
[2024-05-26 15:30] VITALS: BP 167/101; PULSE 84; RESP 25; O2SAT 90
[2024-05-26] MEDS: POTASSIUM CHLORIDE 20MEQ TAB 80 MEQ PO (15:53)
[2024-05-26 16:00] VITALS: BP 167/101; PULSE 84; RESP 25; TEMP 36.8; O2SAT 92
== END 2024-05-26 16:00 | disposition home or self-care (01) ==
PROVIDERS: Physician Assistant; Emergency Provider Emergency Medicine
DX: I50.9 Heart failure, unspecified (principal); R06.00 Dyspnea, unspecified; R06.02 Shortness of breath; R07.9 Chest pain, unspecified; R19.7 Diarrhea, unspecified
CPT/HCPCS: 71275; 74177; 80053; 82803; 83735; 83880; 84484; 85025; 85610; 86803; 87389; 87631; 93005; 96365; 96374; 99285; J1940; J3475; Q9967

== ENCOUNTER 2024-05-29 19:17 | Outpatient (CLI) | payer MEDICARE, MEDICAID, SELFPAY ==
[2024-05-29 20:13] LABS: Chloride 98 mmol/L (98-107)
[2024-05-29 20:14] LABS: Sodium 137 mmol/L (136-145)
[2024-05-29 20:17] LABS: Blood Urea Nitrogen 24 mg/dl (9-20); Calcium 8.8 mg/dl (8.4-10.2); Carbon Dioxide 31 mmol/L (22.0-30.0); Estimated Glomerular Filt Rate 55 ml/min (>60); GFR (African American) 67 ML/MIN (>60); Glucose 92 mg/dl (74-100)
== END 2024-05-29 23:59 | disposition home or self-care (01) ==
LOC: LAB.DROPOF 19:18
PROVIDERS: PCP Family Medicine; Visit Provider Family Medicine
DX: I50.9 Heart failure, unspecified (principal)
CPT/HCPCS: 80048

== ENCOUNTER 2024-06-12 09:49 | Outpatient (CLI) | payer MEDICARE, MEDICAID, SELFPAY ==
[2024-06-12 19:32] LABS: Chloride 101 mmol/L (98-107); Sodium 141 mmol/L (136-145)
[2024-06-12 19:33] LABS: Potassium 3.7 mmoL/L (3.5-5.1)
[2024-06-12 19:35] LABS: Blood Urea Nitrogen 18 mg/dl (9-20); Estimated Glomerular Filt Rate 67 ml/min (>60); GFR (African American) 81 ML/MIN (>60)
[2024-06-12 19:36] LABS: Anion Gap 14.7 mEq/L (5-15); Calcium 8.7 mg/dl (8.4-10.2); Carbon Dioxide 29 mmol/L (22.0-30.0); Glucose 130 mg/dl (74-100)
[2024-06-12 21:23] LABS: Hemoglobin A1C 5.8 % (4.0-6.0)
== END 2024-06-12 23:59 | disposition home or self-care (01) ==
LOC: LAB.DROPOF 06-13 10:53
PROVIDERS: PCP Family Medicine; Visit Provider Family Medicine
DX: E11.9 Type 2 diabetes mellitus without complications (principal); I50.33 Acute on chronic diastolic (congestive) heart failure
CPT/HCPCS: 80048; 83036

== ENCOUNTER 2024-06-21 11:27 | Outpatient (CLI) | payer MEDICARE, MEDICAID, SELFPAY ==
[2024-06-21 12:51] LABS: Chloride 103 mmol/L (98-107); Potassium 5.1 mmoL/L (3.5-5.1); Sodium 141 mmol/L (136-145)
[2024-06-21 12:54] LABS: Blood Urea Nitrogen 30 mg/dl (9-20); Estimated Glomerular Filt Rate 47 ml/min (>60); GFR (African American) 57 ML/MIN (>60)
[2024-06-21 12:55] LABS: Anion Gap 11.1 mEq/L (5-15); Calcium 8.9 mg/dl (8.4-10.2); Carbon Dioxide 32 mmol/L (22.0-30.0); Glucose 110 mg/dl (74-100)
== END 2024-06-21 23:59 | disposition home or self-care (01) ==
LOC: LAB 11:30
PROVIDERS: PCP Family Medicine; Visit Provider Nurse Practitioner Family
DX: I25.10 Atherosclerotic heart disease of native coronary artery without angina pectoris (principal); I10 Essential (primary) hypertension
CPT/HCPCS: 36415; 80048

== ENCOUNTER 2024-07-21 16:45 | Observation (INO) | payer MEDICARE, MEDICAID, SELFPAY ==
[2024-07-21] VITALS (9 sets, daily range): BP systolic 81–121; BP diastolic 45–94; PULSE 58–79; RESP 12–22; TEMP 36.4–36.6; O2SAT 95–98; BMI 34.2; BMI 33.9
--- NOTE | 2024-07-21 17:29 | ECG_ITS ---
APPROVED REPORT Exam: Resting ECG HR:86 bpm ECG Measurements Heart Rate 86 AXES QRSd 104 QRS 49 QT 362 T 29 QTc 406 Conclusion A-fib Intermittent PVCs Electronically signed by : SUSY LEOS, 07/22/2024 00:02:17
--- NOTE | 2024-07-21 18:01 | XR_ITS ---
PROCEDURE INFORMATION: Exam: XR Chest Exam date and time: 07/21/2024 6:15 PM Age: 64 years old Clinical indication: Other: Syncope multiple times TECHNIQUE: Imaging protocol: Radiologic exam of the chest. Views: 1 view. COMPARISON: CT ANGIO CHEST PE PROTOCOL 05/26/2024 1:57 PM FINDINGS: Lungs: Mild left basilar atelectasis. No focal consolidation. Pleural spaces: Unremarkable. No pleural effusion. No pneumothorax. Heart/Mediastinum: Unremarkable. No cardiomegaly. Bones/joints: Unremarkable. IMPRESSION: No acute disease.
[2024-07-21 18:08] LABS: Basophils % 0.4 % (0.1-2.0); Eosinophils # 0.2 K/mm3 (0.0-0.4); Eosinophils % 2.7 % (0.1-12.0); Hemoglobin 13.1 g/dL (14.1-18.0); Lymphocytes # 1.2 K/mm3 (0.7-4.5); Lymphocytes % 14.6 % (10-50); Mean Corpuscular HGB Conc 33.6 g/dL (31.8-35.4); Mean Corpuscular Volume 89.4 fl (80-94); Mean Platelet Volume 11.5 fl (7.4-10.4); Monocytes # 0.6 K/mm3 (0.1-1.0); Neutrophils # 5.9 K/mm3 (1.8-7.8); Neutrophils % 73.9 % (37.0-80.0); Platelet Count 146 K/mm3 (142-424); Red Blood Count 4.36 M/mm3 (4.60-6.20); Red Cell Distribution Width 14.6 % (11.5-17.5); White Blood Count 7.9 K/mm3 (4.8-10.8)
[2024-07-21] MEDS: LACTATED RINGERS 1000ML 1,000 ML 999 ML IV ×2 (18:11→19:45)
[2024-07-21 18:14] LABS: Alanine Aminotransferase 18 U/L (12-78); Albumin Level 4.4 g/dl (3.5-5.0); Albumin/Globulin Ratio 1.8 (1.1-1.8); Alkaline Phosphatase 50 U/L (38-126); Anion Gap 13.7 mEq/L (5-15); Aspartate Amino Transferase 21 U/L (17-59); Bilirubin,Total 1.1 mg/dl (0.2-1.3); Blood Urea Nitrogen 63 mg/dl (9-20); Calcium 8.7 mg/dl (8.4-10.2); Carbon Dioxide 26 mmol/L (22.0-30.0); Chloride 101 mmol/L (98-107); Creatinine Clearance Estimated 43 mL/min (50-200); Estimated Glomerular Filt Rate 23 ml/min (>60); GFR (African American) 28 ML/MIN (>60); Globulin 2.5 g/dL (1.3-3.2); Glucose 153 mg/dl (74-100); Magnesium 1.9 mg/dl (1.6-2.3); Potassium 5.7 mmoL/L (3.5-5.1); Sodium 135 mmol/L (136-145); Total Protein,Serum 6.9 g/dl (6.3-8.2)
--- NOTE | 2024-07-21 18:21 | ED_ITS ---
Discharge Plan Disposition Patient Disposition: Admitted Chief Complaint: Dizziness Prescriptions Prescriptions: No Action atorvastatin 20 mg tablet 20 mg PO HS Qty: 90 1RF alfuzosin 10 mg tablet extended release 24 hr 10 mg PO ONCE amlodipine 5 mg tablet 5 mg PO DAILY Qty: 90 3RF albuterol sulfate 90 mcg/actuation HFA aerosol inhaler 2 puff inhalation Q8H PRN carvedilol 25 mg tablet 25 mg PO BID Qty: 60 5RF Rx Instructions: must administer with a meal/food metformin 500 mg tablet 1,000 mg PO DAILY Qty: 60 5RF sacubitril-valsartan [Entresto] 97-103 mg tablet 1 tab PO BID 30 Days Qty: 60 5RF gabapentin 100 mg capsule 100 mg PO TID Qty: 90 5RF montelukast 10 mg tablet 10 mg PO HS Qty: 90 3RF Eliquis 5 mg tablet 5 mg PO BID Qty: 180 0RF spironolactone 50 mg tablet 50 mg PO DAILY 30 Days Qty: 30 5RF furosemide [Lasix] 40 mg tablet 40 mg PO BID Qty: 30 0RF potassium chloride 20 mEq tablet,ER particles/crystals 20 meq PO BID Qty: 30 0RF fluticasone propion-salmeterol 250-50 mcg/dose Blister With Device 1 inh INHALATION BID Referrals Follow up/Referrals: Aaron Gamze MD [Primary Care Provider] - See instructions Clinical Impressions Clinical Impression: KYRIE (acute kidney injury), Syncope, Bradycardia, Acute hypotension Print Language Print Language: Kazakh Discharge ED Provider: Ivan Zelaya General Adult HPI General Chief complaint: Dizziness Stated complaint: dizzy, passed oou 2x today Time Seen by Provider: 07/21/24 17:33 Mode of Arrival: Wheelchair Source of Information: Patient Description of Symptoms (Recalled from ER Triage Doc. by RN): pt to the ED with complaints of increasing weakness over the last week and a half and two syncopal episodes since this morning. pt reports this morning he was at [employer] and woke up in the parking lot. pt reported he was alone and didnt have any notable injuries. pt also reported having a near syncopal episode at a gas station. pt is currently alert and oriented and reports SOB on exertion and a numbing/tingling sensation down both arms that comes and goes throughout the day. History of Present Illness HPI narrative: Please note that above description of symptoms, in this electronic medical record under categorization of recalled from ER triage doctor by RN are reflective of an initial nursing assessment, however, is not reflective of my full history and physical exam that was personally taken and clarified. Consequentially, this preceding description of symptoms, which may include the patient's categorized chief complaint in the EMR, do not reflect my personal clinical impression, and the ultimate description of history of present illness and patient stated complaints should be deferred to this section of the note. Unless stated otherwise or congruent with this section of the note, additional signs, symptoms, or incongruence should be interpreted as inaccurate with my clinical impression. Related Data Home Medications ?Medication ?Instructions ?Recorded ?Confirmed fluticasone 250 mcg-salmeterol 50 1 inh inhalation BID 12/03/23 07/13/24 mcg/dose blistr powdr for inhalation albuterol sulfate 90 mcg/actuation 2 puff inhalation Q8H PRN 02/01/24 07/13/24 aerosol inhaler alfuzosin 10 mg tablet,extended 10 mg PO ONCE 07/12/24 07/13/24 release 24 hr Previous Rx's ?Medication ?Instructions ?Recorded gabapentin 100 mg capsule 100 mg PO TID #90 caps 03/09/24 atorvastatin 20 mg tablet 20 mg PO HS #90 tabs 03/31/24 montelukast 10 mg tablet 10 mg PO HS #90 tabs 05/25/24 amlodipine 5 mg tablet 5 mg PO DAILY #90 tabs 07/12/24 apixaban 5 mg tablet (Eliquis) 5 mg PO BID #180 tabs 07/12/24 spironolactone 50 mg tablet 50 mg PO DAILY 30 days #30 tabs 07/12/24 carvedilol 25 mg tablet 25 mg PO BID #60 tabs 07/13/24 metformin 500 mg tablet 1,000 mg (2 x 500 mg) PO DAILY #60 07/13/24 tabs sacubitril 97 mg-valsartan 103 mg 1 tab PO BID 30 days #60 tabs 07/13/24 tablet (Entresto) furosemide 40 mg tablet (Lasix) 40 mg PO BID #30 tabs 07/21/24 potassium chloride 20 mEq 20 meq PO BID #30 tabs 07/21/24 tablet,extended release(part/cryst) Allergies Allergy/AdvReac Type Severity Reaction Status Date / Time Penicillins AdvReac Unknown Verified 07/13/24 08:47 [facility] Disclaimer: The information contained in this section may have been updated after the patient was seen, as this information can be updated by other users. Medical History CHF (congestive heart failure) (HFpEF) heart failure with preserved ejection fraction CHF exacerbation Epidermal cyst Nevus Groin pain Phimosis of penis Skin lesion of back Abdominal aortic aneurysm Infrarenal repaired with [id number] Groe Excluder at 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, May 2021 Peripheral neuropathy Hematoma COPD (chronic obstructive pulmonary disease) with emphysema Hypokalemia Shortness of Breath Acute on chronic heart failure with preserved ejection fraction (HFpEF) BPH (benign prostatic hyperplasia) Type 2 diabetes mellitus Afib HLD (hyperlipidemia) HTN (hypertension) Surgical History History of cardiac cath History of cardioversion X 3 Social History Smoking Status: Never smoker alcohol intake: never current occupational status: other Travel in the last 8 weeks: None Have you lived/traveled outside [place] in past 30 days?: No Contact w/someone who lives/traveled outside US past 30 days?: No Exposure to someone with infectious disease in past 14 days?: No Do you have a fever (greater than 100.4 F or 38 C)?: No Have you tested positive for COVID-19: No Exposed to someone with COVID-19 in past 14 days?: No Do you have a sore throat?: No Do you have a cough?: No Do you have any weakness?: Yes Do you have any diarrhea?: No Are you experiencing any unusual bleeding?: No Do you have any muscle aches/pain?: No Do you have any abdominal pain?: No Are you experiencing loss of taste or smell?: No Other Medical History Have you received the Flu Vaccine for this season: No Have you received the Pneumonia Vaccine: No ROS Obtained: Yes All systems reviewed & no additional complaints except as documented Physical Exam General General appearance: alert and in no apparent distress Head Head exam: atraumatic and normocephalic Eye Eye exam: Present normal appearance, PERRL and EOMI Neck Neck exam: Present normal inspection, full ROM and trachea midline Respiratory Respiratory exam: Absent respiratory distress, wheezes, stridor, accessory muscle use or prolonged expiratory phase Cardiovascular Cardiovascular exam: Present bradycardia, irregular rhythm and other (Pulses equal symmetric in upper and lower extremities) Abdominal Exam Abdominal exam: Present soft; Absent distention, tenderness or pulsatile mass Extremities Exam Extremities exam: Absent edema Neurological Exam Neurological exam: Present alert, oriented X3 and CN II-XII intact; Absent motor sensory deficit Skin Skin exam: Present warm and dry; Absent diaphoresis or erythema Medical Decision Making Medical Records Medical records reviewed: Yes I reviewed the patient's medical records. Screening: Per USPSTF and CDC recommendations, given the prevalence of disease in our region, it is our hospital?s policy to screen for HIV and viral Hepatitis for all patients aged 18 and over and those with ongoing risk factors. [place] Inquiry Pt receiving controlled substance: No [place] was queried for this patient: No Vital Signs: 07/21/24 17:18 07/21/24 18:00 07/21/24 19:00 Temperature 97.6 F Temperature Source Oral Pulse Rate 62 68 Pulse Rate [Left Radial] 66 Respiratory Rate 17 18 22 Blood Pressure 85/46 L 101/57 L Blood Pressure [Right Arm] 81/45 L Blood Pressure Mean 55 Blood Pressure Mean [Right Arm] 57 Blood Pressure Source [Right Arm] Automatic Cuff Blood Pressure Position [Right Arm] Sitting 02 Sat by Pulse Oximetry 95 97 97 Oxygen Delivery Method Room Air Lab Data Lab Results 07/21/24 17:34: WBC 7.9, RBC 4.36 L, Hgb 13.1 L, Hct 39.0 L, MCV 89.4, MCH 30.0, MCHC 33.6, RDW 14.6, Plt Count 146, MPV 11.5 H, Neut % (Auto) 73.9, Lymph % (Auto) 14.6, [place] % (Auto) 8.0, Eos % (Auto) 2.7, Baso % (Auto) 0.4, Neut # (Auto) 5.9, Lymph # (Auto) 1.2, [place] # (Auto) 0.6, Eos # (Auto) 0.2, Baso # (Auto) 0.0, PT 11.5, INR 1.03, APTT 31.0 H, Sodium 135 L, Potassium 5.7 H, Chloride 101, Carbon Dioxide 26, Anion Gap 13.7, BUN 63 H, Creatinine 2.80 H, Estimated Creat Clear 43, Estimated GFR 23 L, Est GFR ( Amer) 28 L, G lucose 153 H, Calcium 8.7, Magnesium 1.9, Total Bilirubin 1.1, AST 21, ALT 18, Alkaline Phosphatase 50, Troponin I < 0.01, NT-Pro-B Natriuret Pep 286 H, Total Protein 6.9, Albumin 4.4, Globulin 2.5, Albumin/Globulin Ratio 1.8, TSH 4.32, Thyroxine (T4) 8.6 07/21/24 18:03: VBG pH 7.25 L, VBG pCO2 53.1 H, VBG pO2 27.1 L, VBG HCO3 22.8 L, VBG Total CO2 24.4, VBG O2 Saturation 42.7 L, VBG Base Excess -4.5 L, VBG Lactic Acid 1.7 07/21/24 18:10: Lactate 1.2 07/21/24 17:34 07/21/24 17:34 Orders (Tests/Meds): ED MEDICATIONS Generic Name Dose Route Start Last Admin Trade Name Freq PRN Reason Stop Dose Admin Lactated Ringer's 1,000 mls @ 999 mls/hr 07/21/24 18:36 Lactated Ringer's 1000 Ml Bag IV 07/21/24 19:36 .Q1H1M ONE Discontinued Medications Generic Name Dose Route Start Last Admin Trade Name Freq PRN Reason Stop Dose Admin Lactated Ringer's 1,000 mls @ 999 mls/hr 07/21/24 18:01 07/21/24 18:11 Lactated Ringer's 1000 Ml Bag IV 07/21/24 19:01 999 mls/hr .Q1H1M ONE Administration ORDERS Category Date Time Status CT cervical spine wo con Stat Cat Scan 07/21/24 18:[address] head/brain wo con Stat Cat Scan 07/21/24 18:22 Completed XR chest portable Stat Exams 07/21/24 18:01 Completed Complete Blood Count Auto Diff Stat Lab 07/21/24 17:34 Completed Comprehensive Metabolic Panel Stat Lab 07/21/24 17:34 Completed Lactic Acid Stat Lab 07/21/24 18:10 Completed Magnesium Stat Lab 07/21/24 17:34 Completed NT Pro Brain Natriuretic Pep. Stat Lab 07/21/24 17:34 Completed PT INR [Prothrombin Time INR] Stat Lab 07/21/24 17:34 Completed PTT [Activated Partial Thrombo Time] Stat Lab 07/21/24 17:34 Completed T4 (Thyroxine) Stat Lab 07/21/24 17:34 Completed TSH [Thyroid Stimulating Hormone] Stat Lab 07/21/24 17:34 Completed Troponin I Q3H Lab 07/21/24 21:15 Ordered Troponin I Q3H Lab 07/22/24 00:15 Ordered Troponin I Stat Lab 07/21/24 17:34 Completed Blood Culture Stat Micro 07/21/24 18:20 Received Venous Blood Gas Stat RT 07/21/24 18:03 Completed Medical Decision Narrative: This is a 64-year-old male with history of hypertension, hyperlipidemia, diastolic heart failure, CAD, type 2 diabetes, atrial fibrillation on Eliquis, presenting with syncopal episodes. Patient states he has had numerous syncopal episodes over the past few days. Has had 3-4 of them today. No preceding symptoms. States that he feels lightheaded and all of a sudden wakes up on the floor. Syncopized in the [facility]'s parking lot just prior to arrival, so EMS was called and picked him up and brought him to the emergency department. Patient states that he has been feeling lightheaded, unwell throughout the week. His blood pressure has been running low. No other associated symptoms other than shortness of breath with exertion. No fevers, chills, cough, nausea, vomiting, chest pain, or any other concerns. History obtained with patient and EMS. On arrival, patient hemodynamically stable, alert, oriented x4, appropriate, GCS 15, moving all extremities spontaneously, pupils equal and reactive to light. Full physical exam performed and significant for fatigued appearing male no acute distress. Speaking in full sentences, neurologically intact, alert and oriented, NIHSS 0. Pupils equal and reactive. Lungs are clear, cardiac exam without murmurs gallops or rubs. No lower extremity edema. No abdominal tenderness. Differential includes metabolic abnormality, endocrinologic abnormality, CHF exacerbation, ACS, MS, iatrogenic, sepsis, pneumothorax, intracranial bleed, less likely to be dissection, CVA, among others. Patient placed on continuous cardiac monitoring and continuous pulse ox with initial blood pressure 81/45, heart rate 66, saturation 95% on room air. Independent interpretation of EKG shows atrial fibrillation 86 bpm with QRS 104, QTc 406. No obvious acute ischemic change. Frequent PVCs. Patient was given IV fluids for symptomatic management and correction of underlying abnormalities. Workup independently interpreted and significant for nonactionable CBC or coags. Chemistry with moderate KYRIE BUN 63 creatinine 2.8 prerenal. Heart labs are negative. Thyroid studies nonactionable. CT of the head and neck independently interpreted and nonactionable with no acute traumatic findings. On reevaluation, patient states that he is feeling a little better, second liter of fluids was added. Hospital medicine contacted and case was discussed for prerenal KYRIE, need for medication reconciliation, likely decrease in patient's diuretics as he is on 50 of furosemide and 40 of Lasix daily and likely causing renal dysfunction and decreased clearance of beta-tameka. Given patient presentation, workup, history, this most likely represents iatrogenic KYRIE, syncopal episodes in the setting of orthostasis. Because patient high risk for clinical decompensation, deemed appropriate for inpatient admission. Results were relayed to patient who voiced understanding and patient was agreeable to inpatient admission and management. Patient was admitted to the hospital for further definitive management. Sensor Specialist disclaimer Much of this encounter note is an electronic business services sales agent spoken language to printed text. Electronic business services sales agent of the spoken language may permit errors. Although I have reviewed the note, some errors may still exist. Critical Care Critical Care Time Critical Care Time: No
--- NOTE | 2024-07-21 18:22 | CT_ITS ---
PROCEDURE INFORMATION: Exam: CT Cervical Spine Without Contrast Exam date and time: 07/21/2024 6:48 PM Age: 64 years old Clinical indication: Injury or trauma; Fall; Blunt trauma; Additional info: Fall, struck head on eliquis, neck pain TECHNIQUE: Imaging protocol: Computed tomography of the cervical spine without contrast. Radiation optimization: All CT scans at this facility use at least one of these dose optimization techniques: automated exposure control; mA and/or kV adjustment per patient size (includes targeted exams where dose is matched to clinical indication); or iterative reconstruction. COMPARISON: CT HEAD/BRAIN WO CON 07/21/2024 6:46 PM FINDINGS: Vertebral Bodies: There is no fracture or destructive lesion. The vertebral bodies and posterior elements are intact. Alignment: Normal. No subluxation. Discs: disc space narrowing and osteophytosis at C3-C4, C4-C5, C5-C6 and C6-C7. Central canal: mild central canal stenosis at C3-C4, C4-C5. Neural foramina: uncovertebral and facet hypertrophy with severe right foraminal stenosis at C3-C4, C4-C5, moderate bilateral foraminal stenosis at C5-C6 and C6-C7. The visualized portion of the posterior fossa and brainstem are unremarkable. The prevertebral soft tissues and airway are unremarkable. Lymph nodes: No suspicious lymph nodes. Thyroid gland: Normal. Carotid arteries: Normal. Lung apices: Normal. Soft tissues: Normal. IMPRESSION: 1. No acute fracture, dislocation or subluxation. 2. Multilevel degenerative disc disease and hypertrophic arthropathy with associated central canal and foraminal stenosis, as described above.
--- NOTE | 2024-07-21 18:22 | CT_ITS ---
PROCEDURE INFORMATION: Exam: CT Head Without Contrast Exam date and time: 07/21/2024 6:46 PM Age: 64 years old Clinical indication: Injury or trauma; Fall; Blunt trauma (contusions or hematomas); Additional info: Fall, struck head on eliquis TECHNIQUE: Imaging protocol: Computed tomography of the head without contrast. Radiation optimization: All CT scans at this facility use at least one of these dose optimization techniques: automated exposure control; mA and/or kV adjustment per patient size (includes targeted exams where dose is matched to clinical indication); or iterative reconstruction. COMPARISON: No relevant prior studies available. FINDINGS: Brain: Normal. No hemorrhage. Unremarkable white matter. No mass effect. Calcification of the pineal gland. Cerebral ventricles: No ventriculomegaly. Paranasal sinuses: Visualized sinuses are unremarkable. No fluid levels. Mastoid air cells: Visualized mastoid air cells are well aerated. Bones: Unremarkable. No acute fracture. Soft tissues: Unremarkable. IMPRESSION: No acute intracranial abnormality.
[2024-07-21 18:26] LABS: INR 1.03 (0.9-1.1); NT Pro Brain Natriuretic Pep. 286 pg/mL (0-125); Prothrombin Time 11.5 seconds (10.1-12.5)
[2024-07-21 18:27] LABS: Lactic Acid 1.2 mmol/L (0.7-2.1)
[2024-07-21 18:30] LABS: T4 (Thyroxine) 8.6 ug/dl (5.53-11.0)
[2024-07-21 18:34] LABS: Troponin I < 0.01 ng/ml (0.00-0.034)
[2024-07-21 18:44] LABS: Thyroid Stimulating Hormone 4.32 uIU/mL (0.465-4.68)
[2024-07-21 19:07] LABS: Lactate Venous 1.7 mmol/L (0.4-2.0); VBG Base Excess -4.5 mmol/L (-2.4-2.3); VBG HCO3 22.8 mmol/L (23-30); VBG Oxygen Saturation 42.7 % (50-70); VBG PCO2 53.1 mmol/L (35-51); VBG PH 7.25 mmol/L (7.31-7.41); VBG PO2 27.1 mmol/L (28-40); VBG Total CO2 24.4 mmol/L (23-27)
--- NOTE | 2024-07-21 19:34 | P.HP_ITS ---
<Statement entered by Carlos Thomas MD - 07/22/24 14:15> Rounded on patient after nurse practitioner. Personally examined and interviewed patient. Agree with exam findings and care plan as documented. History of Present Illness *Admission Date: 07/21/24 *Reason for visit:: Syncope *History of present illness: A 64-year-old male with a past medical history of hypertension, hyperlipidemia, diastolic heart failure, coronary artery disease (CAD), type 2 diabetes m ellitus, and atrial fibrillation (on apixaban) presents to the emergency department with increasing weakness over the past week and a half and two syncopal episodes since this morning. He reports that today, while alone at [employer], he awoke in the parking lot after a syncopal episode without notable injuries. He also experienced a near-syncopal episode at a gas station. EMS transported him after the [employer] incident. The patient describes feeling lightheaded and unwell throughout the week, with multiple syncopal episodes (3-4 today) without prodrome, as well as shortness of breath on exertion and intermittent numbness/tingling in both arms. He notes his blood pressure has been running low at home. He denies fevers, chills, cough, nausea, vomiting, chest pain, or other symptoms. History was obtained from the patient and EMS. Home medications include carvedilol, spironolactone, furosemide (Lasix), sacubitril-valsartan (Entresto), amlodipine, and potassium chloride, with recent increae of Lasix 40 mg BIDOn arrival. Initial vital signs showed blood pressure 81/45 mmHg, heart rate 66 bpm, and oxygen saturation 95% on room air. Physical exam revealed a fatigued-appearing male in no acute distress, speaking in full sentences, neurologically intact (NIHSS 0), with clear lungs, no cardiac murmurs, gallops, or rubs, and no lower extremity edema or abdominal tenderness. Workup included continuous cardiac monitoring and pulse oximetry. EKG showed atrial fibrillation at 86 bpm, QRS 104 ms, QTc 406 ms, with frequent PVCs but no acute ischemic changes. Labs revealed BUN 63 mg/dL, creatinine 2.80 mg/dL (eGFR 23 mL/min/1.73m?, indicating moderate KYRIE, likely prerenal), potassium 5.7 mmol/L, sodium 135 mmol/L, glucose 153 mg/dL, BNP 286 pg/mL, and normal troponin; CBC, coagulation studies, and thyroid function (TSH 4.32 mIU/L) were nonactionable. Venous blood gas showed pH 7.25, pCO2 53.1 mmHg, and lactate 1.7 mmol/L. CT head and neck was negative for acute findings. The patient received IV fluids (2 liter) for symptomatic management. On reevaluation, the patient reported feeling slightly better. Hospital medicine was consulted, and the case was discussed, identifying likely iatrogenic KYRIE and orthostatic syncope from over-diuresis (spironolactone 50 mg daily, Lasix 40 mg BID) and possible beta-tameka accumulation (carvedilol 25 mg BID) due to reduced renal clearance. The patient was deemed high risk for decompensation, warranting inpatient admission for medication reconciliation and management. He understood and agreed to admission. [facility] Disclaimer: The information contained in this section may have been updated after the patient was seen, as this information can be updated by other users. Medical History CHF (congestive heart failure) (HFpEF) heart failure with preserved ejection fraction CHF exacerbation Epidermal cyst Nevus Groin pain Phimosis of penis Skin lesion of back Abdominal aortic aneurysm Pulmonary hypertension Elevated left ventricular end-diastolic pressure (LVEDP) CAD (coronary artery disease) Angina pectoris Abnormal findings on diagnostic imaging of heart and coronary circulation Aneurysm of left common iliac artery Peripheral neuropathy Hematoma COPD (chronic obstructive pulmonary disease) with emphysema Hypokalemia Shortness of Breath Acute on chronic heart failure with preserved ejection fraction (HFpEF) BPH (benign prostatic hyperplasia) Type 2 diabetes mellitus Afib HLD (hyperlipidemia) HTN (hypertension) Surgical History History of cardiac cath History of cardioversion X 3 Family History (Updated 07/21/24 @ 20:48 by Aletha Black RN) Other No significant family history Social History (Updated 07/21/24 @ 20:48 by Aletha Black RN) Smoking Status: Never smoker alcohol intake: never current occupational status: other Travel in the last 8 weeks: None Have you lived/traveled outside [place] in past 30 days?: No Contact w/someone who lives/traveled outside US past 30 days?: No Exposure to someone with infectious disease in past 14 days?: No Do you have a fever (greater than 100.4 F or 38 C)?: No Have you tested positive for COVID-19: No Exposed to someone with COVID-19 in past 14 days?: No Do you have a sore throat?: No Do you have a cough?: No Do you have any weakness?: Yes Are you experiencing any nausea/vomitting?: No Do you have any diarrhea?: No Are you experiencing any unusual bleeding?: No Do you have any muscle aches/pain?: No Do you have any abdominal pain?: No Are you experiencing loss of taste or smell?: No Other Medical History Have you received the Flu Vaccine for this season: No Have you received the Pneumonia Vaccine: No Review of Systems Review of Systems Review of systems (narrative): 13 point review of systems negative except as listed in HPI Meds Home Medications and Allergies Home Medications ?Medication ?Instructions ?Recorded ?Confirmed ?Type fluticasone 250 mcg-salmeterol 50 1 inh inhalation BID 12/03/23 07/21/24 History mcg/dose blistr powdr for inhalation albuterol sulfate 90 mcg/actuation 2 puff inhalation Q8H PRN 02/01/24 07/21/24 History aerosol inhaler Shortness Of Breath gabapentin 100 mg capsule 100 mg PO TID #90 caps 03/09/24 07/21/24 Rx atorvastatin 20 mg tablet 20 mg PO HS #90 tabs 03/31/24 07/21/24 Rx montelukast 10 mg tablet 10 mg PO HS #90 tabs 05/25/24 07/21/24 Rx alfuzosin 10 mg tablet,extended 10 mg PO ONCE 07/12/24 07/21/24 History release 24 hr amlodipine 5 mg tablet 5 mg PO DAILY #90 tabs 07/12/24 07/21/24 Rx apixaban 5 mg tablet (Eliquis) 5 mg PO BID #180 tabs 07/12/24 07/21/24 Rx spironolactone 50 mg tablet 50 mg PO DAILY 30 days #30 tabs 07/12/24 07/21/24 Rx carvedilol 25 mg tablet 25 mg PO BID #60 tabs 07/13/24 07/21/24 Rx metformin 500 mg tablet 1,000 mg (2 x 500 mg) PO DAILY #60 07/13/24 07/21/24 Rx tabs sacubitril 97 mg-valsartan 103 mg 1 tab PO BID 30 days #60 tabs 07/13/24 07/21/24 Rx tablet (Entresto) furosemide 40 mg tablet (Lasix) 40 mg PO BID #30 tabs 07/21/24 07/21/24 Rx potassium chloride 20 mEq 20 meq PO BID #30 tabs 07/21/24 07/21/24 Rx tablet,extended release(part/cryst) New Prescriptions to Start Prescriptions: Allergies Allergy/AdvReac Type Severity Reaction Status Date / Time Penicillins AdvReac Unknown Verified 07/13/24 08:47 Exam Data for Last 24 hours Vital signs and Labs for Last 24 Hours: Temp Pulse Resp BP Pulse Ox O2 Del Method 97.6 F 60 20 103/63 L 98 Room Air 07/21/24 17:18 07/21/24 19:31 07/21/24 19:31 07/21/24 19:31 07/21/24 19:31 07/21/24 17:18 Laboratory Results - last 24 hr 07/21/24 17:34: WBC 7.9, RBC 4.36 L, Hgb 13.1 L, Hct 39.0 L, MCV 89.4, MCH 30.0, MCHC 33.6, RDW 14.6, Plt Count 146, MPV 11.5 H, Neut % (Auto) 73.9, Lymph % (Auto) 14.6, [place] % (Auto) 8.0, Eos % (Auto) 2.7, Baso % (Auto) 0.4, Neut # (Auto) 5.9, Lymph # (Auto) 1.2, [place] # (Auto) 0.6, Eos # (Auto) 0.2, Baso # (Auto) 0.0, PT 11.5, INR 1.03, APTT 31.0 H, Sodium 135 L, Potassium 5.7 H, Chloride 101, Carbon Dioxide 26, Anion Gap 13.7, BUN 63 H, Creatinine 2.80 H, Estimated Creat Clear 43, Estimated GFR 23 L, Est GFR ( Amer) 28 L, Glucose 153 H, Calcium 8.7, Magnesium 1.9, Total Bilirubin 1.1, AST 21, ALT 18, Alkaline Phosphatase 50, Troponin I < 0.01, NT-Pro-B Natriuret Pep 286 H, Total Protein 6.9, Albumin 4.4, Globulin 2.5, Albumin/Globulin Ratio 1.8, TSH 4.32, Thyroxine (T4) 8.6 07/21/24 18:03: VBG pH 7.25 L, VBG pCO2 53.1 H, VBG pO2 27.1 L, VBG HCO3 22.8 L, VBG Total CO2 24.4, VBG O2 Saturation 42.7 L, VBG Base Excess -4.5 L, VBG Lactic Acid 1.7 07/21/24 18:10: Lactate 1.2 I & O for Last 24 hours: Intake & Output 07/18/24 07/19/24 07/20/24 07/21/24 23:59 23:59 23:59 23:59 Weight 117.934 kg Constitutional Constitutional: no acute distress and obese *Routine HEENT Exam Head: Present normocephalic Eye: Present EOMI and PERRL ENT: Present mucous membranes moist *Routine Neck Exam Neck: Present supple; Absent lymphadenopathy *Routine Respiratory Exam Respiratory: Present CTA bilaterally *Routine Cardiovascular Exam Cardiovascular: Present RRR *Routine Abdominal Exam Abdominal: Present soft, normoactive bowel sounds and obese; Absent tenderness *Routine Rectal Exam Rectal:: deferred *Routine Genitalia Exam Genitalia:: deferred *Routine Extremities Exam Extremities: Absent cyanosis, clubbing or edema *Routine Skin Exam Skin: Present warm; Absent rash *Routine Neurological Exam Neurological: Present alert, oriented X3 and tremors (States tremors the result of being cold) Assessment and Plan *Assessment and plan (1) Acute hypotension: Status: Acute Category: Medical Code(s): I95.9 - Hypotension, unspecified (2) Bradycardia: Status: Acute Category: Medical Code(s): R00.1 - Bradycardia, unspecified (3) Syncope: Status: Acute Category: Medical Code(s): R55 - Syncope and collapse (4) KYRIE (acute kidney injury): Status: Acute Category: Medical Code(s): N17.9 - Acute kidney failure, unspecified (5) (HFpEF) heart failure with preserved ejection fraction: Status: Acute Qualifiers: Heart failure chronicity: acute on chronic Qualified Code(s): I50.33 - Acute on chronic diastolic (congestive) heart failure Category: Medical Code(s): I50.30 - Unspecified diastolic (congestive) heart failure (6) CAD (coronary artery disease): Status: Acute Qualifiers: Coronary Disease-Associated Artery/Lesion type: tang[place] artery [place] vs. transplanted heart: tang[place]naq heart Associated angina: with stable angina Qualified Code(s): I25.118 - Atherosclerotic heart disease of tang[place]q coronary artery with other forms of angina pectoris Category: Medical Code(s): I25.10 - Atherosclerotic heart disease of tang[place]q coronary artery without angina pectoris (7) HTN (hypertension): Status: Acute Qualifiers: Hypertension type: primary hypertension Qualified Code(s): I10 - Essential (primary) hypertension Category: Medical Code(s): I10 - Essential (primary) hypertension (8) HLD (hyperlipidemia): Status: Acute Qualifiers: Hyperlipidemia type: mixed hyperlipidemia Qualified Code(s): E78.2 - Mixed hyperlipidemia Category: Medical Code(s): E78.5 - Hyperlipidemia, unspecified Plan Assessment and Plan: * Iatrogenic Acute Kidney Injury (KYRIE), Prerenal * Weakness x 1.5 weeks, syncope x 2 today (3-4 total), BP 81/45 mmHg on arrival, BUN 63 mg/dL, creatinine 2.80 mg/dL (eGFR 23 mL/min/1.73m?), up from baseline (unknown but likely normal given med tolerance); likely prerenal from over-diuresis (Lasix 40 mg BID, spironolactone 50 mg daily). * Hyperkalemia (K+ 5.7 mmol/L) and mild metabolic acidosis (VBG pH 7.25, HCO3 22.8 mmol/L) suggest renal dysfunction impacting clearance. * Hold Lasix and spironolactone; IV LR at 50 mL/h x 1, received 2 L of bolus in the ER, monitor for fluid overload * BMP q12h x 48h, then daily; goal creatinine decline >0.3 mg/dL/day, K+ <5.0 mmol/L. * Hold potassium for K+ 5.7 mmol/L; recheck K+ in 4-6h. * Monitor for oliguria (<400 mL/day); renal US if no improvement in 48h to rule out obstruction * Orthostatic Syncope likely secondary to Medication Effects * Syncopal episodes ([employer], gas station), lightheadedness, low BP (81/45 mmHg), on carvedilol 25 mg BID, Lasix, spironolactone, and Entresto; likely hypotension and reduced renal clearance of beta-tameka. * EKG with AFib (86 bpm), frequent PVCs; no ischemic changes; improved with 2 L IV fluids. * Hold carvedilol until BP >100/60 mmHg and HR >60 bpm; restart at 12.5 mg BID if stable. * Orthostatic vitals q8h; continuous telemetry for arrhythmias (PVCs, AFib). * Adjust Entresto (sacubitril-valsartan) to 49-51 mg BID if BP remains low after fluid repletion. * Diastolic Heart Failure, Compensated * History of diastolic CHF, BNP 286 pg/mL, SOB on exertion; no edema or rales currently, BP improved post-fluids; Lasix/pilar likely overcorrected volume. * Echo to reassess EF, diastolic function; continue apixaban 5 mg BID for AFib ([id number] >=). * Monitor for CHF exacerbation (daily weights, lung exam); low-dose diuretic (e.g., Lasix 20 mg daily) if volume overload recurs post-KYRIE recovery. * Type 2 Diabetes Mellitus * Glucose 153 mg/dL, on metformin 1000 mg daily; renal dysfunction may reduce clearance. * Hold metformin (eGFR <30 mL/min/1.73m?); sliding scale insulin, goal 140- 180 mg/dL; A1c pending. * Resume metformin at 500 mg daily once eGFR >45; diabetic education. * Chronic Comorbidities * HTN, hyperlipidemia, CAD, AFib; numbness/tingling in arms (intermittent), possibly med-related or ischemic (troponin negative). * Continue amlodipine 5 mg daily, atorvastatin 20 mg HS; hold alfuzosin if BP remains low. * Assess numbness with neuro exam q12h; consider EMG if persistent post-med adjustment. * Disposition * 64-year-old male with HTN, CHF, DM, AFib admitted for KYRIE, syncope; high risk for decompensation. * Admit to telemetry for KYRIE management, med reconciliation, and syncope evaluation; ICU if hemodynamic instability or worsening KYRIE occurs. * Continue Eliquis for DVT prophylaxis; pantoprazole 40 mg PO daily. * Daily CBC, BMP * PT/OT for weakness; hospitalist follow-up. * diabetic diet
[2024-07-21] MEDS: HEPARIN SODIUM 5,000 UNIT/ML VIAL 5000 UNIT SUBCUT (20:30)
[2024-07-21] MEDS: MAGNESIUM SULFATE IN WATER 2 GM/50 ML PIGGYBACK IV (21:56)
[2024-07-21] MEDS: LACTATED RINGERS 1000ML 1,000 ML 50 ML IV (22:01)
[2024-07-21 22:16] LABS: Troponin I < 0.01 ng/ml (0.00-0.034)
--- NOTE | 2024-07-21 22:50 | PC.NURSE ---
2L of O2 applied to pt at this time due to pt desating in low 80s while sleeping.
[2024-07-22] VITALS (8 sets, daily range): BP systolic 91–111; BP diastolic 53–67; PULSE 60–70; RESP 16–20; TEMP 36.4–36.7; O2SAT 93–99; BMI 34.5
[2024-07-22 01:20] LABS: Troponin I < 0.01 ng/ml (0.00-0.034)
--- NOTE | 2024-07-22 05:18 | PC.NURSE ---
Pt is alert and oriented x4 and currently tolerating 2L @ 94%. Pt remains A-fib on telemetry. Pt alarm is active due to hx of syncope episodes. Pt denies pain and needs and has had no acute changes to note at this time
[2024-07-22 06:06] LABS: POC Glucose,Bedside 116 (70-110)
[2024-07-22 08:06] LABS: Basophils % 0.4 % (0.1-2.0); Eosinophils # 0.2 K/mm3 (0.0-0.4); Eosinophils % 4.7 % (0.1-12.0); Hematocrit 36.9 % (42.0-52.0); Hemoglobin 12.5 g/dL (14.1-18.0); Lymphocytes % 19.4 % (10-50); Mean Corpuscular HGB Conc 33.9 g/dL (31.8-35.4); Mean Corpuscular Hemoglobin 30.3 pg (27.0-31.2); Mean Corpuscular Volume 89.3 fl (80-94); Mean Platelet Volume 11.5 fl (7.4-10.4); Monocytes # 0.5 K/mm3 (0.1-1.0); Monocytes % 10.5 % (1.7-9.3); Neutrophils # 3.3 K/mm3 (1.8-7.8); Neutrophils % 64.6 % (37.0-80.0); Platelet Count 118 K/mm3 (142-424); Red Blood Count 4.13 M/mm3 (4.60-6.20); Red Cell Distribution Width 14.6 % (11.5-17.5); White Blood Count 5.2 K/mm3 (4.8-10.8)
[2024-07-22 08:31] LABS: Chloride 105 mmol/L (98-107); Potassium 5.5 mmoL/L (3.5-5.1); Sodium 134 mmol/L (136-145)
[2024-07-22 08:34] LABS: Anion Gap 10.5 mEq/L (5-15); Blood Urea Nitrogen 62 mg/dl (9-20); Carbon Dioxide 24 mmol/L (22.0-30.0); Creatinine Clearance Estimated 53 mL/min (50-200); Estimated Glomerular Filt Rate 29 ml/min (>60); GFR (African American) 35 ML/MIN (>60)
[2024-07-22 08:35] LABS: Calcium 8.4 mg/dl (8.4-10.2); Glucose 103 mg/dl (74-100); Magnesium 2.5 mg/dl (1.6-2.3); Phosphorous 4.8 mg/dl (2.5-4.5)
[2024-07-22] MEDS: GABAPENTIN 100MG CAPSULE 100 MG PO ×3 (09:01→20:49)
[2024-07-22] MEDS: APIXABAN 5MG TABLET 5 MG PO ×2 (09:01→20:49)
[2024-07-22] MEDS: CARVEDILOL 6.25MG TABLET 6.25 MG PO ×2 (09:01→20:49)
[2024-07-22] MEDS: FLUTICASONE/SALMETEROL 250/50MCG DISKUS 1 PUFF IH ×2 (09:18→18:47)
[2024-07-22 10:38] LABS: POC Glucose,Bedside 179 (70-110)
[2024-07-22] MEDS: humaLOG 100 UNITS/ML 10ML VIAL (SSI) SUBCUT (10:54)
--- NOTE | 2024-07-22 13:18 | [facility].PTEV ---
Physical Therapy Evaluation Rehab PT IP Evaluation Start: 07/21/24 19:30 Freq: ONCE Status: Active Protocol: Document 07/22/24 13:14 RANDELL (Rec: 07/22/24 13:18 RANDELL [id number]) Subjective/History History History 64-year-old male with a past medical history of hypertension, hyperlipidemia, diastolic heart failure, coronary artery disease (CAD), type 2 diabetes mellitus, and atrial fibrillation (on apixaban) presents to the emergency department with increasing weakness over the past week and a half and two syncopal episodes since this morning. He reports that today , while alone at [employer], he awoke in the parking lot after a syncopal episode without notable injuries. He also experienced a near-syncopal episode at a gas station. He reports he lives alone, 1 flight of stairs to enter the home, and he is generally independent with all mobility without an AD. Subjective Subjective He reports intermittent dizziness and lightheaded feeling with multiple different positions and when making turns during ambulation . Pt was also able to ascend/ descend 1 flight of stair with rail independently. 1 rest period x ~ 30 sec throughout entire treatment. [facility] How much help from another person do you currently need... Turning from your back to your side None while in a flat bed without using bedrails? Moving from lying on back to sitting on None the side of a flat bed without using bedrails? Moving to and from a bed to a chair ( None including a wheelchair)? Standing up from a chair using your arms None ? (e.g., wheelchair, bedside chair) Walking in hospital room? None Climbing 3-5 steps with a railing? None Mobility Score 24 Mobility Level [facility] Mobility Calculator Mobility 8 Walk 250 feet or more Rehab PT IP Eval Objective Appearance Patient Behavior Appropriate Patient Orientation Person,Place,Time Difficulty following instructions none Speech Pattern Clear Ambulation Patient Able to Ambulate Yes Ambulation Observation IP General Gait Pattern Observation No Deviations/Normal Ambulation Distance (feet) 300 Ambulation Assistive Device None Ambulation Ability Independent Balance Ability to Arise Able, uses arms to help Sitting Balance Steady, safe Standing Balance Steady, wide stance Dynamic Sitting Balance Ability Good Dynamic Standing Balance Ability Good Transfers Bed Transfer Ability Independent Chair Transfer Ability Independent Sit to Stand Bed Transfer Ability Independent Sit to Stand Chair Transfer Ability Independent ROM All Extremities PT ROM Status WFL MMT All Extremities PT MMT WFL Rehab PT IP prob,goals,plan Problems Date of Evaluation: 07/22/24 Discharge Plan PT Discharge Plan Pt appears to be at baseline for all mobility and is appropriate to return home once medically stable for d/c. No current inpatient therapy needs. Eval Complexity Eval Charge Codes 29203 - High Complexity PHYSICIAN CERTIFICATION: I certify the specified therapy services for Sharif Hare are required, authorized, and reviewed every 30 days.
--- NOTE | 2024-07-22 14:06 | P.PN_ITS ---
Subjective *Date: 07/22/24 *Time: 14:06 Interval history: Patient stable on room air. Denies chest pain. Does complain of some shortness of breath however. Worse with exertion. Longstanding per his report. No nausea or vomiting. Tolerating p.o. intake. Blood pressure showing improvement today. White count remains normal. No fever overnight. Medical Exam Vital signs and Labs for Last 24 Hours: Vital Signs Temp Pulse Pulse Pulse Pulse Pulse Resp 07/22/24 13:00 07/22/24 12:00 70 07/22/24 11:54 97.9 F 65 16 07/22/24 11:00 07/22/24 09:19 07/22/24 08:53 07/22/24 08:00 70 07/22/24 08:00 07/22/24 08:00 97.6 F 69 18 07/22/24 06:54 07/22/24 04:47 07/22/24 04:00 70 07/22/24 04:00 97.5 F L 64 20 07/22/24 03:00 07/22/24 01:00 07/22/24 00:00 70 07/22/24 00:00 97.5 F L 62 16 07/21/24 22:41 07/21/24 22:11 70 07/21/24 21:00 07/21/24 20:32 07/21/24 20:30 79 63 78 07/21/24 20:28 97.5 F L 67 18 07/21/24 20:20 97.9 F 58 L 12 07/21/24 20:15 58 L 12 07/21/24 19:31 60 20 07/21/24 19:00 68 22 07/21/24 18:00 62 18 07/21/24 17:18 97.6 F 66 17 BP BP BP BP BP Pulse Ox O2 Del Method 07/22/24 13:00 Room Air 07/22/24 12:00 07/22/24 11:54 91/54 L 97 Room Air 07/22/24 11:00 Room Air 07/22/24 09:19 95 Room Air 07/22/24 08:53 Nasal Cannula 07/22/24 08:00 07/22/24 08:00 Nasal Cannula 07/22/24 08:00 95/53 L 97 Nasal Cannula 07/22/24 06:54 Nasal Cannula 07/22/24 04:47 Nasal Cannula 07/22/24 04:00 07/22/24 04:00 92/67 L 94 L Nasal Cannula 07/22/24 03:00 Nasal Cannula 07/22/24 01:00 Nasal Cannula 07/22/24 00:00 07/22/24 00:00 97/55 L 99 Nasal Cannula 07/21/24 22:41 Room Air 07/21/24 22:11 07/21/24 21:00 Room Air 07/21/24 20:32 Room Air 07/21/24 20:30 106/78 L 120/94 H 104/59 L 07/21/24 20:28 121/65 96 Room Air 07/21/24 20:20 92/64 L Room Air 07/21/24 20:15 92/64 L 97 07/21/24 19:31 103/63 L 98 07/21/24 19:00 101/57 L 97 07/21/24 18:00 85/46 L 97 07/21/24 17:18 81/45 L 95 Room Air O2 Flow Rate 07/22/24 13:00 07/22/24 12:00 07/22/24 11:54 07/22/24 11:00 07/22/24 09:19 07/22/24 08:53 07/22/24 08:00 07/22/24 08:00 07/22/24 08:00 2 07/22/24 06:54 2 07/22/24 04:47 07/22/24 04:00 07/22/24 04:00 2 07/22/24 03:00 2 07/22/24 01:00 2 07/22/24 00:00 07/22/24 00:00 3 07/21/24 22:41 07/21/24 22:11 07/21/24 21:00 07/21/24 20:32 07/21/24 20:30 07/21/24 20:28 07/21/24 20:20 07/21/24 20:15 07/21/24 19:31 07/21/24 19:00 07/21/24 18:00 07/21/24 17:18 Intake and Output 07/21/24 07/22/24 07/22/24 23:59 07:59 15:59 Intake Total 1110 / 2130 1020 / 2130 Output Total 0 / 700 700 / 700 Balance 1110 / 1430 320 / 1430 Intake: Intake, Oral Amount 360 / 1380 1020 / 1380 Intake, Total IV Amount 750 / 750 Lactated Ringers 1000ML 1,000 750 / 750 ml @ 999 mls/hr IV .Q1H1M ONE Rx#:[id number] Output: Output, Urine Amount 0 / 700 700 / 700 Other: Number of Unmeasured Voids 1 1 Number of Bowel Movements 1 Weight 116.743 kg 118.132 kg Patient Weight 07/22/24 23:59 Weight 118.132 kg Laboratory Results - last 24 hr 07/21/24 17:34: WBC 7.9, RBC 4.36 L, Hgb 13.1 L, Hct 39.0 L, MCV 89.4, MCH 30.0, MCHC 33.6, RDW 14.6, Plt Count 146, MPV 11.5 H, Neut % (Auto) 73.9, Lymph % (Auto) 14.6, [place] % (Auto) 8.0, Eos % (Auto) 2.7, Baso % (Auto) 0.4, Neut # (Auto) 5.9, Lymph # (Auto) 1.2, [place] # (Auto) 0.6, Eos # (Auto) 0.2, Baso # (Auto) 0.0, PT 11.5, INR 1.03, APTT 31.0 H, Sodium 135 L, Potassium 5.7 H, Chloride 101, Carbon Dioxide 26, Anion Gap 13.7, BUN 63 H, Creatinine 2.80 H, Estimated Creat Clear 43, Estimated GFR 23 L, Est GFR ( Amer) 28 L, Glucose 153 H, Calcium 8.7, Magnesium 1.9, Total Bilirubin 1.1, AST 21, ALT 18, Alkaline Phosphatase 50, Troponin I < 0.01, NT-Pro-B Natriuret Pep 286 H, Total Protein 6.9, Albumin 4.4, Globulin 2.5, Albumin/Globulin Ratio 1.8, TSH 4.32, Thyroxine (T4) 8.6 07/21/24 18:03: VBG pH 7.25 L, VBG pCO2 53.1 H, VBG pO2 27.1 L, VBG HCO3 22.8 L, VBG Total CO2 24.4, VBG O2 Saturation 42.7 L, VBG Base Excess -4.5 L, VBG Lactic Acid 1.7 07/21/24 18:10: Lactate 1.2 07/21/24 21:40: Troponin I < 0.01 07/22/24 00:30: Troponin I < 0.01 07/22/24 05:59: POC Glucose 116 H 07/22/24 07:15: WBC 5.2 D, RBC 4.13 L, Hgb 12.5 L, Hct 36.9 L, MCV 89.3, MCH 30.3, MCHC 33.9, RDW 14.6, Plt Count 118 L, MPV 11.5 H, Neut % (Auto) 64.6, Lymph % (Auto) 19.4, [place] % (Auto) 10.5 H, Eos % (Auto) 4.7, Baso % (Auto) 0.4, Neut # (Auto) 3.3, Lymph # (Auto) 1.0, [place] # (Auto) 0.5, Eos # (Auto) 0.2, Baso # (Auto) 0.0, Sodium 134 L, Potassium 5.5 H, Chloride 105, Carbon Dioxide 24, Anion Gap 10.5, BUN 62 H, Creatinine 2.30 H, Estimated Creat Clear 53, Estimated GFR 29 L, Est GFR ( Amer) 35 L D, Glucose 103 H D, Calcium 8.4, Phosphorus 4.8 H, Magnesium 2.5 H D 07/22/24 10:24: POC Glucose 179 H I & O for Labs for Last 24 Hours: Intake & Output 07/19/24 07/20/24 07/21/24 07/22/24 23:59 23:59 23:59 23:59 Intake Total 2130 / 2130 Output Total 700 / 700 Balance 1430 / 1430 Weight 116.743 kg 118.132 kg Constitutional: Present no acute distress and obese Head: Present atraumatic and normocephalic ENT: Present normal exam Respiratory: Present rhonchi, distant breath sounds and normal respiratory effort; Absent wheezes or crackles Cardiac: Present Reg Rate and Rhythm GI: Present normal bowel sounds; Absent tenderness Extremities: Present normal inspection and full ROM; Absent edema Skin: Present intact; Absent erythema Neuro: Present Grossly Intact, alert, awake, oriented x 3 and moves all extremities Assessment and Plan *Assessment and plan (1) Acute hypotension: Status: Acute Category: Medical Code(s): I95.9 - Hypotension, unspecified (2) KYRIE (acute kidney injury): Status: Acute Category: Medical Code(s): N17.9 - Acute kidney failure, unspecified (3) Bradycardia: Status: Acute Category: Medical Code(s): R00.1 - Bradycardia, unspecified (4) Syncope: Status: Acute Category: Medical Code(s): R55 - Syncope and collapse (5) (HFpEF) heart failure with preserved ejection fraction: Status: Acute Qualifiers: Heart failure chronicity: acute on chronic Qualified Code(s): I50.33 - Acute on chronic diastolic (congestive) heart failure Category: Medical Code(s): I50.30 - Unspecified diastolic (congestive) heart failure (6) CAD (coronary artery disease): Status: Acute Qualifiers: Coronary Disease-Associated Artery/Lesion type: [place] artery [place] vs. transplanted heart: [place] heart Associated angina: with stable angina Qualified Code(s): I25.118 - Atherosclerotic heart disease of [place] coronary artery with other forms of angina pectoris Category: Medical Code(s): I25.10 - Atherosclerotic heart disease of [place] coronary artery without angina pectoris (7) HTN (hypertension): Status: Acute Qualifiers: Hypertension type: primary hypertension Qualified Code(s): I10 - Essential (primary) hypertension Category: Medical Code(s): I10 - Essential (primary) hypertension (8) HLD (hyperlipidemia): Status: Acute Qualifiers: Hyperlipidemia type: mixed hyperlipidemia Qualified Code(s): E78.2 - Mixed hyperlipidemia Category: Medical Code(s): E78.5 - Hyperlipidemia, unspecified Plan 64-year-old male who presented with weakness, hypotension, KYRIE. Admitted for treatment overnight. Overall showing improvement, slow improvement in kidney function however. Continues to require inpatient management. Discontinue IV fluids, tolerating p.o. intake. Adjusting medications today. Therapy to evaluate given patient's complaint of weakness and dyspnea with exertion. Problems addressed as follows Acute Kidney Injury (KYRIE), Prerenal Orthostatic hypotension/Syncope - Weakness x 1.5 weeks, syncope x 2 today (3-4 total), BP 81/45 mmHg on arrival, BUN 63 mg/dL, creatinine 2.80 mg/dL (eGFR 23 mL/min/1.73m?), up from baseline (appears to be 1.1.); likely prerenal from over-diuresis (Lasix 40 mg BID, spironolactone 50 mg daily). -Potassium elevated 5.7 on presentation. Kidney function showing some improvement with BUN 62, creatinine 2.3. Potassium 5.5. Making urine. Tolerating p.o. intake. -Discontinue IV fluids. -Repeat CBC, CMP, magnesium ordered for the morning -Continue to hold diuretics with Lasix and spironolactone today -Hold amlodipine 5mg daily A-fib Diastolic heart failure - continue carvedilol at reduced dose of 6.25 mg twice daily. Continue Eliquis 5 mg twice daily. -Slowly increase carvedilol pending blood pressure and heart, will hold amlodipine and Entresto. -History of echo per chart review with normal EF, diastolic dysfunction. -Will consider repeat if patient still here on Wednesday -Supplemental oxygen if needed, goal sats greater 90%. Currently on room air Type 2 Diabetes Mellitus -Morning glucose 103. Appears to be well-controlled. A1c 5.8 in May. -Continue sliding scale insulin and fingersticks ACHS. Resume metformin at 1000 mg twice daily Full code Eliquis Diabetic diet
[2024-07-22 17:09] LABS: POC Glucose,Bedside 93 (70-110)
--- NOTE | 2024-07-22 18:28 | PC.NURSE ---
pt is a/o x4 and currently on room air. pt has been on room air since this AM satting above 95% tolerating well. no c/o pain this shift. tolerating diet well. voiding per urinal and bathroom. no complaints voiced at this time.
[2024-07-22] MEDS: ATORVASTATIN 20MG TABLET 20 MG PO (20:49)
[2024-07-22] MEDS: MONTELUKAST SODIUM 10MG TAB 10 MG PO (20:49)
[2024-07-22 20:55] LABS: POC Glucose,Bedside 119 (70-110)
[2024-07-23] VITALS: BP 99/46; PULSE 100; PULSE 60; RESP 16; TEMP 36.6; O2SAT 91
[2024-07-23 04:00] VITALS: PULSE 60; BMI 34.4
--- NOTE | 2024-07-23 06:25 | PC.NURSE ---
patient was placed on 2L NC around 0000 r/t sats at 85%.
[2024-07-23] MEDS: FLUTICASONE/SALMETEROL 250/50MCG DISKUS 1 PUFF IH (06:32)
[2024-07-23 06:33] VITALS: O2SAT 96
[2024-07-23 07:32] VITALS: BP 109/66; PULSE 60; RESP 18; TEMP 36.4; O2SAT 97
--- NOTE | 2024-07-23 07:55 | P.DS_ITS ---
General Admission date:: 07/21/24 Discharge date: 07/23/24 HPI HPI HPI: A 64-year-old male with a past medical history of hypertension, hyperlipidemia, diastolic heart failure, coronary artery disease (CAD), type 2 diabetes mellitus, and atrial fibrillation (on apixaban) presents to the emergency department with increasing weakness over the past week and a half and two syncopal episodes since this morning. He reports that today, while alone at [email or web address], he awoke in the parking lot after a syncopal episode without notable injuries. He also experienced a near-syncopal episode at a gas station. EMS transported him after the [employer] incident. The patient describes feeling lightheaded and unwell throughout the week, with multiple syncopal episodes (3-4 today) without prodrome, as well as shortness of breath on exertion and intermittent numbness/tingling in both arms. He notes his blood pressure has been running low at home. He denies fevers, chills, cough, nausea, vomiting, chest pain, or other symptoms. History was obtained from the patient and EMS. Home medications include carvedilol, spironolactone, furosemide (Lasix), sacubitril-valsartan (Entresto), amlodipine, and potassium chloride, with recent increae of Lasix 40 mg BIDOn arrival. Initial vital signs showed blood pressure 81/45 mmHg, heart rate 66 bpm, and oxygen saturation 95% on room air. Physical exam revealed a fatigued-appearing male in no acute distress, speaking in full sentences, neurologically intact (NIHSS 0), with clear lungs, no cardiac murmurs, gallops, or rubs, and no lower extremity edema or abdominal tenderness. Workup included continuous cardiac monitoring and pulse oximetry. EKG showed atrial fibrillation at 86 bpm, QRS 104 ms, QTc 406 ms, with frequent PVCs but no acute ischemic changes. Labs revealed BUN 63 mg/dL, creatinine 2.80 mg/dL (eGFR 23 mL/min/1.73m?, indicating moderate KYRIE, likely prerenal), potassium 5.7 mmol/L, sodium 135 mmol/L, glucose 153 mg/dL, BNP 286 pg/mL, and normal troponin; CBC, coagulation studies, and thyroid function (TSH 4.32 mIU/L) were nonactionable. Venous blood gas showed pH 7.25, pCO2 53.1 mmHg, and lactate 1.7 mmol/L. CT head and neck was negative for acute findings. The patient received IV fluids (2 liter) for symptomatic management. On reevaluation, the patient reported feeling slightly better. Hospital medicine was consulted, and the case was discussed, identifying likely iatrogenic KYRIE and orthostatic syncope from over-diuresis (spironolactone 50 mg daily, Lasix 40 mg BID) and possible beta-tameka accumulation (carvedilol 25 mg BID) due to reduced renal clearance. The patient was deemed high risk for decompensation, warranting inpatient admission for medication reconciliation and management. He understood and agreed to admission. Hospital Course Hospital Course Hospital Course: 64-year-old male who presented with weakness, hypotension, KYRIE. Admitted for fluid resuscitation and monitoring of kidney function. Is showing gradual improvement. Adjustments made to home regimen with medications. Blood pressure stable, heart rate controlled. Tolerating p.o. intake. Evaluated by therapy and showing improvement. Independently mobile at baseline level of function. Dizziness showing some improvement. Stable to discharge home with further management as an outpatient. Problems addressed as follows Acute Kidney Injury (KYRIE), Prerenal Orthostatic hypotension/Syncope - Weakness x 1.5 weeks, syncope x 2 today (3-4 total), BP 81/45 mmHg on arrival, BUN 63 mg/dL, creatinine 2.80 mg/dL (eGFR 23 mL/min/1.73m?), up from baseline (appears to be 1.1.); likely prerenal from over-diuresis (Lasix 40 mg BID, spironolactone 50 mg daily). Potassium elevated 5.7 on presentation. Kidney function electrolytes showing improvement on day of discharge. Potassium 4.8, magnesium 2.4. BUN 43 and creatinine 1.4. Baseline appears to be 1.1. Encourage continued p.o. fluid hydration. Will hold potassium supplementation at this time. Making good urine. Holding diuretics at discharge along with amlodipine and Entresto. -Needs repeat CBC and BMP at follow-up to monitor normalization of kidney function and electrolytes A-fib Diastolic heart failure -Patient's rate controlled during admission. Medications adjusted due to his hypotension and bradycardia. Carvedilol decreased to 12 and half milligrams twice daily. Continue Eliquis 5 mg twice daily. History of echo per chart review with normal EF, diastolic dysfunction. Does not appear to be in acute exacerbation. Recommend holding the diuretic this time given patient euvolemia and hypotension along with KYRIE. Recommend holding lactone, Lasix, amlodipine, and Entresto pending follow-up with cardiology or PCP. Has follow-up with his PCP in 1 week. -Continue Lipitor 20 mg nightly for hyperlipidemia Type 2 Diabetes Mellitus -Glucose well-controlled during admission. Morning glucose on day of discharge 98. A1c in May was 5.8. Has consistently been well-controlled. On metformin once daily. Will decrease to metformin 500 mg once daily. Needs repeat A1c in 1 to 2 months. Continue alfuzosin 10 mg daily for BPH Total time spent on discharge 32 minutes in counseling, documentation, chart review, and direct care with patient. Exam Data for Last 24 hours Vital signs and Labs for Last 24 Hours: Temp Pulse Resp BP Pulse Ox O2 Del Method O2 Flow Rate 97.5 F L 60 18 109/66 L 97 Room Air 2 07/23/24 07:32 07/23/24 07:32 07/23/24 07:32 07/23/24 07:32 07/23/24 07:32 07/23/24 07:32 07/23/24 06:39 Laboratory Results - last 24 hr 07/22/24 07:15: WBC 5.2 D, RBC 4.13 L, Hgb 12.5 L, Hct 36.9 L, MCV 89.3, MCH 3 0.3, MCHC 33.9, RDW 14.6, Plt Count 118 L, MPV 11.5 H, Neut % (Auto) 64.6, Lymph % (Auto) 19.4, [place] % (Auto) 10.5 H, Eos % (Auto) 4.7, Baso % (Auto) 0.4, Neut # (Auto) 3.3, Lymph # (Auto) 1.0, [place] # (Auto) 0.5, Eos # (Auto) 0.2, Baso # (Auto) 0.0, Sodium 134 L, Potassium 5.5 H, Chloride 105, Carbon Dioxide 24, Anion Gap 10.5, BUN 62 H, Creatinine 2.30 H, Estimated Creat Clear 53, Estimated GFR 29 L, Est GFR ( Amer) 35 L D, Glucose 103 H D, Calcium 8.4, Phosphorus 4.8 H, Magnesium 2.5 H D 07/22/24 10:24: POC Glucose 179 H 07/22/24 17:03: POC Glucose 93 07/22/24 20:34: POC Glucose 119 H I & O for Last 24 hours: Intake & Output 07/20/24 07/21/24 07/22/24 07/24/24 23:59 23:59 23:59 00:59 Intake Total 2610 / 2850 720 / 720 Output Total 2150 / 2850 1400 / 1400 Balance 460 / 0 -680 / -680 Weight 116.743 kg 118.132 kg 118.132 kg Microbiology Reports for the Last 24 Hours: Microbiology 07/21/24 18:20 Blood Blood Culture - Preliminary NO GROWTH AFTER 24 HOURS 07/21/24 18:20 Blood Blood Culture - Preliminary NO GROWTH AFTER 24 HOURS Constitutional Constitutional: no acute distress, obese, chronically ill appearing and cooperative *Routine HEENT Exam Head: Present normocephalic Eye: Present EOMI and PERRL ENT: Present mucous membranes moist *Routine Neck Exam Neck: Present supple; Absent lymphadenopathy *Routine Respiratory Exam Respiratory: Present CTA bilaterally; Absent respiratory distress, rhonchi, wheezes or crackles *Routine Cardiovascular Exam Cardiovascular: Present irregularly irregular Comments: Rate controlled *Routine Abdominal Exam Abdominal: Present soft and normoactive bowel sounds; Absent tenderness *Routine Rectal Exam Patient deferred: visual exam *Routine Exam Patient deferred: penile exam *Routine Extremities Exam Extremities: Absent cyanosis, clubbing or edema *Routine Skin Exam Skin: Present warm; Absent rash *Routine Neurological Exam Neurological: Present alert, oriented X3 and moving all extremities; Absent altered mental status Results Data Completed and Pending Labs on day of discharge: Labs from last 24 hours 07/22/24 07/22/24 07/22/24 20:34 17:03 10:24 WBC RBC Hgb Hct MCV MCH MCHC RDW Plt Count MPV Neut % (Auto) Lymph % (Auto) [place] % (Auto) Eos % (Auto) Baso % (Auto) Neut # (Auto) Lymph # (Auto) [place] # (Auto) Eos # (Auto) Baso # (Auto) Sodium Potassium Chloride Carbon Dioxide Anion Gap BUN Creatinine Estimated Creat Clear Estimated GFR Est GFR ( Amer) Glucose POC Glucose 119 H 93 179 H Calcium Phosphorus Magnesium 07/22/24 07:15 WBC 5.2 D RBC 4.13 L Hgb 12.5 L Hct 36.9 L MCV 89.3 MCH 30.3 MCHC 33.9 RDW 14.6 Plt Count 118 L MPV 11.5 H Neut % (Auto) 64.6 Lymph % (Auto) 19.4 [place] % (Auto) 10.5 H Eos % (Auto) 4.7 Baso % (Auto) 0.4 Neut # (Auto) 3.3 Lymph # (Auto) 1.0 [place] # (Auto) 0.5 Eos # (Auto) 0.2 Baso # (Auto) 0.0 Sodium 134 L Potassium 5.5 H Chloride 105 Carbon Dioxide 24 Anion Gap 10.5 BUN 62 H Creatinine 2.30 H Estimated Creat Clear 53 Estimated GFR 29 L Est GFR ( Amer) 35 L D Glucose 103 H D POC Glucose Calcium 8.4 Phosphorus 4.8 H Magnesium 2.5 H D Preliminary micro results at discharge 07/21/24 18:20 Blood Culture - Preliminary Blood NO GROWTH AFTER 24 HOURS 07/21/24 18:20 Blood Culture - Preliminary Blood NO GROWTH AFTER 24 HOURS DS: Diagnosis Discharge Diagnosis (1) Acute hypotension: Status: Acute Code(s): I95.9 - Hypotension, unspecified (2) KYRIE (acute kidney injury): Status: Acute Code(s): N17.9 - Acute kidney failure, unspecified (3) Bradycardia: Status: Acute Code(s): R00.1 - Bradycardia, unspecified (4) Syncope: Status: Acute Code(s): R55 - Syncope and collapse (5) (HFpEF) heart failure with preserved ejection fraction: Status: Acute Code(s): I50.30 - Unspecified diastolic (congestive) heart failure Qualifiers: Heart failure chronicity: acute on chronic Qualified Code(s): I50.33 - Acute on chronic diastolic (congestive) heart failure (6) CAD (coronary artery disease): Status: Acute Code(s): I25.10 - Atherosclerotic heart disease of [place] coronary artery without angina pectoris Qualifiers: Associated angina: with stable angina Coronary Disease-Associated Artery/Lesion type: [place] artery [place] vs. transplanted heart: [place] heart Qualified Code(s): I25.118 - Atherosclerotic heart disease of [place] coronary artery with other forms of angina pectoris (7) HTN (hypertension): Status: Acute Code(s): I10 - Essential (primary) hypertension Qualifiers: Hypertension type: primary hypertension Qualified Code(s): I10 - Essential (primary) hypertension (8) HLD (hyperlipidemia): Status: Acute Code(s): E78.5 - Hyperlipidemia, unspecified Qualifiers: Hyperlipidemia type: mixed hyperlipidemia Qualified Code(s): E78.2 - Mixed hyperlipidemia Meds Home Medications and Allergies Home Medications ?Medication ?Instructions ?Recorded ?Confirmed ?Type albuterol sulfate 90 mcg/actuation 2 puff inhalation Q8HP PRN 02/01/24 07/22/24 History aerosol inhaler Shortness Of Breath gabapentin 100 mg capsule 100 mg PO TID #90 caps 03/09/24 07/22/24 Rx atorvastatin 20 mg tablet 20 mg PO HS #90 tabs 03/31/24 07/22/24 Rx montelukast 10 mg tablet 10 mg PO HS #90 tabs 05/25/24 07/22/24 Rx alfuzosin 10 mg tablet,extended 10 mg PO DAILY 07/12/24 07/22/24 History release 24 hr amlodipine 5 mg tablet 5 mg PO DAILY #90 tabs 07/12/24 07/22/24 Rx apixaban 5 mg tablet (Eliquis) 5 mg PO BID #180 tabs 07/12/24 07/22/24 Rx spironolactone 50 mg tablet 50 mg PO DAILY 30 days #30 tabs 07/12/24 07/22/24 Rx sacubitril 97 mg-valsartan 103 mg 1 tab PO BID 30 days #60 tabs 07/13/24 07/22/24 Rx tablet (Entresto) furosemide 40 mg tablet (Lasix) 40 mg PO BID #30 tabs 07/21/24 07/22/24 Rx carvedilol 25 mg tablet 12.5 mg (1/2 x 25 mg) PO BID #60 07/23/24 07/22/24 Rx tabs fluticasone 250 mcg-salmeterol 50 1 inh inhalation BID #60 ea 07/23/24 Rx mcg/dose blistr powdr for inhalation (Advair Diskus) metformin 500 mg tablet 500 mg PO DAILY #60 tabs 07/23/24 07/22/24 Rx New Prescriptions to Start Prescriptions: fluticasone propion-salmeterol [Advair Diskus] Carlos Thomas Allergies Allergy/AdvReac Type Severity Reaction Status Date / Time Penicillins AdvReac Unknown Verified 07/13/24 08:47 Discharge Plan Disposition Patient Disposition: Home, Self-Care Condition: Fair Follow up Plan Follow up with: Aaron Gamez MD [Primary Care Provider] - Enter time for follow up Prescriptions/Medication Reconciliation: New fluticasone propion-salmeterol [Advair Diskus] 250-50 mcg/dose Blister With Device 1 inh inhalation BID Qty: 60 0RF Continued atorvastatin 20 mg tablet 20 mg PO HS Qty: 90 1RF alfuzosin 10 mg tablet extended release 24 hr 10 mg PO DAILY albuterol sulfate 90 mcg/actuation HFA aerosol inhaler 2 puff inhalation Q8HP PRN (Reason: Shortness Of Breath) gabapentin 100 mg capsule 100 mg PO TID Qty: 90 5RF montelukast 10 mg tablet 10 mg PO HS Qty: 90 3RF Eliquis 5 mg tablet 5 mg PO BID Qty: 180 0RF Changed metformin 500 mg tablet 500 mg PO DAILY Qty: 60 5RF carvedilol 25 mg tablet 12.5 mg PO BID Qty: 60 5RF Rx Instructions: must administer with a meal/food Held amlodipine 5 mg tablet 5 mg PO DAILY Qty: 90 3RF Hold Instructions: pending follow-up with PCP or Cardiology sacubitril-valsartan [Entresto] 97-103 mg tablet 1 tab PO BID 30 Days Qty: 60 5RF Hold Instructions: pending follow-up with PCP or Cardiology spironolactone 50 mg tablet 50 mg PO DAILY 30 Days Qty: 30 5RF Hold Instructions: pending follow-up with PCP or Cardiology furosemide [Lasix] 40 mg tablet 40 mg PO BID Qty: 30 0RF Hold Instructions: pending follow-up with PCP or Cardiology Discontinued potassium chloride 20 mEq tablet,ER particles/crystals 20 meq PO BID Qty: 30 0RF Problem Reconciliation Problems Reviewed?: Yes Patient Discharge Instructions ACTIVITY: Continue current activity DIET: continue same diet Patient Instructions: DI for Syncope in Adults (Fainting), DI for Heart Failure, DI for Acute Kidney Injury Print Language: Divehi Providers Primary Care Provider: Aaron Gamez Admit Provider: Carlos Thomas Attending Provider: Carlos Thomas
[2024-07-23 09:09] LABS: Basophils % 0.4 % (0.1-2.0); Eosinophils # 0.2 K/mm3 (0.0-0.4); Eosinophils % 4.7 % (0.1-12.0); Hematocrit 36.3 % (42.0-52.0); Hemoglobin 12.1 g/dL (14.1-18.0); Lymphocytes % 20.7 % (10-50); Mean Corpuscular HGB Conc 33.3 g/dL (31.8-35.4); Mean Corpuscular Hemoglobin 29.6 pg (27.0-31.2); Mean Corpuscular Volume 88.8 fl (80-94); Mean Platelet Volume 11.8 fl (7.4-10.4); Monocytes # 0.5 K/mm3 (0.1-1.0); Monocytes % 9.8 % (1.7-9.3); Platelet Count 113 K/mm3 (142-424); Red Blood Count 4.09 M/mm3 (4.60-6.20); Red Cell Distribution Width 14.6 % (11.5-17.5); White Blood Count 4.7 K/mm3 (4.8-10.8)
[2024-07-23] MEDS: GABAPENTIN 100MG CAPSULE 100 MG PO (09:11)
[2024-07-23] MEDS: CARVEDILOL 6.25MG TABLET 6.25 MG PO ×2 (09:11→12:32)
[2024-07-23] MEDS: APIXABAN 5MG TABLET 5 MG PO (09:11)
[2024-07-23 09:36] LABS: Anion Gap 9.8 mEq/L (5-15); Blood Urea Nitrogen 43 mg/dl (9-20); Calcium 8.5 mg/dl (8.4-10.2); Carbon Dioxide 26 mmol/L (22.0-30.0); Chloride 106 mmol/L (98-107); Creatinine Clearance Estimated 87 mL/min (50-200); Estimated Glomerular Filt Rate 51 ml/min (>60); GFR (African American) 61 ML/MIN (>60); Glucose 98 mg/dl (74-100); Potassium 4.8 mmoL/L (3.5-5.1); Sodium 137 mmol/L (136-145)
[2024-07-23 09:37] LABS: Magnesium 2.4 mg/dl (1.6-2.3)
[2024-07-23 11:29] LABS: POC Glucose,Bedside 127 (70-110)
[2024-07-23 12:00] VITALS: BP 108/66; PULSE 79; RESP 17; TEMP 36.4; O2SAT 98
[2024-07-23 17:25] LABS: POC Glucose,Bedside 107 (70-110)
--- NOTE | 2024-07-24 10:16 | SW/DCPLANNER ---
Spoke with patient on the phone. Patient stated that he is good. Patient stated that he already has a follow up appointment with his primary care provider. 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 Patient stated that they went over the medicines that they held,changed and discontinued. Patient stated that he has no concerns or questions at this time. Frederic Thomas
== END 2024-07-23 13:22 | disposition home or self-care (01) ==
LOC: ER 19:31 → 2ND 20:03
PROVIDERS: Nurse Practitioner Family; Admitting Provider Internal Medicine Adolescent Medicine; Emergency Provider Emergency Medicine; PCP Family Medicine; Visit Provider Internal Medicine Adolescent Medicine
DX: N17.9 Acute kidney failure, unspecified (principal); I95.1 Orthostatic hypotension; I50.33 Acute on chronic diastolic (congestive) heart failure; R00.1 Bradycardia, unspecified; I25.118 Atherosclerotic heart disease of native coronary artery with other forms of angina pectoris; I48.91 Unspecified atrial fibrillation; E66.9 Obesity, unspecified; E11.9 Type 2 diabetes mellitus without complications; N40.0 Benign prostatic hyperplasia without lower urinary tract symptoms; T50.1X5A Adverse effect of loop [high-ceiling] diuretics, initial encounter; T50.2X5A Adverse effect of carbonic-anhydrase inhibitors, benzothiadiazides and other diuretics, initial encounter; E78.2 Mixed hyperlipidemia; Z79.02 Long term (current) use of antithrombotics/antiplatelets; Z79.899 Other long term (current) drug therapy; Z68.34 Body mass index [BMI] 34.0-34.9, adult; Z79.84 Long term (current) use of oral hypoglycemic drugs
CPT/HCPCS: 36415; 70450; 71045; 72125; 80048; 80053; 82803; 82962; 83605; 83735; 83880; 84100; 84436; 84443; 84484; 85025; 85610; 85730; 87040; 87077; 93005; 94640; 97163; 99285; G0378; J1644; J3475; J7120

== ENCOUNTER 2024-07-31 09:01 | Outpatient (CLI) | payer MEDICARE, MEDICAID, SELFPAY ==
[2024-07-31 19:24] LABS: Basophils % 0.4 % (0.1-2.0); Eosinophils # 0.2 K/mm3 (0.0-0.4); Eosinophils % 4.2 % (0.1-12.0); Hematocrit 35.2 % (42.0-52.0); Hemoglobin 11.5 g/dL (14.1-18.0); Lymphocytes # 0.5 K/mm3 (0.7-4.5); Lymphocytes % 8.8 % (10-50); Mean Corpuscular HGB Conc 32.7 g/dL (31.8-35.4); Mean Corpuscular Hemoglobin 30.2 pg (27.0-31.2); Mean Corpuscular Volume 92.4 fl (80-94); Mean Platelet Volume 11.2 fl (7.4-10.4); Monocytes # 0.5 K/mm3 (0.1-1.0); Monocytes % 9.8 % (1.7-9.3); Neutrophils % 76.2 % (37.0-80.0); Platelet Count 125 K/mm3 (142-424); Red Blood Count 3.81 M/mm3 (4.60-6.20); Red Cell Distribution Width 14.9 % (11.5-17.5); White Blood Count 5.2 K/mm3 (4.8-10.8)
[2024-07-31 20:33] LABS: Chloride 107 mmol/L (98-107); Potassium 4.3 mmoL/L (3.5-5.1); Sodium 138 mmol/L (136-145)
[2024-07-31 20:36] LABS: Anion Gap 9.3 mEq/L (5-15); Blood Urea Nitrogen 22 mg/dl (9-20); Calcium 8.2 mg/dl (8.4-10.2); Carbon Dioxide 26 mmol/L (22.0-30.0); Estimated Glomerular Filt Rate 75 ml/min (>60); GFR (African American) 90 ML/MIN (>60); Glucose 130 mg/dl (74-100)
== END 2024-07-31 23:59 | disposition home or self-care (01) ==
LOC: LAB.DROPOF 08-01 15:13
PROVIDERS: PCP Family Medicine; Visit Provider Family Medicine
DX: E11.9 Type 2 diabetes mellitus without complications (principal); I11.0 Hypertensive heart disease with heart failure; E78.5 Hyperlipidemia, unspecified; I50.9 Heart failure, unspecified
CPT/HCPCS: 80048; 85025

== ENCOUNTER 2024-08-02 10:42 | Outpatient (CLI) | payer MEDICARE, MEDICAID, SELFPAY ==
--- NOTE | 2024-08-02 11:11 | XR_ITS ---
FINAL REPORT CLINICAL HISTORY: Shortness of breath, cough COMPARISON: 07/21/2024 FINDINGS: PA and lateral views of the chest were obtained. There are tiny bilateral pleural effusions. The lung parenchyma is clear. The mediastinum has a normal appearance. The cardiac silhouette is unremarkable. IMPRESSION: Tiny bilateral pleural effusions. Reviewed, Interpreted and Dictated by Lillie Lindsey MD Transcribed by Yenifer Christine Authenticated and [facility]
== END 2024-08-02 23:59 | disposition home or self-care (01) ==
LOC: RAD 10:43
PROVIDERS: PCP Family Medicine; Visit Provider Nurse Practitioner Family
DX: R05.9 Cough, unspecified (principal); J40 Bronchitis, not specified as acute or chronic; I50.33 Acute on chronic diastolic (congestive) heart failure; R06.02 Shortness of breath; E78.2 Mixed hyperlipidemia; I10 Essential (primary) hypertension
CPT/HCPCS: 71046

== ENCOUNTER 2024-08-07 07:58 | Outpatient (CLI) | payer MEDICARE, MEDICAID, SELFPAY ==
--- NOTE | 2024-08-07 08:01 | XR_ITS ---
FINAL REPORT CLINICAL HISTORY: dyspnea COMPARISON: 08/02/2024 FINDINGS: 2 views of the chest were obtained . The heart is normal in size. The mediastinum is within normal limits. There is left lower lobe opacity with small left pleural effusion which could represent pneumonia. The lungs are otherwise clear. There is no pneumothorax. IMPRESSION: Left lower lobe opacity with small left pleural effusion which could represent pneumonia. Reviewed, Interpreted and Dictated by Ericka Frank MD Transcribed by Stephany Andujar Authenticated and [facility]
[2024-08-07 09:27] LABS: Blood Urea Nitrogen 20 mg/dl (9-20); Calcium 9.8 mg/dl (8.4-10.2); Carbon Dioxide 34 mmol/L (22.0-30.0); Chloride 101 mmol/L (98-107); Estimated Glomerular Filt Rate 75 ml/min (>60); GFR (African American) 90 ML/MIN (>60); Glucose 161 mg/dl (74-100); Sodium 140 mmol/L (136-145)
[2024-08-07 09:37] LABS: NT Pro Brain Natriuretic Pep. 705 pg/mL (0-125)
[2024-08-07 09:40] LABS: Anion Gap 8.6 mEq/L (5-15); Potassium 3.6 mmoL/L (3.5-5.1)
== END 2024-08-07 23:59 | disposition home or self-care (01) ==
LOC: LAB 07:59
PROVIDERS: PCP Family Medicine; Visit Provider Nurse Practitioner Family
DX: I50.9 Heart failure, unspecified (principal); R05.9 Cough, unspecified; J40 Bronchitis, not specified as acute or chronic; I50.33 Acute on chronic diastolic (congestive) heart failure; R06.02 Shortness of breath; E78.2 Mixed hyperlipidemia; I10 Essential (primary) hypertension
CPT/HCPCS: 36415; 71046; 80048; 83880

== ENCOUNTER 2024-08-21 08:23 | Outpatient (CLI) | payer MEDICARE, MEDICAID, SELFPAY ==
--- NOTE | 2024-08-21 08:27 | XR_ITS ---
FINAL REPORT TECHNIQUE: Chest PA & Lateral CLINICAL HISTORY: follow-up pneumonia (1 month) COMPARISON: 08/07/2024 FINDINGS: 2 views of the chest were performed. The heart size is normal. The mediastinum is within normal limits. There is scar versus atelectasis at the left base. No confluent infiltrate is identified. There are no pleural effusions. There is no pneumothorax. The bony thorax appears intact. IMPRESSION: No acute cardiopulmonary process. Scar versus atelectasis of the left lung base. Reviewed, Interpreted and Dictated by Stas Wilks MD Transcribed by Malinda Flores Authenticated and [facility]
[2024-08-21 09:07] LABS: Basophils % 0.6 % (0.1-2.0); Eosinophils # 0.3 K/mm3 (0.0-0.4); Hematocrit 40.8 % (42.0-52.0); Hemoglobin 13.7 g/dL (14.1-18.0); Lymphocytes % 15.9 % (10-50); Mean Corpuscular HGB Conc 33.6 g/dL (31.8-35.4); Mean Corpuscular Volume 89.3 fl (80-94); Mean Platelet Volume 10.5 fl (7.4-10.4); Monocytes # 0.6 K/mm3 (0.1-1.0); Monocytes % 9.3 % (1.7-9.3); Neutrophils # 4.5 K/mm3 (1.8-7.8); Neutrophils % 68.6 % (37.0-80.0); Platelet Count 188 K/mm3 (142-424); Red Blood Count 4.57 M/mm3 (4.60-6.20); Red Cell Distribution Width 14.4 % (11.5-17.5); White Blood Count 6.5 K/mm3 (4.8-10.8)
[2024-08-21 09:32] LABS: Albumin Level 3.8 g/dl (3.5-5.0); Chloride 103 mmol/L (98-107); Potassium 3.6 mmoL/L (3.5-5.1); Sodium 140 mmol/L (136-145)
[2024-08-21 09:34] LABS: Blood Urea Nitrogen 24 mg/dl (9-20); Estimated Glomerular Filt Rate 67 ml/min (>60); GFR (African American) 81 ML/MIN (>60)
[2024-08-21 09:35] LABS: Alanine Aminotransferase 14 U/L (12-78); Albumin/Globulin Ratio 1.4 (1.1-1.8); Alkaline Phosphatase 59 U/L (38-126); Anion Gap 10.6 mEq/L (5-15); Aspartate Amino Transferase 17 U/L (17-59); Bilirubin,Total 1.1 mg/dl (0.2-1.3); Calcium 9.1 mg/dl (8.4-10.2); Carbon Dioxide 30 mmol/L (22.0-30.0); Globulin 2.7 g/dL (1.3-3.2); Glucose 143 mg/dl (74-100); Total Protein,Serum 6.5 g/dl (6.3-8.2)
--- OUTSIDE RECORDS SUMMARY | 2024-08-24 20:07 | XMS_ITS | Data Portability ---
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 Plan of Treatment Reminders Order Date Submit Date Provider Last Modified By Organization Details Last Modified Time Details Appointments FOLLOW UP 15 2024 08:30A Eric GARCIA MD Not available Not available Not available Lab PSA, serum or plasma 2023 024 [facility] (Registration ), [address] [place], [address], 03/14/2024 17:35:16 Referral None recorded. Procedures bladder scan (PROC) [address] [facility], 1140 [facility] 100, [place], [address], 06/08/2024 09:04:20 bladder scan (PROC) [address] [facility]100, 1140 [facility] 100, [place], [address], 03/14/2024 15:19:48 Surgeries circumcis ion (SURG) 2023 024 [email or web address] Not available 03/14/2024 16:22:22 Imaging XR, kidney + ureter + bladder 2024 025 [email or web address] [facility] (Registration ), [address] [place], [address], 05/18/2024 14:42:46 Medication Orders doxycycli ne hyclate 100 mg capsule 2024 025 [facility] #[id number], [address] [facility] [address] [place], [id number], 06/08/2024 08:45:25 alfuzosin ER 10 mg tablet,ex tended release 24 hr 2024 025 [facility] #[id number], [address] [facility] [address] [place], [id number], 05/18/2024 14:53:12 Patient TargetsNo targets recorded. Patient InstructionsNo instructions recorded. Reason for Referral None Reported. Results Created Date Observation Date Name Description Value Unit Range Abnormal Flag Note LastModifiedBy Organization Detail LastModifiedTime 03/14/20 24 03/14/2024 PROST ATE SPECI FIC AG (PSA) prostate specific Ag (PSA) 0.7 NG/mL 0-4.0 Not Available [facility] ([facility]) [address] [place], [address], 03/14/2024 17:35:16 03/14/2003/14/2024 bladd er scan (PROC ) Calculated Residual Urine: 6 Not Available [facility]100 [address] [facility] [address], [place], [address], 03/14/2024 15:07:51 04/25/20 24 04/25/2024 COMP METAB OLIC PANEL sodium 139 mmol/ L 136-14 5 Not Available [facility] ([facility]) [address] [place], [address], 04/25/2024 17:11:14 04/25/20 24 04/25/2024 COMP METAB OLIC PANEL potassium 3.8 mmol/ L 3.6-5. 0 Not Available [facility] ([facility]) [address] [place], [address], 04/25/2024 17:11:14 04/25/20 24 04/25/2024 COMP METAB OLIC PANEL chloride 103 mmol/ L 98-107 Not Available [facility] ([facility]) [address], [place], [address], 04/25/2024 17:11:14 04/25/20 24 04/25/2024 COMP METAB OLIC PANEL carbon dioxide 29.3 mmol/ L 21.0-3 2.0 Not Available [facility] ([facility]) [address], [place], [address], 04/25/2024 17:11:14 04/25/20 24 04/25/2024 COMP METAB OLIC PANEL anion gap 10.5 Not Available [facility] ([facility]) [address] , [place], [address], 04/25/2024 17:11:14 04/25/20 24 04/25/2024 COMP METAB OLIC PANEL glucose 121 mg/dL 70-120 high Not Available [facility] ([facility]) [address] , [place], [address], 04/25/2024 17:11:14 04/25/20 24 04/25/2024 COMP METAB OLIC PANEL BUN 16 mg/dL 7-18 Not Available [facility] ([facility]) [address] , [place], [address], 04/25/2024 17:11:14 04/25/20 24 04/25/2024 COMP METAB OLIC PANEL creatinine 1.2 mg/dL 0.6-1. 3 Not Available [facility] ([facility]) [address] , [place], [address], 04/25/2024 17:11:14 04/25/20 24 04/25/2024 COMP METAB OLIC PANEL glomerular filtration rate 67 mlper min 60- GFR LIMIT ATION : The eGFR equat ion CKD-E PI 2020 is not appli cable for pedia tric patie nts or great er than 90 years of age. The follo wing condi tions may alter the GFR resul t: extre mes in body size, malnu triti on or obesi ty, skele yung muscl e disea se, parap legia or quadr ipleg ia, veget braden diet or rapid ly souza ing kiney funct ion. Not Available [facility] ([facility]) [address] [facility], [place], [address], 04/25/2024 17:11:14 04/25/20 24 04/25/2024 COMP METAB OLIC PANEL total protein 7.2 g/dL 6.4-8. 2 Not Available [facility] ([facility]) [address] [facility], [place], [address], 04/25/2024 17:11:14 04/25/20 24 04/25/2024 COMP METAB OLIC PANEL albumin 3.6 g/dL 3.4-5. 0 Not Available [facility] ([facility]) [address] [facility], [place], [address], 04/25/2024 17:11:14 04/25/20 24 04/25/2024 COMP METAB OLIC PANEL globulin 3.6 Not Available [facility] ([facility]) [address] [facility], [place], [address], 04/25/2024 17:11:14 04/25/20 24 04/25/2024 COMP METAB OLIC PANEL alb/glob ratio 1.0 0.7-2 Not Available [facility] ([facility]) [address] [facility], [place], [address], 04/25/2024 17:11:14 04/25/20 24 04/25/2024 COMP METAB OLIC PANEL calcium 9.1 mg/dL 8.5-10 .5 Not Available [facility] ([facility]) [address] [facility], [place], [address], 04/25/2024 17:11:14 04/25/20 24 04/25/2024 COMP METAB OLIC PANEL bilirubin total 0.70 mg/dL 0.10-1 .00 Not Available [facility] ([facility]) [address] [facility], [place], [address], 04/25/2024 17:11:14 04/25/20 24 04/25/2024 COMP METAB OLIC PANEL AST (SGOT) 2 U/L 0-37 Not Available [facility] ([facility]) [address] [facility], [place], [address], 04/25/2024 17:11:14 04/25/20 24 04/25/2024 COMP METAB OLIC PANEL ALT (SGPT) 12 U/L 0-65 Not Available [facility] ([facility]) [address] [facility], [place], [address], 04/25/2024 17:11:14 04/25/20 24 04/25/2024 COMP METAB OLIC PANEL alk phosphatase 62 U/L 46-116 Not Available [facility] ([facility]) [address] [facility], [place], [address], 04/25/2024 17:11:14 06/08/19 25 06/08/2024 bladd er scan (PROC ) Calculated Residual Urine: 27 Not Available [facility] [address] [facility] [address], [place], [address], 06/08/2024 08:45:39 05/18/19 25 05/18/2024 XR, abdom en, 1 view [facility] Hospit al [address] [place] [address] Phone: Fax: Name: ANTHONY HUIZAR Exam Date: 05/18/19 25 : 959 Age 63 years Gender : M Access ion: [id number] Physic elsie: FABRICE LEBLANC [facility] Facili ty HSV: Outpat ient Exam: ABD KUB 1V Abdome n: 2 views Clinic al indica tion: Abdomi nal pain Compar maci:N one Findin gs: There is a nonspe cific nondil ated small bowel patter n. There is no free air. Aortoi liac stent is noted. Impres jeannine: Nonspe cific non-ob struct rangel appear ing small bowel patter n. Electr onical ly signed by:Kayce Mckeon MD/0 06/2024 06:39 PM EST RP Workst ation: ARHWRS 15PRR Dictat ed By: Kay Mckeon Transc ribed By: Transc ribed On: 05/18/19 3:20 PM Electr onical ly signed by: Kay Mckeon 05/18/19 Thank you for referr ANTHONY Hay to [facility] Hospit al. Legall y authen ticate d by KAYLA Maria 05-18 15:20: 39 CC'ed Logic: Orderi ng Provid er: BENJI Hatch Attend ing Provid er: BENJI Hatch Referr ing Provid er: BENJI Hatch Admitt ing Provid er: BENJI Hatch [email or web address] [facility] [address] , [place], [address], 05/23/2024 10:13:10 Result Notes None recorded. Problems Name Problem SNOMED Code Status Onset Date Resolution Date Notes Provider Name and Address Organization Details Recorded Time Phimosis 814600044 Active 2024 CHELSIE GARCIA MD [address], [place], [address] , [facility] & [place] 5 13:20:07 Epididymit is 93829114 Active 2024 CHELSIE GARCIA MD [address], [place], [address] , [place] - [facility] & [place] 5 13:20:12 Body fluid retention 00985179 Active 2024 CHELSIE GARCIA MD [address], [place], [address] , [place] - [facility] - [place] & [place] 5 13:20:18 Slowing of urinary stream 79753989 Active [address], [place], [address] , [place] - [facility] - [place] & [place] 5 13:21:13 Orgasm incapacity 62515853 Active [address], [place], [address] , [place] - [facility] - [place] & Michelle 5 09:03:27 Benign prostatic hyperplasi a 666122187 Active 2023 Kristine casas, [place] - [facility] - [place] & [place] 4 14:36:42 Diabetes mellitus 10795673 Active 2023 Kristine Larios null, [place] - [facility] - [facility] & [place] 4 14:36:50 Chronic obstructiv e pulmonary disease 78706073 Active 2023 Kristine Larios null, [place] - [facility] - [facility] & [place] 4 14:36:58 Lower urinary tract symptoms due to benign prostatic hypertroph y 3045042082239 1 Active [address], [place], [address] , [place] - [facility] - [place] & [place] 4 15:12:57 Nocturia 822825172 Active [address], [place], [address] , [place] - [facility] - [place] & [place] 4 15:13:04 Increased frequency of urination 757556181 Active [address], [place], [address] , [place] - [facility] - [place] & [place] 4 15:13:10 Acquired phimosis 520963159 Active 2023 CHELSIE GARCIA MD [address], [place], [address] , [facility] & [place] 4 15:13:14 Retrograde ejaculatio n 30838110 Active 2023 CHELSIE GARCIA MD [address] , [place], [address] , [facility] & [place] 15:13:33 Problem Notes None recorded. Procedures Surgical History Date Name Laterality Status Provider Name and Address Organization Details Recorded Time 05/31/2024 UroCuff completed Kristine Larios [facility] & [place] 05/31/2024 09:52:18 Imaging Results Imaging Date Name Status LastModified by Organiz ation Details LastModified Time 05/18/2024 XR, abdomen, 1 view completed [email or web address] [facility] [address] , [place], [address], 05/23/2024 10:13:10 Procedure Notes None recorded. Medical Equipment None Reported. Allergies Allergen ID Allergen Name Allergen Category Reaction Reaction Severity Criticality Documentation Date Start Date Code Code System Note Provider Name and Address Organization Details Recorded Time 161774 Product containin g penicilli n (product) medicatio n Not available Not available unabletoasse ss 02/16/2024 72528 8001 SNOMED Kristine Larios [facility] & [place] 14:24:16 Medications Name Sig Start Date Stop Date Status Note LastModified by Organization Details LastModified Time furosemide 40 mg tablet active Not Available Not Available Not Available metformin 500 mg tablet active Not Available Not Available Not Available fluticasone 250 mcg-salmete rol 50 mcg/dose blistr powdr for inhalation Inhale 1 puff twice a day by inhalatio n route. active Not Available Not Available No t Available carvedilol 25 mg tablet Take 1 tablet twice a day by oral route. active Not Available Not Available No t Available doxycycline hyclate 100 mg capsule 06/08 completed Not Available Not Available Not Available atorvastati n 20 mg tablet Take 1 tablet every day by oral route. active Not Available Not Available No t Available hydralazine 25 mg tablet Take 1 tablet twice a day by oral route. active Not Available Not Available No t Available sulfamethox azole 800 mg-trimetho prim 160 mg tablet 06/08 completed Not Available Not Available Not Available aspirin 81 mg tablet,purvi yed release Take 1 tablet every day by oral route. active Not Available Not Available No t Available tramadol 50 mg tablet active Not Available Not Available No t Available spironolact one 25 mg tablet active Not Available Not Available Not Available ketorolac 0.5 % eye drops active Not Available Not Available Not Available potassium chloride ER 20 mEq tablet,exte nded release(par t/cryst) TAKE ONE TABLET BY MOUTH THREE TIMES DAILY FOR 3 DAYS -- FINISH ALL MEDICINE -- active Not Available Not Available No t Available prednisolon e acetate 1 % eye drops,suspe nsion active Not Available Not Available Not Available tamsulosin 0.4 mg capsule active Not Available Not Available Not Available amlodipine 10 mg tablet Take 1 tablet every day by oral route. active Not Available Not Available No t Available cephalexin 500 mg capsule active Not Available Not Available Not Available metformin 1,000 mg tablet Take 1 tablet twice a day by oral route. active Not Available Not Available No t Available nystatin-tr iamcinolone 100,000 unit/g-0.1 % topical cream APPLY TO THE AFFECTED AREA(S) BY TOPICAL ROUTE 2 TIMES PER DAY IN THE MORNING AND EVENING 2023 active Not Available Not Available Not Avai lable bumetanide 1 mg tablet Take 1 tablet every day by oral route. active Not Available Not Available No t Available hydrocortis one 2.5 % topical cream APPLY A THIN LAYER TO THE AFFECTED AREA(S) BY TOPICAL ROUTE 3 TIMES PER DAY active Not Available Not Available No t Available montelukast 10 mg tablet Take 1 tablet every day by oral route. active Not Available Not Available No t Available gabapentin 100 mg capsule Take 1 capsule 3 times a day by oral route. active Not Available Not Available No t Available albuterol sulfate HFA 90 mcg/actuati on aerosol inhaler active Not Available Not Available Not Available cefdinir 300 mg capsule TAKE ONE CAPSULE BY MOUTH TWICE DAILY FOR 2 DAYS -- FINISH ALL MEDICINE -- 06/08 completed Not Available Not Available Not Available finasteride 5 mg tablet Take 1 tablet every day by oral route. active Not Available Not Available No t Available spironolact one 50 mg tablet Take 1 tablet every day by oral route. active Not Available Not Available No t Available moxifloxaci n 0.5 % eye drops active Not Available Not Available Not Available alfuzosin ER 10 mg tablet,exte nded release 24 hr Take 1 tablet every day by oral route in the evening for 30 days. active Not Available Not Available No t Available duloxetine 30 mg capsule,del ayed release active Not Available Not Available Not Available tamsulosin active Not Available Not Av ailable Not Available Eliquis 5 mg tablet Take 1 tablet twice a day by oral route. active Not Available Not Available No t Available Jardiance 25 mg tablet Take 1 tablet every day by oral route. active Not Available Not Available No t Available albuterol sulfate 90 mcg/actuati on breath activated powder inhaler Inhale 2 puffs every 4 hours by inhalatio n route. active Not Available Not Available No t Available Entresto 97 mg-103 mg tablet Take 1 tablet twice a day by oral route. active Not Available Not Available No t Available Vitals Date Recorded Body height Body mass index (BMI) Body weight Oxygen saturation Oxygen saturation in Arterial blood by Pulse oximetry Heart rate Systolic blood pressure Diastolic blood pressure Provider Name and Address Organization Details Last Updated DateTime 4 185.42 cm 34.7 kg/m2 973950. 79 g 96 % 96 % 83 /min 150 mm[Hg] 95 mm[Hg] Kristine Larios [place] - [facility] & [place] 4 15:07:30 Date Recorded Body height Body mass index (BMI) Body weight Body temperature Oxygen saturation Oxygen saturation in Arterial blood by Pulse oximetry Heart rate Systolic blood pressure Diastolic blood pressure Provider Name and Address Organization Details Last Updated DateTime 5 185.42 cm 34.7 kg/m2 023961. 79 g 97.7 [degF] 98 % 98 % 70 /min 135 mm[Hg] 70 mm[Hg] Sari Looney [place] - [facility] & [place] 5 14:29:06 Date Recorded Body height Body mass index (BMI) Body weight Oxygen saturation Oxygen saturation in Arterial blood by Pulse oximetry Heart rate Systolic blood pressure Diastolic blood pressure Provider Name and Address Organization Details Last Updated DateTime 5 185.42 cm 35.9 kg/m2 115542. 12 g 95 % 95 % 86 /min 147 mm[Hg] 77 mm[Hg] Kristine Larios [facility] & [place] 5 13:01:52 Date Recorded Body height Body mass index (BMI) Body weight Oxygen saturation Oxygen saturation in Arterial blood by Pulse oximetry Heart rate Systolic blood pressure Diastolic blood pressure Provider Name and Address Organization Details Last Updated DateTime 5 185.42 cm 35 kg/m2 591790. 98 g 96 % 96 % 98 /min 168 mm[Hg] 87 mm[Hg] Kristine ADAM [facility] & [place] 5 08:44:44 Social History Question Answer Notes LastModified by Organizat ion Details LastModified Time Tobacco Smoking Status Never Smoker Kristine Larios [facility] & [place] 02/16/2024 14:38:30 What Is Your Level Of Alcohol Consumption? None Information not available 02/16/2024 Do You Use Any Illicit Or Recreational Drugs? No Information not available 02/16/2024 Sex: Unknown Functional Status None recorded. Mental Status None recorded. Family History Nothing Reported. Medical History No medical history recorded. Past Encounters Encounter ID Performer Location Encounter Start Date Encounter Closed Date Diagnosis/Indication Diagnosis SNOMED-CT Code Diagnosis ICD10 Code Diagnosis Note [id number] CHELSIE GARCIA MD [facility]rology-[address] [place] [address] 02/22/2024 14:23:57 02/22/2024 15:13:24 Lower urinary tract symptoms due to benign prostatic hypertrophy 9336612332 9101 N40.1 as patient's prostate does not appear to be any larger than 30 g, instructed him to discontinu e the finasterid e. As he is bothered by the retrograde ejaculatio n, we will switch from tamsulosin to alfuzosin. We also discussed alternativ e treatment options including surgicalal procedure such as TURP, GreenLight photo vaporizati on of the prostate, and UroLift. Depending on his response to alfuzosin, we may proceed with cystoscopy and transrecta l ultrasound of the prostate for further evaluation . We will check screening PSA in the meantime. Nocturia 759405804 R35.1 See above Increased frequency of urination 871974168 R35.0 see above Acquired phimosis 488539 009 N47.1 we discussed treatment options including topicals versus circumcisi on. The patient states that he has a full bladder [place] and would prefer to avoid any alteration s of his foreskin if at all possible. We will try the topicals initially, however, I did explain that circumcisi on may be indicated if topical triamcinol one / nystatin is ineffectiv e. Retrograde ejaculation 00167176 N53.14 Likely secondary to tamsulosin . We will switch to alfuzosin as it has decreased risk of retrograde ejaculatio n. [id number] CHELSIE GARCIA MD [facility]1 00 [address] [facility] [address] [place] [address] 03/14/2024 14:52:55 03/14/2024 15:18:09 Lower urinary tract symptoms due to benign prostatic hypertrophy 1754462491 9101 N40.1 Patient remains symptomati c despite maximum medical therapy. We will check pressure flow studies (Urocuff) in the upcoming weeks. Depending on findings, we may proceed with cystoscopy and transrecta l ultrasound to evaluate potential surgical options. Nocturia 014662326 R35.1 See above Increased frequency of urination 888324967 R35.0 see above Acquired phimosis 647484 009 N47.1 Patient has elected to proceed with circumcisi on. I reviewed the procedure in depth as well as potential risks of bleeding, infection, injury to adjacent structures , and the risk of anesthesia . We will need to get cardiac clearance to hold his Eliquis for 2 days before the procedure. [id number] Nika Leblanc NP, S [facility]-1 [address] [facility] [address] [place] [address] 05/18/2024 14:11:52 05/18/2024 14:50:20 Nocturia 373844527 R35.1 pt states he cannot urinate Benign pro static hyperplasia with outflow obstruction 417215194 N13.8 Schedule Urocuff studyConti nue Alfuzosin Increased frequency of urination 108828658 R35.0 Acquired phimosis 067793 009 N47.1 Incision site healed Right flank pain 9317192 09 R10.9 KUB ordered [id number] CHELSIE GARCIA MD [facility]-1 00 [address] [facility] [address] [place] [address] 05/25/2024 12:51:43 05/25/2024 13:17:30 Phimosis 073024160 N47.1 Incision well healed Epididymitis 05829172 N4 5.1 we will start a 10 day course of doxycyclin e. Side effect profile of photosensi tivity and gastritis were reviewed. Body fluid retention 434 09073 R60.9 I expressed my concern for the patient's current condition. He does not look well and I have recommende d he be evaluated in the ER today with chest imaging and lab work, possibly BNP. The patient is agreeable with this. I have contacted the ER and spoke to the charge nurse and relayed the pertinent informatio n along with the patient's identity and date of . Slowing of urinary stream 64304870 R39.12 Patient will continue with alpha-bloc ker therapy for now. Pressure flow studies are scheduled for next week. Postvoid residual is minimal at 65 despite patient stating that he was drinking amounts of fluid. I worry that he was currently 3rd spacing and may be in acute renal failure. He will have lab work checked in the ER. [id number] CHELSIE GARCIA MD [facility]-1 [address] [facility] [address] [place] [address] 06/08/2024 08:35:57 06/08/2024 09:04:41 Slowing of urinary stream 18302544 R39.12 Unfortunat matthew, we are unable to obtain pressure flow studies. PVR remains minimal. For now, we will continue alfuzosin therapy. 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 We did discuss the alfuzosin and how it may lead to retrograde ejaculatio n, though reaching climax is still expected. In reviewing medication s, he does take several drugs such as gabapentin that may be impairing sexual function. We also discussed that poorly controlled diabetes can lead to anorgasmia and retrograde ejaculatio n as well. He verbalized his understand ing. [id number] Nika Leblanc, DIALYSIS TECH, S [facility] Urology-1 [address] [place] [address] 05/31/2024 08:39:58 05/31/2024 11:12:35 Benign prostatic hyperplasia 514294249 N40.1 Health Concerns Section Related Observation LastModified by Organization Detai ls LastModified Time None Recorded Concern Status LastModified by Organization Details LastModified Time None Recorded Advance Directives Directive None Recorded Payers Encounter Date Sequence Insurance Name Policy Number Policy Irwin Covered Member ID Irwin Member ID Guarantor Name 03/14/2024 1 [employer] (MEDICARE REPLACEMENT HMO) Anthony Huizar [id number] Anthony Huizar 03/14/2024 2 [employer] (MEDICAID REPLACEMENT - HMO) Anthony Huizar [id number] Anthony Huizar 05/18/2024 1 [employer] (MEDICARE REPLACEMENT HMO) Anthony Huizar [id number] Anthony Huizar 05/18/2024 2 [employer] (MEDICAID REPLACEMENT - HMO) Anthony Huizar [id number] Anthony Huizra 05/25/2024 1 [employer] (MEDICARE REPLACEMENT HMO) Anthony Huizar [id number] Anthony Huizar 05/25/2024 2 [employer] (MEDICAID REPLACEMENT - HMO) Anthony Huizar [id number] Anthony Huizar 05/31/2024 1 [employer] (MEDICARE REPLACEMENT HMO) Anthony Huizar [id number] Anthony Huizar 05/31/2024 2 [employer] (MEDICAID REPLACEMENT - HMO) Anthony Huizar [id number] Anthony Huizar 06/08/2024 1 [employer] (MEDICARE REPLACEMENT HMO) Anthony Huizar [id number] Anthony Huizar 06/08/2024 2 [employer] (MEDICAID REPLACEMENT - HMO) Anthony Huizar [id number] Anthony Huizar Notes Date Note Type Note Provider Name and Address Organization Details Recorded Time 03/14/2024 text/html 03/14/24 Patient returns for a three-week follow-up. He was changed from tamsulosin to alfuzosin at his initial visit. Triamcinolone / nystatin cream was also prescribed for phimosis. Unfortunately, the patient was not able to fill the prescription for the topical cream due to cost. He is interested in proceeding with circumcision at this time. The patient did not see any improvement in his urinary pattern after switching from tamsulosin to alfuzosin. Finally, the patient did not have the PSA checked that was ordered at his initial visit. -02/21/[id number] d male referred for history of BPH along with phimosis. Patient is currently on tamsulosin and finasteride. Patient is also taking Eliquis for history of atrial fibrillation.Jamison t states he has been on tamsulosin for several years and still has ongoing urinary frequency with decreased force of stream and nocturia up to 5 times per night. Recently, he was started on finasteride. He states that within 2 weeks of starting this medication, he began having swelling of the foreskin and it became on retractable. He reports pain with erections.family history is negative for malignancies.Finall y, patient has complaints of retrograde ejaculation that have been present for several years. 02/05/24 Labs: Cr 1.1, GFR 107 CHELSIE GARCIA MD [id number], [place], [address], [facility] - [place] & [place] 03/14/2024 15:19:50 05/18/2024 text/html 05/18/2024 63 yowm RTC for post circumcision visit. Pt underwent Circumcision on 04/28/2024, pathology was negative. States he did well following the surgery without any complications. Patient reports urinary stream remains weak despite having circumcision and on alfuzosin treatment. Nocturia x4. He denies any dysuria or gross hematuria. Patient reports for the past 4 weeks he has been experiencing some right lower back pain. Reports the pain is sharp and intermittent in nature. Patient reports pain is worse with movement. Reports currently he has not experiencing any pain. Denies any history of kidney stones. 03/14/24 Patient returns for a three-week follow-up. He was changed from tamsulosin to alfuzosin at his initial visit. Triamcinolone / nystatin cream was also prescribed for phimosis. Unfortunately, the patient was not able to fill the prescription for the topical cream due to cost. He is interested in proceeding with circumcision at this time. The patient did not see any improvement in his urinary pattern after switching from tamsulosin to alfuzosin. Finally, the patient did not have the PSA checked that was ordered at his initial visit. -02/21/[id number] d male referred for history of BPH along with phimosis. Patient is currently on tamsulosin and finasteride. Patient is also taking Eliquis for history of atrial fibrillation.Jamison t states he has been on tamsulosin for several years and still has ongoing urinary frequency with decreased force of stream and nocturia up to 5 times per night. Recently, he was started on finasteride. He states that within 2 weeks of starting this medication, he began having swelling of the foreskin and it became on retractable. He reports pain with erections.family history is negative for malignancies.Finall y, patient has complaints of retrograde ejaculation that have been present for several years. 04/28/2024: Circumcision procedure, pathology /29/2024: PSA 0.709/ Labs: Cr 1.1, GFR 107 Nika Leblanc NP, [address], [place], [address], [facility] & [place] 05/18/2024 14:53:27 05/25/2024 text/html 05/25/24 63-year-old male returns for postop visit. He underwent circumcision on 04/28/2024. He comes to clinic today complaining of generalized malaise. He was noticing shortness of breath and producing minimal urine. He notes that when he does urinate, the urine is very dark puneet in color. He is also complained of some right testicular pain. States he was reached out to both his PCP and senior hardware design engineer and he has appointments next week. 1 Patient returns for a three-week follow-up. He was changed from tamsulosin to alfuzosin at his initial visit. Triamcinolone / nystatin cream was also prescribed for phimosis.Unfortunat matthew, the patient was not able to fill the prescription for the topical cream due to cost. He is interested in proceeding with circumcision at this time.The patient did not see any improvement in his urinary pattern after switching from tamsulosin to alfuzosin.Finally, the patient did not have the PSA checked that was ordered at his initial visit. -02/21/[id number] d male referred for history of BPH along with phimosis. Patient is currently on tamsulosin and finasteride. Patient is also taking Eliquis for history of atrial fibrillation.Jamison t states he has been on tamsulosin for several years and still has ongoing urinary frequency with decreased force of stream and nocturia up to 5 times per night. Recently, he was started on finasteride. He states that within 2 weeks of starting this medication, he began having swelling of the foreskin and it became on retractable. He reports pain with erections.family history is negative for malignancies.Finall y, patient has complaints of retrograde ejaculation that have been present for several years. 05/18/24 KUB ([facility]): Nonspecific non-obstructive appearing small bowel /13/24 Circumcision (path: dermal inflammation, fibrosis)04/25/24 Cr 1.2, GFR PSA 0.709 Labs: Cr 1.1, GFR 107Physical ExamConstitutional: General Appearance: normal body habitus. Level of Distress: no acute distress.Skin: General Appearance of Extremities: no edema. Inspection and palpation: no rash or lesions and warm.Lungs: Auscultation: clear and normal breath sounds.Abdomen: Inspection and Palpation: soft, non-tender, and no masses. Liver: non-tender and no hepatomegaly. Spleen: non-tender and no splenomegaly. Hernia: none palpable.Male : Penis: no discharge, lesions, ulcerations, scars, nodules, inflammation, tenderness, induration, or plaques and uncircumcised, normal meatus placement, and phimosis; Numerous fissures of phimotic foreskin present. Scrotum: no cysts, lesions, edema, tenderness, lumps, rashes, hydrocele, varicocele, or loss of rugae. Testes: no swelling, nodules, atrophy, or mass and non-tender, palpable bilaterally, and not enlarged. CHELSIE GARCIA MD [address] [facility], [place], [address], [facility] - [place] - [place] & [place] 05/25/2024 13:22:40 05/31/2024 text/html 05/31/2024 Pt here for Urocuff study. Pt was not able to complete Urocuff study. 05/25/24 63-year-old male returns for postop visit. He underwent circumcision on 04/28/2024. He comes to clinic today complaining of generalized malaise. He was noticing shortness of breath and producing minimal urine. He notes that when he does urinate, the urine is very dark puneet in color. He is also complained of some right testicular pain. States he was reached out to both his PCP and senior hardware design engineer and he has appointments next week. 1 Patient returns for a three-week follow-up. He was changed from tamsulosin to alfuzosin at his initial visit. Triamcinolone / nystatin cream was also prescribed for phimosis.Unfortunat matthew, the patient was not able to fill the prescription for the topical cream due to cost. He is interested in proceeding with circumcision at this time.The patient did not see any improvement in his urinary pattern after switching from tamsulosin to alfuzosin.Finally, the patient did not have the PSA checked that was ordered at his initial visit. -02/21/[id number] d male referred for history of BPH along with phimosis. Patient is currently on tamsulosin and finasteride. Patient is also taking Eliquis for history of atrial fibrillation.Jamison t states he has been on tamsulosin for several years and still has ongoing urinary frequency with decreased force of stream and nocturia up to 5 times per night. Recently, he was started on finasteride. He states that within 2 weeks of starting this medication, he began having swelling of the foreskin and it became on retractable. He reports pain with erections.family history is negative for malignancies.Finall y, patient has complaints of retrograde ejaculation that have been present for several years. 05/18/24 KUB ([facility]): Nonspecific non-obstructive appearing small bowel /13/24 Circumcision (path: dermal inflammation, fibrosis)04/25/24 Cr 1.2, GFR PSA 0.709 Labs: Cr 1.1, GFR 107Physical ExamConstitutional: General Appearance: normal body habitus. Level of Distress: no acute distress.Skin: General Appearance of Extremities: no edema. Inspection and palpation: no rash or lesions and warm.Lungs: Auscultation: clear and normal breath sounds.Abdomen: Inspection and Palpation: soft, non-tender, and no masses. Liver: non-tender and no hepatomegaly. Spleen: non-tender and no splenomegaly. Hernia: none palpable.Male : Penis: no discharge, lesions, ulcerations, scars, nodules, inflammation, tenderness, induration, or plaques and uncircumcised, normal meatus placement, and phimosis; Numerous fissures of phimotic foreskin present. Scrotum: no cysts, lesions, edema, tenderness, lumps, rashes, hydrocele, varicocele, or loss of rugae. Testes: no swelling, nodules, atrophy, or mass and non-tender, palpable bilaterally, and not enlarged. Nika Leblanc, APRIL, [address] [facility], [place], [address], [place] - [facility] - [place] & [place] 05/31/2024 11:41:09 06/08/2024 text/html 06/08/24 Patient returns to clinic for further evaluation for weakened urinary stream. Uro cuff was attempted at his last visit, however, he was unable to complete the procedure. Patient states that he has diuresed nearly 20 lb since his last visit. He reports that his testicular pain has resolved. He continues to have ongoing complaints of what he describes as anorgasmia.-------- 05/25/[id number] male returns for postop visit. He underwent circumcision on 04/28/2024. He comes to clinic today complaining of generalized malaise. He was noticing shortness of breath and producing minimal urine. He notes that when he does urinate, the urine is very dark puneet in color. He is also complained of some right testicular pain.States he was reached out to both his PCP and senior hardware design engineer and he has appointments next week. 1 Patient returns for a three-week follow-up. He was changed from tamsulosin to alfuzosin at his initial visit. Triamcinolone / nystatin cream was also prescribed for phimosis.Unforthildat matthew, the patient was not able to fill the prescription for the topical cream due to cost. He is interested in proceeding with circumcision at this time.The patient did not see any improvement in his urinary pattern after switching from tamsulosin to alfuzosin.Finally, the patient did not have the PSA checked that was ordered at his initial visit. -02/21/[id number] d male referred for history of BPH along with phimosis. Patient is currently on tamsulosin and finasteride. Patient is also taking Eliquis for history of atrial fibrillation.Jamison t states he has been on tamsulosin for several years and still has ongoing urinary frequency with decreased force of stream and nocturia up to 5 times per night. Recently, he was started on finasteride. He states that within 2 weeks of starting this medication, he began having swelling of the foreskin and it became on retractable. He reports pain with erections.family history is negative for malignancies.Finall y, patient has complaints of retrograde ejaculation that have been present for several years. 05/18/24 KUB ([facility]): Nonspecific non-obstructive appearing small bowel [id number]/13/24 Circumcision (path: dermal inflammation, fibrosis)04/25/24 Cr 1.2, GFR PSA 0.709 Labs: Cr 1.1, GFR 107Physical ExamConstitutional: General Appearance: normal body habitus. Level of Distress: no acute distress.Skin: General Appearance of Extremities: no edema. Inspection and palpation: no rash or lesions and warm.Lungs: Auscultation: clear and normal breath sounds.Abdomen: Inspection and Palpation: soft, non-tender, and no masses. Liver: non-tender and no hepatomegaly. Spleen: non-tender and no splenomegaly. Hernia: none palpable.Male : Penis: no discharge, lesions, ulcerations, scars, nodules, inflammation, tenderness, induration, or plaques and uncircumcised, normal meatus placement, and phimosis; Numerous fissures of phimotic foreskin present. Scrotum: no cysts, lesions, edema, tenderness, lumps, rashes, hydrocele, varicocele, or loss of rugae. Testes: no swelling, nodules, atrophy, or mass and non-tender, palpable bilaterally, and not enlarged. CHELSIE GARCIA MD [address] [facility], [place], [address], [facility] - [facility] - [place] & [place] 07/05/2024 08:21:00
== END 2024-08-21 23:59 | disposition home or self-care (01) ==
LOC: RAD 08:24
PROVIDERS: PCP Family Medicine; Visit Provider Family Medicine
DX: J18.9 Pneumonia, unspecified organism (principal); E11.9 Type 2 diabetes mellitus without complications; D69.6 Thrombocytopenia, unspecified
CPT/HCPCS: 36415; 71046; 80053; 85025

== ENCOUNTER 2024-09-01 07:56 | Outpatient (CLI) | payer MEDICARE, MEDICAID, SELFPAY ==
--- OUTSIDE RECORDS SUMMARY | 2024-09-01 07:58 | XMS_ITS | Data Portability ---
Author Organization [facility] MARIELA Martinez ADMIN Address [address] [place] [address] Care Team Providers Care Astronautical Engineer Name Role Phone KARLENE GONZALEZ Registrar [employer]BIE LI Primary Care Provider [phone] Assessment No assessment recorded. Plan of Treatment Reminders Order Date Submit Date Provider Last Modified By Organization Details Last Modified Time Details Appointments FOLLOW UP 15 2024 08:30A Eric GARCIA MD Not available Not available Not available Lab PSA, serum or plasma 2023 024 [facility] (Registration ), [address] [place], [address], 03/14/2024 17:35:16 Referral None recorded. Procedures bladder scan (PROC) [address] [facility], [address] [facility] [address], [place], [address], 06/08/2024 09:04:20 bladder scan (PROC) [address] [facility]100, [address]0 [facility] 100, [place], [address], 03/14/2024 15:19:48 Surgeries circumcis ion (SURG) 2023 024 [email or web address] Not available 03/14/2024 16:22:22 Imaging XR, kidney + ureter + bladder 2024 025 [email or web address] [facility] (Registration ), [address] [place], [address], 05/18/2024 14:42:46 Medication Orders doxycycli ne hyclate 100 mg capsule 2024 025 [facility] #[id number], [address] [facility] [address] [place] [place], [id number], 06/08/2024 08:45:25 alfuzosin ER 10 mg tablet,ex tended release 24 hr 2024 025 [facility] #[id number], [address] [facility] [address] [place] [place], [id number], 05/18/2024 14:53:12 Patient TargetsNo targets recorded. Patient InstructionsNo instructions recorded. Reason for Referral None Reported. Results Created Date Observation Date Name Description Value Unit Range Abnormal Flag Note LastModifiedBy Organization Detail LastModifiedTime 03/14/20 24 03/14/2024 PROST ATE SPECI FIC AG (PSA) prostate specific Ag (PSA) 0.7 NG/mL 0-4.0 Not Available [facility] ([facility]) [address] [place], [address], 03/14/2024 17:35:16 03/14/2003/14/2024 bladd er scan (PROC ) Calculated Residual Urine: 6 Not Available [facility]100 [address] [facility] [address], [place], [address], 03/14/2024 15:07:51 04/25/20 24 04/25/2024 COMP METAB OLIC PANEL sodium 139 mmol/ L 136-14 5 Not Available [facility] ([facility]) [address] [place], [address], 04/25/2024 17:11:14 04/25/20 24 04/25/2024 COMP METAB OLIC PANEL potassium 3.8 mmol/ L 3.6-5. 0 Not Available [facility] ([facility]) [address] [place], [address], 04/25/2024 17:11:14 04/25/20 24 04/25/2024 COMP METAB OLIC PANEL chloride 103 mmol/ L 98-107 Not Available [facility] ([facility]) [address], [place], [address], 04/25/2024 17:11:14 04/25/20 24 04/25/2024 COMP METAB OLIC PANEL carbon dioxide 29.3 mmol/ L 21.0-3 2.0 Not Available [facility] ([facility]) [address], [place], [address], 04/25/2024 17:11:14 04/25/20 24 04/25/2024 COMP METAB OLIC PANEL anion gap 10.5 Not Available [facility] ([facility]) [address] , [place], [address], 04/25/2024 17:11:14 04/25/20 24 04/25/2024 COMP METAB OLIC PANEL glucose 121 mg/dL 70-120 high Not Available [facility] ([facility]) [address] , [place], [address], 04/25/2024 17:11:14 04/25/20 24 04/25/2024 COMP METAB OLIC PANEL BUN 16 mg/dL 7-18 Not Available [facility] ([facility]) [address] , [place], [address], 04/25/2024 17:11:14 04/25/20 24 04/25/2024 COMP METAB OLIC PANEL creatinine 1.2 mg/dL 0.6-1. 3 Not Available [facility] ([facility]) [address] , [place], [address], 04/25/2024 17:11:14 04/25/20 24 04/25/2024 COMP METAB [...] souza ing kiney funct ion. Not Available [facility] ([facility]) [address] [facility], [place], [address], 04/25/2024 17:11:14 04/25/20 24 04/25/2024 COMP METAB OLIC PANEL total protein 7.2 g/dL 6.4-8. 2 Not Available [facility] ([facility]) [address] [facility], [place], [address], 04/25/2024 17:11:14 04/25/20 24 04/25/2024 COMP METAB OLIC PANEL albumin 3.6 g/dL 3.4-5. 0 Not Available [facility] ([facility]) [address] [facility], [place], [address], 04/25/2024 17:11:14 04/25/20 24 04/25/2024 COMP METAB OLIC PANEL globulin 3.6 Not Available [facility] ([facility]) [address] [facility], [place], [address], 04/25/2024 17:11:14 04/25/20 24 04/25/2024 COMP METAB OLIC PANEL alb/glob ratio 1.0 0.7-2 Not Available [facility] ([facility]) [address] [facility] [facility], [place], [address], 04/25/2024 17:11:14 04/25/20 24 04/25/2024 COMP METAB OLIC PANEL calcium 9.1 mg/dL 8.5-10 .5 Not Available [facility] ([facility]) [address] [facility], [place], [address], 04/25/2024 17:11:14 04/25/20 24 04/25/2024 COMP METAB OLIC PANEL bilirubin total 0.70 mg/dL 0.10-1 .00 Not Available [facility] ([facility]) [address] [facility] [facility], [place], [address], 04/25/2024 17:11:14 04/25/20 24 04/25/2024 COMP METAB OLIC PANEL AST (SGOT) 2 U/L 0-37 Not Available [facility] ([facility]) [address] [facility], [place], [address], 04/25/2024 17:11:14 04/25/20 24 04/25/2024 COMP METAB OLIC PANEL ALT (SGPT) 12 U/L 0-65 Not Available [facility] ([facility]) [address] [facility] [facility], [place], [address], 04/25/2024 17:11:14 04/25/20 24 04/25/2024 COMP METAB OLIC PANEL alk phosphatase 62 U/L 46-116 Not Available [facility] ([facility]) [address] [facility] [facility], [place], [address], 04/25/2024 17:11:14 06/08/19 25 06/08/2024 bladd er scan (PROC ) Calculated Residual Urine: 27 Not Available [facility] [address] [facility] [address], [place], [address], 06/08/2024 08:45:39 05/18/19 25 05/18/2024 XR, abdom en, 1 view [facility] [address] [place] [address] Phone: Fax: Name: ANTHONY HUIZAR Exam Date: 05/18/19 25 : 959 Age 63 years Gender : M Access ion: [id number] Physic elsie: FABRICE LEBLANC Facili ty: [facility] Facili ty HSV: Outpat ient Exam: ABD [...] Thank you for referr ANTHONY Hay to [facility]. Legall y authen ticate d by KAYLA Maria 05-18 15:20: 39 CC'ed Logic: Orderi ng Provid er: BENJI Hatch Attend ing Provid er: BENJI Hatch Referr ing Provid er: BENJI Hatch Admitt ing Provid er: BENJI Hatch [email or web address] [facility] [address] , [place], [address], 05/23/2024 10:13:10 Result Notes None recorded. Problems Name Problem SNOMED Code Status Onset Date Resolution Date Notes Provider Name and Address Organization Details Recorded Time Phimosis 974214026 Active 2024 CHELSIE GARCIA MD [address], [place], [address] , [facility] & [place] 5 13:20:07 Epididymit is 85222901 Active 2024 CHELSIE GARCIA MD [address], [place], [address] , [place] - [facility] & [place] 5 13:20:12 Body fluid retention 31642610 Active 2024 CHELSIE GARCIA MD [address], [place], [address] , [place] - [facility] - [place] & [place] 5 13:20:18 Slowing of urinary stream 50544925 Active [address], [place], [address] , [place] - [facility] - [place] & [place] 5 13:21:13 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 [address], [place], [address] , [place] - [facility] [place] & [place] 5 09:03:27 Benign prostatic hyperplasi a 645884124 Active 2023 Kristine casas, [place] - [facility] - [place] & [place] 4 14:36:42 Diabetes mellitus 01531690 Active 2023 Kristine Larios null, [place] - [facility] & [place] 4 14:36:50 Chronic obstructiv e pulmonary disease 56812830 Active 2023 Kristine Larios null, [place] - [facility] & [place] 4 14:36:58 Lower urinary tract symptoms due to benign prostatic hypertroph y 1349439141731 1 Active [address], [place], [address] , [place] - [facility] - [place] & [place] 4 15:12:57 Nocturia 539449974 Active [address], [place], [address] , [place] - [facility] - [place] & [place] 4 15:13:04 Increased frequency of urination 198891308 Active [address], [place], [address] , [place] - [facility] - [place] & [place] 4 15:13:10 Acquired phimosis 179553273 Active 2023 CHELSIE GARCIA MD [address], [place], [address] , [facility] & [place] 4 15:13:14 Retrograde ejaculatio n 01608193 Active 2023 CHELSIE GARCIA MD [address] , [place], [address] , [facility] & [place] 15:13:33 Problem Notes None recorded. Procedures Surgical History Date Name Laterality Status Provider Name and Address Organization Details Recorded Time 05/31/2024 UroCuff completed Kristine Larios [facility] & [place] 05/31/2024 09:52:18 Imaging Results Imaging Date Name Status LastModified by Organiz ation Details LastModified Time 05/18/2024 XR, abdomen, 1 view completed [email or web address] [facility] [address] , [place], [address], 05/23/2024 10:13:10 Procedure Notes None recorded. Medical Equipment None Reported. Allergies Allergen ID Allergen Name Allergen Category Reaction Reaction Severity Criticality Documentation Date Start Date Code Code System Note Provider Name and Address Organization Details Recorded Time 860384 Product containin g penicilli n (product) medicatio n Not available Not available unabletoasse ss 02/16/2024 25232 8001 SNOMED Kristine Larios [facility] & [place] 14:24:16 Medications Name Sig Start Date Stop [...] Updated DateTime 4 185.42 cm 34.7 kg/m2 416812. 79 g 96 % 96 % 83 /min 150 mm[Hg] 95 mm[Hg] Kristine Larios [place] - [facility] & [place] 4 15:07:30 Date Recorded Body height Body mass index (BMI) Body weight Body temperature Oxygen saturation Oxygen saturation in Arterial blood by Pulse oximetry Heart rate Systolic blood pressure Diastolic blood pressure Provider Name and Address Organization Details Last Updated DateTime 5 185.42 cm 34.7 kg/m2 909392. 79 g 97.7 [degF] 98 % 98 % 70 /min 135 mm[Hg] 70 mm[Hg] Sari Looney [place] - [facility] & [place] 5 14:29:06 Date Recorded Body height Body mass index (BMI) Body weight Oxygen saturation Oxygen saturation in Arterial blood by Pulse oximetry Heart rate Systolic blood pressure Diastolic blood pressure Provider Name and Address Organization Details Last Updated DateTime 5 185.42 cm 35.9 kg/m2 018695. 12 g 95 % 95 % 86 /min 147 mm[Hg] 77 mm[Hg] Kristine Larios [facility] & [place] 5 13:01:52 Date Recorded Body height Body mass index (BMI) Body weight Oxygen saturation Oxygen saturation in Arterial blood by Pulse oximetry Heart rate Systolic blood pressure Diastolic blood pressure Provider Name and Address Organization Details Last Updated DateTime 5 185.42 cm 35 kg/m2 937794. 98 g 96 % 96 % 98 /min 168 mm[Hg] 87 mm[Hg] Kristine ADAM [facility] & [place] 5 08:44:44 Social History Question Answer Notes LastModified by Organizat ion Details LastModified Time Tobacco Smoking Status Never Smoker Kristine Larios [facility] & [place] 02/16/2024 14:38:30 What Is Your Level Of [...] SNOMED-CT Code Diagnosis ICD10 Code Diagnosis Note [id number] CHELSIE GARCIA MD [facility] [place] [address] 02/22/2024 14:23:57 02/22/2024 15:13:24 Lower urinary tract symptoms due to benign prostatic hypertrophy 0758593643 9101 N40.1 as patient's prostate does not [...] check screening PSA in the meantime. Nocturia 788112331 R35.1 See above Increased frequency of urination 064472428 R35.0 see above Acquired phimosis 888066 009 N47.1 we discussed treatment options including topicals versus circumcisi on. The patient states that he has a full bladder [place] [employer] and would prefer to avoid any alteration s of his foreskin if at all possible. We will try the topicals initially, however, I did explain that circumcisi on may be indicated if topical triamcinol one / nystatin is ineffectiv e. Retrograde ejaculation 78666495 N53.14 Likely secondary to tamsulosin . We will switch to alfuzosin as it has decreased risk of retrograde ejaculatio n. [id number] CHELSIE GARCIA MD [facility]1 00 [address] [facility] 100 [place] [address] 03/14/2024 14:52:55 03/14/2024 15:18:09 Lower urinary tract symptoms due to benign prostatic hypertrophy 2286487134 9101 N40.1 Patient remains symptomati c despite maximum medical therapy. We will check pressure flow studies (Urocuff) in the upcoming weeks. Depending on findings, we may proceed with cystoscopy and transrecta l ultrasound to evaluate potential surgical options. Nocturia 169313522 R35.1 See above Increased frequency of urination 565357949 R35.0 see above Acquired phimosis 438829 009 N47.1 Patient has elected to proceed with circumcisi on. I reviewed the procedure in depth as well as potential risks of bleeding, infection, injury to adjacent structures , and the risk of anesthesia . We will need to get cardiac clearance to hold his Eliquis for 2 days before the procedure. [id number] Nika Leblanc NP, S [facility]-1 00 [address] [facility] 100 [place] [address] 05/18/2024 14:11:52 05/18/2024 14:50:20 Nocturia 308347301 R35.1 pt states he cannot urinate Benign pro static hyperplasia with outflow obstruction 568456102 N13.8 Schedule Urocuff studyConti nue Alfuzosin Increased frequency of urination 885475285 R35.0 Acquired phimosis 251233 009 N47.1 Incision site healed Right flank pain 9955186 09 R10.9 KUB ordered [id number] CHELSIE GARCIA MD [facility]-1 00 [address] [facility] 100 [place] [address] 05/25/2024 12:51:43 05/25/2024 13:17:30 Phimosis 940381007 N47.1 Incision well healed Epididymitis 57205152 N4 5.1 we will start a 10 day course of doxycyclin e. Side effect profile of photosensi tivity and gastritis were reviewed. Body fluid retention 434 98172 R60.9 I expressed my concern for the [...] date of . Slowing of urinary stream 33360855 R39.12 Patient will continue with alpha-bloc ker therapy for now. Pressure flow studies are scheduled for next week. Postvoid residual is minimal at 65 despite patient stating that he was drinking amounts of fluid. I worry that he was currently 3rd spacing and may be in acute renal failure. He will have lab work checked in the ER. [id number] CHELSIE GARCIA MD [facility]-1 00 [address] [facility] 100 [place] [address] 06/08/2024 08:35:57 06/08/2024 09:04:41 Slowing of urinary stream 34639401 R39.12 Unfortunat matthew, we are unable to obtain pressure flow studies. PVR remains minimal. For now, we will continue alfuzosin therapy. 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 He verbalized his understand ing. [id number] Nika Leblanc, HISTOPATHOLOGIST, S [facility]1 [address] [place] [address] 05/31/2024 08:39:58 05/31/2024 11:12:35 Benign prostatic hyperplasia 374336009 N40.1 Health Concerns Section Related Observation LastModified by Organization Detai ls LastModified Time None Recorded Concern Status LastModified by Organization Details LastModified Time None Recorded Advance Directives Directive None Recorded Payers Encounter Date Sequence Insurance Name Policy Number Policy Irwin Covered Member ID Irwin Member ID Guarantor Name 03/14/2024 1 [employer] (MEDICARE REPLACEMENT HMO) Anthony Huizar [id number] Anthony Huizar 03/14/2024 2 [employer] (MEDICAID REPLACEMENT - HMO) Anthony Huizar [id number] Anthony Huizar 05/18/2024 1 [employer] (MEDICARE REPLACEMENT HMO) Anthony Huizar [id number] Anthony Huizar 05/18/2024 2 [employer] (MEDICAID REPLACEMENT - HMO) Anthony Huizar [id number] Anthony Huizar 05/25/2024 1 [employer] (MEDICARE REPLACEMENT HMO) Anthony Huizar [id number] Anthony Huizar 05/25/2024 2 [employer] (MEDICAID REPLACEMENT - HMO) Anthony Huizar [id number] Anthony Huizar 05/31/2024 1 [employer] (MEDICARE REPLACEMENT HMO) Anthony Huizar [id number] Anthony Huizar 05/31/2024 2 [employer] (MEDICAID REPLACEMENT - HMO) Anthony Huizar [id number] Anthony Huizar 06/08/2024 1 [employer] (MEDICARE REPLACEMENT HMO) Anthony Huizar [id number] Anthony Huizar 06/08/2024 2 [employer] (MEDICAID REPLACEMENT - HMO) Anthony Huizar [id number] Anthony Huizar Notes Date Note Type Note [...] that was ordered at his initial visit. -02/21/24651532-ijgx-me d male referred for history of BPH [...] Cr 1.1, GFR 107 CHELSIE GARCIA MD [address], [place], [address], [facility] - [place] & [place] 03/14/2024 15:19:50 05/18/2024 text/html 05/18/2024 63 yowm [...] that was ordered at his initial visit. -02/21/24659687-bkyk-kc d male referred for history of BPH [...] for several years. 04/28/2024: Circumcision procedure, pathology pmyystqm05/29/2024: PSA 0.709/ Labs: Cr 1.1, GFR 107 Nika Leblanc NP, S [address], [place], [address], [facility] & [place] 05/18/2024 14:53:27 05/25/2024 text/html 05/25/24 63-year-old male [...] reached out to both his PCP and pattern marking supervisor and he has appointments next week. 1 [...] that was ordered at his initial visit. -02/21/24658113-esnw-hc d male referred for history of BPH [...] been present for several years. 05/18/24 KUB ([facility]): Nonspecific non-obstructive appearing small bowel mvinjno96/13/24 Circumcision (path: dermal inflammation, fibrosis)04/25/24 Cr 1.2, [...] bilaterally, and not enlarged. CHELSIE GARCIA MD [address] [facility], [place], [address], [facility] - [place] - [place] & [place] 05/25/2024 13:22:40 05/31/2024 text/html 05/31/2024 Pt here [...] reached out to both his PCP and pattern marking supervisor and he has appointments next week. 1 [...] that was ordered at his initial visit. -02/21/24655001-cnai-wc d male referred for history of BPH [...] been present for several years. 05/18/24 KUB ([facility]): Nonspecific non-obstructive appearing small bowel asrrnpk18/13/24 Circumcision (path: dermal inflammation, fibrosis)04/25/24 Cr 1.2, [...] and not enlarged. Nika Leblanc, APRIL, S [address] [facility] [facility], [place], [address], [place] - [facility] - [place] & [place] 05/31/2024 11:41:09 06/08/2024 text/html 06/08/24 Patient returns [...] complaints of what he describes as anorgasmia.-------- 05/25/25641020-fulu-rmi male returns for postop visit. He underwent circumcision on 04/28/2024. He comes to clinic today complaining of generalized malaise. He was noticing shortness of breath and producing minimal urine. He notes that when he does urinate, the urine is very dark puneet in color. He is also complained of some right testicular pain.States he was reached out to both his PCP and pattern marking supervisor and he has appointments next week. 1 [...] that was ordered at his initial visit. -02/21/24654438-uled-pa d male referred for history of BPH [...] been present for several years. 05/18/24 KUB ([facility]): Nonspecific non-obstructive appearing small bowel agzzamk21/13/24 Circumcision (path: dermal inflammation, fibrosis)04/25/24 Cr 1.2, [...] bilaterally, and not enlarged. CHELSIE GARCIA MD [address] [facility] [facility], [place], [address], [facility] - [facility] - [place] & [place] 07/05/2024 08:21:00
[2024-09-01] MEDS: ALBUTEROL 0.083% 2.5 MG/3 ML NEB IH (09:08)
--- NOTE | 2024-09-01 09:08 | PC.NURSE ---
Pre and Post Spirometry completed without incident. Albuterol 0.083% given via HHN, per written protocol, Pt tolerated tx well.
== END 2024-09-01 23:59 | disposition home or self-care (01) ==
LOC: RT 07:57
PROVIDERS: PCP Family Medicine; Visit Provider Family Medicine
DX: J43.9 Emphysema, unspecified (principal); J40 Bronchitis, not specified as acute or chronic
CPT/HCPCS: 94010; J7613

== ENCOUNTER 2024-10-17 07:32 | Outpatient (CLI) | payer MEDICARE, MEDICAID, SELFPAY ==
--- OUTSIDE RECORDS SUMMARY | 2024-10-17 07:35 | XMS_ITS | Data Portability ---
Author Organization [facility] MARIELA Martinez ADMIN Address [address] [place] [address] Care Team Providers Care Risk And Compliance Analytics Director Name Role Phone KARLENE GONZALEZ Hand Stamper OBIE LI Primary Care Provider Assessment No assessment recorded. Plan of Treatment Reminders Order Date Submit Date Provider Last Modified By Organization Details Last Modified Time Details Appointments FOLLOW UP 15 2024 08:30A Eric GARCIA MD Not available Not available Not available Lab PSA, serum or plasma 2023 024 [facility] (Registration ), [address] [place], [address], 03/14/2024 17:35:16 Referral None recorded. Procedures bladder scan (PROC) [address] [facility], [address] [facility] 100, [place], [address], 06/08/2024 09:04:20 bladder scan (PROC) [address] [facility], [address] [facility] 100, [place], [address], 03/14/2024 15:19:48 Surgeries circumcis ion (SURG) 2023 024 [email or web address] Not available 03/14/2024 16:22:22 Imaging XR, kidney + ureter + bladder 2024 025 [email or web address] [facility] (Registration ), [address] [place], [address], 05/18/2024 14:42:46 Medication Orders doxycycli ne hyclate 100 mg capsule 2024 025 [facility] #[id number], [address] [facility] [address] [place], [id number], 06/08/2024 08:45:25 alfuzosin ER 10 mg tablet,ex tended release 24 hr 2024 025 [facility] #[id number], [address] [facility] [address] [place], [id number], 05/18/2024 14:53:12 Patient TargetsNo targets recorded. Patient InstructionsNo instructions recorded. Reason for Referral None Reported. Results Created Date Observation Date Name Description Value Unit Range Abnormal Flag Note LastModifiedBy Organization Detail LastModifiedTime 03/14/20 24 03/14/2024 PROST ATE SPECI FIC AG (PSA) prostate specific Ag (PSA) 0.7 NG/mL 0-4.0 Not Available [facility] ([facility]) [address] [place], [address], 03/14/2024 17:35:16 03/14/2003/14/2024 bladd er scan (PROC ) Calculated Residual Urine: 6 Not Available [facility] [address] [facility] [address], [place], [address], 03/14/2024 15:07:51 04/25/20 24 04/25/2024 COMP METAB OLIC PANEL sodium 139 mmol/ L 136-14 5 Not Available [facility] ([facility]) [address] [place], [address], 04/25/2024 17:11:14 04/25/20 24 04/25/2024 COMP METAB OLIC PANEL potassium 3.8 mmol/ L 3.6-5. 0 Not Available [facility] ([facility]) [address] [place], [address], 04/25/2024 17:11:14 04/25/20 24 04/25/2024 COMP METAB OLIC PANEL chloride 103 mmol/ L 98-107 Not Available [facility] ([facility]) [address], [place], [address], 04/25/2024 17:11:14 04/25/20 24 04/25/2024 COMP METAB OLIC PANEL carbon dioxide 29.3 mmol/ L 21.0-3 2.0 Not Available [facility] ([facility]) [address], [place], [address], 04/25/2024 17:11:14 04/25/20 24 04/25/2024 COMP METAB OLIC PANEL anion gap 10.5 Not Available [facility] ([facility]) [address] , [place], [address], 04/25/2024 17:11:14 04/25/20 24 04/25/2024 COMP METAB OLIC PANEL glucose 121 mg/dL 70-120 high Not Available [facility] ([facility]) [address] , [place], [address], 04/25/2024 17:11:14 04/25/20 24 04/25/2024 COMP METAB OLIC PANEL BUN 16 mg/dL 7-18 Not Available [facility] ([facility]) [address] , [place], [address], 04/25/2024 17:11:14 04/25/20 24 04/25/2024 COMP METAB OLIC PANEL creatinine 1.2 mg/dL 0.6-1. 3 Not Available [facility] ([facility]) [address] , [place], [address], 04/25/2024 17:11:14 04/25/20 24 04/25/2024 COMP METAB [...] souza ing kiney funct ion. Not Available [facility] ([facility]) [address] [facility], [place], [address], 04/25/2024 17:11:14 04/25/20 24 04/25/2024 COMP METAB OLIC PANEL total protein 7.2 g/dL 6.4-8. 2 Not Available [facility] ([facility]) [address] [facility], [place], [address], 04/25/2024 17:11:14 04/25/20 24 04/25/2024 COMP METAB OLIC PANEL albumin 3.6 g/dL 3.4-5. 0 Not Available [facility] ([facility]) [address] [facility], [place], [address], 04/25/2024 17:11:14 04/25/20 24 04/25/2024 COMP METAB OLIC PANEL globulin 3.6 Not Available [facility] ([facility]) [address] [facility], [place], [address], 04/25/2024 17:11:14 04/25/20 24 04/25/2024 COMP METAB OLIC PANEL alb/glob ratio 1.0 0.7-2 Not Available [facility] ([facility]) [address] [facility], [place], [address], 04/25/2024 17:11:14 04/25/20 24 04/25/2024 COMP METAB OLIC PANEL calcium 9.1 mg/dL 8.5-10 .5 Not Available [facility] ([facility]) [address] [facility], [place], [address], 04/25/2024 17:11:14 04/25/20 24 04/25/2024 COMP METAB OLIC PANEL bilirubin total 0.70 mg/dL 0.10-1 .00 Not Available [facility] ([facility]) [address] [facility], [place], [address], 04/25/2024 17:11:14 04/25/20 24 04/25/2024 COMP METAB OLIC PANEL AST (SGOT) 2 U/L 0-37 Not Available [facility] ([facility]) [address] [facility], [place], [address], 04/25/2024 17:11:14 04/25/20 24 04/25/2024 COMP METAB OLIC PANEL ALT (SGPT) 12 U/L 0-65 Not Available [facility] ([facility]) [address] [facility], [place], [address], 04/25/2024 17:11:14 04/25/20 24 04/25/2024 COMP METAB OLIC PANEL alk phosphatase 62 U/L 46-116 Not Available [facility] ([facility]) [address] [facility], [place], [address], 04/25/2024 17:11:14 06/08/19 25 06/08/2024 bladd er scan (PROC ) Calculated Residual Urine: 27 Not Available [facility] [address] [facility] [address], [place], [address], 06/08/2024 08:45:39 05/18/19 25 05/18/2024 XR, abdom en, 1 view [facility] [address] [place] [address] Phone: Fax: Name: ANTHONY HUIZAR Exam Date: 05/18/19 25 : 959 Age 63 years Gender : M Access ion: [id number] Physic elsie: FABRICE LEBLANC Facili ty: [facility] Facili ty HSV: Outpat ient Exam: [...] Thank you for referr ANTHONY Hay to [facility]. Legall y authen ticate d by KAYLA Maria 05-18 15:20: 39 CC'ed Logic: Orderi ng Provid er: BENJI Hatch Attend ing Provid er: BENJI Hatch Referr ing Provid er: BENJI Hatch Admitt ing Provid er: BENJI Hatch [email or web address] [facility] [address] , [place], [address], 05/23/2024 10:13:10 Result Notes None recorded. Problems Name Problem SNOMED Code Status Onset Date Resolution Date Notes Provider Name and Address Organization Details Recorded Time Phimosis 799796363 Active 2024 CHELSIE GARCIA MD [address], [place], [address] , [facility] - [facility] & [place] 5 13:20:07 Epididymit is 44239227 Active 2024 CHELSIE GARCIA MD [address], [place], [address] , [place] - [facility] & [place] 5 13:20:12 Body fluid retention 13857896 Active 2024 CHELSIE GARCIA MD [address], [place], [address] , [place] - [facility] - [place] & [place] 5 13:20:18 Slowing of urinary stream 03698608 Active [address], [place], [address] , [place] [facility] [place] 5 13:21:13 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 [address], [place], [address] , [place] [facility] [place] 5 09:03:27 Benign prostatic hyperplasi a 529245210 Active 2023 Kristine casas, [place] - [facility] [place] & [place] 4 14:36:42 Diabetes mellitus 23986573 Active 2023 Kristine Larios null, [place] - [facility] - [facility] & [place] 4 14:36:50 Chronic obstructiv e pulmonary disease 73693099 Active 2023 Kristine Larios null, [place] - [facility] - [facility] & [place] 4 14:36:58 Lower urinary tract symptoms due to benign prostatic hypertroph y 7215935056508 1 Active [address], [place], [address] , [place] - [facility] - [place] & [place] 4 15:12:57 Nocturia 161080933 Active [address], [place], [address] , [place] [facility] [place] 4 15:13:04 Increased frequency of urination 790118151 Active [address], [place], [address] , [place] [facility] [place] & [place] 4 15:13:10 Acquired phimosis 105009812 Active 2023 CHELSIE GARCIA MD [address] , [place], [address] , [facility] & [place] 4 15:13:14 Retrograde ejaculatio n 28891076 Active 2023 CHELSIE GARCIA MD [address] , [place], [address] , [facility] & [place] 4 15:13:33 Problem Notes None recorded. Procedures Surgical History Date Name Laterality Status Provider Name and Address Organization Details Recorded Time 05/31/2024 UroCuff completed Kristine Larios [facility] & [place] 05/31/2024 09:52:18 Imaging Results None recorded. Procedure Notes None recorded. Medical Equipment None Reported. Allergies Allergen ID Allergen Name Allergen Category Reaction Reaction Severity Criticality Documentation Date Start Date Code Code System Note Provider Name and Address Organization Details Recorded Time 869037 Product containin g penicilli n (product) medicatio n Not available Not available unabletoasse 02/16/2024 25311 8001 SNOMED Kristine Larios [facility] & [place] 4 14:24:16 Medications Name Sig Start Date Stop [...] Updated DateTime 5 185.42 cm 34.7 kg/m2 889686. 79 g 97.7 [degF] 98 % 98 % 70 /min 135 mm[Hg] 70 mm[Hg] Sari Looney [facility] & [place] 5 14:29:06 Date Recorded Body height Body mass index (BMI) Body weight Oxygen saturation Oxygen saturation in Arterial blood by Pulse oximetry Heart rate Systolic blood pressure Diastolic blood pressure Provider Name and Address Organization Details Last Updated DateTime 5 185.42 cm 35.9 kg/m2 624447. 12 g 95 % 95 % 86 /min 147 mm[Hg] 77 mm[Hg] Kristine Larios [facility] & [place] 5 13:01:52 Date Recorded Body height Body mass index (BMI) Body weight Oxygen saturation Oxygen saturation in Arterial blood by Pulse oximetry Heart rate Systolic blood pressure Diastolic blood pressure Provider Name and Address Organization Details Last Updated DateTime 5 185.42 cm 35 kg/m2 083386. 98 g 96 % 96 % 98 /min 168 mm[Hg] 87 mm[Hg] Kristine ADAM [facility] & [place] 5 08:44:44 Date Recorded Body height Body mass index (BMI) Body weight Oxygen saturation Oxygen saturation in Arterial blood by Pulse oximetry Heart rate Systolic blood pressure Diastolic blood pressure Provider Name and Address Organization Details Last Updated DateTime 185.42 cm 34.7 kg/m2 242724. 79 g 96 % 96 % 83 /min 150 mm[Hg] 95 mm[Hg] Kristine Larios [place] - [facility] & [place] 15:07:30 Social History None recorded. Functional Status Question Answer Note LastModified by Organizat ion Details LastModified Time Do you use any illicit or recreational drugs? No Information not available 02/16/2024 What is your level of alcohol consumption? None Information not available 02/16/2024 Mental Status None recorded. Family History Nothing Reported. Medical History No medical history recorded. Past Encounters Encounter ID Performer Location Encounter Start Date Encounter Closed Date Diagnosis/Indication Diagnosis SNOMED-CT Code Diagnosis ICD10 Code Diagnosis Note [id number] CHELSIE GARCIA MD [facility] [place] [address] 02/22/2024 14:23:57 02/22/2024 15:13:24 Lower urinary tract symptoms due to benign prostatic hypertrophy 8972553801 9101 N40.1 as patient's prostate does not [...] check screening PSA in the meantime. Nocturia 074682435 R35.1 See above Increased frequency of urination 599334408 R35.0 see above Acquired phimosis 957338 009 N47.1 we discussed treatment options including topicals versus circumcisi on. The patient states that he has a full bladder Patricia Lacey and would prefer to avoid any alteration s of his foreskin if at all possible. We will try the topicals initially, however, I did explain that circumcisi on may be indicated if topical triamcinol one / nystatin is ineffectiv e. Retrograde ejaculation 12048038 N53.14 Likely secondary to tamsulosin . We will switch to alfuzosin as it has decreased risk of retrograde ejaculatio n. [id number] CHELSIE GARCIA MD [facility]-1 00 [address] [facility] 100 [place] [address] 03/14/2024 14:52:55 03/14/2024 15:18:09 Lower urinary tract symptoms due to benign prostatic hypertrophy 5307119845 9101 N40.1 Patient remains symptomati c despite maximum medical therapy. We will check pressure flow studies (Urocuff) in the upcoming weeks. Depending on findings, we may proceed with cystoscopy and transrecta l ultrasound to evaluate potential surgical options. Nocturia 707031896 R35.1 See above Increased frequency of urination 051402850 R35.0 see above Acquired phimosis 908684 009 N47.1 Patient has elected to proceed with circumcisi on. I reviewed the procedure in depth as well as potential risks of bleeding, infection, injury to adjacent structures , and the risk of anesthesia . We will need to get cardiac clearance to hold his Eliquis for 2 days before the procedure. [id number] Nika Leblanc NP, S [facility]-1 00 [address] [facility] 100 [place] [address] 05/18/2024 14:11:52 05/18/2024 14:50:20 Nocturia 121135883 R35.1 pt states he cannot urinate Benign pro static hyperplasia with outflow obstruction 198795166 N13.8 Schedule Urocuff studyConti nue Alfuzosin Increased frequency of urination 582743465 R35.0 Acquired phimosis 836521 009 N47.1 Incision site healed Right flank pain 1048302 09 R10.9 KUB ordered [id number] CHELSIE GARCIA MD [facility]-1 00 [address] [facility] 100 [place] [address] 05/25/2024 12:51:43 05/25/2024 13:17:30 Phimosis 171791314 N47.1 Incision well healed Epididymitis 96237863 N4 5.1 we will start a 10 day course of doxycyclin e. Side effect profile of photosensi tivity and gastritis were reviewed. Body fluid retention 434 04225 R60.9 I expressed my concern for the [...] date of . Slowing of urinary stream 05592896 R39.12 Patient will continue with alpha-bloc ker therapy for now. Pressure flow studies are scheduled for next week. Postvoid residual is minimal at 65 despite patient stating that he was drinking amounts of fluid. I worry that he was currently 3rd spacing and may be in acute renal failure. He will have lab work checked in the ER. [id number] CHELSIE GARCIA MD [facility]-1 00 [address] [facility] 100 [place] [address] 06/08/2024 08:35:57 06/08/2024 09:04:41 Slowing of urinary stream 31768598 R39.12 Unfortunat matthew, we are unable to obtain pressure flow studies. PVR remains minimal. For now, we will continue alfuzosin therapy. 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 He verbalized his understand ing. [id number] Nika Leblanc NP, S [facility]-1 00 [address] [facility] [address] [place] [address] 05/31/2024 08:39:58 05/31/2024 11:12:35 Benign prostatic hyperplasia 867374787 N40.1 Health Concerns Section Related Observation LastModified by Organization Detai ls LastModified Time None Recorded Concern Status LastModified by Organization Details LastModified Time None Recorded Advance Directives Directive None Recorded Payers Insurance Date Sequence Insurance Name Policy Number Policy Irwin Covered Member ID Irwin Member ID Guarantor Name 07/05/2024 1 [id number] (MEDICARE REPLACEMENT/AD VANTAGE - HMO) Anthony Huizar [id number] Anthony Huizar 08/27/2024 2 [employer] (MEDICAID REPLACEMENT - HMO) Anthony Huizar [id number] Anthony Huizar Notes Date Note Type Note [...] that was ordered at his initial visit. -02/21/24650921-unxj-rx d male referred for history of BPH [...] Cr 1.1, GFR 107 CHELSIE GARCIA MD [address], [place], [address], [place] [facility] [place] [facility] [place] 03/14/2024 15:19:50 05/18/2024 text/html 05/18/2024 [...] that was ordered at his initial visit. -02/21/24650288-cpqe-rm d male referred for history of BPH [...] years. 04/28/2024: Circumcision procedure, pathology /29/2024: PSA 0.709 Labs: Cr 1.1, GFR 107 iNka Leblanc NP, S [address] [facility], [place], [address], [place] [facility] [place] 05/18/2024 14:53:27 05/25/2024 text/html 05/25/24 [...] reached out to both his PCP and silo man and he has appointments next week. 1 [...] that was ordered at his initial visit. -02/21/24650483-wfhx-gm d male referred for history of BPH along with phimosis. Patient is currently on tamsulosin and finasteride. Patient is also taking Eliquis for history of atrial fibrillation.Patien t states he has been on tamsulosin [...] been present for several years. 05/18/24 KUB ([facility]): Nonspecific non-obstructive appearing small bowel ykxrvqi01/13/24 Circumcision (path: dermal inflammation, fibrosis)04/25/24 Cr 1.2, [...] bilaterally, and not enlarged. CHELSIE GARCIA MD [address], [place], [address], [facility] - [place] 05/25/2024 13:22:40 05/31/2024 text/html 05/31/2024 Pt here [...] reached out to both his PCP and silo man and he has appointments next week. 1 [...] that was ordered at his initial visit. -02/21/24656509-jpkf-xp d male referred for history of BPH along with phimosis. Patient is currently on tamsulosin and finasteride. Patient is also taking Eliquis for history of atrial fibrillation.Jamison goldberg states he has been on tamsulosin for [...] been present for several years. 05/18/24 KUB ([facility]): Nonspecific non-obstructive appearing small bowel koabcxa41/13/24 Circumcision (path: dermal inflammation, fibrosis)04/25/24 Cr 1.2, [...] and not enlarged. Nika Leblanc, APRIL, S [address], [place], [address], [place] [facility] - [place] 05/31/2024 11:41:09 06/08/2024 text/html 06/08/24 [...] complaints of what he describes as anorgasmia.-------- 05/25/25644344-kuhv-smb male returns for postop visit. He underwent circumcision on 04/28/2024. He comes to clinic today complaining of generalized malaise. He was noticing shortness of breath and producing minimal urine. He notes that when he does urinate, the urine is very dark puneet in color. He is also complained of some right testicular pain.States he was reached out to both his PCP and silo man and he has appointments next week. 1 Patient returns for a three-week follow-up. He was changed from tamsulosin to alfuzosin at his initial visit. Triamcinolone / nystatin cream was also prescribed for phimosis.Unfortjhony castro, the patient was not able to fill the prescription for the topical cream due to cost. He is interested in proceeding with circumcision at this time.The patient did not see any improvement in his urinary pattern after switching from tamsulosin to alfuzosin.Finally, the patient did not have the PSA checked that was ordered at his initial visit. -02/21/24650914-yrmn-kq d male referred for history of BPH [...] been present for several years. 05/18/24 KUB ([facility]): Nonspecific non-obstructive appearing small bowel obiarng18/13/24 Circumcision (path: dermal inflammation, fibrosis)04/25/24 Cr 1.2, [...] bilaterally, and not enlarged. CHELSIE GARCIA MD [address], [place], [address], [facility] - [facility] - [place] [facility] [place] 07/05/2024 08:21:00
[2024-10-17] MEDS: ALBUTEROL 0.083% 2.5 MG/3 ML NEB IH (08:26)
--- NOTE | 2024-10-17 08:27 | PC.NURSE ---
PFT completed. Pt unable to complete Pleth due to anxiety and panic when the alexis door was closed, attempted N2 washout Pt states he is unable to pull breaths against the pressure. Albuterol 0.083% given via HHN, per written protocol, Pt tolerated tx well.
== END 2024-10-17 23:59 | disposition home or self-care (01) ==
LOC: RT 07:33
PROVIDERS: PCP Family Medicine; Visit Provider Family Medicine
DX: R06.09 Other forms of dyspnea (principal); R06.02 Shortness of breath
CPT/HCPCS: 94010; 94060; 94726; 94727; 94729

== ENCOUNTER 2024-10-23 09:02 | Outpatient (CLI) | payer MEDICARE, MEDICAID, SELFPAY ==
[2024-10-23 18:11] LABS: Basophils % 0.5 % (0.1-2.0); Eosinophils # 0.3 Kmm3 (0.0-0.4); Eosinophils % 4.2 % (0.1-12.0); Hematocrit 44.8 % (42.0-52.0); Hemoglobin 14.2 g/dL (14.1-18.0); Immature Granulocytes # 0.03 10^3uL; Immature Granulocytes % 0.5 %; Lymphocytes # 0.8 K/mm3 (0.7-4.5); Lymphocytes % 12.9 % (10-50); Mean Corpuscular HGB Conc 31.7 g/dL (31.8-35.4); Mean Corpuscular Hemoglobin 28.7 pg (27.0-31.2); Mean Corpuscular Volume 90.7 fl (80-94); Mean Platelet Volume 11.6 fl (7.4-10.4); Monocytes # 0.5 K/mm3 (0.1-1.0); Monocytes % 8.7 % (1.7-9.3); Neutrophils # 4.5 K/mm3 (1.8-7.8); Neutrophils % 73.2 % (37.0-80.0); Nucleated Red Blood Cells # 0 10^3/uL; Nucleated Red Blood Cells % 0 %; Platelet Count 176 K/mm3 (142-424); Red Blood Count 4.94 M/mm3 (4.60-6.20); Red Cell Distribution Width 14.3 % (11.5-17.5); White Blood Count 6.2 K/mm3 (4.8-10.8)
[2024-10-23 19:20] LABS: Hemoglobin A1C 5.8 % (4.0-6.0)
[2024-10-23 20:05] LABS: Chloride 102 mmol/L (98-107); Potassium 3.7 mmoL/L (3.5-5.1); Sodium 140 mmol/L (136-145)
[2024-10-23 20:08] LABS: Alanine Aminotransferase 13 U/L (12-78); Albumin/Globulin Ratio 1.4 (1.1-1.8); Alkaline Phosphatase 71 U/L (38-126); Anion Gap 8.7 mEq/L (5-15); Aspartate Amino Transferase 15 U/L (17-59); Bilirubin,Total 0.9 mg/dl (0.2-1.3); Blood Urea Nitrogen 22 mg/dl (9-20); Calcium 8.9 mg/dl (8.4-10.2); Carbon Dioxide 33 mmol/L (22.0-30.0); Cholesterol 125 mg/dl (140-200); Estimated Glomerular Filt Rate 75 ml/min (>60); GFR (African American) 90 ML/MIN (>60); Globulin 2.8 g/dL (1.3-3.2); Glucose 167 mg/dl (74-100); Total Protein,Serum 6.8 g/dl (6.3-8.2); Triglycerides 172 mg/dl (30-150); VLDL Cholesterol 34 mg/dL (0-40)
[2024-10-23 20:09] LABS: Chol/HDL Ratio 5.4 (1-3.5); HDL Cholesterol 23 mg/dl (40-60)
--- OUTSIDE RECORDS SUMMARY | 2024-10-24 14:00 | XMS_ITS | Data Portability ---
Author Organization [facility] MARIELA Martinez ADMIN Address [address] [place] [address] Care Team Providers Care [employer] Facer Name Role Phone KARLENE GONZALEZ Darkroom Worker OBIE LI Primary Care Provider [phone] Assessment No assessment recorded. Plan of Treatment Reminders Order Date Submit Date Provider Last Modified By Organization Details Last Modified Time Details Appointments FOLLOW UP 15 2024 08:30A Eric GARCIA MD Not available Not available Not available Lab PSA, serum or plasma 2023 024 [facility] (Registration ), [address] [place], [address], 03/14/2024 17:35:16 Referral None recorded. Procedures bladder scan (PROC) [address] [facility], [address] [facility] 100, [place], [address], 06/08/2024 09:04:20 bladder scan (PROC) [address] [facility], [address] [facility] 100, [place], [address], 03/14/2024 15:19:48 Surgeries circumcis ion (SURG) 2023 024 [email or web address] Not available 03/14/2024 16:22:22 Imaging XR, kidney + ureter + bladder 2024 025 [email or web address] [facility] (Registration ), [address] [place], [address], 05/18/2024 14:42:46 Medication Orders doxycycli ne hyclate 100 mg capsule 2024 025 [facility] #[id number], [address] [facility] 27 [place], [id number], 06/08/2024 08:45:25 alfuzosin ER 10 mg tablet,ex tended release 24 hr 2024 025 [facility] #[id number], [address] [facility] 27 [place], [id number], 05/18/2024 14:53:12 Patient TargetsNo targets recorded. Patient InstructionsNo instructions recorded. Reason for Referral None Reported. Results Created Date Observation Date Name Description Value Unit Range Abnormal Flag Note LastModifiedBy Organization Detail LastModifiedTime 03/14/20 24 03/14/2024 PROST ATE SPECI FIC AG (PSA) prostate specific Ag (PSA) 0.7 NG/mL 0-4.0 Not Available [facility] ([facility]) [address] [place], [address], 03/14/2024 17:35:16 03/14/2003/14/2024 bladd er scan (PROC ) Calculated Residual Urine: 6 Not Available [facility] [address] [facility] [address], [place], [address], 03/14/2024 15:07:51 04/25/20 24 04/25/2024 COMP METAB OLIC PANEL sodium 139 mmol/ L 136-14 5 Not Available [facility] ([facility]) [address] [place], [address], 04/25/2024 17:11:14 04/25/20 24 04/25/2024 COMP METAB OLIC PANEL potassium 3.8 mmol/ L 3.6-5. 0 Not Available [facility] ([facility]) [address] [place], [address], 04/25/2024 17:11:14 04/25/20 24 04/25/2024 COMP METAB OLIC PANEL chloride 103 mmol/ L 98-107 Not Available [facility] ([facility]) [address], [place], [address], 04/25/2024 17:11:14 04/25/20 24 04/25/2024 COMP METAB OLIC PANEL carbon dioxide 29.3 mmol/ L 21.0-3 2.0 Not Available [facility] ([facility]) [address], [place], [address], 04/25/2024 17:11:14 04/25/20 24 04/25/2024 COMP METAB OLIC PANEL anion gap 10.5 Not Available [facility] ([facility]) [address] , [place], [address], 04/25/2024 17:11:14 04/25/20 24 04/25/2024 COMP METAB OLIC PANEL glucose 121 mg/dL 70-120 high Not Available [facility] ([facility]) [address] , [place], [address], 04/25/2024 17:11:14 04/25/20 24 04/25/2024 COMP METAB OLIC PANEL BUN 16 mg/dL 7-18 Not Available [facility] ([facility]) [address] , [place], [address], 04/25/2024 17:11:14 04/25/20 24 04/25/2024 COMP METAB OLIC PANEL creatinine 1.2 mg/dL 0.6-1. 3 Not Available [facility] ([facility]) [address] , [place], [address], 04/25/2024 17:11:14 04/25/20 24 04/25/2024 COMP METAB [...] souza ing kiney funct ion. Not Available [facility] ([facility]) [address] [facility], [place], [address], 04/25/2024 17:11:14 04/25/20 24 04/25/2024 COMP METAB OLIC PANEL total protein 7.2 g/dL 6.4-8. 2 Not Available [facility] ([facility]) [address] [facility], [place], [address], 04/25/2024 17:11:14 04/25/20 24 04/25/2024 COMP METAB OLIC PANEL albumin 3.6 g/dL 3.4-5. 0 Not Available [facility] ([facility]) [address] [facility], [place], [address], 04/25/2024 17:11:14 04/25/20 24 04/25/2024 COMP METAB OLIC PANEL globulin 3.6 Not Available [facility] ([facility]) [address] [facility], [place], [address], 04/25/2024 17:11:14 04/25/20 24 04/25/2024 COMP METAB OLIC PANEL alb/glob ratio 1.0 0.7-2 Not Available [facility] ([facility]) [address] [facility], [place], [address], 04/25/2024 17:11:14 04/25/20 24 04/25/2024 COMP METAB OLIC PANEL calcium 9.1 mg/dL 8.5-10 .5 Not Available [facility] ([facility]) [address] [facility], [place], [address], 04/25/2024 17:11:14 04/25/20 24 04/25/2024 COMP METAB OLIC PANEL bilirubin total 0.70 mg/dL 0.10-1 .00 Not Available [facility] ([facility]) [address] [facility], [place], [address], 04/25/2024 17:11:14 04/25/20 24 04/25/2024 COMP METAB OLIC PANEL AST (SGOT) 2 U/L 0-37 Not Available [facility] ([facility]) [address] [facility], [place], [address], 04/25/2024 17:11:14 04/25/20 24 04/25/2024 COMP METAB OLIC PANEL ALT (SGPT) 12 U/L 0-65 Not Available [facility] ([facility]) [address] [facility], [place], [address], 04/25/2024 17:11:14 04/25/20 24 04/25/2024 COMP METAB OLIC PANEL alk phosphatase 62 U/L 46-116 Not Available [facility] ([facility]) [address] [facility], [place], [address], 04/25/2024 17:11:14 06/08/19 25 06/08/2024 bladd er scan (PROC ) Calculated Residual Urine: 27 Not Available [facility] [address] [facility] [address], [place], [address], 06/08/2024 08:45:39 05/18/19 25 05/18/2024 XR, abdom en, 1 view [facility] [address] [place] [address] Phone: Fax: Name: ANTHONY HUIZAR Exam Date: 05/18/19 25 : 959 Age 63 years Gender : M Access ion: [id number] Physic elsie: FABRICE LEBLANC Facili ty: [facility] Facili ty HSV: Outpat ient Exam: [...] Thank you for referr ANTHONY Hay to [facility]. Legall y authen ticate d by KAYLA Maria 05-18 15:20: 39 CC'ed Logic: Orderi ng Provid er: BENJI Hatch Attend ing Provid er: BENJI Hatch Referr ing Provid er: BENJI Hatch Admitt ing Provid er: BENJI Hatch [email or web address] [facility] [address] , [place], [address], 05/23/2024 10:13:10 Result Notes None recorded. Problems Name Problem SNOMED Code Status Onset Date Resolution Date Notes Provider Name and Address Organization Details Recorded Time Phimosis 289822703 Active 2024 CHELSIE GARCIA MD [address], [place], [address] , [facility] - [facility] & [place] 5 13:20:07 Epididymit is 09098172 Active 2024 CHELSIE GARCIA MD [address], [place], [address] , [place] - [facility] & [place] 5 13:20:12 Body fluid retention 70234581 Active 2024 CHELSIE GARCIA MD [address], [place], [address] , [place] - [facility] - [place] & [place] 5 13:20:18 Slowing of urinary stream 42643452 Active [address], [place], [address] , [place] - [facility] - [place] & [place] 5 13:21:13 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 [address], [place], [address] , [place] [facility] [place] & [place] 5 09:03:27 Benign prostatic hyperplasi a 139623306 Active 2023 Kristine casas, [place] - [facility] - [place] & [place] 4 14:36:42 Diabetes mellitus 75351557 Active 2023 Kristine Larios null, [place] - [facility] & [place] 4 14:36:50 Chronic obstructiv e pulmonary disease 02222904 Active 2023 Kristine Larios null, [place] [facility] & [place] 4 14:36:58 Lower urinary tract symptoms due to benign prostatic hypertroph y 6064137109636 1 Active [address], [place], [address] , [place] - [facility] - [place] & [place] 4 15:12:57 Nocturia 585751098 Active [address], [place], [address] , [place] [facility] [place] & [place] 4 15:13:04 Increased frequency of urination 137928718 Active [address], [place], [address] , [place] [facility] [place] & [place] 4 15:13:10 Acquired phimosis 118180405 Active 2023 CHELSIE GARCIA MD [address] , [place], [address] , [facility] & [place] 4 15:13:14 Retrograde ejaculatio n 53529518 Active 2023 CHELSIE GARCIA MD [address] , [place], [address] , [facility] & [place] 4 15:13:33 Problem Notes None recorded. Procedures Surgical History Date Name Laterality Status Provider Name and Address Organization Details Recorded Time 05/31/2024 UroCuff completed Kristine Larios [facility] & [place] 05/31/2024 09:52:18 Imaging Results None recorded. Procedure Notes None recorded. Medical Equipment None Reported. Allergies Allergen ID Allergen Name Allergen Category Reaction Reaction Severity Criticality Documentation Date Start Date Code Code System Note Provider Name and Address Organization Details Recorded Time 272337 Product containin g penicilli n (product) medicatio n Not available Not available unabletoasse 02/16/2024 32585 8001 SNOMED Kristine Larios [facility] & [place] 4 14:24:16 Medications Name Sig Start Date [...] Updated DateTime 5 185.42 cm 34.7 kg/m2 023373. 79 g 97.7 [degF] 98 % 98 % 70 /min 135 mm[Hg] 70 mm[Hg] Sari Looney [facility] & [place] 5 14:29:06 Date Recorded Body height Body mass index (BMI) Body weight Oxygen saturation Oxygen saturation in Arterial blood by Pulse oximetry Heart rate Systolic blood pressure Diastolic blood pressure Provider Name and Address Organization Details Last Updated DateTime 5 185.42 cm 35.9 kg/m2 242830. 12 g 95 % 95 % 86 /min 147 mm[Hg] 77 mm[Hg] Kristine Larios [facility] & [place] 5 13:01:52 Date Recorded Body height Body mass index (BMI) Body weight Oxygen saturation Oxygen saturation in Arterial blood by Pulse oximetry Heart rate Systolic blood pressure Diastolic blood pressure Provider Name and Address Organization Details Last Updated DateTime 5 185.42 cm 35 kg/m2 569655. 98 g 96 % 96 % 98 /min 168 mm[Hg] 87 mm[Hg] Kristine ADAM [facility] & [place] 5 08:44:44 Date Recorded Body height Body mass index (BMI) Body weight Oxygen saturation Oxygen saturation in Arterial blood by Pulse oximetry Heart rate Systolic blood pressure Diastolic blood pressure Provider Name and Address Organization Details Last Updated DateTime 185.42 cm 34.7 kg/m2 566225. 79 g 96 % 96 % 83 /min 150 mm[Hg] 95 mm[Hg] Kristine Larios [place] - [facility] & [place] 15:07:30 Social History None recorded. Functional Status [...] SNOMED-CT Code Diagnosis ICD10 Code Diagnosis Note [id number] CHESLIE GARCIA MD [facility] [place] [address] 02/22/2024 14:23:57 02/22/2024 15:13:24 Lower urinary tract symptoms due to benign prostatic hypertrophy 1162702301 9101 N40.1 as patient's prostate does not [...] check screening PSA in the meantime. Nocturia 043512988 R35.1 See above Increased frequency of urination 796675983 R35.0 see above Acquired phimosis 949623 009 N47.1 we discussed treatment options including [...] / nystatin is ineffectiv e. Retrograde ejaculation 80981696 N53.14 Likely secondary to tamsulosin . We will switch to alfuzosin as it has decreased risk of retrograde ejaculatio n. [id number] CHELSIE GARCIA MD [facility]1 00 [address] [facility] 100 [place] [address] 03/14/2024 14:52:55 03/14/2024 15:18:09 Lower urinary tract symptoms due to benign prostatic hypertrophy 2000625377 9101 N40.1 Patient remains symptomati c despite maximum medical therapy. We will check pressure flow studies (Urocuff) in the upcoming weeks. Depending on findings, we may proceed with cystoscopy and transrecta l ultrasound to evaluate potential surgical options. Nocturia 437317929 R35.1 See above Increased frequency of urination 131953565 R35.0 see above Acquired phimosis 186764 009 N47.1 Patient has elected to proceed with circumcisi on. I reviewed the procedure in depth as well as potential risks of bleeding, infection, injury to adjacent structures , and the risk of anesthesia . We will need to get cardiac clearance to hold his Eliquis for 2 days before the procedure. [id number] Nika Leblanc NP, S [facility]1 00 [address] [facility] [address] [place] [address] 05/18/2024 14:11:52 05/18/2024 14:50:20 Nocturia 133330045 R35.1 pt states he cannot urinate Benign pro static hyperplasia with outflow obstruction 417666504 N13.8 Schedule Urocuff studyConti nue Alfuzosin Increased frequency of urination 109244664 R35.0 Acquired phimosis 400873 009 N47.1 Incision site healed Right flank pain 5012667 09 R10.9 KUB ordered [id number] CHELSIE GARCIA MD [facility]1 00 [address] [facility] [address] [place] [address] 05/25/2024 12:51:43 05/25/2024 13:17:30 Phimosis 774963664 N47.1 Incision well healed Epididymitis 20224601 N4 5.1 we will start a 10 day course of doxycyclin e. Side effect profile of photosensi tivity and gastritis were reviewed. Body fluid retention 434 72012 R60.9 I expressed my concern for the [...] date of . Slowing of urinary stream 05848197 R39.12 Patient will continue with alpha-bloc ker therapy for now. Pressure flow studies are scheduled for next week. Postvoid residual is minimal at 65 despite patient stating that he was drinking amounts of fluid. I worry that he was currently 3rd spacing and may be in acute renal failure. He will have lab work checked in the ER. [id number] CHELSIE GARCIA MD [facility]1 00 [address] [facility] [address] [place] [address] 06/08/2024 08:35:57 06/08/2024 09:04:41 Slowing of urinary stream 10339330 R39.12 Unfortunat matthew, we are unable to obtain pressure flow studies. PVR remains minimal. For now, we will continue alfuzosin therapy. 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 He verbalized his understand ing. [id number] Nika Leblanc NP, S [facility]1 00 [address] [facility] [address] [place] [address] 05/31/2024 08:39:58 05/31/2024 11:12:35 Benign prostatic hyperplasia 850228149 N40.1 Health Concerns Section Related Observation LastModified by Organization Detai ls LastModified Time None Recorded Concern Status LastModified by Organization Details LastModified Time None Recorded Advance Directives Directive None Recorded Payers Insurance Date Sequence Insurance Name Policy Number Policy Irwin Covered Member ID Irwin Member ID Guarantor Name 07/05/2024 1 [employer] (MEDICARE REPLACEMENT/AD VANTAGE - HMO) Anthony Huizar [id number] Anthony Huizar 08/27/2024 2 [employer] (MEDICAID REPLACEMENT - HMO) Anthony Huizar [id number] Anthony Huizar Notes Date Note Type Note [...] that was ordered at his initial visit. -02/21/24658207-xsta-pz d male referred for history of BPH [...] Cr 1.1, GFR 107 CHELSIE GARCIA MD [address], [place], [address], [place] [facility] - [place] & [place] 03/14/2024 15:19:50 05/18/2024 text/html 05/18/2024 63 yowm [...] that was ordered at his initial visit. -02/21/24656091-hnyb-gb d male referred for history of BPH [...] for several years. 04/28/2024: Circumcision procedure, pathology ohqvhxwz76/29/2024: PSA 0.709 Labs: Cr 1.1, GFR 107 Nika Leblanc NP, S [address] [facility], [place], [address], [place] [facility] [place] & [place] 05/18/2024 14:53:27 05/25/2024 text/html 05/25/24 63-year-old male [...] reached out to both his PCP and sole stapler welt and he has appointments next week. 1 [...] that was ordered at his initial visit. -02/21/24657278-aesu-oh d male referred for history of BPH [...] been present for several years. 05/18/24 KUB ([facility]): Nonspecific non-obstructive appearing small bowel limlppb81/13/24 Circumcision (path: dermal inflammation, fibrosis)04/25/24 Cr 1.2, [...] bilaterally, and not enlarged. CHELSIE GARCIA MD [address], [place], [address], [facility] - [place] & [place] 05/25/2024 13:22:40 05/31/2024 text/html 05/31/2024 Pt here [...] reached out to both his PCP and sole stapler welt and he has appointments next week. 1 [...] that was ordered at his initial visit. -02/21/24657614-ebly-xe d male referred for history of BPH [...] been present for several years. 05/18/24 KUB ([facility]): Nonspecific non-obstructive appearing small bowel pvqrkha68/13/24 Circumcision (path: dermal inflammation, fibrosis)04/25/24 Cr 1.2, [...] and not enlarged. Nika Leblanc, APRIL, S [address], [place], [address], [place] [facility] - [place] & [place] 05/31/2024 11:41:09 06/08/2024 text/html 06/08/24 Patient returns [...] complaints of what he describes as anorgasmia.-------- 05/25/25647790-ukms-qap male returns for postop visit. He underwent circumcision on 04/28/2024. He comes to clinic today complaining of generalized malaise. He was noticing shortness of breath and producing minimal urine. He notes that when he does urinate, the urine is very dark puneet in color. He is also complained of some right testicular pain.States he was reached out to both his PCP and sole stapler welt and he has appointments next week. 1 [...] that was ordered at his initial visit. -02/21/24650624-epma-cj d male referred for history of BPH [...] been present for several years. 05/18/24 KUB ([facility]): Nonspecific non-obstructive appearing small bowel wbpcjgu43/13/24 Circumcision (path: dermal inflammation, fibrosis)04/25/24 Cr 1.2, [...] bilaterally, and not enlarged. CHELSIE GARCIA MD [address], [place], [address], [facility] - [facility] - [place] & [place] 07/05/2024 08:21:00
--- OUTSIDE RECORDS SUMMARY | 2024-10-24 14:00 | XMS_ITS | Clinical Summary ---
Author Organization [facility] Address [address] [place] [address] Care Team Providers Care Street Sweeper Operator Name Role Phone Yesica Brown MD Primary Care Provider [phone] Allergies Active Allergy Reactions Criticality Noted Date Comments Penicillins Other - please docum ent in the comment field Low 06/03/2021 Believes it doesn't work for him Medications aspirin-acetaminop hen-caffeine (Excedrin Migraine) 250-250-65 MG tablet Take 1 tablet by mouth every 6 (six) hours if needed for headaches. Active zolpidem (Ambien) 10 MG tablet Take 1 tablet (10 mg) by mouth at night if needed for sleep. 06/11/19 23 Active FreeStyle Lancets USE TO CHECK BLOOD SUGAR TWICE DAILY. 100 each 11 12/11/19 23 Active FeroSul 325 (65 Fe) MG tablet 10/24/19 23 Active apixaban (Eliquis) 5 MG tabletIndications: Atrial fibrillation, unspecified type (CMS/HCC) Take 1 tablet (5 mg) by mouth 2 (two) times a day. 180 tablet 3 02/18/20 23 Active DULoxetine (Cymbalta) [address] capsuleIndications :Major depressive disorder, recurrent, moderate (CMS/HCC) Take 1 capsule (30 mg) by mouth 1 (one) time each day. 90 capsule 3 02/18/20 23 Active Blood Pressure kitIndications:Ana devon hypertension Use to monitor blood pressure two times daily 1 kit 08/30/19 24 Active fluticasone-salmet siobhan (Advair Diskus) 250-50 MCG/ACT diskus inhaler Inhale 1 puff 2 (two) times a day. Rinse mouth with water after use to reduce aftertaste and incidence of candidiasis. Do not swallow. 60 each 3 08/30/19 24 Active metFORMIN (Glucophage) 500 MG tabletIndications: Type 2 diabetes mellitus without complication, without long-term current use of insulin Take 2 tablets (1,000 mg) by mouth 2 (two) times a day with meals. 120 tablet 3 08/30/19 24 Active albuterol 108 (90 Base) MCG/ACT inhalerIndications :Chronic obstructive pulmonary disease, unspecified COPD type (CMS/HCC) Inhale 2 puffs every 4 (four) hours if needed for wheezing or shortness of breath. 18 g 3 08/30/19 24 Active sacubitril-valsart an (Entresto) 97-103 MG tablet Take 1 tablet by mouth 2 (two) times a day. 90 tablet 3 10/07/19 24 Active carvedilol (Coreg) 25 MG tabletIndications: Acute congestive heart failure, unspecified heart failure type (CMS/HCC) TAKE 1 TABLET(25 MG) BY MOUTH TWICE DAILY WITH MEALS 60 tablet 11 10/07/19 24 Active ketorolac (Acular) 0.5 % ophthalmic solution Administer 1 drop into both eyes 2 (two) times a day. 10/17/19 24 Active moxifloxacin (Vigamox) 0.5 % ophthalmic solution Administer 1 drop into both eyes 2 (two) times a day. 10/14/19 24 Active prednisoLONE acetate (Pred-Forte) 1 % ophthalmic suspension Administer 1 drop into both eyes 2 (two) times a day. 10/14/19 24 Active finasteride (Proscar) 5 MG tabletIndications: Benign prostatic hyperplasia with urinary frequency Take 1 tablet (5 mg) by mouth 1 (one) time each day. Do not crush, chew, or split. 90 tablet 3 11/29/19 24 025 Active hydrALAZINE (Apresoline) 25 MG tablet TAKE 1 TABLET(25 MG) BY MOUTH FOUR TIMES DAILY 180 tablet 3 12/08/19 24 Active gabapentin (Neurontin) 100 MG capsuleIndications :Neuropathy Take 1 capsule (100 mg) by mouth 2 (two) times a day. 60 capsule 1 12/09/19 24 Active atorvastatin (Lipitor) 20 MG tabletIndications: Mixed hyperlipidemia TAKE 1 TABLET(20 MG) BY MOUTH EVERY NIGHT 90 tablet 1 12/19/19 24 Active amLODIPine (Norvasc) 10 MG tabletIndications: Primary hypertension TAKE 1 TABLET(10 MG) BY MOUTH 1 TIME EACH DAY 30 tablet 2 03/17/20 24 Active montelukast (Singulair) 10 MG tabletIndications: Intermittent asthma, unspecified asthma severity, unspecified whether complicated Take 1 tablet (10 mg) by mouth every night. 90 tablet 3 03/22/20 24 Active metoprolol tartrate (Lopressor) 25 MG tablet Take 1 tablet (25 mg total) by mouth 2 (two) times a day. 60 tablet 3 10/21/19 22 022 Discontin ued(Stop Taking at Discharge ) Active Problems Problem Noted Date Diagnosed Date Major depressive disorder, recurrent, moderate 1 07/01/2021 Assessment & Plan (04/30/2022 9:32 AM EST): Stable, will have the patient continue on cymbalta. Neuropathy 04/30/2022 Assessment & Plan (04/30/2022 9:33 AM EST): Medication refilled, CSA signed and UDS obtained. Iron deficiency anemia 01/29/2022 Assessment & Plan (01/29/2022 11:43 AM EDT): Will obtain labs today for further evaluation. The patient to continue on iron as directed. Benign prostatic hyperplasia with urinary freque ncy 01/29/2022 Assessment & Plan (01/29/2022 11:40 AM EDT): Likely cause of on going urinary frequency and urgency. The patient to continue taking flomax and will refer to urology for further evaluation and treatment options. The patient verbalized understanding. Normocytic anemia 10/18/2021 Diabetic neuropathy associat ed with type 2 diabetes mellitus 10/18/2021 Acute congestive heart failu re, unspecified heart failure type 10/17/2021 Assessment & Plan (04/30/2022 9:31 AM EST): Stable, medication refilled. Encouraged the patient to follow-up with cardiology. Obesity (BMI 35.0-39.9 without comorbidity) 05/18 Hyperlipidemia, unspecified 06/05/2021 Assessment & Plan (04/30/2022 9:32 AM EST): Refilled medication. Will check lipids at next visit as the patient has been out the medication. Assessment & Plan (01/29/2022 11:42 AM EDT): Lipid abnormalities are stable. Nutritional counseling was provided. and Pharmacotherapy as ordered. Lipids will be reassessed in 3 months. Iliac artery aneurysm 06/04/2021 Hepatomegaly 06/03/2021 Overview (06/03/2021): - Patient noted to have hepatomegaly on review of CTA A/P. - Infectious workup: hepatitis panel, BCx x 2, UA. - No ABX at this time, patient with normal WBC and is afebrile. Asthma 06/03/2021 Overview (06/03/2021): - Albuterol MDI PRN. COPD (chronic obstructive pulmonary disease) Atrial fibrillation 06/03/2021 Assessment & Plan (04/30/2022 9:25 AM EST): Patient in afib on PE exam. The patient to restart on his medication, refills sent for metoprolol and eliquis. Will continue to monitor. Hypokalemia 06/03/2021 Longstanding persistent atrial fibrillation 12/2021 Primary hypertension 05/24/2021 Assessment & Plan (08/18/2022 8:50 AM EDT): Hypertension is improving with treatment. Continue current treatment regimen. Blood pressure will be reassessed at the next regular appointment. Discussed with patient the long-term risks of uncontrolled blood pressure and the importance of medication compliance. Additionally, encouraged the patient to follow-up with sleep medicine as uncontrolled RAMON can exacerbate HTN. Assessment & Plan (04/30/2022 9:30 AM EST): Hypertension is poorly controlled- above goal due to lack of medication. restart medication, refills sent Blood pressure will be reassessed at the next regular appointment. Counseled the patient on the importance of taking medication and reaching out if unable to get medication. Phone number to the clinic given. Will continue to monitor. Strict return precautions provided to the patient. Assessment & Plan (01/29/2022 11:48 AM EDT): Hypertension is poorly controlled. Dietary sodium restriction. Weight loss. Regular aerobic exercise. Continue current medications. Medication changes per orders. Ambulatory blood pressure monitoring. Blood pressure will be reassessed at the next regular appointment. Will obtain renal function today on the patient, based on results, will increase Entresto for improved blood pressure control. The patient to continue on medications as directed and will make further adjustments if warranted based on the results. The patient encouraged to rescheduled missed cardiology appointment. Type 2 diabetes mellitus wit hout complication, without long-term current use of insulin 05/24/2021 Assessment & Plan (01/29/2022 11:42 AM EDT): Diabetes is stable. a1c was 5.3% on 10/17/21 Continue current treatment regimen. Dietary recommendations for ADA diet. Diabetes will be reassessed in 3 months. Will obtain a1c today, will make adjustments based on results if warranted. The patient to continue on metformin 500mg BID and monitor blood sugars at home. Ruptured iliac artery 05/23/2021 Resolved Problems Problem Noted Date Diagnosed Date Resolved Date Encounter for immunization 04/30/2022 0 08/30/2023 Asymptomatic bacteriuria 10/20/2021 Hypertensive emergency 10/18/202101/29 Acute renal injury due to circulatory failure 10/19/1901/29/2022 Class 1 obesity due to exces s calories with serious comorbidity in adult 10/18/2021 01/29/2022 Acute postoperative pain of groin 06/03/2021 06/18/2021 Overview (06/04/2021): Tylenol 1000mg Q6 hours prn, gabapentin 100mg TID Repeat CTA on 06/05 - Possible endoleak, will determine if present and which type based on repeat scans. Hypertension 06/03/2021 01/29/2022 Overview (06/03/2021): - Pending medication history/review. - Restart home medications as appropriate. Type 2 diabetes mellitus, wi thout long-term current use of insulin 06/03/2021 01/29/2022 COVID-19 virus infection 05/24/202106/2021 Overview (06/04/2021): 06/03 Covid positive [facility] Dyslipidemia 05/24/2021 01/29/2022 Elevated troponin level not due myocardial infarction 05/24/2021 01/29/2022 Immunizations Immunization Administration Dates Next Due Influenza, injectable, quadrivalent, preservativ e free 01/29/2022 Binary Thumb COVID-19 Vac cine (Hyatt Cap) 12+ years (leon-sucrose) 10/26/2021 Tdap 11/30/2021 Zoster, Recombinant 04/30/2022,01/29/2022 Family History Medical History Relation Name Comments Diabetes Maternal Grandmother Heart disease Maternal Grandmother Relation Name Status Comments Maternal Grandmother Social History Tobacco Use Types Packs/Day Years Used Date Smoking Tobacco: Never Passive Smoke Exposure: Never Smokeless Tobacco: Current Chew Tobacco Cessation:Ready to Q uit: Not Asked; Counseling Given: Not Answered Comments:for approx 50 yrs Alcohol Use Standard Drinks/Week Comments Never 0 (1 standard drink = 0.6 oz pur e alcohol) Humiliation, Afraid, Rape, and Kick questionnair e Answer Date Recorded Within the last year, have y ou been afraid of your partner or ex-partner? No 08/30/2023 Within the last year, have y ou been humiliated or emotionally abused in other ways by your partner or ex-partner? No Within the last year, have y ou been kicked, hit, slapped, or otherwise physically hurt by your partner or ex-partner? No 08/30/2023 Within the last year, have y ou been raped or forced to have any kind of sexual activity by your partner or ex-partner? No 08/30/2023 AUDIT-C Answer Date Recorded Q1: How often do you have a drink containing alcohol? Never 04/30/2022 Q2: How many drinks containi ng alcohol do you have on a typical day when you are drinking? Patient does not drink Q3: How often do you have si x or more drinks on one occasion? Never 04/30/2022 PHQ-2 Answer Date Recorded Patient Health Questionnaire-2 Score 0 11/29/2023 Hunger Vital Sign Answer Date Recorded Within the past 12 months, y ou worried that your food would run out before you got the money to buy more. Patient declined Within the past 12 months, t he food you bought just didn't last and you didn't have money to get more. Patient declined PRAPARE - Transportation Answer Date Re corded In the past 12 months, has l ack of transportation kept you from medical appointments or from getting medications? Yes 08/15 In the past 12 months, has l ack of transportation kept you from meetings, work, or from getting things needed for daily living? Yes 08/30/2023 Housing Stability Vital Sign Answer Alexey e Recorded In the last 12 months, was t here a time when you were not able to pay the mortgage or rent on time? Yes 08/30/2023 In the last 12 months, how many places have you lived? 1 08/30/2023 In the last 12 months, was t here a time when you did not have a steady place to sleep or slept in a nursing home (including now)? No 08/30/2023 PHQ-9 Answer Date Recorded Patient Health Questionnaire-9 Score 0 01/29/2023 Utilities Answer Date Recorded In the past 12 months has e waygum, gas, oil, or water [employer] threatened to shut off services in your home? No 08/30/2023 PHQ-2A Answer Date Recorded Patient Health Questionnaire-2 Score 0 04/21/2023 Sex and Gender Information Value Date Recorded Sex Assigned at Not on file Legal Sex Male 12:42 PM EST Gender Identity Not on file Sexual Orientation Not on file Last Filed Vital Signs Vital Sign Reading Time Taken Comments Blood Pressure 113/71 11/29/2023 10:01 AM EDT Pulse 79 11/29/2023 10:01 AM EDT Temperature 36.7 C (98 F) 08/30/2023 10:53 AM EDT Respiratory Rate 18 10/21/2023 7:40 AM EDT Oxygen Saturation 95% 11/29/2023 10:01 AM EDT Inhaled Oxygen Concentration - - Weight 119 kg (261 lb 14.5 oz) 11/29/2023 10:01 AM EDT Height 185.4 cm (6' 1 ) 11/29/2023 10:01 AM EDT Body Mass Index 34.55 11/29/2023 10:01 AM EDT Plan of Treatment Upcoming Encounters Date Type Department Care Team (Late st Contact Info) Description 11/28/2024 7:40 AM EDT Office Visit [facility] [place] [address] [place] [address] Gabe Ewing MD [address] [place] [address] Health Maintenance Due Date Last Done Comments [facility]-Medicare Annual Wellness (AWV) 1960 [facility]-/Child/Adol SDOH Screenings 1958 Diabetes: Dental Exam 1968 [facility]- SDOH Screenings 1976 [facility]-Adult SDOH Screenings 1976 [facility]-Hepatitis A Vaccines (1 of 2 - Risk 2-dose series) 1977 [facility]-Pneumococcal Vaccine: 50+ Years (1 of 2 - PCV) 1977 CT Colonography 2003 Colonoscopy 2003 FIT-DNA 2003 FIT 2003 FOBT 2003 Sigmoidoscopy 2003 [facility]-RSV Vaccine: 60+ Years or (1 - Risk 60-74 years 1-dose series) 2018 [id number] Vaccine (2 - season) 2024 10/26/2021 [facility]-Diabetes: Hemoglobin A1C 04/16/2024 10/18/2023, 08/30/2023, 02/19/2023, Additional history exists [facility]-Depression Screening 11/28/2024 11/29/2023, 01/15 [facility]-Influenza Vaccine (Season Ended) 2025 01/29/2022 [facility]-DTaP,Tdap,and Td Vaccines (2 - Td or Tdap) 12/01/2031 11/30/2021 [facility]-Hepatitis C Screening Completed 06/03/2021, [facility]-Zoster Vaccines Completed 04/30/2022, [facility]-Obesity Intervention Completed 024, 10/21/2023, 10/18/2023, Additional history exists HPV Vaccines Aged Out No longer eligi ble based on patient's age to complete this topic [facility]-Colorectal Cancer Screening Discontinued [facility]-HIB Vaccines Aged Out No longer e ligible based on patient's age to complete this topic [facility]-IPV Vaccines Aged Out No longer e ligible based on patient's age to complete this topic [facility]-Rotavirus Vaccines Aged Out No lo nger eligible based on patient's age to complete this topic Medical Devices Implanted Type Area Content Writer Device Identifier Shelf Expiration Date Model / Serial / Lot Component Ipsilateral Leg 26x14.5mm 18cm - [id number] Implanted:Qty: 1 on 06/16/2021 by Sarath Brewer MD at [facility] Aorta [employer]-[id number] 08/25/2022 [id number] / [id number] / [id number] Component Contralateral Leg 14.5mm 14cm - [id number] Implanted:Qty: 1 on 06/16/2021 by Sarath Berwer MD at [facility] Arterial [employer]-[id number] 04/05/2024 [id number] / [id number] / [id number] Graft Leg Bif 18mm 9.5cm Endoprosth - [id number] - [id number] Implanted:Qty: 1 on 06/16/2021 by Sarath Brewer MD at [facility] Right: Other (See Comments) [employer]-[id number] 4 09/29/2023 [id number] / [id number] / Description:Right iliac obi ry Procedures Procedure Name Priority Date/Time Associated Diagnosis Comments POCT GLYCOSYLATED HEMOGLOBIN (HGB A1C) Routine 10/18/2023 8:08 AM EDT Type 2 diabetes mellitus without complication, without long-term current use of insulin (CMS/HCC) HEPATITIS C ANTIBODY - ED W/REFLEX TO HCV QUANT PCR STAT 06/03/2021 1:36 PM EST from Last 3 Months or Most Recently Relevant to Health Maintenance Results * POCT glycosylated hemoglobin (Hb A1C) (10/18/2023 8:08 AM EDT) POCT Hemoglobin A1C 5.6 <5.7% Non-Diabet ic [facility] Kit Lot Number [id number] [facility] Kit Expiration Date 07/2025 [facility] Blood Venous blood specimen / Unknown 10/18/2023 8:08 AM EDT us Sunni MARTELL POINT OF CARE TEST EN TER/EDIT ORDERABLES Final Result Performing Organization Address City/[facility] Co de Phone Number [facility] [address] [place] [address] * [place] Hepatitis C Antibody (06/03/2021 1:36 PM EST) Hepatitis C Antibody Negative Negative 06/03/2021 3:[address] [facility] Blood Venous blood specimen / Unknown Venipuncture / Unknown 06/03/2021 1:36 PM EST 06/03/2021 1:55 PM EST us Laurent Meneses MD LAB BLOOD ORDERABLES Final Re sult Performing Organization Address City/[facility] Co de Phone Number [facility] [address] [place] [address] from Last 3 Months or Most Recently Relevant to Health Maintenance Insurance [employer] ESTES [employer] MEDICARE Advance Directives * Full Code (Latest Code Status on File) Date Activated Date Inactivated Comments 06/16/2021 10:48 AM 06/18/2021 6:12 PM Question Answer Comments Patient has decision-making capacity? Yes * Full Code Date Activated Date Inactivated Comments 06/03/2021 8:37 PM 06/16/2021 10:48 AM Question Answer Comments Patient has decision-making capacity? Yes Care Teams Street Sweeper Operator Relationship Specialty Start Date End Date Yesica Brown MD [address] [place] [id number] PCP - General Family Medicine 11/21/23
== END 2024-10-23 23:59 | disposition home or self-care (01) ==
LOC: LAB.DROPOF 10-24 13:57
PROVIDERS: PCP Family Medicine; Visit Provider Family Medicine
DX: E11.9 Type 2 diabetes mellitus without complications (principal); J43.9 Emphysema, unspecified
CPT/HCPCS: 80053; 80061; 83036; 85025

== ENCOUNTER 2024-11-06 14:06 | Outpatient (CLI) | payer MEDICARE, MEDICAID, SELFPAY ==
--- NOTE | 2024-11-06 14:08 | XR_ITS ---
FINAL REPORT CLINICAL HISTORY: fall FINDINGS: RIGHT HAND Three views of the right hand were obtained. No prior exams available for comparison. Tiny calcific densities are seen medial to the margin of the fifth MCP joint, favor chronic over acute chip fractures. Correlate with site of point tenderness. There are mild degenerative changes of the second third DIP joints. There is chronic appearing subluxation at the third PIP joint. The visualized joint spaces are normally aligned. The soft tissues are unremarkable. IMPRESSION: Small bone fragments at the fifth M CP joint, favor chronic. However, recommend correlation with site of point tenderness. Reviewed, Interpreted and Dictated by Lillie Lindsey MD Transcribed by Stephany Andujar Authenticated and [facility]
--- OUTSIDE RECORDS SUMMARY | 2024-11-06 14:09 | XMS_ITS | Clinical Summary ---
Author Organization [facility] Address [address] [place] [address] Care Team Providers Care Professional Employer Consultant Name Role Phone Yesica Brown MD Primary Care Provider [phone] Allergies Active Allergy Reactions Criticality Noted Date [...] [facility] Dyslipidemia 05/24/2021 01/29/2022 Elevated troponin level not due myocardial infarction 05/24/2021 01/29/2022 Immunizations Immunization Administration Dates Next Due Influenza, injectable, quadrivalent, preservativ e free 01/29/2022 [employer] COVID-19 Vac cine (Hyatt Cap) 12+ years [...] place to sleep or slept in a long term (including now)? No 08/30/2023 PHQ-9 Answer Date Recorded Patient Health Questionnaire-9 Score 0 01/29/2023 Utilities Answer Date Recorded In the past 12 months has e [employer], gas, oil, or water [employer] threatened to shut off services in your [...] Description 11/28/2024 7:40 AM EDT Office Visit [facility] [place] [address] , [address] [place] [address] Gabe Ewing MD [address] [place] [address] Health Maintenance Due Date Last [...] - Risk 60-74 years 1-dose series) 2018 [id number] Vaccine (2 - season) 2024 10/26/2021 [facility]-Diabetes: [...] this topic Medical Devices Implanted Type Area Toxicology Supervisor Device Identifier Shelf Expiration Date Model / Serial / Lot Component Ipsilateral Leg 26x14.5mm 18cm - [id number] Implanted:Qty: 1 on 06/16/2021 by Sarath Brewer MD at [facility] Aorta [employer]-[id number] 08/25/2022 [id number] / [id number] / [id number] Component Contralateral Leg 14.5mm 14cm - [id number] Implanted:Qty: 1 on 06/16/2021 by Sarath Brewer MD at [facility] Arterial [employer]-[id number] 04/05/2024 [id number] / [id number] / [id number] Graft Leg Bif 18mm 9.5cm Endoprosth - [id number] - [id number] Implanted:Qty: 1 on 06/16/2021 by Sarath Brewer MD at [facility] Right: Other (See Comments) [employer]-[id number] 4 09/29/2023 [id number] / [id number] / Description:Right iliac obi ry Procedures Procedure [...] [facility] Kit Lot Number [facility] Kit Expiration Date 07/2025 [facility] Blood Venous blood specimen / Unknown 10/18/2023 8:08 AM EDT us Sunni MARTELL POINT OF CARE TEST EN TER/EDIT ORDERABLES Final Result Performing Organization Address City/[facility] Co de Phone Number [facility] [address] [place] [address] * [place] Hepatitis C Antibody (06/03/2021 1:36 PM EST) Hepatitis C Antibody Negative Negative 06/03/2021 3:[address] [facility] Blood Venous blood specimen / Unknown Venipuncture / Unknown 06/03/2021 1:36 PM EST 06/03/2021 1:55 PM EST us Laurent Meneses MD LAB BLOOD ORDERABLES Final Re sult Performing Organization Address City/[facility] Co de Phone Number [facility] [address] [place] [address] from Last 3 Months or Most Recently [...] Patient has decision-making capacity? Yes Care Teams Professional Employer Consultant Relationship Specialty Start Date End Date Yesica Brown MD [address] [place] [id number] PCP - General Family Medicine 11/21/23
== END 2024-11-06 23:59 | disposition home or self-care (01) ==
LOC: RAD 14:07
PROVIDERS: PCP Family Medicine; Visit Provider Family Medicine
DX: R93.6 Abnormal findings on diagnostic imaging of limbs (principal); M79.641 Pain in right hand; W19.XXXA Unspecified fall, initial encounter
CPT/HCPCS: 73130

== ENCOUNTER 2025-02-08 10:57 | Outpatient (CLI) | payer MEDICARE, MEDICAID, SELFPAY ==
[2025-02-08 14:55] LABS: Hematocrit 45.7 % (42.0-52.0); Hemoglobin 14.7 g/dL (14.1-18.0); Immature Granulocytes % 0.2 %; Mean Corpuscular HGB Conc 32.2 g/dL (31.8-35.4); Mean Corpuscular Hemoglobin 28.0 pg (27.0-31.2); Mean Corpuscular Volume 87.0 fl (80-94); Nucleated Red Blood Cells % 0 %; Platelet Count 199 K/mm3 (142-424); Red Blood Count 5.25 M/mm3 (4.60-6.20); Red Cell Distribution Width-SD 47.4 fL; White Blood Count 8.7 K/mm3 (4.8-10.8)
--- OUTSIDE RECORDS SUMMARY | 2025-02-12 09:41 | XMS_ITS | Clinical Summary ---
Author Organization [facility] Address [address] [place] [address] Care Team Providers Care Legal Administrative Secretary Name Role Phone Yesica Brown MD Primary Care Provider [phone] Allergies Active Allergy Reactions Criticality Noted Date Comments Penicillin G Hives Medium 11/18/2024 Penicillins Other - please docum ent in the comment field,Itching Medium 06/03/2021 Believes it doesn't work for him [...] :Chronic obstructive pulmonary disease, unspecified COPD type ([facility]) Inhale 2 puffs every 4 (four) hours if needed for wheezing or shortness of breath. 18 g 3 08/30/19 24 Active sacubitril-valsart an (Entresto) 97-103 MG tablet Take 1 tablet by mouth 2 (two) times a day. 90 tablet 3 10/07/19 24 Active carvedilol (Coreg) 25 MG tabletIndications: Acute congestive heart failure, unspecified heart failure type TAKE 1 TABLET(25 MG) BY MOUTH TWICE [...] (two) times a day. 10/14/19 24 Active hydrALAZINE (Apresoline) 25 MG tablet TAKE [...] night. 90 tablet 3 03/22/20 24 Active Fluticasone Propionate, Inhal, 250 MCG/ACT aerosol powder Inhale 1 puff 2 times a day. Active traMADol (Ultram) 50 MG tablet Take 1 tablet by mouth every 8 hours as needed. Active hydrocortisone 2.5 % cream Apply 1 Application topically 2 times a day. Active nystatin-triamcino lone (Mycolog II) cream Apply 1 Application topically 2 times a day. 02/22/20 24 Active bumetanide (Bumex) 1 MG tablet Take 1 tablet by mouth daily. Active spironolactone (Aldactone) 25 MG tablet Take 2 tablets by mouth daily. Active potassium chloride CR (Klor-Con M20) 20 MEQ ER tablet Take 1 tablet by mouth daily. Active aspirin 81 MG EC tablet Take 1 tablet by mouth daily. Active empagliflozin (Jardiance) 25 MG Take 1 tablet by mouth daily. Active alfuzosin (Uroxatral) 10 MG 24 hr tablet Take 1 tablet by mouth daily. Active tamsulosin (Flomax) 0.4 MG 24 hr capsule Take 1 capsule by mouth daily. Active metoprolol tartrate (Lopressor) 25 MG tablet Take 1 tablet (25 mg total) by mouth 2 (two) times a day. 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 08/02/2024 Pleural effusion, not elsewhere classified 08/02 Abnormal result of cardiovas cular function study, unspecified 07/31/2024 Bradycardia, unspecified 07/21/2024 Cervicalgia 07/21/2024 Syncope and collapse 07/21/2024 Unspecified injury of head, initial encounter Calculus of gallbladder with out cholecystitis without obstruction 2024 Body fluid retention 05/25/2024 Epididymitis 05/25/2024 Slowing of urinary stream 05/25/2024 Unspecified abdominal pain 05/18/2024 Other obstructive and reflux uropathy 05/18/2024 Epidermal cyst 04/18/2024 Melanocytic nevi of right upper limb, including shoulder 04/18/2024 Acquired phimosis of penis 02/22/2024 Lower urinary tract symptoms due to benign prostatic hyperplasia 02/22/2024 Nocturia 02/22/2024 Other chest pain 02/22/2024 Retrograde ejaculation 02/22/2024 Benign prostatic hyperplasia 02/16/2024 Weakness 02/04/2024 Abnormal findings on diagnos tic imaging of heart and coronary circulation 01/11/2024 Contusion of left lower leg 12/23/2023 Local infection of the skin and subcutaneous tissue, unspecified 12/20/2023 Striking against or struck b y other objects, initial encounter 12/20/2023 Acute respiratory failure with hypoxia Chronic obstructive pulmonar y disease with (acute) lower respiratory infection 12/06/2023 Hemoptysis 12/06/2023 Unspecified atrial flutter 12/06/2023 Major depressive disorder, recurrent, moderate 1 07/01/2021 [...] have previous positive result on 05/24 from [facility] Dyslipidemia 05/24/2021 01/29/2022 Elevated troponin level not due myocardial infarction 05/24/2021 01/29/2022 Encounters Date Type Department Care Team Description 11/18/2024 Orders Only [facility] Acute Care [address] [place] [address], [address] [place] [address] Gardenia Stover from Last 3 Months Immunizations Immunization Administration Dates Next Due Influenza, injectable, quadrivalent, preservativ e free 01/29/2022 [employer] COVID-19 Vac cine ([employer]) 12+ years [...] place to sleep or slept in a custodial (including now)? No 08/30/2023 PHQ-9 Answer Date Recorded Patient Health Questionnaire-9 Score 0 01/29/2023 Utilities Answer Date Recorded In the past 12 months has e [employer], gas, oil, or water [employer] threatened to shut off services in your [...] 11/29/2023 10:01 AM EDT Plan of Treatment Health Maintenance Due Date Last Done Comments [facility]-Medicare Annual Wellness (AWV) 1960 [facility]-/Child/Adol SDOH Screenings [...] - Risk 60-74 years 1-dose series) 2018 [id number] Vaccine (2 - Pfizer risk series) 11/16/2021 10/26/2021 [facility]-Diabetes: Hemoglobin A1C 04/16/2024 10/18/2023, 08/30/2023, 02/19/2023, Additional history exists [facility]-Depression Screening 11/28/2024 11/29/2023, 01/15 [facility]-Influenza Vaccine (#1) 2025 01/29/2022 [facility]-DTaP,Tdap,and Td Vaccines (2 - [...] this topic Medical Devices Implanted Type Area [employer] Worker Device Identifier Shelf Expiration Date Model / Serial / Lot Component Ipsilateral Leg 26x14.5mm 18cm - [id number] Implanted:Qty: 1 on 06/16/2021 by Sarath Brewer MD at [facility] Aorta [id number] 08/25/2022 [id number] / [id number] / [id number] Component Contralateral Leg 14.5mm 14cm - [id number] Implanted:Qty: 1 on 06/16/2021 by Sarath Brewer MD at [facility] Arterial [id number] 04/05/2024 [id number] / [id number] / [id number] Graft Leg Bif 18mm 9.5cm Endoprosth - [id number] - [id number] Implanted:Qty: 1 on 06/16/2021 by Sarath Brewer MD at [facility] Right: Other (See Comments) [id number] 09/29/2023 [id number] / [id number] / Description:Right iliac obi ry Procedures Procedure [...] hemoglobin (Hb A1C) (10/18/2023 8:08 AM EDT) Pathologist [facility] POCT Hemoglobin A1C 5.6 <5.7% Non-Diabet ic [facility] Kit Lot Number [id number] [facility] Kit Expiration Date 07/2025 [facility] Blood Venous blood specimen / Unknown 10/18/2023 8:08 AM EDT us Sunni MARTELL POINT OF CARE TEST EN TER/EDIT ORDERABLES Final Result Performing Organization Address [facility] Co de Phone Number [facility] [address] [place] [address] * [place] Hepatitis C Antibody (06/03/2021 1:36 PM EST) Pathologist [facility] Hepatitis C Antibody Negative Negative 06/03/2021 3:18 PM EST [facility] Blood Venous blood specimen / Unknown Venipuncture / Unknown 06/03/2021 1:36 PM EST 06/03/2021 1:55 PM EST Laurent Meneses MD LAB BLOOD ORDERABLES Final Re sult Performing Organization Address City/[facility] Co de Phone Number [facility] [address] [place] [address] from Last 3 Months or Most Recently [...] Patient has decision-making capacity? Yes Care Teams Legal Administrative Secretary Relationship Specialty Start Date End Date Yesica Brown MD [address] [place] [id number] PCP - General Family Medicine 11/21/23
== END 2025-02-08 23:59 | disposition home or self-care (01) ==
LOC: LAB.DROPOF 02-12 09:39
PROVIDERS: PCP Family Medicine; Visit Provider Family Medicine
DX: K52.9 Noninfective gastroenteritis and colitis, unspecified (principal)
CPT/HCPCS: 85025

== ENCOUNTER 2025-02-09 08:59 | Outpatient (CLI) | payer MEDICARE, MEDICAID, SELFPAY ==
[2025-02-09 16:46] LABS: Alanine Aminotransferase 14 U/L (12-78); Albumin Level 3.5 g/dl (3.5-5.0); Albumin/Globulin Ratio 1.4 (1.1-1.8); Alkaline Phosphatase 59 U/L (38-126); Anion Gap 10.4 mEq/L (5-15); Aspartate Amino Transferase 17 U/L (17-59); Bilirubin,Total 1.5 mg/dl (0.2-1.3); Blood Urea Nitrogen 17 mg/dl (9-20); Calcium 8.3 mg/dl (8.4-10.2); Carbon Dioxide 30 mmol/L (22.0-30.0); Chloride 97 mmol/L (98-107); Creatinine,Serum 1.30 mg/dl (0.66-1.25); Estimated Glomerular Filt Rate 55 ml/min (>60); GFR (African American) 67 ML/MIN (>60); Globulin 2.5 g/dL (1.3-3.2); Glucose 177 mg/dl (74-100); Potassium 3.4 mmoL/L (3.5-5.1); Sodium 134 mmol/L (136-145); Total Protein,Serum 6.0 g/dl (6.3-8.2)
== END 2025-02-09 23:59 | disposition home or self-care (01) ==
LOC: LAB.DROPOF 09:00
PROVIDERS: PCP Family Medicine; Visit Provider Family Medicine
DX: K52.9 Noninfective gastroenteritis and colitis, unspecified (principal)
CPT/HCPCS: 80053; 85025; 87045

== ENCOUNTER 2025-03-12 09:02 | Outpatient (CLI) | payer MEDICARE, MEDICAID, SELFPAY ==
[2025-03-12 19:18] LABS: Anion Gap 11.2 mEq/L (5-15); Blood Urea Nitrogen 19 mg/dl (9-20); Calcium 8.8 mg/dl (8.4-10.2); Carbon Dioxide 30 mmol/L (22.0-30.0); Chloride 97 mmol/L (98-107); Creatinine,Serum 1.20 mg/dl (0.66-1.25); Estimated Glomerular Filt Rate 61 ml/min (>60); GFR (African American) 73 ML/MIN (>60); Glucose 238 mg/dl (74-100); Potassium 4.2 mmoL/L (3.5-5.1); Sodium 134 mmol/L (136-145)
[2025-03-13 03:19] LABS: Hemoglobin A1C 6.6 % (4.0-6.0)
== END 2025-03-12 23:59 ==
LOC: LAB.DROPOF 03-13 11:20
PROVIDERS: PCP Family Medicine; Visit Provider Family Medicine
DX: E11.9 Type 2 diabetes mellitus without complications (principal)
CPT/HCPCS: 80048; 83036